=== PATIENT | female | born 1985 | race Caucasian/White ===

== ENCOUNTER 2020-10-18 10:56 | Outpatient (CLI) | payer BC, MEDICARE, MEDICAID, SELFPAY ==
[2020-10-18 12:06] LABS: Anion Gap 2 mmol/L (8-16); Blood Urea Nitrogen 9 mg/dL (7-17); Calcium 8.6 mg/dL (8.4-10.2); Carbon Dioxide 32 mmol/L (22-30); Chloride 103 mmol/L (98-107); Estimated Glomerular Filt Rate > 60; Glucose 85 mg/dL (65-105); Potassium 3.4 mmol/L (3.4-5.0); Sodium 137 mmol/L (137-145)
[2020-10-18 13:01] LABS: Vitamin D 25 Hydroxy 43.3 ng/mL
== END 2020-10-18 10:57 | disposition home or self-care (01) ==
PROVIDERS: PCP Internal Medicine; Visit Provider Internal Medicine Endocrinology, Diabetes & Metabolism
DX: E55.9 Vitamin D deficiency, unspecified (principal); E27.40 Unspecified adrenocortical insufficiency
CPT/HCPCS: 36415; 80048; 82306; 84443

== ENCOUNTER 2020-11-25 15:28 | Outpatient (CLI) | payer BC, MEDICARE, MEDICAID, SELFPAY ==
--- NOTE | ~2020-11-25 | US_ITS ---
EXAMINATION: US pelvic complete EXAM DATE: 11/25/2020 16:05 INDICATION: Pelvic and perineal pain. TECHNIQUE: Pelvic transabdominal sonogram was performed. There are multiple grayscale and Doppler im ages available for interpretation. Comparison is made to prior examination from 02/05/2018. FINDINGS: Uterus measures 6.9 x 3.2 x 2.9 cm, with a masslike region which appears contiguous to bot h uterus and the right ovary measuring up to 4 cm in size, similar in size to the mass identified on CT 2019 suspected to be an exophytic fibroid. There is another fibroid measuring 1.2 cm. Endometrial stripe measures 5 mm, within normal limits. There is no free pelvic fluid. Right adnexa: The ovary measures 2.2 x 4.2 x 2.2 cm and is morphologically normal. Ovarian vascular f low confirmed. Left adnexa: The ovary measures 1.7 x 3.0 x 1.6 cm and is morphologically normal. Ovarian vascular fl ow confirmed. IMPRESSION: 1. Fibroid uterus. Reviewed, dictated and finalized at location A. [facility] IMPRESSION: 1. Fibroid uterus.
== END 2020-11-25 15:29 | disposition home or self-care (01) ==
PROVIDERS: PCP Internal Medicine; Visit Provider Obstetrics & Gynecology
DX: R10.2 Pelvic and perineal pain (principal); D25.9 Leiomyoma of uterus, unspecified
CPT/HCPCS: 76856

== ENCOUNTER → 2021-02-19 06:56 | Outpatient (CLI) | payer BC, MEDICARE, MEDICAID, SELFPAY ==
[2021-02-19 19:24] LABS: SARS-CoV-2 RNA PCR Negative
== END ==
PROVIDERS: PCP Internal Medicine; Visit Provider Internal Medicine
DX: R68.89 Other general symptoms and signs (principal); Z20.822 Contact with and (suspected) exposure to COVID-19
CPT/HCPCS: C9803; U0003; U0005

== ENCOUNTER → 2021-03-10 06:58 | Outpatient (CLI) | payer BC, MEDICARE, MEDICAID, SELFPAY ==
[2021-03-10 18:14] LABS: SARS-CoV-2 RNA PCR Negative
== END ==
PROVIDERS: PCP Internal Medicine; Visit Provider Internal Medicine
DX: Z91.89 Other specified personal risk factors, not elsewhere classified (principal); Z20.822 Contact with and (suspected) exposure to COVID-19
CPT/HCPCS: C9803; U0003; U0005

== ENCOUNTER 2021-08-14 16:11 | Observation (INO) | payer BC, MEDICARE, MEDICAID, SELFPAY ==
[2021-08-14] VITALS (17 sets, daily range): BP systolic 96–111; BP diastolic 67–78; PULSE 67–95; RESP 12–20; TEMP 36.9; O2SAT 91–100; BMI 18.2
--- NOTE | ~2021-08-14 | CT_ITS ---
EXAMINATION: CT abdomen pelvis w con DATE: 08/14/2021 18:52 INDICATION: Epigastric abdominal pain TECHNIQUE: Computed tomography (CT) of the abdomen and pelvis was performed with 100 cc Omnipaque 350 intravenous contrast. Automated exposure control and iterative reconstruction technique were employe d. Exam dose: 166.56 mGy-cm total exam DLP. COMPARISON: 09/20/2019 CT abdomen pelvis FINDINGS: The lung bases are clear. Heart size is within normal range. No pericardial or pleural effu honorio. The liver, gallbladder, bile ducts, spleen, pancreas, pancreatic duct, and adrenal glands are unremar kable. Approximately 2.7 mm upper pole left renal calculus and up to 7 mm lower pole left renal calculus and several 2 mm or smaller right renal calculi are noted. No ureteral calculus or hydroureteronephrosis is detected. The urinary bladder is unremarkable. There is a retroflexed uterus with to 4.5 cm posterior serosal fibroid. There is fluid distention of the lower uterine segment of the uterus consider further evaluation with pelvic ultrasound examinatio n exclude endometrial or cervical malignancy. Normal caliber of the abdominal aorta. No intraperitoneal or retroperitoneal or pelvic mass lesion or adenopathy or ascites. There is prominent thickness of the wall of the stomach which may be due to under distention versus g astritis. No bowel obstruction or intraperitoneal free air. The largely gas distended retrocecal appendix measures up to 7 mm diameter but no periappendiceal fat stranding or fluid is noted. Thoracolumbar spinal rods and pedicle screws are noted. No suspicious osteolytic or osteoblastic lesi ons are noted. IMPRESSION: Bilateral nephrolithiasis Retroflexed uterus with 4.5 cm serosal fibroid Abnormal distention of the lower uterine segment endometrial cavity; and mediolateral or cervical mal ignancy are not excluded Reviewed, dictated and finalized at [facility]. Reviewed, dictated and finalized at location [facility]. IMPRESSION: Bilateral nephrolithiasis Retroflexed uterus with 4.5 cm serosal fibroid Abnormal distention of the lower uterine segment endometrial cavity; and mediol ateral or cervical malignancy are not excluded
[2021-08-14] MEDS: SODIUM CHLORIDE 0.9% IV 1,000 ML 999 ML IV CONT ×2 (16:41→17:31)
[2021-08-14] MEDS: MORPHINE SULFATE (*CRX) 4 MG/ML INJ IV PUSH (16:42)
[2021-08-14] MEDS: ONDANSETRON INJ 4 MG/2 ML VIAL IV PUSH (16:42)
[2021-08-14 16:43] LABS: Basophils Absolute Auto 0.1 K/mm3 (0.0-0.1); Basophils Percent Auto 0.5 % (0.2-1.2); Eosinophils Absolute Auto 0.1 K/mm3 (0-0.3); Eosinophils Percent Auto 1.4 % (0-4.4); Hematocrit 45.9 % (37.0-47.0); Hemoglobin 15.9 g/dL (12.0-15.0); Immature Granulocyte Percent A 1.1 % (0-0.5); Lymphocytes Absolute Auto 1.77 K/mm3 (0.9-3.2); Lymphocytes Percent Auto 18.6 % (18.3-44.2); Mean Corpuscular HGB Conc 34.6 g/dl (32-36); Mean Corpuscular Hemoglobin 30.1 pg (26-34); Mean Corpuscular Volume 86.9 fl (80-100); Mean Platelet Volume 10.6 fl (7.4-10.4); Monocytes Absolute Auto 0.5 K/mm3 (0.1-0.6); Monocytes Percent Auto 4.7 % (2.6-8.5); Neutrophils Percent Auto 73.7 % (45.5-73.1); Platelet Count Result 363 k/mm3 (150-375); Red Blood Count 5.28 M/mm3 (4.2-5.4); Red Cell Distribution Width 12.7 % (11.5-14.5); White Blood Count 9.5 K/mm3 (4.5-10.0)
[2021-08-14 16:55] LABS: Alanine Aminotransferase 22 U/L (4-35); Albumin Level 5.3 g/dL (3.5-5.1); Alkaline Phosphatase 48 U/L (38-126); Anion Gap 11 mmol/L (8-16); Aspartate Amino Transferase 33 U/L (14-36); Bilirubin,Total 0.9 mg/dL (0.2-1.3); Blood Urea Nitrogen 27 mg/dL (7-17); Calcium 10.1 mg/dL (8.4-10.2); Carbon Dioxide 25 mmol/L (22-30); Chloride 89 mmol/L (98-107); Estimated CRCL calculation 48 ml/min; Estimated Glomerular Filt Rate > 60; Glucose 127 mg/dL (65-110); Lipase 236 U/L (23-300); Potassium 5.9 mmol/L (3.4-5.0); Sodium 125 mmol/L (137-145)
[2021-08-14 17:27] LABS: Add Urine Microscopic? YES; Appearance Urine Cloudy (Clear); Bacteria Urine Trace /hpf; Bilirubin Urine Negative (Negative); Blood Urine Negative (Negative); Color Urine Yellow (Yellow); Glucose Urine UA Negative (Negative); Hyaline Casts Urine 50+ /lpf; Ketones Urine Negative (Negative); Leukocyte Esterase Ur 1+ LEU/UL (Negative); Mucus Urine Few /lpf; Nitrate Urine Negative (Negative); Protein Urine 1+ mg/dL (Negative); RBC Urine 0-2 /hpf (0-2); Specific Grav Ur 1.023 (1.001-1.035); Squamous Epithelial Cell Urine Few /hpf (Few); Urobilinogen Urine Negative mg/dL (<2.0); WBC Urine 0-3 /hpf
--- NOTE | 2021-08-14 18:40 | ED.NAVMDI ---
HPI - Nausea/Vomiting/Diarrhea General Chief complaint: Nausea/Vomiting/Diarrhea Stated complaint: Nausea, Dizzy, Vomiting Time Seen by Provider: 08/14/21 16:13 History of Present Illness HPI Narrative: Patient is a 36-year-old female who presents ER with epigastric pain as well as nausea and vomiting. Intermittent over the last couple days. Reports she has bouts of severe pain with retching. Tried Mylanta last night with mild improvement. No fevers or chills or sweats. 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 She took a double dose of her steroids today which was prednisone 10mg. She usually takes prednisone 2.5 mg followed by 5 mg the next day alternating. Patient has intellectual disability which makes history slightly more difficult. Related Data Home Medications Medication Instructions Recorded Confirmed atomoxetine 60 mg PO QAM 09/20/19 08/14/21 citalopram 40 mg PO DAILY 09/20/19 08/14/21 fludrocortisone 0.1 mg PO DAILY 09/20/19 08/14/21 folic acid 2 mg PO BID 09/20/19 08/14/21 loratadine [Claritin] 10 mg PO DAILY 09/20/19 08/14/21 meclizine 12.5 mg PO TID 09/20/19 08/14/21 methylphenidate HCl [Concerta] 27 mg PO QAM 09/20/19 08/14/21 pantoprazole 40 mg PO BID 09/20/19 08/14/21 prednisone See Rx Instructions .ROUTE .COMPLEX 09/20/19 08/14/21 pregabalin 150 mg capsule 150 mg PO BID 10/31/20 08/14/21 Allergies Allergy/AdvReac Type Severity Reaction Status Date / Time No Known Allergies Allergy Verified 12/24/20 09:18 Review of Systems Review of Systems: All systems reviewed & are unremarkable except as noted in HPI and below Constitutional: Constitutional: Denies chills, Denies fever(s) and Denies weakness ENT: Denies nasal congestion and Denies sore throat Cardiovascular: Cardiovascular: Denies chest pain, Denies rapid heart rate and Denies radiating jaw, neck or arm pain Respiratory: Respiratory: Denies cough, Denies dyspnea and Denies wheezing Gastrointestinal: Gastrointestinal: Reports abdominal pain, Denies diarrhea, Reports nausea and Reports vomiting [facility] Past Medical History Medical History (Updated 08/15/21 @ 01:04 by Roya Workman DO) Acid reflux Courtland's disease 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 She is single and does not have children. 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 Her mother is her legal guardian. Smoking status: Never smoker Alcohol intake: never Substance use: never Substance use type: does not use Additional living arrangements comments: Independent living with some assistance. Spiritual care concerns: No Exam Narrative: GENERAL: Well-appearing, well-nourished, and in no acute distress. HEAD: Normocephalic, atraumatic. EYES: PERRL and EOMI. CHEST: Clear to auscultation. No respiratory distress. HEART: Regular rate and rhythm. Normal peripheral pulses. ABDOMEN: Soft, mild epigastric tenderness, nondistended, normal bowel
[2021-08-14 19:08] LABS: Cortisol Random 2.91 ug/dL
[2021-08-14] MEDS: HYDROCORTISONE SODIUM SUCCINATE 100 MG/2 ML VIAL IV PUSH (19:59)
--- NOTE | 2021-08-14 20:29 | PM.IMHP ---
H&P: HPI History of Present Illness Date/Time: 08/14/21 20:29 Chief Complaint: epigastric pain, nausea vomiting Narrative: 36-year-old female with a past medical history of ADHD, depression, intellectual disability, GERD and [place]'s disease who presented to the ER with epigastric pain, nausea and vomiting starting this morning. The patient is only a fair historian due to her intellectual disability and majority of the information comes from mother was at bedside. 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 The pain was burning in nature and a 10/10 in intensity at its worst. The pain did not radiate. It was associated with some nausea and decreased oral intake. She did have 1 episode of emesis yesterday and today. Her pain improved to a 5/10 in intensity after she received GI cocktail, Zofran, morphine and IV fluids in the ER. At the time of my evaluation the patient was requesting food and tolerated eating some peaches and pretzels. She cannot tell me if her pain worsens when she eats. Her mother reports that she does have frequent bouts of constipation. She has had prior episodes of steroid induced gastritis with a prior EGD several years ago to rule out celiac disease due to a general thin body habitus. The mother reports that the patient did have history of acute angle of SMA on imaging. The patient states her last bowel movement was yesterday and was reportedly normal. Her mother reports that the patient abdomen is frequently distended. The patient felt so poorly yesterday that she decided to go home with her parents. She did receive a dose of Pepto-Bismol which did not really seem to help her symptoms. When the patient's mother returned home today the patient was in the bathroom lying on the floor and diaphoretic. She was pale and her mother was concerned that she may be having an [place]'s crisis. Patient has not been having any dysuria, hematuria or changes in urinary frequency. She denies any chest pain or shortness of breath. She has not had any cough or congestion. She received her Moderna vaccine and is scheduled to have her booster next week. While in the ER the patient's blood pressures did briefly drop below 100 systolic. She rebounded after IV fluid administration and IV hydrocortisone. She does have a history of uterine fibroids and follows with Dr. diallo. Her CT scan of the abdomen demonstrated 4.5 cm posterior subserosal fibroid and fluid distention of the lower uterine segment. The patient had a pelvic ultrasound November 2020 which demonstrated a mass of similar size and sock to be an exophytic fibroid. The patient is following and Dr. Diallo as outpatient. She has not been having any dysfunctional uterine bleeding or painful menses. Review of Systems Review of Systems: 12 systems were reviewed with pertinent positives and negatives per HPI. Except as documented in the HPI, all other systems were reviewed and are negative. [facility] Past Medical History Medical History (Updated 08/15/21 @ 01:04 by Roya Workman DO) Acid reflux [place]'s disease 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
--- NOTE | 2021-08-14 22:44 | ADMGEN ---
This patient, Leydi East, was admitted to [facility] Surg Room 317-01. Patient/family oriented to hospital policies and general routines including ID bracelet, bed and alarms, visiting hours, pain management, procedures, bathroom and other care routines, personal items, smoking policy, room service/diet, and visiting hours. Information on how to activate the Rapid Response Team has been discussed. Patient/Family are encouraged to report perceived risks to care and to ask questions if they do not understand what they are told or what they should do.
[2021-08-15] VITALS (8 sets, daily range): BP systolic 104–117; BP diastolic 56–70; PULSE 71–103; RESP 16–18; TEMP 36.2–36.4; O2SAT 98–100
[2021-08-15] MEDS: SODIUM CHLORIDE 0.9% IV 1,000 ML 125 ML IV CONT ×2 (00:37→12:16)
[2021-08-15] MEDS: PREGABALIN (*CRX) 75 MG CAPSULE 150 MG PO ×3 (00:37→17:54)
[2021-08-15] MEDS: MECLIZINE HCL 12.5 MG TABLET PO ×4 (00:37→17:54)
[2021-08-15] MEDS: HYDROCORTISONE SODIUM SUCCINATE 100 MG/2 ML VIAL 50 MG IV PUSH ×4 (00:37→17:55)
[2021-08-15 06:55] LABS: Basophils Percent Auto 0.3 % (0.2-1.2); Hematocrit 35.7 % (37.0-47.0); Immature Granulocyte Absolute 0.07 K/mm3 (0.00-0.031); Lymphocytes Absolute Auto 0.96 K/mm3 (0.9-3.2); Lymphocytes Percent Auto 13.4 % (18.3-44.2); Mean Corpuscular HGB Conc 33.6 g/dl (32-36); Mean Corpuscular Hemoglobin 30.1 pg (26-34); Mean Corpuscular Volume 89.5 fl (80-100); Monocytes Absolute Auto 0.1 K/mm3 (0.1-0.6); Monocytes Percent Auto 1.7 % (2.6-8.5); Neutrophils Percent Auto 83.6 % (45.5-73.1); Platelet Count Result 295 k/mm3 (150-375); Red Blood Count 3.99 M/mm3 (4.2-5.4); Red Cell Distribution Width 12.8 % (11.5-14.5); White Blood Count 7.2 K/mm3 (4.5-10.0)
[2021-08-15 07:10] LABS: Alanine Aminotransferase 17 U/L (4-35); Alkaline Phosphatase 31 U/L (38-126); Anion Gap 5 mmol/L (8-16); Aspartate Amino Transferase 59 U/L (14-36); Bilirubin,Total 0.6 mg/dL (0.2-1.3); Blood Urea Nitrogen 13 mg/dL (7-17); Calcium 8.3 mg/dL (8.4-10.2); Carbon Dioxide 23 mmol/L (22-30); Chloride 101 mmol/L (98-107); Estimated CRCL calculation 89 ml/min; Estimated Glomerular Filt Rate > 60; Glucose 128 mg/dL (65-110); Magnesium 1.7 mg/dL (1.6-2.3); Phosphorus 4.9 mg/dL (2.5-4.5); Potassium 4.7 mmol/L (3.4-5.0); Sodium 129 mmol/L (137-145)
[2021-08-15] MEDS: FLUDROCORTISONE ACETATE 0.1 MG TABLET PO (08:25)
[2021-08-15] MEDS: LORATADINE 10 MG TABLET PO (08:25)
[2021-08-15] MEDS: FOLIC ACID 1 MG TABLET 2 MG PO ×2 (08:25→17:55)
[2021-08-15] MEDS: CITALOPRAM HYDROBROMIDE 20 MG TABLET 40 MG PO (08:26)
[2021-08-15] MEDS: PANTOPRAZOLE SODIUM IV 40 MG VIAL IV PUSH ×2 (08:26→17:55)
[2021-08-15] MEDS: polyethylene glycoL 3350 17 GM POWD.PACK PO (08:26)
--- NOTE | 2021-08-15 11:04 | PM.IMPN ---
Progress Note: A&P Assessment and Plan (1) Acute adrenal crisis: Code(s): E27.2 - Addisonian crisis Status: Acute Assessment and Plan: Evidence by hyperkalemia, hyponatremia and borderline low blood pressures. Likely secondary to acute gastritis/GI symptoms complicated by dehydration. Stress dose hydrocortisone 100 mg IV given in the ER will continue stress dose hydrocortisone 50 mg IV q.6 hours times 12-24 hours. Electrolytes are improving this morning will continue hydrocortisone for today and was switched to prednisone for her addisonian crisis and subsequent taper If stable will plan for discharge home tomorrow (2) Acute hyperkalemia: Code(s): E87.5 - Hyperkalemia Status: Acute Assessment and Plan: Likely due to addisonian crisis. 5.9 on admission, this has resolved (3) Acute hyponatremia: Code(s): E87.1 - Hypo-osmolality and hyponatremia Status: Acute Assessment and Plan: Likely due to addisonian crisis. 125 on admission. upto 129 today recheck her sodium level in the morning (4) Dehydration: Code(s): E86.0 - Dehydration Status: Acute Assessment and Plan: Evidence by relative polycythemia, elevated BUN, total protein and albumin and greater than 50 hyaline casts and UA. She received 2 L of normal saline in the ER. Will continue IV fluid hydration at 125 mL an hour Will continue IV hydration today and recheck the level in the morning (5) Constipation: Qualifiers: Constipation type: unspecified constipation type Qualified Code(s): K59.00 - Constipation, unspecified Code(s): K59.00 - Constipation, unspecified Status: Acute Assessment and Plan: Patient denies any acute constipation symptoms but does have some abdominal distension and some of her GI symptoms could be due to constipation Management of chronic constipation was discussed with the patient's mother and she is interested in trying MiraLax as a treatment option instead of till cap stool softeners that the patient has been using at home. Will start MiraLax 17 g in a.m.. I also discussed the possibility of adding a soluble fiber on discharge home as these 2 medications could be dissolved in clear liquids. (6) Uterine fibroid: Qualifiers: Uterine leiomyoma location: unspecified location Qualified Code(s): D25.9 - Leiomyoma of uterus, unspecified Code(s): D25.9 - Leiomyoma of uterus, unspecified Status: Inactive Assessment and Plan: The patient already has follow-up with gynecology. CT abdomen with some fullness in the lower uterine area likely will need a pelvic ultrasound she is going to follow-up with gynecology in can be done as an outpatient basis (7) Epigastric abdominal pain: Code(s): R10.13 - Epigastric pain Status: Acute Assessment and Plan: Possibly due to steroid induced gastritis versus acute nonspecific gastritis. Will place patient on Protonix IV b.i.d. and advanced diet as tolerated. If symptoms persist the patient may benefit from outpatient EGD. Additional Plan History of GERD History of [place]'s disease History of Addisonian crisis 11/2012, 10/2014, 08/2021 History of Attention deficit disorder on atomoxetine and Concerta Cognitive developmental delay Grand mal seizure 05/2011 Hearing loss IUD (intrauterine device) in place Mirena IUD placed 12/24/2020 Kidney stones Scoliosis status post back surgery Uterine fibroid Sees Dr. 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 discussed with her mother bedside Subjective Date/time seen: 08/15/21 11:04 Interval history: HPI:36-year-old female with a past medical history of ADHD, depression, intellectual disability, GERD and [place]'s disease who presented to the ER with epigastric pain, nausea and vomiting starting this morning. The patient is only a fair historian due to her inte
[2021-08-15] MEDS: CALCIUM CARBONATE (TUMS) 500 MG (200 MG ELEMENTAL) PO (15:09)
[2021-08-16] MEDS: HYDROCORTISONE SODIUM SUCCINATE 100 MG/2 ML VIAL 50 MG IV PUSH ×2 (00:06→05:30)
--- NOTE | 2021-08-16 01:01 | PC.NURSE ---
Daylight Savings Time For Daylight Savings Time Ending in the Fall - Clocks are moved back. For Daylight Savings Time Beginning in the Spring - Clocks are moved ahead. For [facility], the time of change occurs at 0200 hrs. Time is taken from the civil process server. This entry on the patient's chart recognizes the change in time reflected during documentation. Example: 2 entries for vital signs may be charted for 0200 hrs.
[2021-08-16] MEDS: SODIUM CHLORIDE 0.9% IV 1,000 ML 125 ML IV CONT (05:30)
[2021-08-16 05:39] VITALS: BP 94/61; PULSE 69; RESP 12; TEMP 35.6; O2SAT 100
[2021-08-16 07:18] LABS: Alanine Aminotransferase 16 U/L (4-35); Albumin Level 3.2 g/dL (3.5-5.1); Alkaline Phosphatase 29 U/L (38-126); Anion Gap 3 mmol/L (8-16); Aspartate Amino Transferase 22 U/L (14-36); Bilirubin,Total 0.4 mg/dL (0.2-1.3); Blood Urea Nitrogen 12 mg/dL (7-17); Calcium 8.1 mg/dL (8.4-10.2); Carbon Dioxide 26 mmol/L (22-30); Chloride 107 mmol/L (98-107); Estimated CRCL calculation 108 ml/min; Estimated Glomerular Filt Rate > 60; Glucose 91 mg/dL (65-110); Magnesium 1.7 mg/dL (1.6-2.3); Potassium 3.3 mmol/L (3.4-5.0); Sodium 136 mmol/L (137-145)
[2021-08-16 07:19] LABS: Basophils Percent Auto 0.3 % (0.2-1.2); Eosinophils Percent Auto 0.2 % (0-4.4); Hematocrit 31.8 % (37.0-47.0); Hemoglobin 10.4 g/dL (12.0-15.0); Immature Granulocyte Absolute 0.07 K/mm3 (0.00-0.031); Immature Granulocyte Percent A 0.8 % (0-0.5); Lymphocytes Absolute Auto 3.03 K/mm3 (0.9-3.2); Lymphocytes Percent Auto 33.7 % (18.3-44.2); Mean Corpuscular HGB Conc 32.7 g/dl (32-36); Mean Corpuscular Hemoglobin 30.2 pg (26-34); Mean Corpuscular Volume 92.4 fl (80-100); Mean Platelet Volume 11.5 fl (7.4-10.4); Monocytes Absolute Auto 0.5 K/mm3 (0.1-0.6); Neutrophils Absolute Auto 5.3 K/mm3 (1.3-6.7); Platelet Count Result 223 k/mm3 (150-375); Red Blood Count 3.44 M/mm3 (4.2-5.4); Red Cell Distribution Width 13.2 % (11.5-14.5)
[2021-08-16] MEDS: CITALOPRAM HYDROBROMIDE 20 MG TABLET 40 MG PO (08:32)
[2021-08-16] MEDS: LORATADINE 10 MG TABLET PO (08:32)
[2021-08-16] MEDS: FLUDROCORTISONE ACETATE 0.1 MG TABLET PO (08:32)
[2021-08-16] MEDS: MECLIZINE HCL 12.5 MG TABLET PO (08:32)
[2021-08-16] MEDS: PANTOPRAZOLE SODIUM IV 40 MG VIAL IV PUSH (08:32)
[2021-08-16] MEDS: FOLIC ACID 1 MG TABLET 2 MG PO (08:32)
[2021-08-16] MEDS: polyethylene glycoL 3350 17 GM POWD.PACK PO (08:33)
[2021-08-16] MEDS: predniSONE 10 MG TABLET 30 MG PO (09:41)
[2021-08-16] MEDS: PREGABALIN (*CRX) 75 MG CAPSULE 150 MG PO (09:41)
--- NOTE | 2021-08-16 10:38 | PM.DS ---
DS: Admitting Diagnosis Discharge Date 08/16/2021 Admitting Diagnosis Nausea vomiting abdominal pain DS: Discharge Diagnosis Discharge Diagnosis (1) Acute adrenal crisis: Code(s): E27.2 - Addisonian crisis Status: Acute Assessment and Plan: Evidence by hyperkalemia, hyponatremia and borderline low blood pressures. Likely secondary to acute gastritis/GI symptoms complicated by dehydration. Stress dose hydrocortisone 100 mg IV given in the ER will continue stress dose hydrocortisone 50 mg IV q.6 hours times 12-24 hours. Electrolytes improved and back to normal by the time of discharge. She was continued on hydrocortisone IV 50 mg q.6 hours for 24-48 hours and was switched to prednisone equivalent dose. She will continue to taper prednisone over the next few days back to her normal regimen. Her normal regimen of prednisone is 2.5 mg alternate with 5 mg daily. Along with fludrocortisone 0.1 mg daily (2) Acute hyperkalemia: Code(s): E87.5 - Hyperkalemia Status: Acute Assessment and Plan: Likely due to addisonian crisis. 5.9 on admission, this has resolved (3) Acute hyponatremia: Code(s): E87.1 - Hypo-osmolality and hyponatremia Status: Acute Assessment and Plan: Likely due to addisonian crisis. 125 on admission. Slowly improved back to normal by the time of discharge. (4) Dehydration: Code(s): E86.0 - Dehydration Status: Acute Assessment and Plan: Evidence by relative polycythemia, elevated BUN, total protein and albumin and greater than 50 hyaline casts and UA. She received 2 L of normal saline in the ER. She was continued on IV hydration and was subsequently discontinued after resolution of dehydration (5) Constipation: Qualifiers: Constipation type: unspecified constipation type Qualified Code(s): K59.00 - Constipation, unspecified Code(s): K59.00 - Constipation, unspecified Status: Acute Assessment and Plan: Patient denies any acute constipation symptoms but does have some abdominal distension and some of her GI symptoms could be due to constipation Management of chronic constipation was discussed with the patient's mother and she is interested in trying MiraLax as a treatment option instead of till cap stool softeners that the patient has been using at home. Will start MiraLax 17 g in a.m.. I also discussed the possibility of adding a soluble fiber on discharge home as these 2 medications could be dissolved in clear liquids. (6) Uterine fibroid: Qualifiers: Uterine leiomyoma location: unspecified location Qualified Code(s): D25.9 - Leiomyoma of uterus, unspecified Code(s): D25.9 - Leiomyoma of uterus, unspecified Status: Inactive Assessment and Plan: The patient already has follow-up with gynecology. CT abdomen with some fullness in the lower uterine area likely will need a pelvic ultrasound she is going to follow-up with gynecology in can be done as an outpatient basis (7) Epigastric abdominal pain: Code(s): R10.13 - Epigastric pain Status: Acute Assessment and Plan: Possibly due to steroid induced gastritis versus acute nonspecific gastritis. Will place patient on Protonix IV b.i.d. and advanced diet as tolerated. If symptoms persist the patient may benefit from outpatient EGD. She will discuss with primary care physician for referral to production weigher for outpatient EGD DS: Summary Hospital Course Hospital Course: See above Time Spent with Patient Time attestation: Total time spent providing and/or coordinating discharge services: 35 minutes Exam Narrative: General: Thin body habitus, no acute distress HEENT: Mucous membranes are moist, no oral pharyngeal erythema, pupils are equal and reactive, no scleral icterus, no conjunctival pallor Respiratory: Clear to auscultation bilaterally, no increased work
== END 2021-08-16 11:25 | disposition home or self-care (01) ==
LOC: ANHED 19:59 → ANH3MEDSUR 08-16 10:38
PROVIDERS: Admitting Provider Internal Medicine; Emergency Provider Emergency Medicine; PCP Internal Medicine; Visit Provider Internal Medicine
DX: E27.2 Addisonian crisis (principal); E27.1 Primary adrenocortical insufficiency; E86.0 Dehydration; K59.00 Constipation, unspecified; R10.13 Epigastric pain; D25.9 Leiomyoma of uterus, unspecified; F90.9 Attention-deficit hyperactivity disorder, unspecified type; F79 Unspecified intellectual disabilities; F32.9 Major depressive disorder, single episode, unspecified; K21.9 Gastro-esophageal reflux disease without esophagitis
CPT/HCPCS: 36415; 74177; 80053; 81001; 81025; 82533; 83690; 83735; 84100; 85025; 96361; 96374; 96375; 96376; 99285; A9270; C9113; G0378; J1720; J2270; J2405; J7030; J7512; Q9967

== ENCOUNTER 2022-01-01 02:20 | Day surgery (SDC) | payer MEDICARE, BC, MEDICAID, SELFPAY ==
[2021-12-30 15:53] VITALS: BMI 19.3
--- NOTE | 2022-01-01 10:04 | WPDANESEPPF ---
Anes - Initial Pre Proc Eval Procedure: Operation Date: 01/01/22 11:00 Proposed Procedures p Esophagogastroduodenoscopy - Momo Kelly MD Date/Time: 01/01/22 10:04 Surgeon: Momo Kelly MD Pre Op Diagnosis: Epigastric pain Patient Data Age: 36 Gender: F Height: 1.54 m Weight: 45.5 kg Allergies Allergy/AdvReac Type Severity Reaction Status Date / Time No Known Allergies Allergy Verified 12/30/21 15:52 Home Medications Medication Instructions Recorded Confirmed Type citalopram 40 mg PO DAILY 09/20/19 12/30/21 History fludrocortisone 0.1 mg PO DAILY 09/20/19 12/30/21 History folic acid 2 mg PO BID 09/20/19 12/30/21 History loratadine [Claritin] 10 mg PO DAILY 09/20/19 12/30/21 History meclizine 12.5 mg PO TID 09/20/19 12/30/21 History methylphenidate HCl [Concerta] 27 mg PO QAM 09/20/19 12/30/21 History prednisone See Rx Instructions .ROUTE .COMPLEX 09/20/19 12/30/21 History pregabalin 150 mg capsule 150 mg PO BID 10/31/20 12/30/21 History atomoxetine 40 mg PO DAILY 12/30/21 12/30/21 History pantoprazole 40 mg PO BID 12/30/21 12/30/21 History Patient hx anesthesia problems: none Family hx anesthesia problems: none Results Review: All pre-operative results and documents have been reviewed as part of the pre-operative evaluation. [facility] Past Medical History Medical History (Updated 08/15/21 @ 01:04 by Roya Workman DO) Acid reflux [place]'s disease 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 She is single and does not have children. 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 Her mother is her legal guardian. Smoking status: Never smoker Alcohol intake: current Alcohol use details: Rarely Substance use: never Substance use type: does not use Living arrangements: with family Additional living arrangements comments: Independent living with some assistance. Gender identity (if verbalized by the patient): Female Sexual Orientation (if Verbalized by the Patient): Straight or Heterosexual Spiritual care concerns: No Anes - Eval Final PreProcedure Day of Procedure 01/01/22 10:04 Patient weight: thin Heart: regular rate and rhythm Lungs: clear to auscultation and normal air movement Airway: Mallampati scale class II Neurological: alert and oriented Last oral intake: >/= 8 hours ASA classification: III Emergent: no Anesthetic plan: proceed Anesthesia type and monitoring: general GIVS and standard monitoring Results Review: All pre-operative results and documents have been reviewed as part of the pre-operative evaluation. Informed Consent: The patient's anesthetic plan and its attendant risks and benefits were discussed with the patient/family/POA. Questions were solicited and answers provided to the satisfaction of the patient/family/POA.
[2022-01-01 10:28] VITALS: BP 109/76; PULSE 100; RESP 18; TEMP 36.4; O2SAT 100; BMI 17.9
[2022-01-01] MEDS: LACTATED RINGERS 1,000 ML 150 ML IV CONT (10:46)
--- NOTE | 2022-01-01 11:01 | WPDGICN ---
Assessment and Plan Assessment and plan (1) Epigastric abdominal pain: Code(s): R10.13 - Epigastric pain Status: Acute Assessment and Plan: Patient has intermittent epigastric pain off and on. It is difficult to get a history from patient or from family as patient now lives independently. She has had no relief with a trial of pantoprazole 40mg p.o. b.i.d.. Plan for EGD to assess more thoroughly. 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 Armond Bryan because of epigastric pain. History is primarily derived from her mother who accompanies the patient today.Patient has developmental delays. For many years she has had epigastric pain. Apparently the pain comes off and on. That it is uncertain if it is related to certain dietary intolerance is. Patient as stated has developmental delays. She is known to have Sunshine's disease. She is chronically on prednisone. She suffers with a seizure disorder. She has been treated empirically with Protonix 40mg p.o. do b.i.d. for many years with no change in symptoms. Patient hospitalized in September with an addisonian crisis. Because of epigastric pain an EGD was recommended in patient now presents for EGD. No difficulty swallowing as described. The quality of the pain is unable to be obtain. She has had no specific weight loss although was very small stature to begin with. She has had no bleeding described. Family history is noncontributory. An EGD will be performed today. 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 She is single and does not have children. 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 Her mother is her legal guardian. Smoking status: Never smoker Alcohol intake: current Alcohol use details: Rarely Substance use: never Substance use type: does not use Living arrangements: with family Additional living arrangements comments: Independent living with some assistance. Gender identity (if verbalized by the patient): Female Sexual Orientation (if Verbalized by the Patient): Straight or Heterosexual Spiritual care concerns: No Meds Home Medications and Allergies Home Medications Medication Instructions Recorded Confirmed Type citalopram 40 mg PO DAILY 09/20/19 12/30/21 History fludrocortisone 0.1 mg PO DAILY 09/20/19 12/30/21 History folic aci
[2022-01-01] MEDS: BENZOCAINE (*SP) 60 ML SPRAY CAN (HURRICAINE) 1 SPRAY MUCOUS MEM (11:12)
[2022-01-01 11:26] VITALS: BP 93/60; PULSE 78; RESP 16; O2SAT 98
[2022-01-01 11:36] VITALS: BP 97/56; PULSE 72; RESP 18; O2SAT 100
[2022-01-01 11:46] VITALS: BP 98/69; PULSE 84; RESP 22; O2SAT 100
== END 2022-01-01 11:57 | disposition home or self-care (01) ==
PROVIDERS: PCP Internal Medicine; Visit Provider Internal Medicine Gastroenterology
PROC: 0DJ08ZZ Inspection of Upper Intestinal Tract, Via Natural or Artificial Opening Endoscopic (ICD-10-PCS; CPT 43235; principal; 2022-01-01 11:00)
DX: R10.13 Epigastric pain (principal); F81.9 Developmental disorder of scholastic skills, unspecified; E27.1 Primary adrenocortical insufficiency; G40.909 Epilepsy, unspecified, not intractable, without status epilepticus; K21.9 Gastro-esophageal reflux disease without esophagitis; F89 Unspecified disorder of psychological development; Z97.5 Presence of (intrauterine) contraceptive device; M41.9 Scoliosis, unspecified; D25.9 Leiomyoma of uterus, unspecified; F98.8 Other specified behavioral and emotional disorders with onset usually occurring in childhood and adolescence
CPT/HCPCS: 43239; 87081; J2704; J7120

== ENCOUNTER 2022-01-14 16:20 | Outpatient (CLI) | payer MEDICARE, BC, MEDICAID, SELFPAY ==
--- NOTE | ~2022-01-14 | US_ITS ---
EXAMINATION: US pelvic complete w TV EXAM DATE: 01/14/2022 17:16 INDICATION: R93.89 - Abnormal findings on diagnostic imaging of other... TECHNIQUE: Pelvic transabdominal and transvaginal sonogram was performed. There are multiple graysca le and Doppler images available for interpretation. Comparison is made to prior examination from 11/25. Correlation was made with CT abdomen pelvis 08/14/2021. FINDINGS: Uterus measures 7.2 x 5.0 x 3.0 cm, with 2 hypoechoic regions along the posterior aspect o f the myometrium, likely exophytic fibroids. These measure 3.7 x 3.7 x 4.3 cm and 2.0 x 1.5 x 1.2 cm. These appear not significantly changed. Endometrial stripe measures 7 mm, within normal limits. The re is no free pelvic fluid. Right adnexa: The ovary measures 3.4 x 2.0 x 1.8 cm and is morphologically normal. Ovarian vascular f low confirmed. Left adnexa: The ovary measures 2.9 x 3.1 x 2.4 cm and is morphologically normal. Ovarian vascular fl ow confirmed. IMPRESSION: Fibroid uterus. Normal-appearing endometrium on this exam. Reviewed, dictated and finalized at location A.
== END 2022-01-14 16:21 | disposition home or self-care (01) ==
PROVIDERS: PCP Internal Medicine; Visit Provider Obstetrics & Gynecology
DX: R93.89 Abnormal findings on diagnostic imaging of other specified body structures (principal); D25.9 Leiomyoma of uterus, unspecified
CPT/HCPCS: 76830; 76856

== ENCOUNTER 2022-01-20 12:15 | Outpatient (CLI) | payer BC, MEDICARE, MEDICAID, SELFPAY ==
--- NOTE | ~2022-01-20 | NM_ITS ---
EXAMINATION: NM hepatobiliary wo pharm DATE: 01/20/2022 15:03 INDICATION: Abdominal pain. COMPARISON: CT abdomen and pelvis 08/14/2021 TECHNIQUE: 5.2 mCi Tc-99m mebrofenin (Choletec) was administered intravenously. Scintigraphic images of the abdomen were obtained for one hour. Then, the patient drank 8 oz Ensure, and imaging was cont inued for 60 minutes. FINDINGS: There is normal clearance of radiotracer from the blood pool. There is homogeneous tracer u ptake by the liver. Activity progresses to the bowel and gallbladder. Gallbladder ejection fraction (GBEF) was 75%. Note that with this technique, normal GBEF >= 33%. IMPRESSION: 1. Normal hepatobiliary scintigraphy. Reviewed, dictated and finalized at location A.
== END 2022-01-20 12:16 | disposition home or self-care (01) ==
PROVIDERS: PCP Internal Medicine; Visit Provider Internal Medicine
DX: R10.9 Unspecified abdominal pain (principal)
CPT/HCPCS: 78226; A9537

== ENCOUNTER 2022-02-03 17:29 | Outpatient (CLI) | payer BC, MEDICARE, MEDICAID, SELFPAY ==
--- NOTE | ~2022-02-03 | CT_ITS ---
EXAMINATION: CT IAC/mastoids BI wo con DATE: 02/03/2022 18:01 INDICATION: Sensorineural hearing loss bilaterally. TECHNIQUE: Computed tomography (CT) of the temporal bones was performed without intravenous contrast. Automated exposure control and iterative reconstruction technique were employed. The dose-length pro duct was 175.06 mGy-cm. COMPARISON: CT sinuses 07/10/2014 FINDINGS: RIGHT TEMPORAL BONE: The internal auditory canal, cochlea, vestibule, semicircular canals, vestibular aqueduct, carotid ca nal, jugular bulb, facial nerve course, ossicles, tympanic membrane, scutum, Prussak space, external auditory canal, and mastoid air cells are normal. LEFT TEMPORAL BONE: The internal auditory canal, cochlea, vestibule, semicircular canals, vestibular aqueduct, carotid ca nal, and jugular bulb are normal. There are changes of mastoidectomy with complete opacification of t he mastoidectomy space and mastoid air cells. There is material in the tympanic cavity. There is a sm all volume of bone in the expected area of the ossicles. There is an implant in the oval window and e xpected area of the ossicles. The external auditory canal is normal. IMPRESSION: 1. Normal right temporal bone. 2. Postoperative changes in left temporal bone including implant in the oval window and expected area of the ossicles with small volume of residual bone in the expected area of the ossicles. Soft tissue attenuation material fills much of the tympanic cavity and all of the mastoidectomy cavity and resid ual mastoid air cells. Reviewed, dictated and finalized at location A. IMPRESSION: 1. Normal right temporal bone. 2. Postoperative changes in left temporal bone including implant in the oval wi ndow and expected area of the ossicles with small volume of residual bone in th e expected area of the ossicles. Soft tissue attenuation material fills much of the tympanic cavity and all of the mastoidectomy cavity and residual mastoid a ir cells.
== END 2022-02-03 17:30 | disposition home or self-care (01) ==
PROVIDERS: PCP Internal Medicine
DX: H90.3 Sensorineural hearing loss, bilateral (principal)
CPT/HCPCS: 70480

== ENCOUNTER 2022-05-04 18:19 | Observation (INO) | payer MEDICARE, BC, MEDICAID, SELFPAY ==
--- NOTE | ~2022-05-04 | CT_ITS ---
EXAMINATION: CT abdomen pelvis w con DATE: 05/04/2022 20:57 INDICATION: right lower abdominal pain TECHNIQUE: Computed tomography (CT) of the abdomen and pelvis was performed with 100 mL Omnipaque-300 intravenous contrast. Automated exposure control and iterative reconstruction technique were employe d. The dose-length product was 184.35 mGy-cm. COMPARISON: 08/14/2021. FINDINGS: Exam limited by beam hardening artifact from spinal hardware. Lower thorax: Unremarkable Liver: Normal. Biliary/Gallbladder: Gallbladder is normal. Mildly dilated common bile duct, unchanged Pancreas: No mass or duct dilation. Spleen: Normal. Adrenals:No mass. Kidneys: No mass or hydronephrosis. Bilateral nonobstructive calculi. No distal collecting system sto mello. GI tract: No small or large bowel dilation. The appendix is mildly dilated to 10 mm, unchanged, witho ut surrounding inflammatory change. Mesentery/Peritoneum: No ascites, mass, or free air. Retroperitoneum: No mass. Pelvis: 5 mm pedunculated fibroid in the deep right pelvis. 12 mm fibroid in the right uterine body. Retroverted uterus. Soft Tissues: Soft tissues and body wall unremarkable. Bones: No acute osseous finding. Intact posterior scoliosis hardware. IMPRESSION: No acute abdominopelvic process detected. Reviewed, dictated and finalized at location K.
[2022-05-04 18:24] VITALS: BP 98/70; PULSE 106; RESP 18; TEMP 36.7; O2SAT 98
[2022-05-04 18:46] LABS: Basophils Absolute Auto 0.1 K/mm3 (0.0-0.1); Basophils Percent Auto 0.6 % (0.2-1.2); Eosinophils Absolute Auto 0.1 K/mm3 (0-0.3); Eosinophils Percent Auto 0.6 % (0-4.4); Hematocrit 46.6 % (37.0-47.0); Hemoglobin 15.5 g/dL (12.0-15.0); Immature Granulocyte Absolute 0.11 K/mm3 (0.00-0.031); Immature Granulocyte Percent A 0.9 % (0-0.5); Lymphocytes Absolute Auto 2.17 K/mm3 (0.9-3.2); Lymphocytes Percent Auto 18.3 % (18.3-44.2); Mean Corpuscular HGB Conc 33.3 g/dl (32-36); Mean Corpuscular Volume 87.3 fl (80-100); Mean Platelet Volume 10.8 fl (7.4-10.4); Monocytes Absolute Auto 0.4 K/mm3 (0.1-0.6); Monocytes Percent Auto 3.7 % (2.6-8.5); Neutrophils Percent Auto 75.9 % (45.5-73.1); Platelet Count Result 420 k/mm3 (150-375); Red Blood Count 5.34 M/mm3 (4.2-5.4); Red Cell Distribution Width 13.3 % (11.5-14.5); White Blood Count 11.9 K/mm3 (4.5-10.0)
[2022-05-04 19:20] LABS: Alanine Aminotransferase 21 U/L (6-35); Albumin Level 5.3 g/dL (3.5-5.1); Alkaline Phosphatase 63 U/L (38-126); Anion Gap 13 mmol/L (8-16); Aspartate Amino Transferase 31 U/L (14-36); Bilirubin,Total 0.8 mg/dL (0.2-1.3); Blood Urea Nitrogen 30 mg/dL (7-17); Calcium 9.5 mg/dL (8.4-10.2); Carbon Dioxide 24 mmol/L (22-30); Chloride 93 mmol/L (98-107); Estimated CRCL calculation 49 ml/min; Estimated Glomerular Filt Rate > 60; Glucose 129 mg/dL (65-110); Lipase 292 U/L (23-300); Potassium 4.9 mmol/L (3.4-5.0); Sodium 130 mmol/L (137-145)
[2022-05-04] MEDS: MORPHINE SULFATE (*CRX) 4 MG/ML INJ IV PUSH (19:36)
[2022-05-04] MEDS: ONDANSETRON INJ 4 MG/2 ML VIAL IV PUSH (19:36)
[2022-05-04] MEDS: SODIUM CHLORIDE 0.9% IV 1,000 ML 999 ML IV CONT ×2 (19:36)
[2022-05-04 19:53] LABS: Appearance Urine Clear (Clear); Bilirubin Urine 1+ (Negative); Blood Urine Trace-lysed (Negative); Color Urine Yellow (Yellow); Glucose Urine UA Negative (Negative); Ketones Urine 1+ mg/dL (Negative); Leukocyte Esterase Ur 2+ LEU/UL (Negative); Nitrate Urine Negative (Negative); Protein Urine Trace mg/dL (Negative); Specific Grav Ur >= 1.030 (1.001-1.035); Urobilinogen Urine 0.2 mg/dL (<2.0)
--- NOTE | 2022-05-04 20:01 | ED.ABDPAIN ---
HPI - Abdominal Pain General Chief Complaint: Abdominal Pain Stated Complaint: epigastric pain Time Seen by Provider: 05/04/22 18:59 Source: patient, family (father), RN notes reviewed and old records reviewed Mode of arrival: ambulatory History of Present Illness HPI narrative: This is a 36 year old female with history of tomasa's disease, IBS, seizures who presents for evaluation of nausea and abdominal pain. Patient has been having epigastric and right lower abdominal pain intermittently since yesterday. She states her pain may last for several hours. She reports 1 episode of emesis yesterday and 1 episode of emesis today. She denies any diarrhea, fever or chills. Her family states patient has had scopes and other test to evaluated her abdominal pain in the past, and they have been normal. Her mother states patient was started on Amitriptyline in January and she has been doing well until yesterday. Patient has been compliant with her medications Related Data Home Medications Medication Instructions Recorded Confirmed citalopram 40 mg tablet 40 mg PO DAILY 09/20/19 05/05/22 fludrocortisone 0.1 mg tablet 0.1 mg PO DAILY 09/20/19 05/05/22 folic acid 1 mg tablet 2 mg PO BID 09/20/19 05/05/22 loratadine 10 mg tablet (Claritin) 10 mg PO DAILY 09/20/19 05/05/22 meclizine 12.5 mg tablet 12.5 mg PO TID 09/20/19 05/05/22 methylphenidate HCl 27 mg 27 mg PO QAM 09/20/19 05/05/22 tablet,extended release 24 hr (Concerta) pregabalin 150 mg capsule (Lyrica) 150 mg PO BID 10/31/20 05/05/22 atomoxetine 40 mg capsule 40 mg PO DAILY 12/30/21 05/05/22 pantoprazole 40 mg tablet,delayed 40 mg PO BID 12/30/21 05/05/22 release amitriptyline 10 mg tablet 10 mg PO QHS 02/08/22 05/05/22 prednisone 2.5 mg tablet 2.5 mg PO EVERY OTHER DAY 05/05/22 05/05/22 prednisone 5 mg tablet 1 mg PO EVERY OTHER DAY 05/05/22 05/05/22 Allergies Allergy/AdvReac Type Severity Reaction Status Date / Time No Known Allergies Allergy Verified 02/08/22 15:37 Review of Systems Review of Systems: All systems reviewed & are unremarkable except as noted in HPI and below Gastrointestinal: Gastrointestinal: Reports abdominal pain, Denies diarrhea, Reports nausea and Reports vomiting PMFSH Past Medical History Medical History Acid reflux [place]'s disease 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 She is single and does not have children. 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 Her mother is her legal guardian. Smoking status: Never smoker Alcohol intake: never Alcohol use details: Rarely Substance use: never Substance use type: does not use Additional living arrangements comments: Independent living with some assistance. Gender identity (if verbalized by the patient): Female Sexual Orientation (if Verbalized by the Patient): Straight or Heterosexual Spiritual care conc
[2022-05-04 20:04] LABS: Bacteria Urine Trace /hpf; Hyaline Casts Urine 15-19 /lpf; Mucus Urine Heavy /lpf; Squamous Epithelial Cell Urine Many /hpf (Few); WBC Urine 16-20 /hpf
[2022-05-04 20:12] LABS: Add Urine Microscopic? YES
[2022-05-04 21:08] LABS: SARS-CoV-2 RNA PCR Negative
--- NOTE | 2022-05-04 21:59 | PM.IMHP ---
H&P: HPI History of Present Illness Date/Time: 05/04/22 21:59 Chief Complaint: abdominal pain Narrative: this is a 36-year-old female with past medical history significant for Fergus's disease, acid reflux disease, Gram of seizure, cognitive developmental delay. patient comes to the emergency room with her dad due to abdominal pain, nausea, vomiting. most of the history has been obtained from the father who is at bedside. Preliminary workup was essentially nonrevealing. CT of abdomen and pelvis was significant for no acute abdomen nor pelvic findings. Urinalysis was significant for several WBCs present and chemistry panel showed a sodium of 130 potassium was within normal limits. Patient is been admitted for further evaluation management and treatment. Review of Systems Review of Systems: ROS unobtainable: Yes unobtainable due to medical condition ( Cognitive developmental delay) [facility] Past Medical History Medical History Acid reflux Landry's disease 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 She is single and does not have children. 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 Her mother is her legal guardian. Smoking status: Never smoker Alcohol intake: never Alcohol use details: Rarely Substance use: never Substance use type: does not use Additional living arrangements comments: Independent living with some assistance. Gender identity (if verbalized by the patient): Female Sexual Orientation (if Verbalized by the Patient): Straight or Heterosexual Spiritual care concerns: No Meds Home Medications and Allergies Home Medications Medication Instructions Recorded Confirmed Type citalopram 40 mg tablet 40 mg PO DAILY 09/20/19 05/05/22 History fludrocortisone 0.1 mg tablet 0.1 mg PO DAILY 09/20/19 05/05/22 History folic acid 1 mg tablet 2 mg PO BID 09/20/19 05/05/22 History loratadine 10 mg tablet (Claritin) 10 mg PO DAILY 09/20/19 05/05/22 History meclizine 12.5 mg tablet 12.5 mg PO TID 09/20/19 05/05/22 History methylphenidate HCl 27 mg 27 mg PO QAM 09/20/19 05/05/22 History tablet,extended release 24 hr (Concerta) pregabalin 150 mg capsule (Lyrica) 150 mg PO BID 10/31/20 05/05/22 History atomoxetine 40 mg capsule 40 mg PO DAILY 12/30/21 05/05/22 History pantoprazole 40 mg tablet,delayed 40 mg PO BID 12/30/21 05/05/22 History release amitriptyline 10 mg tablet 10 mg PO QHS 02/08/22 05/05/22 History prednisone 2.5 mg tablet 2.5 mg PO EVERY OTHER DAY 05/05/22 05/05/22 History prednisone 5 mg tablet 1 mg PO EVERY OTHER DAY 05/05/22 05/05/22 History Allergies Allergy/AdvReac Type Severity Reaction Status Date / Time No Known Allergies Allergy Verified 02/08/22 15:37 Vital Signs Vital Signs - 24 hr 05/04/22 18:24 Temperature 98.0 F Pulse Rate 106 H Respiratory Rate 18 Blood Pressure 98/70 L Pulse Oximetry
[2022-05-04 23:21] VITALS: BP 110/72; PULSE 71; RESP 16; O2SAT 100
--- NOTE | 2022-05-04 23:21 | PC.NURSE ---
floor nurse wants father to come up with the patient.
[2022-05-04 23:22] VITALS: BP 111/79; PULSE 82; RESP 16; O2SAT 99
--- NOTE | 2022-05-04 23:59 | ADMGEN ---
This patient, Leydi aEst, was admitted to [facility] S[facility] Room 329-01. Patient/family oriented to hospital policies and general routines including ID bracelet, bed and alarms, visiting hours, pain management, procedures, bathroom and other care routines, personal items, smoking policy, room service/diet, and visiting hours. Information on how to activate the Rapid Response Team has been discussed. Patient/Family are encouraged to report perceived risks to care and to ask questions if they do not understand what they are told or what they should do.
[2022-05-05 00:05] VITALS: BMI 19.7
[2022-05-05 00:14] VITALS: BP 105/66; PULSE 85; RESP 16; TEMP 36.1; O2SAT 93
[2022-05-05] MEDS: SODIUM CHLORIDE 0.9% IV 1,000 ML 125 ML IV CONT ×2 (01:17→09:51)
[2022-05-05] MEDS: HYDROCORTISONE SODIUM SUCCINATE 100 MG/2 ML VIAL IV PUSH (01:18)
[2022-05-05] MEDS: HYDROCORTISONE SODIUM SUCCINATE 100 MG/2 ML VIAL 50 MG IV PUSH ×3 (05:54→18:02)
[2022-05-05 06:00] VITALS: BP 121/79; PULSE 85; RESP 14; TEMP 36; O2SAT 93
[2022-05-05 06:02] LABS: Basophils Absolute Auto 0.1 K/mm3 (0.0-0.1); Basophils Percent Auto 0.4 % (0.2-1.2); Eosinophils Percent Auto 0.1 % (0-4.4); Hematocrit 34.2 % (37.0-47.0); Hemoglobin 11.2 g/dL (12.0-15.0); Immature Granulocyte Percent A 0.7 % (0-0.5); Lymphocytes Absolute Auto 0.95 K/mm3 (0.9-3.2); Lymphocytes Percent Auto 6.7 % (18.3-44.2); Mean Corpuscular HGB Conc 32.7 g/dl (32-36); Mean Corpuscular Hemoglobin 28.8 pg (26-34); Mean Corpuscular Volume 87.9 fl (80-100); Mean Platelet Volume 10.9 fl (7.4-10.4); Monocytes Absolute Auto 0.1 K/mm3 (0.1-0.6); Monocytes Percent Auto 0.9 % (2.6-8.5); Neutrophils Absolute Auto 12.9 K/mm3 (1.3-6.7); Neutrophils Percent Auto 91.2 % (45.5-73.1); Platelet Count Result 310 k/mm3 (150-375); Red Blood Count 3.89 M/mm3 (4.2-5.4); Red Cell Distribution Width 13.2 % (11.5-14.5); White Blood Count 14.2 K/mm3 (4.5-10.0)
[2022-05-05 06:22] LABS: Alanine Aminotransferase 15 U/L (6-35); Alkaline Phosphatase 47 U/L (38-126); Anion Gap 6 mmol/L (8-16); Aspartate Amino Transferase 23 U/L (14-36); Bilirubin,Total 0.6 mg/dL (0.2-1.3); Blood Urea Nitrogen 18 mg/dL (7-17); Carbon Dioxide 23 mmol/L (22-30); Chloride 101 mmol/L (98-107); Estimated CRCL calculation 78 ml/min; Estimated Glomerular Filt Rate > 60; Glucose 108 mg/dL (65-110); Potassium 4.6 mmol/L (3.4-5.0); Sodium 130 mmol/L (137-145)
[2022-05-05 14:00] VITALS: BP 101/62; PULSE 75; RESP 18; TEMP 36.4; O2SAT 97
--- NOTE | 2022-05-05 15:27 | PM.IMPN ---
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 Started on stress dose steroids with hydrocortisone 50 mg q.6 hours. Continue to follow electrolytes see takes prednisone 2.5 mg alternate with 5 mg along with fludrocortisone 0.1 mg daily Irritable bowel syndrome UTI urine culture sent on ceftriaxone Seizure disorder hyponatremia mild 130 on admission continue to monitor with IV fluid related to addisons disease /crisis chronic constipation he had the on MiraLax and fiber Uterine fibroid follow-up with gynecology as an outpatient basis Chronic epigastric pain steroid induced gastritis. EGD done which was negative in the past Subjective Date/time seen: 05/05/22 15:27 Interval history: history reviewed. Patient seen and examined. Discussed with mother with the phone. Has some upper abdominal pain no nausea vomiting and tolerating diet. She intermittently gets constipated. Review of Systems Review of Systems: All systems reviewed & are unremarkable except as noted in HPI and below Exam Narrative: General:? Thin body habitus, no acute distress HEENT:? Mucous membranes are moist, no oral pharyngeal erythema, pupils are equal and reactive, no scleral icterus, no conjunctival pallor Respiratory:? Clear to auscultation bilaterally, no increased work of breathing Cardiovascular:? Regular rate, regular rhythm, 2+ bilateral radial pedal pulses Gastrointestinal:? Soft, nondistended, Mild epigastric tenderness, normoactive bowel sounds, positive bowel sounds normoactive Skin:? Generalized pallor, non jaundice Musculoskeletal:? No clubbing, cyanosis or edema Neurological:? Alert and oriented, speech is clear but slow, no gross motor deficits noted on limited exam Psychiatric:? Pleasant and cooperative, mood appropriate Objective Data Vital Signs Vital Signs: Vital Signs - 24 hr 05/04/22 18:24 05/04/22 23:21 05/04/22 23:22 Temperature 98.0 F Pulse Rate 106 H 71 82 Respiratory Rate 18 16 16 Blood Pressure 98/70 L 110/72 111/79 Pulse Oximetry 98 100 99 Oxygen Delivery Room Air 05/05/22 00:14 05/05/22 06:00 Temperature 97.0 F L 96.8 F L Pulse Rate 85 85 Respiratory Rate 16 14 Blood Pressure 105/66 121/79 Pulse Oximetry 93 93 Oxygen Delivery Intake/Output Intake/Output: Intake & Output 05/02/22 05/03/22 05/04/22 05/05/22 23:59 23:59 23:59 23:59 Intake Total 2049 2489 Balance 2049 2489 Meds/Results Medications: Active Medications Generic Name Dose Route Start Last Admin Trade Name Freq PRN Reason Stop Dose Admin Amitriptyline HCl 10 mg 05/05/22 21:00 Amitriptyline Hcl 10 Mg Tablet PO QHS ELIZABETH Hydrocortisone Sodium Succinate 50 mg 05/05/22 06:00 05/05/22 11:07 Hydrocortisone Sodium Succinate 100 Mg/2 Ml Vial IV PUSH 50 mg Q6H ELIZABETH Administration Acetaminophen 650 mg in 65 mls @ 260 mls/hr 05/04/22 22:02 Ofirmev 650 Mg Ivpb IVPB 05/05/22 22:01 Q6H PRN Mild Pain (1-3) or Fever Sodium Chloride 1,000 mls @ 125 mls/hr 05/04/22 22:05 05/05/22 09:51 Normal Saline Iv IV CONT 125 mls/hr .Q8H ELIZABETH Administration Morphine Sulfate 4 mg 05/04/22 22:02 Morphine Sulfate (*Crx) 4 Mg/Ml Inj IV PUSH Q2H PRN Pain Rated 7-10 Ondansetron HCl 4 mg 04/10
[2022-05-05] MEDS: FOLIC ACID 1 MG TABLET 2 MG PO (16:25)
[2022-05-05] MEDS: MECLIZINE HCL 12.5 MG TABLET PO (16:25)
[2022-05-05] MEDS: PANTOPRAZOLE 40 MG TABLET PO (16:26)
[2022-05-05] MEDS: PREGABALIN (*CRX) 75 MG CAPSULE 150 MG PO (16:26)
[2022-05-05] MEDS: ONDANSETRON INJ 4 MG/2 ML VIAL IV PUSH (16:37)
[2022-05-05] MEDS: AMITRIPTYLINE HCL 10 MG TABLET PO (20:32)
[2022-05-05 21:28] VITALS: BP 104/48; PULSE 79; RESP 18; TEMP 36.6; O2SAT 98
[2022-05-06] MEDS: SODIUM CHLORIDE 0.9% IV 1,000 ML 75 ML IV CONT (00:09)
[2022-05-06] MEDS: HYDROCORTISONE SODIUM SUCCINATE 100 MG/2 ML VIAL 50 MG IV PUSH ×3 (05:51→12:13)
[2022-05-06 05:54] VITALS: BP 105/54; PULSE 72; RESP 18; TEMP 37.2; O2SAT 93
[2022-05-06 06:43] LABS: Basophils Percent Auto 0.1 % (0.2-1.2); Hematocrit 29.8 % (37.0-47.0); Hemoglobin 10.1 g/dL (12.0-15.0); Immature Granulocyte Absolute 0.06 K/mm3 (0.00-0.031); Immature Granulocyte Percent A 0.7 % (0-0.5); Lymphocytes Absolute Auto 1.07 K/mm3 (0.9-3.2); Lymphocytes Percent Auto 12.4 % (18.3-44.2); Mean Corpuscular HGB Conc 33.9 g/dl (32-36); Mean Corpuscular Volume 85.6 fl (80-100); Mean Platelet Volume 10.9 fl (7.4-10.4); Monocytes Absolute Auto 0.4 K/mm3 (0.1-0.6); Monocytes Percent Auto 4.2 % (2.6-8.5); Neutrophils Absolute Auto 7.1 K/mm3 (1.3-6.7); Neutrophils Percent Auto 82.6 % (45.5-73.1); Platelet Count Result 263 k/mm3 (150-375); Red Blood Count 3.48 M/mm3 (4.2-5.4); Red Cell Distribution Width 13.2 % (11.5-14.5); White Blood Count 8.6 K/mm3 (4.5-10.0)
[2022-05-06 07:48] LABS: Alanine Aminotransferase 16 U/L (6-35); Albumin Level 3.4 g/dL (3.5-5.1); Alkaline Phosphatase 37 U/L (38-126); Anion Gap 8 mmol/L (8-16); Aspartate Amino Transferase 23 U/L (14-36); Bilirubin,Total 0.3 mg/dL (0.2-1.3); Blood Urea Nitrogen 9 mg/dL (7-17); Calcium 8.4 mg/dL (8.4-10.2); Carbon Dioxide 25 mmol/L (22-30); Chloride 104 mmol/L (98-107); Estimated CRCL calculation 92 ml/min; Estimated Glomerular Filt Rate > 60; Glucose 129 mg/dL (65-110); Magnesium 1.6 mg/dL (1.6-2.3); Potassium 3.5 mmol/L (3.4-5.0); Sodium 137 mmol/L (137-145)
[2022-05-06] MEDS: FLUDROCORTISONE ACETATE 0.1 MG TABLET PO (08:54)
[2022-05-06] MEDS: FOLIC ACID 1 MG TABLET 2 MG PO (08:54)
[2022-05-06] MEDS: PANTOPRAZOLE 40 MG TABLET PO (08:54)
[2022-05-06] MEDS: CITALOPRAM HYDROBROMIDE 20 MG TABLET 40 MG PO (08:55)
[2022-05-06] MEDS: PREGABALIN (*CRX) 75 MG CAPSULE 150 MG PO (08:55)
[2022-05-06] MEDS: LORATADINE 10 MG TABLET PO (08:55)
[2022-05-06] MEDS: MECLIZINE HCL 12.5 MG TABLET PO ×2 (08:55→12:13)
--- NOTE | 2022-05-06 11:06 | PHAR ---
HOME MED VERIFIED = [facility] [id number] ATOMOXETINE 40 MG CAPS 1 CAP PO Q AM
--- NOTE | 2022-05-06 12:48 | PM.DS ---
DS: Admitting Diagnosis Discharge Date 05/06/2022 Admitting Diagnosis abdominal pain nausea vomiting DS: Discharge Diagnosis Discharge Diagnosis (1) [place]'s disease: Code(s): E27.1 - Primary adrenocortical insufficiency Status: Acute (2) Epigastric abdominal pain: Code(s): R10.13 - Epigastric pain Status: Acute (3) Acute adrenal crisis: Code(s): E27.2 - Addisonian crisis Status: Acute (4) UTI (urinary tract infection): Code(s): N39.0 - Urinary tract infection, site not specified Status: Acute (5) Addisonian crisis: Code(s): E27.2 - Addisonian crisis Status: Acute DS: Summary Hospital Course Hospital Course: # patient presented with epigastric pain/ nausea / vomiting CT negative for any acute process. Urinalysis showed UTI. Urine culture grew E coli sensitive to Rocephin. Will switch to oral cefdinir at discharge #Acute dehydration treated with IV hydration with resolution #Hyponatremia? with hemoconcentration noted which improved with treatment with IV saline #addisonian disease With possible acute addisonian crisis early phase.? Started on stress dose steroids with hydrocortisone 50 mg q.6 hours.? Continue to follow electrolytes see takes prednisone 2.5 mg alternate with 1 mg along with fludrocortisone 0.1 mg daily. Resume home doses at discharge Irritable bowel syndrome her epigastric pain nausea vomiting likely related to her underlying IBS. She had intermittent issues with this in the past. EGD has been done in the past which was negative. She has never been tried on dicyclomine as per history. She is on amitriptyline for this which was recently started since January 2022. Will add dicyclomine p.r.n. use for symptomatic relief with this. She also has chronic idiopathic constipation but not compliant with MiraLax and high-fiber diet. discussed use of MiraLax and fiber diet on a regular basis. #UTI urine culture With E coli. Switched to oral at discharge #Seizure disorder home medication #?hyponatremia mild 130 on admission continue to monitor with IV fluid related to ? addisons disease /crisis #?chronic constipation he had the on MiraLax and fiber #Uterine fibroid follow-up with gynecology as an outpatient basis #Chronic epigastric pain steroid induced gastritis.? EGD done which was negative in the past Time Spent with Patient Time attestation: Total time spent providing and/or coordinating discharge services: Exam Narrative: General:? Thin body habitus, no acute distress HEENT:? Mucous membranes are moist, no oral pharyngeal erythema, pupils are equal and reactive, no scleral icterus, no conjunctival pallor Respiratory:? Clear to auscultation bilaterally, no increased work of breathing Cardiovascular:? Regular rate, regular rhythm, 2+ bilateral radial pedal pulses Gastrointestinal:? Soft, nondistended, Mild epigastric tenderness, normoactive bowel sounds, positive bowel sounds normoactive Skin:? Generalized pallor, non jaundice Musculoskeletal:? No clubbing, cyanosis or edema Neurological:? Alert and oriented, speech is clear but slow, no gross motor deficits noted on limited exam Psychiatric:? Pleasant and cooperative, mood appropriate DS: Data Data Completed and Pending Labs on day of discharge: Labs from last 24 hours 05/06/22 05/06/22 06:21 06:21 WBC 8.6 RBC 3.48 L Hgb 10.1 L Hct 29.8 L MCV 85.6 MCH 29.0 MCHC 33.9 RDW 13.2 Plt Count 263 MPV 10.9 H Immature Gran % (Auto) 0.7 H Neut % (Auto) 82.6 H Lymph % (Auto) 12.4 L [place] % (Auto) 4.2 Eos % (Auto) 0.0 Baso % (Auto) 0.1 L Lymph # (Auto) 1.07 [place] # (Auto) 0.4 Eos # (Auto) 0.0 Baso # (Auto) 0.0 Abs Immat Gran (auto) 0.06 H Absolute Neuts (auto) 7.1 H Absolute Nucleated RBC 0.0 Nucleated RBC % 0.0 Sodium 137 Potassium 3.5 Chloride 104 Carbon Dioxide 25 Anion Gap 8 BUN 9 D Creatinine 0.50 L Estim Crea
== END 2022-05-06 13:40 | disposition home or self-care (01) ==
LOC: ANHED 18:59 → ANH3MEDSUR 23:08
PROVIDERS: Emergency Medicine; Admitting Provider Internal Medicine; Emergency Provider General Practice; PCP Internal Medicine; Visit Provider Internal Medicine
DX: E27.2 Addisonian crisis (principal); E27.1 Primary adrenocortical insufficiency; R10.13 Epigastric pain; N39.0 Urinary tract infection, site not specified; B96.20 Unspecified Escherichia coli [E. coli] as the cause of diseases classified elsewhere; K58.9 Irritable bowel syndrome, unspecified; G40.409 Other generalized epilepsy and epileptic syndromes, not intractable, without status epilepticus; Z20.822 Contact with and (suspected) exposure to COVID-19; F88 Other disorders of psychological development; K21.9 Gastro-esophageal reflux disease without esophagitis; Z97.5 Presence of (intrauterine) contraceptive device; E86.0 Dehydration; E87.1 Hypo-osmolality and hyponatremia; Z94.81 Bone marrow transplant status; Z79.52 Long term (current) use of systemic steroids; Z79.899 Other long term (current) drug therapy
CPT/HCPCS: 36415; 74177; 80053; 81001; 81025; 83690; 83735; 85025; 87077; 87086; 87186; 96361; 96365; 96375; 96376; 99285; A9270; C9803; G0378; J0131; J0696; J1720; J2270; J2405; J7030; Q9967; U0003; U0005

== ENCOUNTER 2022-05-23 16:13 | Observation (INO) | payer MEDICARE, BC, MEDICAID, SELFPAY ==
--- NOTE | ~2022-05-23 | CT_ITS ---
EXAMINATION: CT abdomen pelvis w con DATE: 05/24/2022 06:34 INDICATION: Abdomen pain TECHNIQUE: Computed tomography (CT) of the abdomen and pelvis was performed with 90 cc Omnipaque 350 intravenous contrast. The dose-length product was 172.78 mGy-cm. Automated exposure control and itera tive reconstruction technique were employed. COMPARISON: CT dated 05/04/2022 FINDINGS: Borderline heart size. There is pectus excavatum. Small hiatal hernia. No significant pleur al or pericardial effusion. There are surgical changes of spinal fusion with Osorio rods. Fatty i nfiltration of the liver. The spleen, pancreas, adrenal glands and kidneys are unremarkable. Gallblad justino is present. There are exophytic pedunculated uterine fibroids measuring up to 5.4 cm posteriorly. No significant vascular abnormality. No lymphadenopathy. Nonobstructive bowel pattern. No free air o r free fluid. IMPRESSION: 1. No acute abdominal abnormality. 2: Fibroid uterus. 3: Hepatic steatosis. Reviewed, dictated and finalized at location B.
--- NOTE | ~2022-05-23 | XR_ITS ---
EXAMINATION: XR chest 2V 05/23/2022 17:44 INDICATION: Epigastric pain and vomiting PROCEDURE: PA and lateral views of the chest COMPARISON: Comparison to multiple prior studies sequentially, with oldest reviewed study dated 11/26. FINDINGS: The lungs are clear. The cardiomediastinal silhouette is enlarged . There are no pleural effusions. There is no pneumothorax suspected. There are Osorio rods with scoliosis. IMPRESSION: 1: NO ACUTE CARDIOPULMONARY DISEASE. Reviewed, dictated and finalized at location A.
[2022-05-23 16:15] VITALS: BP 98/77; PULSE 95; RESP 18; O2SAT 100
--- NOTE | 2022-05-23 16:42 | ED.ABDPAIN ---
HPI - Abdominal Pain General Chief Complaint: Abdominal Pain Stated Complaint: abd pain/ hx of Sac disease Time Seen by Provider: 05/23/22 16:27 History of Present Illness HPI narrative: This is a 36-year-old female with past medical history of Landry's disease, previous episodes of adrenal crisis, and intellectual disability, presenting the emergency department complaining of epigastric abdominal pain and vomiting for the past day. She states the pain is bad and is unable to characterize it further. She also complains of some increased urination. Patient's mother who is present at bedside states patient has had epigastric abdominal pain for the past week but requested to come to the emergency department today. She states previous episodes have been concerning for adrenal crisis the work-up has not shown a specific cause for her epigastric pain. Related Data Home Medications Medication Instructions Recorded Confirmed citalopram 40 mg tablet 40 mg PO DAILY 09/20/19 05/05/22 fludrocortisone 0.1 mg tablet 0.1 mg PO DAILY 09/20/19 05/05/22 folic acid 1 mg tablet 2 mg PO BID 09/20/19 05/05/22 loratadine 10 mg tablet (Claritin) 10 mg PO DAILY 09/20/19 05/05/22 meclizine 12.5 mg tablet 12.5 mg PO TID 09/20/19 05/05/22 methylphenidate HCl 27 mg 27 mg PO QAM 09/20/19 05/05/22 tablet,extended release 24 hr (Concerta) pregabalin 150 mg capsule (Lyrica) 150 mg PO BID 10/31/20 05/05/22 atomoxetine 40 mg capsule 40 mg PO DAILY 12/30/21 05/05/22 pantoprazole 40 mg tablet,delayed 40 mg PO BID 12/30/21 05/05/22 release amitriptyline 10 mg tablet 10 mg PO QHS 02/08/22 05/05/22 prednisone 2.5 mg tablet 2.5 mg PO EVERY OTHER DAY 05/05/22 05/05/22 prednisone 5 mg tablet 1 mg PO EVERY OTHER DAY 05/05/22 05/05/22 Allergies Allergy/AdvReac Type Severity Reaction Status Date / Time No Known Allergies Allergy Verified 05/23/22 19:56 Review of Systems Review of Systems: CONSTITUTIONAL: Denies fever, chills, or sweats. CARDIOVASCULAR: Denies chest pain, palpitations, or edema. RESPIRATORY: Denies cough or dyspnea. GASTROINTESTINAL: abdominal pain, nausea, vomiting, Denies diarrhea. GENITOURINARY: Increased urinary frequency, denies dysuria or hematuria. SKIN: Denies rash or itching. MUSCULOSKELETAL: Denies back pain, joint pain, or myalgia. NEUROLOGIC: Denies headache, numbness, dizziness, or weakness. PSYCHIATRIC: Denies anxiety or depression. [facility] Past Medical History Medical History Acid reflux Sac's disease 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 She is single (currently engaged) and does not have children. 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 Her mother is her legal guardian. Code status full code Smoking status: Never smoker Alcohol intake: never Alcohol use details: Rarely Substance use: never Substance use type: does not use Additional living arran
[2022-05-23 16:58] LABS: Basophils Absolute Auto 0.1 K/mm3 (0.0-0.1); Basophils Percent Auto 0.9 % (0.2-1.2); Eosinophils Absolute Auto 0.2 K/mm3 (0-0.3); Eosinophils Percent Auto 1.7 % (0-4.4); Immature Granulocyte Absolute 0.15 K/mm3 (0.00-0.031); Immature Granulocyte Percent A 1.7 % (0-0.5); Lymphocytes Absolute Auto 1.49 K/mm3 (0.9-3.2); Lymphocytes Percent Auto 16.4 % (18.3-44.2); Mean Corpuscular HGB Conc 33.3 g/dl (32-36); Mean Corpuscular Hemoglobin 28.6 pg (26-34); Mean Corpuscular Volume 85.7 fl (80-100); Mean Platelet Volume 10.9 fl (7.4-10.4); Monocytes Absolute Auto 0.4 K/mm3 (0.1-0.6); Monocytes Percent Auto 4.8 % (2.6-8.5); Neutrophils Absolute Auto 6.8 K/mm3 (1.3-6.7); Neutrophils Percent Auto 74.5 % (45.5-73.1); Platelet Count Result 397 k/mm3 (150-375); Red Cell Distribution Width 13.1 % (11.5-14.5); White Blood Count 9.1 K/mm3 (4.5-10.0)
[2022-05-23] MEDS: SODIUM CHLORIDE 0.9% IV 1,000 ML 999 ML IV CONT (16:59)
[2022-05-23 17:01] LABS: Add Urine Microscopic? NO; Appearance Urine Clear (Clear); Bilirubin Urine Negative (Negative); Blood Urine Negative (Negative); Color Urine Yellow (Yellow); Glucose Urine UA Negative (Negative); Ketones Urine Negative (Negative); Leukocyte Esterase Ur Negative LEU/UL (Negative); Nitrate Urine Negative (Negative); Protein Urine Negative (Negative); Specific Grav Ur 1.015 (1.001-1.035); Urobilinogen Urine 0.2 mg/dL (<2.0); pH Urine 5.5 (5.0-9.0)
[2022-05-23] MEDS: FAMOTIDINE 20 MG/2 ML VIAL 40 MG IV PUSH (17:02)
[2022-05-23] MEDS: PROCHLORPERAZINE EDISYLATE 10 MG/2 ML VIAL IV PUSH (17:03)
[2022-05-23 17:11] VITALS: BP 103/91; PULSE 88; RESP 18; O2SAT 100
[2022-05-23 17:14] LABS: Alanine Aminotransferase 19 U/L (6-35); Albumin Level 4.9 g/dL (3.5-5.1); Alkaline Phosphatase 60 U/L (38-126); Anion Gap 10 mmol/L (8-16); Aspartate Amino Transferase 31 U/L (14-36); Blood Urea Nitrogen 16 mg/dL (7-17); Calcium 9.3 mg/dL (8.4-10.2); Carbon Dioxide 25 mmol/L (22-30); Chloride 93 mmol/L (98-107); Estimated CRCL calculation 64 ml/min; Estimated Glomerular Filt Rate > 60; Glucose 106 mg/dL (65-110); Lipase 220 U/L (23-300); Sodium 128 mmol/L (137-145)
--- NOTE | 2022-05-23 17:30 | ECG_ITS ---
Measurements Intervals [place] Rate: 72 P: 51 DE: 121 QRS: 55 QRSD: 84 T: -48 QT: 423 QTc: 465 Interpretive Statements SINUS RHYTHM POSSIBLE LEFT ATRIAL ENLARGEMENT [-0.1mV P-WAVE IN V1/V2] MODERATE T-WAVE ABNORMALITY, CONSIDER ANTEROLATERAL ISCHEMIA [-0.1+ mV T-WAVE IN V3- V6] NO PREVIOUS ECG AVAILABLE FOR COMPARISON Electronically Signed On 05-24-2022 13:53:54 CDT by Mark Short M.D.
--- NOTE | 2022-05-23 17:41 | PC.NURSE ---
Pt to CT
[2022-05-23 18:51] VITALS: BP 97/72; PULSE 65; RESP 18; TEMP 36.4; O2SAT 99
[2022-05-23 19:08] LABS: Pregnancy On Board Control Positive; Urine Pregnancy Test Negative
--- NOTE | 2022-05-23 19:55 | ADMGEN ---
This patient, Leydi East, was admitted to Medical Room 347-. Patient/family oriented to hospital policies and general routines including ID bracelet, bed and alarms, visiting hours, pain management, procedures, bathroom and other care routines, personal items, smoking policy, room service/diet, and visiting hours. Information on how to activate the Rapid Response Team has been discussed. Patient/Family are encouraged to report perceived risks to care and to ask questions if they do not understand what they are told or what they should do.
[2022-05-23 20:00] VITALS: BP 99/68; PULSE 80; RESP 18; TEMP 36.6; O2SAT 98
--- NOTE | 2022-05-23 22:19 | PM.IMHP ---
H&P: HPI History of Present Illness Date/Time: 05/23/22 22:19 Chief Complaint: Abdominal pain Narrative: This is a 36-year-old mentally delayed patient has a history of [place]'s disease. The patient was recently here on 05/04/2022 with adrenal crisis. The patient came to the emergency room today with complaints of epigastric abdominal pain home the past day. The patient now has no further complaint of abdominal pain. Patient is also complaining of increased urination. Her mother is her power personnel research scientist and stated that the patient has been having epigastric abdominal pain for the past week. The patient is chronic on fludrocortisone and prednisone at home. She denies any nausea vomiting or diarrhea at this time. Her sodium is currently 128 but is typically in the lower 130s to upper 120s. Her test was negative and her urinalysis was negative for UTI. The patient was given IV fluids, Compazine, and Pepcid. The patient is being admitted to observation status on the date of service of 05/23/2022. Review of Systems Review of Systems: See HPI All systems reviewed & are unremarkable except as noted in HPI and below Constitutional: Constitutional: Reports as per HPI and Reports no additional constitutional complaints Eyes: Eyes: Reports as per HPI and Reports no additional eye complaints ENT: Reports system reviewed and no additional complaints, except as documented and Reports Normal hearing present Cardiovascular: Cardiovascular: Reports no additional cardiovascular complaints Respiratory: Respiratory: Reports no additional respiratory complaints and Reports no additional respiratory complaints Gastrointestinal: Gastrointestinal: Reports as per HPI and Reports no additional gastrointestinal complaints Musculoskeletal: Musculoskeletal: Reports no additional musculoskeletal complaints Integumentary/Breasts: Skin/Breast: Reports system reviewed and no additional complaints, except as docu and Reports as per HPI Neurologic: Reports system reviewed and no additional complaints, except as documented, Reports as per HPI and Reports Normal hearing present Psychiatric: Psychiatric: Reports no additional psychiatric complaints and Reports as per HPI Endocrine: Endocrine: Reports no additional endocrine complaints Hematologic/Lymphatic: Hematologic/Lymphatic: Reports no additional hematologic/lymphatic complaints Allergic/Immunologic: Allergic/Immunologic: Reports no additional allergic/immunologic complaints [facility] Past Medical History Medical History Acid reflux Landry's disease 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 She is single (currently engaged) and does not have children. 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 Her mother is her legal guardian. Code status full code Smoking status: Never smoker Alcohol intake: never Alcohol use details: Rarely Substan
[2022-05-23] MEDS: HYDROCORTISONE SODIUM SUCCINATE 100 MG/2 ML VIAL IV PUSH (22:35)
[2022-05-23] MEDS: PREGABALIN (*CRX) 75 MG CAPSULE 150 MG PO (23:00)
[2022-05-23] MEDS: MECLIZINE HCL 12.5 MG TABLET PO (23:01)
[2022-05-23] MEDS: AMITRIPTYLINE HCL 10 MG TABLET PO (23:01)
[2022-05-24 01:18] VITALS: BMI 18.7
[2022-05-24] MEDS: HYDROCORTISONE SODIUM SUCCINATE 100 MG/2 ML VIAL 50 MG IV PUSH ×4 (05:20→23:02)
[2022-05-24 05:38] LABS: Basophils Absolute Auto 0.1 K/mm3 (0.0-0.1); Basophils Percent Auto 0.6 % (0.2-1.2); Hematocrit 39.9 % (37.0-47.0); Hemoglobin 13.3 g/dL (12.0-15.0); Immature Granulocyte Absolute 0.14 K/mm3 (0.00-0.031); Immature Granulocyte Percent A 1.5 % (0-0.5); Lymphocytes Absolute Auto 0.89 K/mm3 (0.9-3.2); Lymphocytes Percent Auto 9.3 % (18.3-44.2); Mean Corpuscular HGB Conc 33.3 g/dl (32-36); Mean Corpuscular Hemoglobin 28.4 pg (26-34); Mean Corpuscular Volume 85.1 fl (80-100); Mean Platelet Volume 10.9 fl (7.4-10.4); Monocytes Absolute Auto 0.1 K/mm3 (0.1-0.6); Monocytes Percent Auto 1.1 % (2.6-8.5); Neutrophils Absolute Auto 8.4 K/mm3 (1.3-6.7); Neutrophils Percent Auto 87.5 % (45.5-73.1); Platelet Count Result 391 k/mm3 (150-375); Red Blood Count 4.69 M/mm3 (4.2-5.4); Red Cell Distribution Width 13.1 % (11.5-14.5); White Blood Count 9.6 K/mm3 (4.5-10.0)
[2022-05-24 05:55] LABS: Anion Gap 11 mmol/L (8-16); Blood Urea Nitrogen 16 mg/dL (7-17); Calcium 8.9 mg/dL (8.4-10.2); Carbon Dioxide 22 mmol/L (22-30); Chloride 98 mmol/L (98-107); Estimated CRCL calculation 60 ml/min; Estimated Glomerular Filt Rate > 60; Glucose 123 mg/dL (65-110); Potassium 5.3 mmol/L (3.4-5.0); Sodium 131 mmol/L (137-145)
[2022-05-24 06:00] VITALS: BP 106/52; PULSE 72; RESP 16; TEMP 36.9; O2SAT 100
[2022-05-24 07:20] LABS: Cortisol Random > 123.00 ug/dL
[2022-05-24] MEDS: CITALOPRAM HYDROBROMIDE 20 MG TABLET 40 MG PO (08:44)
[2022-05-24] MEDS: FOLIC ACID 1 MG TABLET PO ×2 (08:44→17:02)
[2022-05-24] MEDS: MECLIZINE HCL 12.5 MG TABLET PO ×3 (08:45→17:02)
[2022-05-24] MEDS: LORATADINE 10 MG TABLET PO (08:45)
[2022-05-24] MEDS: PANTOPRAZOLE SODIUM IV 40 MG VIAL IV PUSH ×2 (08:45→20:38)
[2022-05-24] MEDS: PREGABALIN (*CRX) 75 MG CAPSULE 150 MG PO ×2 (08:47→17:02)
[2022-05-24 08:51] LABS: Urine Cotinine NEGATIVE
[2022-05-24 10:11] LABS: Sodium Urine Random 48 meq/L
[2022-05-24] MEDS: DICYCLOMINE HCL 10 MG CAPSULE PO ×2 (11:12→18:37)
--- NOTE | 2022-05-24 11:36 | PHAR ---
Home medications identified in pharmacy and returned to 3med unit. Concerta er 27mg tablets and Atomoxetine 40mg capsules
[2022-05-24 14:00] VITALS: BP 108/66; PULSE 93; RESP 18; TEMP 36.8; O2SAT 99
--- NOTE | 2022-05-24 15:14 | PM.IMPN ---
Progress Note: A&P Assessment and Plan (1) Hyponatremia: Code(s): E87.1 - Hypo-osmolality and hyponatremia Status: Acute (2) Hyperkalemia: Code(s): E87.5 - Hyperkalemia Status: Acute (3) Addisonian crisis: Code(s): E27.2 - Addisonian crisis Status: Acute (4) Epigastric abdominal pain: Code(s): R10.13 - Epigastric pain Status: Acute Plan # epigastric pain: test is negative urinalysis negative continued PPI. Three weeks prior CT scan was negative. CT abdomen no acute abdominal abnormality except for fibroid uterus and hepatic steatosis.No other abnormality detected. # hyponatremia mild does have chronic hyponatremia. ?# History of addisonian disease With possible acute addisonian crisis early phase.? Started on stress dose steroids with hydrocortisone 50 mg q.6 hours.? patient takes prednisone 2.5 mg alternate with? 1 mg along with fludrocortisone 0.1 mg daily.? #Irritable bowel syndrome her epigastric pain nausea vomiting likely related to her underlying IBS.? She had intermittent issues with this in the past.? EGD has been done in the past which was negative.? She has never been tried on dicyclomine as per history.? She is on amitriptyline for this which was recently started since January 2022.? added dicyclomine p.r.n. use for symptomatic relief with this.? She also has chronic idiopathic constipation but not compliant with MiraLax and high-fiber diet.? discussed use of MiraLax and fiber diet on a regular basis. ?#Seizure disorder home medication ?#?chronic constipation he had the on MiraLax and fiber ?#Uterine fibroid follow-up with gynecology as an outpatient basis ?#Chronic epigastric pain steroid induced gastritis.? EGD done which was negative in the past Subjective Date/time seen: 05/24/22 15:14 Interval history: HPI:This is a 36-year-old mentally delayed patient has a history of [place]'s disease.? The patient was recently here on 05/04/2022 with adrenal crisis.? The patient came to the emergency room today with complaints of epigastric abdominal pain home the past day.? The patient now has no further complaint of abdominal pain.? Patient is also complaining of increased urination.? Her mother is her power flour broker and stated that the patient has been having epigastric abdominal pain for the past week.? The patient is chronic on fludrocortisone and prednisone at home.? She denies any nausea vomiting or diarrhea at this time.? Her sodium is currently 128 but is typically in the lower 130s to upper 120s.? Her test was negative and her urinalysis was negative for UTI.? The patient was given IV fluids, Compazine, and Pepcid.? The patient is being admitted to observation status on the date of service of 05/23/2022. 05/24/2022 still has some epigastric pain. she will to tolerate her food earlier today. Does not taking her lacks regularly. Review of Systems Review of Systems: All systems reviewed & are unremarkable except as noted in HPI and below Exam Narrative: GENERAL: The patient is well developed, not in acute distress HEENT: Nonicteric sclerae, PERRLA, EOMI. Oropharynx clear. Moist mucous membranes. Conjunctivae appear well perfused. CHEST: Chest wall is nontender. HEART: Regular rate and rhythm without murmur, rubs, or gallops LUNGS: Clear to auscultation bilaterally. no respiratory distress ABDOMEN: Soft, positive bowel sounds, Mild epigastric tenderness, no organomegaly. SKIN: No rash, no excessive bruising, petechiae, or purpura. NEUROLOGIC: Cranial nerves II-XII intact, alert and oriented x 3, no gross motor deficits EXTREMITIES: no edema, cyanosis or clubbing Objective Data Vital Signs Vital Signs: Vital Signs - 24 hr 05/23/22 16:15 05/23/22 17:11 05/23/22 18:51 Temperature 97.6 F Pulse Rate 95 88 65 Respiratory Rate 18 18 18 Blood Pressure 98/77 L 103/91 H 97/72 L Pulse Oximetry 100 100 99 Oxygen Delivery 05/23/22 20:00 05/23
[2022-05-24] MEDS: AMITRIPTYLINE HCL 10 MG TABLET PO (20:35)
[2022-05-24 21:29] VITALS: BP 106/86; PULSE 66; RESP 18; TEMP 36.9; O2SAT 99
[2022-05-25] MEDS: HYDROCORTISONE SODIUM SUCCINATE 100 MG/2 ML VIAL 50 MG IV PUSH ×2 (05:23→13:07)
[2022-05-25 05:54] LABS: Basophils Percent Auto 0.2 % (0.2-1.2); Hematocrit 32.9 % (37.0-47.0); Hemoglobin 11.1 g/dL (12.0-15.0); Immature Granulocyte Absolute 0.12 K/mm3 (0.00-0.031); Lymphocytes Absolute Auto 1.74 K/mm3 (0.9-3.2); Lymphocytes Percent Auto 14.1 % (18.3-44.2); Mean Corpuscular HGB Conc 33.7 g/dl (32-36); Mean Corpuscular Hemoglobin 28.8 pg (26-34); Mean Corpuscular Volume 85.5 fl (80-100); Mean Platelet Volume 10.8 fl (7.4-10.4); Monocytes Absolute Auto 0.7 K/mm3 (0.1-0.6); Monocytes Percent Auto 5.3 % (2.6-8.5); Neutrophils Absolute Auto 9.8 K/mm3 (1.3-6.7); Neutrophils Percent Auto 79.4 % (45.5-73.1); Platelet Count Result 372 k/mm3 (150-375); Red Blood Count 3.85 M/mm3 (4.2-5.4); Red Cell Distribution Width 13.3 % (11.5-14.5); White Blood Count 12.3 K/mm3 (4.5-10.0)
[2022-05-25 06:00] VITALS: BP 123/63; PULSE 71; RESP 16; TEMP 36.7; O2SAT 97
[2022-05-25 06:04] LABS: Alanine Aminotransferase 19 U/L (6-35); Albumin Level 4.2 g/dL (3.5-5.1); Alkaline Phosphatase 44 U/L (38-126); Anion Gap 8 mmol/L (8-16); Aspartate Amino Transferase 25 U/L (14-36); Bilirubin,Total 0.7 mg/dL (0.2-1.3); Blood Urea Nitrogen 13 mg/dL (7-17); Carbon Dioxide 25 mmol/L (22-30); Chloride 98 mmol/L (98-107); Estimated CRCL calculation 78 ml/min; Estimated Glomerular Filt Rate > 60; Glucose 125 mg/dL (65-110); Potassium 4.2 mmol/L (3.4-5.0); Sodium 131 mmol/L (137-145)
[2022-05-25] MEDS: CITALOPRAM HYDROBROMIDE 20 MG TABLET 40 MG PO (10:02)
[2022-05-25] MEDS: FOLIC ACID 1 MG TABLET PO (10:03)
[2022-05-25] MEDS: MECLIZINE HCL 12.5 MG TABLET PO ×2 (10:03→13:07)
[2022-05-25] MEDS: polyethylene glycoL 3350 17 GM POWD.PACK PO (10:03)
[2022-05-25] MEDS: PANTOPRAZOLE SODIUM IV 40 MG VIAL IV PUSH (10:03)
[2022-05-25] MEDS: PREGABALIN (*CRX) 75 MG CAPSULE 150 MG PO (10:03)
[2022-05-25] MEDS: LORATADINE 10 MG TABLET PO (10:03)
[2022-05-25 10:05] VITALS: O2SAT 99
--- NOTE | 2022-05-25 13:59 | PM.DS ---
DS: Admitting Diagnosis Discharge Date 05/25/2022 Admitting Diagnosis epigastric pain DS: Discharge Diagnosis Discharge Diagnosis (1) Hyponatremia: Code(s): E87.1 - Hypo-osmolality and hyponatremia Status: Acute (2) Hyperkalemia: Code(s): E87.5 - Hyperkalemia Status: Acute (3) Addisonian crisis: Code(s): E27.2 - Addisonian crisis Status: Acute (4) Epigastric abdominal pain: Code(s): R10.13 - Epigastric pain Status: Acute DS: Summary Hospital Course Hospital Course: # epigastric pain: test is negative. urinalysis negative . continued PPI. Three weeks prior CT scan was negative. CT abdomen Repeated which showed no acute abdominal abnormality except for small hiatal hernia, fibroid uterus and hepatic steatosis.No other abnormality detected. patient was treated symptomatically with supportive treatment with improvement. by day time of discharge she was able to tolerate regular food. For symptoms likely related to IBS. Unlikely small hiatal hernia is suggested to cause the symptoms. Have advised her to follow-up with Dr. Kelly on outpatient basis for further evaluation and treatment. He had been recently started on amitriptyline for this and suggested we can see does to 25 mg at bedtime see if this will relieve these symptoms. Patient family agreeable with this plan. # hyponatremia mild does have chronic hyponatremia. ?# History of addisonian disease With possible acute addisonian crisis early phase.? Started on stress dose steroids with hydrocortisone 50 mg q.6 hours.? patient takes prednisone 2.5 mg alternate with? Five mg along with fludrocortisone 0.1 mg daily.? these will be resumed at the time of discharge as previously ordered. She is also going to see her teachers' assistant for this soon. #Irritable bowel syndrome her epigastric pain nausea vomiting likely related to her underlying IBS.? She had intermittent issues with this in the past.? EGD has been done in the past which was negative.? She has never been tried on dicyclomine as per history.? She is on amitriptyline for this which was recently started since January 2022.? added dicyclomine p.r.n. use for symptomatic relief with this.? She also has chronic idiopathic constipation but not compliant with MiraLax and high-fiber diet.? discussed use of MiraLax and fiber diet on a regular basis.Will increase amitriptyline to 25 mg at bedtime and see the response. Follow-up with her PCP with regard to management of this medication. ?#Seizure disorder home medication ?#?chronic constipation he had the on MiraLax and fiber ?#Uterine fibroid follow-up with gynecology as an outpatient basis ?#Chronic epigastric pain steroid induced gastritis.? EGD done which was negative in the past Time Spent with Patient Time attestation: Total time spent providing and/or coordinating discharge services:45 minutes Exam Narrative: GENERAL: The patient is well developed, not in acute distress HEENT: Nonicteric sclerae, PERRLA, EOMI. Oropharynx clear. Moist mucous membranes. Conjunctivae appear well perfused. CHEST: Chest wall is nontender. HEART: Regular rate and rhythm without murmur, rubs, or gallops LUNGS: Clear to auscultation bilaterally. no respiratory distress ABDOMEN: Soft, positive bowel sounds, Mild epigastric tenderness, no organomegaly. SKIN: No rash, no excessive bruising, petechiae, or purpura. NEUROLOGIC: Cranial nerves II-XII intact, alert and oriented x 3, no gross motor deficits EXTREMITIES: no edema, cyanosis or clubbing DS: Data Data Completed and Pending Labs on day of discharge: Labs from last 24 hours 05/25/22 05/25/22 05:39 05:39 WBC 12.3 H RBC 3.85 L Hgb 11.1 L Hct 32.9 L MCV 85.5 MCH 28.8 MCHC 33.7 RDW 13.3 Plt Count 372 MPV 10.8 H Immature Gran % (Auto) 1.0 H Neut % (Auto) 79.4 H Lymph % (Auto) 14.1 L [place] % (Auto) 5.3 Eos % (Auto) 0.0 Baso % (Aut
[2022-05-27 11:07] LABS: Osmolality, Urine 192 mOsm/kg (50-1200)
[2022-05-27 11:54] LABS: Adrenocorticotropic Hormone <5 pg/mL (6-50)
[2022-05-28 10:06] LABS: Renin 39.41 ng/mL/h (0.25-5.82)
== END 2022-05-25 14:40 | disposition home or self-care (01) ==
LOC: ANHED 16:56 → ANH3MED 19:29
PROVIDERS: Emergency Medicine; Nurse Practitioner; Admitting Provider Hospitalist; Emergency Provider Preventive Medicine Aerospace Medicine; PCP Internal Medicine; Visit Provider Internal Medicine
DX: E87.1 Hypo-osmolality and hyponatremia (principal); E87.5 Hyperkalemia; E27.1 Primary adrenocortical insufficiency; E27.2 Addisonian crisis; K58.9 Irritable bowel syndrome, unspecified; R10.13 Epigastric pain; K76.0 Fatty (change of) liver, not elsewhere classified; K44.9 Diaphragmatic hernia without obstruction or gangrene; G40.909 Epilepsy, unspecified, not intractable, without status epilepticus; R11.2 Nausea with vomiting, unspecified; K59.09 Other constipation; R35.0 Frequency of micturition; F79 Unspecified intellectual disabilities; F98.8 Other specified behavioral and emotional disorders with onset usually occurring in childhood and adolescence; H91.90 Unspecified hearing loss, unspecified ear; D25.9 Leiomyoma of uterus, unspecified; R94.31 Abnormal electrocardiogram [ECG] [EKG]; Z94.81 Bone marrow transplant status; Z87.898 Personal history of other specified conditions; Z79.52 Long term (current) use of systemic steroids; Z79.899 Other long term (current) drug therapy
CPT/HCPCS: 36415; 71046; 74177; 80048; 80053; 80307; 81003; 81025; 82024; 82088; 82533; 83690; 83735; 83935; 84244; 84300; 85025; 93005; 96361; 96374; 96375; 96376; 99285; A9270; C9113; G0378; J0780; J1720; J7030; Q9967

== ENCOUNTER 2022-07-01 12:30 | Outpatient (CLI) | payer MEDICARE, BC, MEDICAID, SELFPAY ==
[2022-07-01 13:13] LABS: Alanine Aminotransferase 21 U/L (6-35); Albumin Level 4.8 g/dL (3.5-5.1); Alkaline Phosphatase 54 U/L (38-126); Anion Gap 9 mmol/L (8-16); Aspartate Amino Transferase 29 U/L (14-36); Bilirubin,Total 0.9 mg/dL (0.2-1.3); Blood Urea Nitrogen 21 mg/dL (7-17); Calcium 9.4 mg/dL (8.4-10.2); Carbon Dioxide 25 mmol/L (22-30); Chloride 92 mmol/L (98-107); Estimated Glomerular Filt Rate > 60; Glucose 109 mg/dL (65-110); Potassium 5.2 mmol/L (3.4-5.0); Sodium 126 mmol/L (137-145)
[2022-07-01 13:14] LABS: Basophils Absolute Auto 0.1 K/mm3 (0.0-0.1); Basophils Percent Auto 0.8 % (0.2-1.2); Eosinophils Absolute Auto 0.1 K/mm3 (0-0.3); Eosinophils Percent Auto 0.7 % (0-4.4); Hematocrit 40.4 % (37.0-47.0); Hemoglobin 13.8 g/dL (12.0-15.0); Immature Granulocyte Percent A 1.7 % (0-0.5); Lymphocytes Absolute Auto 1.65 K/mm3 (0.9-3.2); Lymphocytes Percent Auto 14.1 % (18.3-44.2); Mean Corpuscular HGB Conc 34.2 g/dl (32-36); Mean Corpuscular Hemoglobin 29.8 pg (26-34); Mean Corpuscular Volume 87.3 fl (80-100); Mean Platelet Volume 10.5 fl (7.4-10.4); Monocytes Absolute Auto 0.4 K/mm3 (0.1-0.6); Monocytes Percent Auto 3.3 % (2.6-8.5); Neutrophils Absolute Auto 9.3 K/mm3 (1.3-6.7); Neutrophils Percent Auto 79.4 % (45.5-73.1); Platelet Count Result 357 k/mm3 (150-375); Red Blood Count 4.63 M/mm3 (4.2-5.4); Red Cell Distribution Width 13.7 % (11.5-14.5); White Blood Count 11.7 K/mm3 (4.5-10.0)
[2022-07-01 16:17] LABS: CRP < 0.5 mg/dL (<1.0); Lipase 259 U/L (23-300)
[2022-07-09 20:37] LABS: Calprotectin, Stool 18 mcg/g
== END 2022-07-01 12:31 | disposition home or self-care (01) ==
PROVIDERS: PCP Internal Medicine
DX: R10.13 Epigastric pain (principal)
CPT/HCPCS: 36415; 80053; 83690; 83993; 85025; 86140

== ENCOUNTER 2022-07-02 21:43 | Inpatient (IN) | payer MEDICARE, BC, MEDICAID, SELFPAY ==
--- NOTE | ~2022-07-02 | CT_ITS ---
EXAMINATION: CT abdomen pelvis w con DATE: 07/02/2022 23:54 INDICATION: Abdominal pain, nausea and vomiting TECHNIQUE: Computed tomography (CT) of the abdomen and pelvis was performed with 100 cc Omnipaque 350 intravenous contrast. The dose-length product was 197.20 mGy-cm. Automated exposure control and iter ative reconstruction technique were employed. COMPARISON: CT dated 05/24/2022 FINDINGS: Lung bases are unremarkable. Cardiomegaly. Small hiatal hernia with thickening of the dista l esophagus. No significant pleural or pericardial effusion. Thoracic spine transfixed by Osorio rods. There is gastric antral thickening. There is mild diffuse small bowel thickening. No evidence f or obstruction. Moderate colonic fecal loading. No free air or free fluid. No significant vascular ab normality. No lymphadenopathy. There is a necrotic exophytic uterine fibroid posterior laterally on t he right. No free fluid or free air. The liver, spleen, pancreas, adrenal glands and kidneys are unremarkable. IMPRESSION: 1. Thickening of the distal esophagus, gastric antrum and small bowel, suspicious for gastroenteritis . No obstruction. Reviewed, dictated and finalized at location A. IMPRESSION: 1. Thickening of the distal esophagus, gastric antrum and small bowel, suspicio us for gastroenteritis. No obstruction.
--- NOTE | ~2022-07-02 | XR_ITS ---
EXAMINATION: XR abdomen obstructive series DATE: 07/03/2022 11:00 INDICATION: Abdominal distention TECHNIQUE: Supine and upright views of the abdomen. FINDINGS: 03/14/2017 The visualized lung parenchyma is normal.. There is a nonobstructive bowel gas pattern. Gas and stool are seen throughout the colon to the level of the rectum. There is no free air. There is bibasilar airspace disease which may represent edema or pneumonia. Spinal rods are partially visualized transfi veronica the thoracic and lumbar spine. There are multiple left renal stones. IMPRESSION: 1. No acute abdominal abnormality. 2: Bibasilar airspace disease may represent edema or pneumonia. 3: Left nephrolithiasis. Reviewed, dictated and finalized at location A.
[2022-07-02 21:48] VITALS: BP 116/69; PULSE 73; RESP 16; TEMP 36.4; O2SAT 94
[2022-07-02 22:07] LABS: Basophils Absolute Auto 0.1 K/mm3 (0.0-0.1); Basophils Percent Auto 0.7 % (0.2-1.2); Eosinophils Absolute Auto 0.1 K/mm3 (0-0.3); Hematocrit 34.7 % (37.0-47.0); Hemoglobin 11.2 g/dL (12.0-15.0); Immature Granulocyte Absolute 0.16 K/mm3 (0.00-0.031); Immature Granulocyte Percent A 1.4 % (0-0.5); Lymphocytes Absolute Auto 3.94 K/mm3 (0.9-3.2); Lymphocytes Percent Auto 35.1 % (18.3-44.2); Mean Corpuscular HGB Conc 32.3 g/dl (32-36); Mean Corpuscular Hemoglobin 29.3 pg (26-34); Mean Corpuscular Volume 90.8 fl (80-100); Mean Platelet Volume 10.6 fl (7.4-10.4); Monocytes Absolute Auto 0.7 K/mm3 (0.1-0.6); Monocytes Percent Auto 6.5 % (2.6-8.5); Neutrophils Absolute Auto 6.2 K/mm3 (1.3-6.7); Neutrophils Percent Auto 55.3 % (45.5-73.1); Platelet Count Result 283 k/mm3 (150-375); Red Blood Count 3.82 M/mm3 (4.2-5.4); Red Cell Distribution Width 14.1 % (11.5-14.5); White Blood Count 11.2 K/mm3 (4.5-10.0)
[2022-07-02 22:16] LABS: Alanine Aminotransferase 19 U/L (6-35); Alkaline Phosphatase 50 U/L (38-126); Anion Gap 11 mmol/L (8-16); Aspartate Amino Transferase 25 U/L (14-36); Bilirubin,Total 0.2 mg/dL (0.2-1.3); Blood Urea Nitrogen 16 mg/dL (7-17); Calcium 8.3 mg/dL (8.4-10.2); Carbon Dioxide 24 mmol/L (22-30); Chloride 99 mmol/L (98-107); Estimated CRCL calculation 54 ml/min; Estimated Glomerular Filt Rate > 60; Glucose 87 mg/dL (65-110); Lipase 375 U/L (23-300); Potassium 3.9 mmol/L (3.4-5.0); Sodium 134 mmol/L (137-145)
--- NOTE | 2022-07-02 22:26 | PC.NURSE ---
Pt voided enough urine for bedside test unable to send to lab for urinalysis.
[2022-07-02 22:35] VITALS: BP 113/69; O2SAT 94
[2022-07-02 22:44] VITALS: BP 110/65
[2022-07-02 22:46] VITALS: BP 109/63; O2SAT 93
[2022-07-02 22:55] LABS: Appearance Urine Clear (Clear); Bilirubin Urine Negative (Negative); Blood Urine Negative (Negative); Color Urine Yellow (Yellow); Glucose Urine UA Negative (Negative); Ketones Urine Negative (Negative); Leukocyte Esterase Ur Negative LEU/UL (Negative); Nitrate Urine Negative (Negative); Protein Urine Negative (Negative); Specific Grav Ur 1.015 (1.001-1.035); Urobilinogen Urine 0.2 mg/dL (<2.0); pH Urine 5.5 (5.0-9.0)
[2022-07-02 22:58] LABS: Add Urine Microscopic? NO
--- NOTE | 2022-07-02 23:10 | PC.NURSE ---
Patient report given to CAS Bradley. All questions answered and care of patient transferred.
--- NOTE | 2022-07-02 23:36 | ED.ABDPAIN ---
HPI - Abdominal Pain General Chief Complaint: Abdominal Pain Stated Complaint: abnormal labs Time Seen by Provider: 07/02/22 22:32 Source: patient Mode of arrival: ambulatory Limitations: no limitations History of Present Illness HPI narrative: This is a 36 year old female that presents to the ER for abdominal pain present today. Associated with nausea, vomiting and abdominal distention. Reports she has not had a bowel movement in several days. Denies fevers. Related Data Home Medications Medication Instructions Recorded Confirmed citalopram 40 mg tablet 40 mg PO DAILY 09/20/19 05/23/22 fludrocortisone 0.1 mg tablet 0.1 mg PO DAILY 09/20/19 05/23/22 folic acid 1 mg tablet 1 mg PO BID 09/20/19 05/23/22 loratadine 10 mg tablet (Claritin) 10 mg PO DAILY 09/20/19 05/23/22 meclizine 12.5 mg tablet 12.5 mg PO TID 09/20/19 05/23/22 methylphenidate HCl 27 mg 27 mg PO QAM 09/20/19 05/23/22 tablet,extended release 24 hr (Concerta) pregabalin 150 mg capsule (Lyrica) 150 mg PO BID 10/31/20 05/23/22 atomoxetine 40 mg capsule 40 mg PO DAILY 12/30/21 05/23/22 pantoprazole 40 mg tablet,delayed 40 mg PO BID 12/30/21 05/23/22 release Allergies Allergy/AdvReac Type Severity Reaction Status Date / Time No Known Allergies Allergy Verified 07/02/22 21:47 Review of Systems Review of Systems: CONSTITUTIONAL: Denies fever GASTROINTESTINAL: Reports abdominal pain, nausea, vomiting. Denies diarrhea. All systems reviewed & are unremarkable except as noted in HPI and below [facility] Past Medical History Medical History Acid reflux Gratiot's disease 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 She is single (currently engaged) and does not have children. 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 Her mother is her legal guardian. Code status full code Smoking status: Never smoker Alcohol intake: never Alcohol use details: Rarely Substance use: never Substance use type: does not use Additional living arrangements comments: Independent living with some assistance. Gender identity (if verbalized by the patient): Female Sexual Orientation (if Verbalized by the Patient): Straight or Heterosexual Spiritual care concerns: No Exam Narrative: GENERAL: Well-appearing, well-nourished, and in no acute distress. HEAD: Normocephalic, atraumatic. EYES: EOMI. CHEST: Clear to auscultation. No respiratory distress. No wheezes rales or rhonchi HEART: Regular rate and rhythm. No murmur heard. Normal peripheral pulses. ABDOMEN: Soft, normal active bowel sounds. Abdomen distended, tender to palpation in the epigastrium. No CVA tenderness EXTREMITIES: Normal range of motion. No edema. SKIN: Warm, dry, no rash. NEURO: No focal deficits. Alert and oriented x3. PSYCH: Normal mood and affect RECTAL: Small fissure noted. Hemoccult negative Course Consultations Consultation #1: Harper
[2022-07-02 23:53] VITALS: O2SAT 91
[2022-07-02] MEDS: SODIUM CHLORIDE 0.9% IV 1,000 ML 999 ML IV CONT (23:53)
[2022-07-02] MEDS: ONDANSETRON INJ 4 MG/2 ML VIAL IV PUSH (23:55)
[2022-07-02] MEDS: FAMOTIDINE 20 MG/2 ML VIAL IV PUSH (23:55)
[2022-07-02 23:59] VITALS: BP 108/65; O2SAT 92
[2022-07-03] VITALS (23 sets, daily range): BP systolic 92–110; BP diastolic 48–70; PULSE 69–77; RESP 16–20; TEMP 36.6; O2SAT 91–100; BMI 21.1
[2022-07-03 00:12] LABS: Partial Thromboplastin Time 24.3 SECONDS (22.3-36.8); Prothrombin Time 12.4 Seconds (11.1-14.7)
[2022-07-03] MEDS: MORPHINE SULFATE (*CRX) 2 MG/ML INJ IV PUSH ×2 (00:43→00:57)
--- NOTE | 2022-07-03 02:25 | PC.NURSE ---
Pt ambulated to restroom. Pt attempted to void with RN reminding pt to not strain like having a BM. Pt attempted to urinate without straining but rectum prolapsed again. ERP made aware. Rectum reduced into rectum by PA. Mother at bedside.
[2022-07-03] MEDS: SODIUM CHLORIDE 0.9% IV 1,000 ML 999 ML IV CONT (03:17)
[2022-07-03 04:09] LABS: SARS-CoV-2 RNA PCR Negative
--- NOTE | 2022-07-03 04:51 | ADMGEN ---
This patient, Leydi East, was admitted to Medical Room 345-01. Patient/family oriented to hospital policies and general routines including ID bracelet, bed and alarms, visiting hours, pain management, procedures, bathroom and other care routines, personal items, smoking policy, room service/diet, and visiting hours. Information on how to activate the Rapid Response Team has been discussed. Patient/Family are encouraged to report perceived risks to care and to ask questions if they do not understand what they are told or what they should do.
--- NOTE | 2022-07-03 06:31 | PHAR ---
VERIFIED HOME Atomoxetine 40mg capsule & Methylphenidate Hcl [Concerta] 27 mg Tablet Extended Release 24hr (counted #16 when verified) in pharmacy and walked back up to [facility].
[2022-07-03] MEDS: SODIUM CHLORIDE 0.9% IV 1,000 ML 125 ML IV CONT ×2 (06:37→18:17)
[2022-07-03] MEDS: LORATADINE 10 MG TABLET PO (09:56)
[2022-07-03] MEDS: MECLIZINE HCL 12.5 MG TABLET PO ×3 (09:56→18:14)
[2022-07-03] MEDS: DOCUSATE SODIUM 100 MG CAPSULE PO ×2 (09:57→18:13)
[2022-07-03] MEDS: FLUDROCORTISONE ACETATE 0.1 MG TABLET PO (09:57)
[2022-07-03] MEDS: CITALOPRAM HYDROBROMIDE 20 MG TABLET 40 MG PO (09:57)
[2022-07-03] MEDS: predniSONE 5 MG TABLET PO (09:57)
[2022-07-03] MEDS: PANTOPRAZOLE 40 MG TABLET PO ×2 (09:57→18:14)
--- NOTE | 2022-07-03 09:59 | WPDGICN ---
Assessment and Plan Assessment and plan (1) Generalized abdominal pain: Code(s): R10.84 - Generalized abdominal pain Status: Acute Assessment and Plan: this is been a recurrent problem in getting worse. Taking stool softeners has not seemed to help. Her stools in fact every thin pencil shape. And soft. (2) Constipation: Qualifiers: Constipation type: unspecified constipation type Qualified Code(s): K59.00 - Constipation, unspecified Code(s): K59.00 - Constipation, unspecified Status: Acute Assessment and Plan: As noted she takes stool softeners, MiraLax, nearly every day. Despite the fact her stools are soft now CTs show significant amount of stool in the colon. I believe that she may be having some colonic inertia secondary to anticholinergic effect of amitriptyline. (3) Hyponatremia: Code(s): E87.1 - Hypo-osmolality and hyponatremia Status: Acute Assessment and Plan: This has been corrected and is likely due again to her [place]'s disease. (4) Rectal prolapse: Code(s): K62.3 - Rectal prolapse Status: Acute Assessment and Plan: This is a new process. The family does not believe that she spends in the excessive amount of time sitting on the toilet but she probably does strain because of her tendency to become constipated. The emergency room physician has spoken see somebody in Colorectal surgery in [place] who felt that it was not an emergency but would be happy to see her as an outpatient. (5) Gastroenteritis: Code(s): K52.9 - Noninfective gastroenteritis and colitis, unspecified Status: Acute Assessment and Plan: This is a 'diagnosis' made by Radiology when noting possible thickening in the distal esophagus, gastric antrum, and small bowel which. I do not think that she has acute viral gastroenteritis. There is not a chronic gastroenteritis that would cause multifocal areas of thickening. Generally, when gastrointestinal mucosal thickening is noted on CT scan, follow-up endoscopy fails to find any significant abnormalities. I am however concerned about the small bowel dilatation. I think we need to rule out inflammatory bowel disease. 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 She remains on prednisone fludrocortisone. (7) Abnormal CT scan, gastrointestinal tract: Code(s): R93.3 - Abnormal findings on diagnostic imaging of other parts of digestive tract Status: Acute Assessment and Plan: although the radiology diagnosis of gastroenteritis is I think an over reach, I am concerned about the distension and significant amount of fecal material in the colon. Amitriptyline is likely slowing down her motility and I will hold that for now. Inflammatory bowel disease serology has been ordered. I will also start her on simethicone GI Consult Note Consult date/time: 07/03/22 09:59 HPI: Leydi East is a 36 year old female who presents to the emergency room with complaints of abdominal pain. She also had a rectal prolapse that her parents reduced. 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 The patient's mother noted that often her addisonian attacks seem to be precipitated by abdominal pain. She often has discomfort in the abdomen she pointed to the upper abdomen. She did have an EGD several months ago that was rather unremarkable, including negative H pylori. She was hospitalized here in April as well. CT scan of the abdomen then as now shows no acute process. The CT scan done yesterday describes thickening of the distal esophagus, gastric antrum, and small bowel suspicious for gastroenteritis there is also mode
[2022-07-03] MEDS: polyethylene glycoL 3350 17 GM POWD.PACK PO (10:00)
[2022-07-03] MEDS: PREGABALIN (*CRX) 75 MG CAPSULE 150 MG PO ×2 (10:08→20:31)
--- NOTE | 2022-07-03 10:42 | PM.IMHP ---
H&P: HPI History of Present Illness Date/Time: 07/03/22 10:42 Chief Complaint: abdominal pain Narrative: This is a 36 year old female who presents to the ER yesterday with complaints of abdominal pain primary in the epigastric area. There is associated nausea but no vomiting. His recently seen another GI physician at [facility] and had some blood work which done on 07/01/2022. Showed hyperkalemia hyponatremia her mother gave for solucortef that was provided by her export sales manager. She also noted something coming out of her rectum which needed to be reduced manually by apparent. She had another episode in the ER which was reduced by the ER physician as well. No blood in the stool. No fever chills. Urinating okay Review of Systems Review of Systems: - CONSTITUTIONAL: Denies weight loss, fever and chills. - HEENT: Denies changes in vision and hearing - RESPIRATORY: Denies SOB and cough. - CV: Denies palpitations and CP. - GI: Reports abdominal pain, nausea, vomiting and constipation, denies diarrhea. - : Denies dysuria and urinary frequency. - MSK: Denies myalgia and joint pain. - SKIN: Denies rash and pruritus. - NEUROLOGICAL: Denies headache and syncope. - PSYCHIATRIC: Denies recent changes in mood. Denies anxiety and depression. [facility] Past Medical History Medical History (Updated 07/03/22 @ 10:44 by Carlitos Her MD) Acid reflux Fortine's disease 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 She is single (currently engaged) and does not have children. 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 Her mother is her legal guardian. Code status full code Smoking status: Never smoker Alcohol intake: never Alcohol use details: Rarely Substance use: never Substance use type: does not use Additional living arrangements comments: Independent living with some assistance. Gender identity (if verbalized by the patient): Female Sexual Orientation (if Verbalized by the Patient): Straight or Heterosexual Spiritual care concerns: No Meds Home Medications and Allergies Home Medications Medication Instructions Recorded Confirmed Type citalopram 40 mg tablet 40 mg PO DAILY 09/20/19 07/03/22 History fludrocortisone 0.1 mg tablet 0.1 mg PO DAILY 09/20/19 07/03/22 History folic acid 1 mg tablet 1 mg PO BID 09/20/19 07/03/22 History loratadine 10 mg tablet (Claritin) 10 mg PO DAILY 09/20/19 07/03/22 History meclizine 12.5 mg tablet 12.5 mg PO TID 09/20/19 07/03/22 History methylphenidate HCl 27 mg 27 mg PO QAM 09/20/19 07/03/22 History tablet,extended release 24 hr (Concerta) pregabalin 150 mg capsule (Lyrica) 150 mg PO BID 10/31/20 07/03/22 History atomoxetine 40 mg capsule 40 mg PO DAILY 12/30/21 07/03/22 History pantoprazole 40 mg tablet,delayed 40 mg PO BID 12/30/21 07/03/22 History release dicyclomine 10 mg capsule 10 mg PO TID PRN stomach cramps 05/06/22 07/03/22 Rx #3
[2022-07-03] MEDS: FOLIC ACID 1 MG TABLET PO ×2 (12:12→18:13)
[2022-07-03] MEDS: SIMETHICONE 80 MG TAB.CHEW PO ×4 (12:13→20:31)
[2022-07-03] MEDS: BISACODYL 5 MG TABLET EC 10 MG PO (12:38)
[2022-07-03] MEDS: MAGNESIUM HYDROXIDE SUSP 30 ML UDC PO (12:38)
[2022-07-03] MEDS: polyethylene glycoL 3350 238 GM BOTTLE 119 GM PO (18:30)
[2022-07-03] MEDS: ACETAMINOPHEN 325 MG TABLET 650 MG PO (18:55)
[2022-07-03] MEDS: BENZOCAINE 20% HEMORRHOIDAL OINTMENT 28 GM 1 APPLIC TOPICAL (18:56)
[2022-07-04] MEDS: SODIUM CHLORIDE 0.9% IV 1,000 ML 125 ML IV CONT ×2 (01:45→09:26)
[2022-07-04 04:59] VITALS: BP 94/56; PULSE 60; RESP 16; TEMP 36.2; O2SAT 92
[2022-07-04 05:33] LABS: Basophils Absolute Auto 0.1 K/mm3 (0.0-0.1); Basophils Percent Auto 0.8 % (0.2-1.2); Eosinophils Absolute Auto 0.2 K/mm3 (0-0.3); Hematocrit 31.9 % (37.0-47.0); Hemoglobin 10.3 g/dL (12.0-15.0); Immature Granulocyte Absolute 0.06 K/mm3 (0.00-0.031); Immature Granulocyte Percent A 0.7 % (0-0.5); Lymphocytes Absolute Auto 3.33 K/mm3 (0.9-3.2); Lymphocytes Percent Auto 36.2 % (18.3-44.2); Mean Corpuscular HGB Conc 32.3 g/dl (32-36); Mean Platelet Volume 10.5 fl (7.4-10.4); Monocytes Absolute Auto 0.4 K/mm3 (0.1-0.6); Monocytes Percent Auto 4.2 % (2.6-8.5); Neutrophils Absolute Auto 5.2 K/mm3 (1.3-6.7); Neutrophils Percent Auto 56.1 % (45.5-73.1); Platelet Count Result 243 k/mm3 (150-375); Red Blood Count 3.43 M/mm3 (4.2-5.4); Red Cell Distribution Width 14.6 % (11.5-14.5); White Blood Count 9.2 K/mm3 (4.5-10.0)
[2022-07-04 05:50] LABS: Alanine Aminotransferase 17 U/L (6-35); Albumin Level 3.1 g/dL (3.5-5.1); Alkaline Phosphatase 36 U/L (38-126); Anion Gap 7 mmol/L (8-16); Aspartate Amino Transferase 24 U/L (14-36); Bilirubin,Total 0.4 mg/dL (0.2-1.3); Blood Urea Nitrogen 5 mg/dL (7-17); Calcium 7.4 mg/dL (8.4-10.2); Carbon Dioxide 25 mmol/L (22-30); Chloride 104 mmol/L (98-107); Estimated CRCL calculation 97 ml/min; Estimated Glomerular Filt Rate > 60; Glucose 80 mg/dL (65-110); Magnesium 1.6 mg/dL (1.6-2.3); Potassium 3.3 mmol/L (3.4-5.0); Sodium 136 mmol/L (137-145)
[2022-07-04] MEDS: FOLIC ACID 1 MG TABLET PO ×2 (09:10→16:50)
[2022-07-04] MEDS: FLUDROCORTISONE ACETATE 0.1 MG TABLET PO (09:10)
[2022-07-04] MEDS: CITALOPRAM HYDROBROMIDE 20 MG TABLET 40 MG PO (09:10)
[2022-07-04] MEDS: SIMETHICONE 80 MG TAB.CHEW PO ×4 (09:10→20:18)
[2022-07-04] MEDS: MECLIZINE HCL 12.5 MG TABLET PO ×3 (09:10→18:38)
[2022-07-04] MEDS: DOCUSATE SODIUM 100 MG CAPSULE PO (09:10)
[2022-07-04] MEDS: predniSONE 2.5 MG TABLET PO (09:11)
[2022-07-04] MEDS: PANTOPRAZOLE 40 MG TABLET PO ×2 (09:11→16:50)
[2022-07-04] MEDS: LORATADINE 10 MG TABLET PO (09:11)
[2022-07-04 09:19] LABS: Lipase 233 U/L (23-300)
[2022-07-04] MEDS: POTASSIUM CHLORIDE 20 MEQ TABLET 40 MEQ PO (09:26)
[2022-07-04] MEDS: MAGNESIUM SULF 2 GM/WATER 50ML 2 GM/50 ML BAG IVPB (09:27)
[2022-07-04] MEDS: PREGABALIN (*CRX) 75 MG CAPSULE 150 MG PO ×2 (09:28→20:17)
--- NOTE | 2022-07-04 10:49 | WPDGIPROGNO ---
Progress Note: A&P Assessment and Plan (1) Generalized abdominal pain: Code(s): R10.84 - Generalized abdominal pain Status: Acute (2) Rectal prolapse: Code(s): K62.3 - Rectal prolapse Status: Acute (3) Abnormal CT scan, gastrointestinal tract: Code(s): R93.3 - Abnormal findings on diagnostic imaging of other parts of digestive tract Status: Acute (4) [place]ear[place]'s disease: Code(s): E27.1 - Primary adrenocortical insufficiency Status: Acute Plan Assessment and plan (1) Generalized abdominal pain: ?Code(s): R10.84 - Generalized abdominal pain ?Status:?Acute ?Assessment and Plan: ?this is been a recurrent problem in getting worse.? Taking stool softeners has not seemed to help.? Her stools in fact every thin pencil shape.? And soft. 07/04/2022 she had had blood drawn a few days ago on the order of another cloth colorer. Studies for inflammatory bowel disease are still pending as is a fecal calprotectin. She was to have had celiac testing as well but apparently that was not done. We have drawn that here and that also is pending at this time (2) Constipation: ?Qualifiers: ?Constipation type:?unspecified constipation type? Qualified Code(s):?K59.00 - Constipation, unspecified ?Code(s): K59.00 - Constipation, unspecified ?Status:?Acute ?Assessment and Plan: ? As noted she takes stool softeners, MiraLax, nearly every day.? Despite the fact her stools are soft now CTs show significant amount of stool in the colon.? I believe that she may be having some colonic inertia secondary to anticholinergic effect of amitriptyline. (3) Hyponatremia: ?Code(s): E87.1 - Hypo-osmolality and hyponatremia ?Status:?Acute ?Assessment and Plan: ? This has been corrected and is likely due again to her Kearny's disease. (4) Rectal prolapse: ?Code(s): K62.3 - Rectal prolapse ?Status:?Acute ?Assessment and Plan: ? This is a new process.? The family does not believe that she spends in the excessive amount of time sitting on the toilet but she probably does strain because of her tendency to become constipated.? The emergency room physician has spoken see somebody in Colorectal surgery in [place] who felt that it was not an emergency but would be happy to see her as an outpatient. The problem is that as a patient with impairment, physically and cognitively, she is unable to reduce her prolapse herself, her mother is working full-time. Ideally we would like to transfer her or get her to see a colorectal surgeon in [place] as soon as possible. colonoscopy will be done tomorrow (5) Gastroenteritis: ?Code(s): K52.9 - Noninfective gastroenteritis and colitis, unspecified ?Status:?Acute ?Assessment and Plan: ? This is a 'diagnosis' made by Radiology when noting possible thickening in the distal esophagus, gastric antrum, and small bowel which.? I do not think that she has acute viral gastroenteritis.? There is not a chronic gastroenteritis that would cause multifocal areas of thickening.? Generally, when? gastrointestinal mucosal thickening is noted on CT scan,? follow-up endoscopy fails to find any significant abnormalities.? I am however concerned about the small bowel dilatation.? I think we need to rule out inflammatory bowel disease.? A fecal calprotectin level has been ordered and I will also obtain IBD serology (6) Kearny's disease: ?Code(s): E27.1 - Primary adrenocortical insufficiency ?Status:?Acute ?Assessment and Plan: ?her hyponatremia was corrected with? intravenous sodium chloride.? She remains on prednisone? fludrocortisone. (7) Abnormal CT scan, gastrointestinal tract: ?Code(s): R93.3 - Abnormal findings on diagnostic imaging of other parts of digestive tract ?Status:?Acute ?Assessment and Plan: ?although the radiology diagnosis of gastroenteritis is I think an over reach, I am concern
[2022-07-04 14:00] VITALS: PULSE 84; RESP 16; TEMP 36.4; O2SAT 100
--- NOTE | 2022-07-04 16:20 | PM.IMPN ---
Progress Note: A&P Assessment and Plan (1) Abnormal CT scan, gastrointestinal tract: Code(s): R93.3 - Abnormal findings on diagnostic imaging of other parts of digestive tract Status: Acute (2) Generalized abdominal pain: Code(s): R10.84 - Generalized abdominal pain Status: Acute (3) Gastroenteritis: Code(s): K52.9 - Noninfective gastroenteritis and colitis, unspecified Status: Acute (4) Constipation: Qualifiers: Constipation type: unspecified constipation type Qualified Code(s): K59.00 - Constipation, unspecified Code(s): K59.00 - Constipation, unspecified Status: Acute (5) Rectal prolapse: Code(s): K62.3 - Rectal prolapse Status: Acute (6) 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 test is negative. urinalysis negative . continue PPI. CT scan reviewed. GI consulted. CT with small hiatal hernia, fibroid uterus and hepatic steatosis. he has chronic constipation /IBS. Will continue bowel regimen. Moderate amount of stool noted in the CT scan. will give soapsuds enema today for constipation. GI has been consulted. CT with possible gastroenteritis Now having regular bowel movement. On bowel regimen. she is going For colonoscopy in a.m.. # rectal prolapse he to see Colorectal surgery. Likely due to constipation . needs to see Colorectal surgery as an outpatient basis for surgical correction. Due to her underlying cognitive delay it is challenging for her to be able to manage rectal prolapse until surgically Fixed. # small-bowel distension: Obstruction on CT. Fecal calprotectin was ordered IBD panel has been ordered by GI His celiac panel ordered residual resolved pending resolved # hyponatremia Resolved. ?#? History of addisonian disease With possible acute addisonian crisis 07/01 depending on the blood Result on 07/01. She was given Solu Cortef started home. Labs here improved. Continue on prednisone and fludrocortisone previously ordered by screwhead polisher.? ?#Irritable bowel syndrome her epigastric pain nausea vomiting likely related to her underlying IBS.? She had intermittent issues with this in the past.? EGD has been done in the past which was negative.? She has never been tried on dicyclomine as per history.? She is on amitriptyline for this which was recently started since January 2022.?? added dicyclomine p.r.n. use for symptomatic relief with this.? She also has chronic idiopathic constipation but not compliant with MiraLax and high-fiber diet.? discussed use of MiraLax and fiber diet on a regular basis. On amitriptyline 25 mg at bedtime to increase her bowel regimen. discussed options of trulance for her [facility] ?#Seizure disorder home medication ?#?chronic constipation he had the on MiraLax and fiber ?#Uterine fibroid follow-up with gynecology as an outpatient basis ?#Chronic epigastric pain steroid induced gastritis.? EGD done which was negative in the past # DVT prophylaxis SCDs # code status full code Subjective Date/time seen: 07/04/22 16:20 Interval history: patient had multiple bowel movements. Rectal prolapse continues to happen with his bowel movement. She is unclear on what to do and concern is for what to do when she goes home until his follows up with Colorectal surgery. abdomen is still distended but pain is improved. no nausea v
[2022-07-04] MEDS: polyethylene glycoL 3350 238 GM BOTTLE 119 GM PO (16:48)
[2022-07-04] MEDS: ACETAMINOPHEN 325 MG TABLET 650 MG PO (18:40)
[2022-07-04 20:31] VITALS: BP 115/58; PULSE 64; RESP 18; TEMP 36.2; O2SAT 99
[2022-07-05 04:40] VITALS: BP 100/57; PULSE 72; RESP 18; TEMP 36.3; O2SAT 99
[2022-07-05 06:07] LABS: Basophils Absolute Auto 0.1 K/mm3 (0.0-0.1); Basophils Percent Auto 0.8 % (0.2-1.2); Eosinophils Absolute Auto 0.2 K/mm3 (0-0.3); Eosinophils Percent Auto 3.7 % (0-4.4); Hematocrit 30.4 % (37.0-47.0); Hemoglobin 9.9 g/dL (12.0-15.0); Immature Granulocyte Absolute 0.04 K/mm3 (0.00-0.031); Immature Granulocyte Percent A 0.7 % (0-0.5); Lymphocytes Absolute Auto 2.54 K/mm3 (0.9-3.2); Lymphocytes Percent Auto 42.5 % (18.3-44.2); Mean Corpuscular HGB Conc 32.6 g/dl (32-36); Mean Corpuscular Hemoglobin 29.6 pg (26-34); Mean Platelet Volume 10.7 fl (7.4-10.4); Monocytes Absolute Auto 0.3 K/mm3 (0.1-0.6); Monocytes Percent Auto 5.4 % (2.6-8.5); Neutrophils Absolute Auto 2.8 K/mm3 (1.3-6.7); Neutrophils Percent Auto 46.9 % (45.5-73.1); Platelet Count Result 245 k/mm3 (150-375); Red Blood Count 3.34 M/mm3 (4.2-5.4); Red Cell Distribution Width 14.5 % (11.5-14.5)
[2022-07-05 06:17] LABS: Alanine Aminotransferase 17 U/L (6-35); Alkaline Phosphatase 37 U/L (38-126); Anion Gap 6 mmol/L (8-16); Aspartate Amino Transferase 22 U/L (14-36); Bilirubin,Total 0.3 mg/dL (0.2-1.3); Calcium 7.9 mg/dL (8.4-10.2); Carbon Dioxide 27 mmol/L (22-30); Chloride 103 mmol/L (98-107); Estimated CRCL calculation 97 ml/min; Estimated Glomerular Filt Rate > 60; Glucose 81 mg/dL (65-110); Magnesium 1.8 mg/dL (1.6-2.3); Potassium 3.1 mmol/L (3.4-5.0); Sodium 136 mmol/L (137-145)
[2022-07-05 06:18] LABS: Blood Urea Nitrogen < 2 mg/dL (7-17)
[2022-07-05] MEDS: ACETAMINOPHEN 325 MG TABLET 650 MG PO (09:56)
[2022-07-05] MEDS: CITALOPRAM HYDROBROMIDE 20 MG TABLET 40 MG PO (10:00)
[2022-07-05] MEDS: predniSONE 5 MG TABLET PO (10:00)
[2022-07-05] MEDS: SIMETHICONE 80 MG TAB.CHEW PO ×2 (10:00→17:55)
[2022-07-05] MEDS: FOLIC ACID 1 MG TABLET PO ×2 (10:00→17:55)
[2022-07-05] MEDS: PANTOPRAZOLE 40 MG TABLET PO ×2 (10:00→17:56)
[2022-07-05] MEDS: MECLIZINE HCL 12.5 MG TABLET PO ×2 (10:00→17:55)
[2022-07-05] MEDS: DOCUSATE SODIUM 100 MG CAPSULE PO (10:01)
[2022-07-05] MEDS: FLUDROCORTISONE ACETATE 0.1 MG TABLET PO (10:01)
[2022-07-05] MEDS: SODIUM CHLORIDE 0.9% IV 1,000 ML 125 ML IV CONT (10:19)
[2022-07-05] MEDS: PREGABALIN (*CRX) 75 MG CAPSULE 150 MG PO (10:19)
[2022-07-05] MEDS: POTASSIUM CHLORIDE INJ 40 MEQ in SODIUM CHLORIDE 0.9% IV 500 ML 130 MEQ IVPB (10:19)
[2022-07-05 13:12] VITALS: BP 112/71; PULSE 76; RESP 18; TEMP 36.3; O2SAT 100
[2022-07-05] MEDS: LACTATED RINGERS 1,000 ML 150 ML IV CONT (13:17)
--- NOTE | 2022-07-05 13:50 | WPDANESEPPF ---
Anes - Initial Pre Proc Eval Procedure: Operation Date: 07/05/22 14:15 Proposed Procedures p Colonoscopy - Solomon Garcia MD Date/Time: 07/05/22 13:50 Surgeon: Carlitos Her MD Pre Op Diagnosis: Gastroenteritis,constipation,rectal prolapse Patient Data Age: 36 Gender: F Height: 1.55 m Weight: 50.8 kg Last Vital Signs Temp 97.3 F L 07/05/22 13:12 Pulse 76 07/05/22 13:12 Resp 18 07/05/22 13:12 BP 112/71 07/05/22 13:12 Pulse Ox 100 07/05/22 13:12 O2 Del Method Room Air 07/05/22 13:12 Allergies Allergy/AdvReac Type Severity Reaction Status Date / Time No Known Allergies Allergy Verified 07/05/22 13:04 Home Medications Medication Instructions Recorded Confirmed Type citalopram 40 mg tablet 40 mg PO DAILY 09/20/19 07/03/22 History fludrocortisone 0.1 mg tablet 0.1 mg PO DAILY 09/20/19 07/03/22 History folic acid 1 mg tablet 1 mg PO BID 09/20/19 07/03/22 History loratadine 10 mg tablet (Claritin) 10 mg PO DAILY 09/20/19 07/03/22 History meclizine 12.5 mg tablet 12.5 mg PO TID 09/20/19 07/03/22 History methylphenidate HCl 27 mg 27 mg PO QAM 09/20/19 07/03/22 History tablet,extended release 24 hr (Concerta) pregabalin 150 mg capsule (Lyrica) 150 mg PO BID 10/31/20 07/03/22 History atomoxetine 40 mg capsule 40 mg PO DAILY 12/30/21 07/03/22 History pantoprazole 40 mg tablet,delayed 40 mg PO BID 12/30/21 07/03/22 History release dicyclomine 10 mg capsule 10 mg PO TID PRN stomach cramps 05/06/22 07/03/22 Rx #30 caps amitriptyline 25 mg tablet 25 mg PO HS #30 tabs 05/25/22 07/03/22 Rx polyethylene glycol 3350 17 gram 17 g PO QAM #30 ea 05/25/22 07/03/22 Rx oral powder packet (Miralax) prednisone 2.5 mg tablet See Rx Instructions .Route .COMPLEX 07/03/22 07/03/22 History Laboratory Tests 07/05/22 07/05/22 05:41 05:41 WBC 6.0 K/mm3 K/mm3 (4.5-10.0) RBC 3.34 M/mm3 L M/mm3 (4.2-5.4) Hgb 9.9 g/dL L g/dL (12.0-15.0) Hct 30.4 % L % (37.0-47.0) MCV 91.0 fl fl (80-100) MCH 29.6 pg pg (26-34) MCHC 32.6 g/dl g/dl (32-36) RDW 14.5 % % (11.5-14.5) Plt Count 245 k/mm3 k/mm3 (150-375) MPV 10.7 fl H fl (7.4-10.4) Immature Gran % (Auto) 0.7 % H % (0-0.5) Neut % (Auto) 46.9 % % (45.5-73.1) Lymph % (Auto) 42.5 % % (18.3-44.2) [place] % (Auto) 5.4 % % (2.6-8.5) Eos % (Auto) 3.7 % % (0-4.4) Baso % (Auto) 0.8 % % (0.2-1.2) Lymph # (Auto) 2.54 K/mm3 K/mm3 (0.9-3.2) [place] # (Auto) 0.3 K/mm3 K/mm3 (0.1-0.6) Eos # (Auto) 0.2 K/mm3 K/mm3 (0-0.3) Baso # (Auto) 0.1 K/mm3 K/mm3 (0.0-0.1) Abs Immat Gran (auto) 0.04 K/mm3 H K/mm3 (0.00-0.031) Absolute Neuts (auto) 2.8 K/mm3 K/mm3 (1.3-6.7) Absolute Nucleated RBC 0.0 K/mm3 K/mm3 (0.0-0.012) Nucleated RBC % 0.0 % % (0.0-0.2) Sodium 136 mmol/L L mmol/L (137-145) Potassium 3.1 mmol/L L mmol/L (3.4-5.0) Chloride 103 mmol/L mmol/L (98-107) Carbon Dioxide 27 mmol/L mmol/L (22-30) Anion Gap 6 mmol/L L mmol/L (8-16) BUN < 2 mg/dL L mg/dL (7-17) Creatinine 0.50 mg/dL L mg/dL (0.7-1.0) Estim Creat Clear Calc 97 ml/min ml/min Estimated GFR > 60 (59 - ) Glucose 81 mg/dL mg/dL (65-110) Calcium 7.9 mg/dL L mg/dL (8.4-10.2) Magnesium 1.8 mg/dL mg/dL (1.6-2.3) Total Bilirubin 0.3 mg/dL mg/dL (0.2-1.3) AST 22 U/L U/L (14-36) ALT 17 U/L U/L (6-35) Alkaline Phosphatase 37 U/L L U/L (38-126) Total Protein 5.0 g/dL L g/dL (6.3-8.2) Albumin 3.0 g/dL L g/dL (3.5-5.1) Patient hx anesthesia problems: none Family hx anesthesia problems: none Results Review: All pre-operative results and documents have been reviewed as part of the pre-operative evaluation. [facility] Past Medical History Medic
[2022-07-05 15:04] VITALS: BP 95/59; PULSE 80; RESP 15; O2SAT 100
[2022-07-05 15:14] VITALS: BP 104/53; PULSE 89; RESP 20; O2SAT 100
[2022-07-05 15:24] VITALS: BP 104/59; PULSE 70; RESP 19; O2SAT 96
[2022-07-05 16:07] VITALS: BP 105/61; PULSE 52; RESP 20; TEMP 36.4; O2SAT 94
--- NOTE | 2022-07-05 17:04 | PM.DS ---
DS: Admitting Diagnosis Discharge Date 07/05/2022 Admitting Diagnosis abdominal pain DS: Discharge Diagnosis Discharge Diagnosis (1) Abnormal CT scan, gastrointestinal tract: Code(s): R93.3 - Abnormal findings on diagnostic imaging of other parts of digestive tract Status: Acute (2) Generalized abdominal pain: Code(s): R10.84 - Generalized abdominal pain Status: Acute (3) Gastroenteritis: Code(s): K52.9 - Noninfective gastroenteritis and colitis, unspecified Status: Acute (4) Constipation: Qualifiers: Constipation type: unspecified constipation type Qualified Code(s): K59.00 - Constipation, unspecified Code(s): K59.00 - Constipation, unspecified Status: Acute (5) Rectal prolapse: Code(s): K62.3 - Rectal prolapse Status: Acute (6) [place]'s disease: Code(s): E27.1 - Primary adrenocortical insufficiency Status: Acute (7) Epigastric abdominal pain: Code(s): R10.13 - Epigastric pain Status: Acute (8) Cognitive developmental delay: Code(s): F81.9 - Developmental disorder of scholastic skills, unspecified Status: Acute (9) Attention deficit disorder: Code(s): F98.8 - Other specified behavioral and emotional disorders with onset usually occurring in childhood and adolescence Status: Acute DS: Summary Hospital Course Hospital Course: # Abdominal pain primarily epigastric pain with associated abdominal distension:? test is negative. urinalysis negative .? continue PPI.? CT scan reviewed.? GI consulted.? CT with small hiatal hernia, fibroid uterus and hepatic steatosis. she has chronic constipation /IBS.? Will continue bowel regimen.? Moderate amount of stool noted in the CT scan. ? given soapsuds enema for constipation.? GI has been consulted.? ? CT with possible gastroenteritis ? started having regular bowel movement following this. She also subsequently underwent bowel prep for colonoscopy screen are. This pretty much resolved for abdominal pain. # rectal prolapse he to see Colorectal surgery.? Likely due to constipation . ? needs to see Colorectal surgery as an outpatient basis for surgical correction.? Due to her underlying cognitive? delay? it is challenging for her to be able to manage rectal prolapse until surgically ? Fixed. She is scheduled to see Colorectal surgery tomorrow at 7:30 a.m.. # small-bowel? distension:? Obstruction on CT.? Fecal calprotectin was ordered IBD panel has been ordered by GI? His celiac panel ordered residual resolved pending resolved She underwent colonoscopy today which showed normal colon but noted to prolapse # hyponatremia ? Resolved. ?#? History of addisonian disease With possible acute addisonian crisis ? 07/01 depending on the? blood ? Result on 07/01.? She was given Solu Cortef started home.? Labs here improved.? Continue on prednisone and fludrocortisone previously ordered by claims representative.? ?#Irritable bowel syndrome her epigastric pain nausea vomiting likely related to her underlying IBS.? She had intermittent issues with this in the past.? EGD has been done in the past which was negative.? She has never been tried on dicyclomine as per history.? She is on amitriptyline for this which was recently started since January 2022.?? added dicyclomine p.r.n. use for symptomatic relief with this.? She also has chronic idiopathic constipation but not compliant with MiraLax and high-fiber diet.? discussed use of MiraLax and fiber diet on a regular basis.? On amitriptyline 25 mg at bedtime to increase her bowel regimen. ? discussed options of trulance for her CIC . suspected constipation related to amitriptyline hence this has been stopped ?#Seizure disorder home medication ?#?chronic constipation he had the on MiraLax and fiber ?#Uterine fibroid follow-up with gynecology as an outpatient basis ?#Chronic epigastric pain steroid induced gastritis.? EGD done [facility]
[2022-07-08 22:27] LABS: ANCA Screen Negative (Negative); Myeloperoxidase Ab <1.0 AI (<1.0); Proteinase-3 Ab <1.0 AI (<1.0); S cerevisiae Ab (IgA) 7.7 U (<=20.0); S cerevisiae Ab (IgG) 17.3 U (<=20.0)
[2022-07-12 08:30] LABS: Gliadin AB, IgG <1.0
[2022-07-12 08:31] LABS: TTG IGA AB <1.0
== END 2022-07-05 18:20 | disposition home or self-care (01) | DRG 392 ==
LOC: ANHED 07-03 03:29 → ANH3MEDSUR 07-03 04:14 → ANH3MED 07-03 04:15
PROVIDERS: Internal Medicine Gastroenterology; Physician Assistant; Admitting Provider Internal Medicine; Emergency Provider Emergency Medicine; PCP Internal Medicine; Visit Provider Internal Medicine
PROC: 0DJD8ZZ Inspection of Lower Intestinal Tract, Via Natural or Artificial Opening Endoscopic (ICD-10-PCS; CPT 45378; principal; 2022-07-05 14:15)
DX: K58.9 Irritable bowel syndrome, unspecified (principal); E27.1 Primary adrenocortical insufficiency; E87.1 Hypo-osmolality and hyponatremia; R10.84 Generalized abdominal pain; K59.04 Chronic idiopathic constipation; K21.9 Gastro-esophageal reflux disease without esophagitis; K62.3 Rectal prolapse; D25.9 Leiomyoma of uterus, unspecified; M41.9 Scoliosis, unspecified; G40.909 Epilepsy, unspecified, not intractable, without status epilepticus; R93.3 Abnormal findings on diagnostic imaging of other parts of digestive tract; R62.59 Other lack of expected normal physiological development in childhood; F98.8 Other specified behavioral and emotional disorders with onset usually occurring in childhood and adolescence; Z87.442 Personal history of urinary calculi; Z20.822 Contact with and (suspected) exposure to COVID-19
CPT/HCPCS: 36415; 74019; 74177; 80053; 81003; 81025; 83516; 83690; 83735; 83993; 85025; 85610; 85730; 86036; 86140; 86255; 86671; 96361; 96365; 96375; 99285; A9270; C9803; G0378; J0131; J2270; J2405; J2704; J3475; J3480; J7030; J7040; J7120; J7512; Q9967; U0003; U0005

== ENCOUNTER 2023-12-28 11:58 | Emergency (ER) | payer MEDICARE, BC, MEDICAID, SELFPAY ==
--- NOTE | ~2023-12-28 | XR_ITS ---
EXAMINATION: XR pelvis 1-2V DATE: 12/28/2023 12:34 INDICATION: Nontraumatic right hip/sciatic pain. TECHNIQUE: An anteroposterior view of the pelvis was obtained. COMPARISON: None. FINDINGS: Bone alignment is normal. No fracture. No suspected osteonecrosis. Bilateral hip joint spaces are nor mal. Mild bilateral sacroiliac osteoarthritis. Partially visualized vertical jonathan and pedicle screw fi xation for posterior spinal fusion beginning at L4 and extending cephalad beyond the superior margin of the field of imaging. IMPRESSION: 1. Normal right hip. No acute osseous abnormality. Reviewed, dictated and finalized at location A.
[2023-12-28 12:05] VITALS: BP 114/79; PULSE 79; RESP 16; TEMP 36.9; O2SAT 100
--- NOTE | 2023-12-28 12:19 | ED.GENADULT ---
HPI - General Adult General Chief complaint: Extremity Injury, Lower Stated complaint: R HIP PAIN Time Seen by Provider: 12/28/23 12:19 Source: patient, family, RN notes reviewed and old records reviewed Mode of arrival: ambulatory Limitations: no limitations History of Present Illness HPI narrative: 38 year old female accompanied by father with complaints of right hip pain that goes down the side of leg to about area of mid thigh to knee laterally which started this morning. Patient reports that she walked 2 miles yesterday and she went to physical also yesterday denies any known injury. Patient reports that she had no discomfort prior to bed last night. Father reports that daughter and mother do special breast cancer walk every year and she is looking forward to participating. Patient describes pain as sharp and stabbing and rates her pain a 8/10, has taken some Advil for her discomfort. Gait is steady on ambulation. MD complaint: pain right hip and down leg Onset (ago): day(s) (this morning) Location: right and lower extremity (hip and down lateral leg mid thigh to knee) Severity scale (1-10): 8 Quality: stabbing and sharp Treatments prior to arrival: other (Ibuprofen) Related Data Home Medications Medication Instructions Recorded Confirmed citalopram 40 mg tablet 40 mg PO DAILY 09/20/19 12/28/23 folic acid 1 mg tablet 1 mg PO BID 09/20/19 12/28/23 loratadine 10 mg tablet (Claritin) 10 mg PO DAILY 09/20/19 12/28/23 methylphenidate HCl 27 mg 27 mg PO QAM 09/20/19 12/28/23 tablet,extended release 24 hr (Concerta) pregabalin 150 mg capsule (Lyrica) 150 mg PO BID 10/31/20 12/28/23 atomoxetine 40 mg capsule 40 mg PO DAILY 12/30/21 12/28/23 pantoprazole 40 mg tablet,delayed 40 mg PO BID 12/30/21 12/28/23 release prednisone 2.5 mg tablet See Rx Instructions .Route .COMPLEX 07/03/22 12/28/23 Allergies Allergy/AdvReac Type Severity Reaction Status Date / Time No Known Allergies Allergy Verified 12/28/23 12:15 Review of Systems Review of Systems: CONSTITUTIONAL: Denies fever, chills, or sweats. EYES: Denies visual changes, redness, or discharge. ENT: Denies rhinorrhea, congestion, sore throat, or otalgia. CARDIOVASCULAR: Denies chest pain, palpitations, or edema. RESPIRATORY: Denies cough or dyspnea. GASTROINTESTINAL: Denies abdominal pain, nausea, vomiting, or diarrhea. GENITOURINARY: Denies dysuria or hematuria. SKIN: Denies rash or itching. MUSCULOSKELETAL: Denies acute back pain, reports pain to right hip down right lateral leg to knee, or myalgia. NEUROLOGIC: Denies headache, numbness, or weakness. PSYCHIATRIC: Positive for history of anxiety or depression. All systems reviewed & are unremarkable except as noted in HPI and below PMFSH Past Medical History Medical History Acid reflux [place]'s disease 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 She is single (currently engaged) and does not have children. 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
== END 2023-12-28 13:05 | disposition home or self-care (01) ==
PROVIDERS: Emergency Provider Registered Nurse; PCP Internal Medicine
DX: M25.551 Pain in right hip (principal); K21.9 Gastro-esophageal reflux disease without esophagitis; E27.1 Primary adrenocortical insufficiency; F98.8 Other specified behavioral and emotional disorders with onset usually occurring in childhood and adolescence; M41.9 Scoliosis, unspecified; Z94.81 Bone marrow transplant status; G40.909 Epilepsy, unspecified, not intractable, without status epilepticus
CPT/HCPCS: 72170; 99213; G0463

== ENCOUNTER 2024-11-22 07:49 | Outpatient (CLI) | payer MEDICARE, MEDICAID, SELFPAY ==
--- NOTE | ~2024-11-22 | US_ITS ---
EXAMINATION: US right upper quadrant DATE: 11/22/2024 08:34 INDICATION: Epigastric abdominal pain. TECHNIQUE: Multiple grayscale and Doppler ultrasound images of the abdomen were obtained. COMPARISON: CT abdomen and pelvis 07/02/2022 FINDINGS: Abdominal aorta is normal in caliber. Inferior vena cava is normal. The visualized portions of the head, body, and tail of the pancreas are normal. The liver is normal without focal lesion. Th ere is normal flow in main portal vein. The gallbladder is normal in size. No gallstones or gallbladd er wall thickening. There is no sonographic Nieto's sign. The common duct is normal and measures 3 m m. IMPRESSION: 1. Normal right upper quadrant ultrasound. Reviewed, dictated and finalized at location A. [employer] ADMINISTRATOR
== END 2024-11-22 07:50 | disposition home or self-care (01) ==
PROVIDERS: PCP Internal Medicine; Visit Provider Nurse Practitioner Primary Care
DX: R10.13 Epigastric pain (principal)
CPT/HCPCS: 76705

== ENCOUNTER 2024-12-05 19:38 | Emergency (ER) | payer MEDICARE, BC, MEDICAID, SELFPAY ==
--- OUTSIDE RECORDS SUMMARY | 2024-12-05 19:40 | XMS_ITS | Clinical Summary ---
Author Organization [facility] 8 [facility] Address [address] [place] [address] Care Team Providers Care Talent Program Manager Name Role Phone Armond Bryan MD Unavailable Linda Hunter MD Unavailable Armond Bryan MD Primary Care Provider [phone] Solomon Garcia MD Unavailable [phone] Bebeto Pavon MD Unavailable [phone] Jeremy Byrd MD Unavailable [phone] Allergies No known active allergies Medications citalopram (CeleXA) 40 mg tabletIndications :ADHD Take 1 tablet (40 mg total) by mouth every morning 12/18/19 20 Active loratadine (CLARITIN) 10 mg tabletIndications :Allergic Rhinitis Take 1 tablet (10 mg total) by mouth every morning Active ibuprofen (ADVIL,MOTRIN) 200 mg tab/cap Take 2 tablet/capsule (400 mg total) by mouth every 6 (six) hours as needed for pain Active mineral oil-chondrus oral emulsion 2.5 mL/5 mL Kondremul, take 1 tablespoon (15 ml dose) by moth 1-3 times daily as needed. 480 mL 07/06/20 22 Active atomoxetine (STRATTERA) 40 mg capsuleIndication s:Attention-Defic it Hyperactivity Disorder Take 1 capsule (40 mg total) by mouth early childhood worker before breakfast 07/03/20 22 Active psyllium, aspartame, SF (METAMUCIL SF) 3.4 gram packet Take 1 packet by mouth daily 30 packet 07/17/20 22 Active polyethylene glycol (MIRALAX) 17 gram packet Take 1 packet (17 g total) by mouth daily 30 packet 07/17/20 22 Active folic acid (FOLVITE) 1 mg tablet TAKE 1 TABLET(1 MG) BY MOUTH EVERY MORNING 90 tablet 2 04/25/20 24 Active methylphenidate ER (Concerta) 27 mg CR tablet Take 1 tablet (27 mg total) by mouth every morning 30 tablet 07/12/[address] (PROTONIX) 40 mg EC tablet TAKE 1 TABLET(40 MG) BY MOUTH TWICE DAILY 180 tablet 2 07/19/20 24 Active pregabalin (LYRICA) 150 mg capsule TAKE 1 CAPSULE(150 MG) BY MOUTH TWICE DAILY 60 capsule 3 10/19/19 25 Active predniSONE (DELTASONE) 2.5 mg tabletIndications :Chronic adrenal insufficiency (HCC) TAKE 2 TABLETS BY MOUTH TODAY AND 1 TABLET BY MOUTH THE NEXT DAY, CONTINUE ALTERNATING DOSE 135 tablet 3 11/22/19 25 Active fludrocortisone 0.1 mg tabletIndications :Chronic adrenal insufficiency (HCC) TAKE 1 TABLET BY MOUTH DAILY 90 tablet 3 11/22/19 25 Active cholecalciferol (VITAMIN D-3) 5,000 unit capsuleIndication s:Vitamin D Deficiency Take 1 capsule (5,000 Units total) by mouth early childhood worker before breakfast 12 capsule 3 11/22/19 25 Active cholecalciferol (VITAMIN D-3) 5,000 unit capsuleIndication s:Vitamin D Deficiency Take 1 capsule (5,000 Units total) by mouth early childhood worker before breakfast 025 Discontin ued(Reord er) meclizine (ANTIVERT) 12.5 mg tablet Take 1 tablet (12.5 mg total) by mouth 3 (three) times a day as needed for dizziness 20 tablet 02/08/20 23 025 Discontin ued(Thera py completed ) fludrocortisone 0.1 mg tabletIndications :Chronic adrenal insufficiency (HCC) TAKE 1 TABLET BY MOUTH DAILY 90 tablet 3 04/25/20 24 025 Discontin ued(Reord er) predniSONE (DELTASONE) 2.5 mg tabletIndications :Chronic adrenal insufficiency (HCC) TAKE 2 TABLETS BY MOUTH TODAY AND 1 TABLET BY MOUTH THE NEXT DAY, CONTINUE ALTERNATING DOSE 135 tablet 3 09/27/20 24 025 Discontin ued(Reord er) Active Problems Problem Noted Date Diagnosed Date Cochlear implant in place 03/15/2024 Encounter for adjustment and management of cochl ear device 03/05/2024 Cholesteatoma of left ear 02/24/2022 Overview (07/10/2022): Added automatically from request for surgery [id number] Assessment & Plan (02/15/2023 3:14 PM CDT): Has post-op f/u 02/24/23 for ENT Asymmetric SNHL (sensorineural hearing loss) 09/2019 Assessment & Plan (12/07/2019 5:25 PM AUDIO RECORDING ENGINEER): Discussed options for left hearing loss. Consider CROS amplification. RTC annually. Deafness, mixed type 08/02/2016 Chronic adrenal insufficiency 09/19/2012 Overview (01/12/2017): Glucocorticoid deficiency Assessment & Plan (11/01/2023 3:49 PM AUDIO RECORDING ENGINEER): Chronic, stable Continue prednisone and fludrocortisone Pt knows how to double the dose in sick days Also wearing a medical alert brace. Assessment & Plan (04/07/2023 4:47 PM CDT): Continue replacement with prednisone and Florinef The patient and his mother know how to increase the dose for sick days and also they have injectable Solu-Medrol Assessment & Plan (02/15/2023 3:13 PM CDT): Stable, no acute issues Assessment & Plan (10/07/2022 2:14 PM AUDIO RECORDING ENGINEER): Chronic problem, improving. Mom is now monitoring her medications closer (Joaquín lives alone), and she also has a nurse that comes by for medication reconciliation and they have let them know to monitor prednisone and florinef use as well. Continue same medications, we reviewed stress dosing for her upcoming ear surgery and in times of illness, the plan is also for her to get IV HC prior to surgery per anesthesiology. Assessment & Plan (05/27/2022 2:15 PM CDT): Chronic problem, not at goal with recent admissions for adrenal crisis. It is unclear if GI issues are precipitating the episodes, or if adrenal insufficiency is causing her symptoms. In general though her GI symptoms have been going on for many years (not increasing or decreasing) so seems unlikely that AI is causing them. It does not sound like though that she is stress dosing appropriately. We reviewed sick day management. If it is mild, she should at least double her dose for 2-3 days until she feels better and then resume normal dose. If it is more severe (N/V), then she should take IM HC injection (which I sent in today), and then triple dose for 2-3 days, double for 2-3 days, and then resume normal dosing. Mom feels her regular baseline dose is still working well for her. When she increases to 5 mg daily she gets puffy in her face and abdomen so they have to decrease back down to 2.5/5. At this point, she should have a lower threshold for stress dosing. Her GI episodes with epigastric pain are fairly infrequent (sounds like every couple months) so I would recommend stress dosing when they occur and let us know if any issues. Mom will likely need to follow up on this but since they don't live together she does not always hear about symptoms until after the fact. Assessment & Plan (10/14/2020 3:13 PM AUDIO RECORDING ENGINEER): It is very important that you take your mediation every day, regularly . In situations of stress, either physical or psychological, the dose of the steroids should be doubled or tripled for a few days. In case of not tolerating oral intake , including vomiting , take injections of hydrocortisone as instructed. 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 In case of any extreme weakness, abdominal pain, diarrhea or dizziness, it is recommended for you to call an ambulance and proceed to the nearest emergency room. Assessment & Plan (01/08/2020 11:18 AM CDT): Continue Prednisone at current dose Pt and mother ( whom is a nurse ) now how to double or triple the dose in case of severe physical or psychological stress. Pt has medical alert bracelet Also , social distancing and precautions for COVID -19 exposure were discussed Rx sent. Assessment & Plan (11/14/2018 9:59 AM AUDIO RECORDING ENGINEER): It is very important that you take your mediation every day, regularly . In situations of stress, either physical or psychological, the dose of the steroids should be doubled or tripled for a few days. In case of not tolerating oral intake , including vomiting , take injections of hydrocortisone as instructed. 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 In case of any extreme weakness, abdominal pain, diarrhea or dizziness, it is recommended for you to call an ambulance and proceed to the nearest emergency room. Assessment & Plan (11/15/2017 9:43 AM AUDIO RECORDING ENGINEER): It is very important that you take your mediation every day, regularly . In situations of stress, either physical or psychological, the dose of the steroids should be doubled or tripled for a few days. In case of not tolerating oral intake , including vomiting , take injections of hydrocortisone as instructed. 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 In case of any extreme weakness, abdominal pain, diarrhea or dizziness, it is recommended for you to call an ambulance and proceed to the nearest emergency room. Vitamin D deficiency 09/16/2011 Overview (01/14/2017): VITAMIN D DEFICIENCY NOS Assessment & Plan (11/01/2023 3:48 PM AUDIO RECORDING ENGINEER): Chronic, well controlled Update vit D Continue supplementation, as indicated Assessment & Plan (04/07/2023 4:47 PM CDT): Check 25 OH vit D Adjust dose of Ergocalciferol accordingly Assessment & Plan (01/08/2020 11:19 AM CDT): Continue current dose Will recheck in a few months Assessment & Plan (11/15/2017 9:43 AM AUDIO RECORDING ENGINEER): Check 25 OH vit D Adjust dose of Ergocalciferol accordingly Resolved Problems Problem Noted Date Diagnosed Date Resolved Date Postoperative state 07/28/2022 02/16/20 23 Intramural and subserous leiomyoma of uterus 02/15/2023 Rectal prolapse 07/06/2022 02/15/2023 Overview (07/06/2022): Added automatically from request for surgery [id number] Pain of upper abdomen 01/29/20222021 Assessment & Plan (01/29/2022 9:48 AM CDT): Extensive evaluation. ? Functional bowel disease. To have follow up Laundry Supervisor eval. ? 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 [facility] [address] [place] [address] [place] [address] Samanta Neumann Au.D. Sensorineural hearing loss (SNHL) of both ears (Primary Dx); Encounter for adjustment and management of cochlear device 11/23/2024 [facility] [address] [facility] [place] [address] Armond Bryan MD Lab Results 11/22/2024 3:15 PM AUDIO RECORDING ENGINEER Office Visit [facility] [address] [facility] [address] [place] [phone] Linda Hunter MD Chronic adrenal insufficiency (HCC) (Primary Dx); Vitamin D deficiency 11/22/2024 2:15 PM AUDIO RECORDING ENGINEER Lab [facility] [address] [place] [address] Epigastric pain; Chronic adrenal insufficiency (HCC) 11/22/2024 Orders Only [facility] [address] [place] [address] [phone] Ada Nieto NP Epigastric pain (Primary Dx) 11/21/2024 Telephone [facility] [address] [place] [address] [phone] Armond Bryan MD Lab Results 11/18/2024 Orders Only [facility] [address] [place] [address] [phone] Ada Nieto NP Abdominal pain (Primary Dx); Elevated amylase 11/16/2024 12:20 PM AUDIO RECORDING ENGINEER Lab [facility] [address] [place] [address] [phone] Upper abdominal pain 11/16/2024 10:45 AM AUDIO RECORDING ENGINEER Office Visit [facility] [address] [place] [address] [phone] Ada Nieto NP Epigastric pain (Primary Dx); Nausea; Nonintractable headache, unspecified chronicity pattern, unspecified headache type from Last 3 Months Immunizations Immunization Administration Dates Next Due Influenza, Quadrivalent, Spl it, Preservative Free, Intramuscular 07/17/2022 Pneumococcal Conjugate Pcv20 06/10/2023 Tdap 09/03/2013 Surgical History Surgery Date Site/Laterality Comments BACK SURGERY 10/10/1999 - 11/09/1999 Jo al TYMPANOSTOMY TUBE PLACEMENT age 3 and 5 EAR SURGERY multiple MUSCLE BIOPSY 10/10/1988 - 10/09/1989 RECTAL PROLAPSE REPAIR, RECTOPEXY 07/14/2022 Robotic ventral mesh rectopexy HYSTERECTOMY COCHLEAR IMPLANT Medical History Medical History Date Comments Kidney stones Adhd GERD (gastroesophageal reflux disease) Licking's disease (HCC) Scoliosis Osorio Rods 10/2001 Covid-19 03/31/2022 Epilepsy (HCC) Seizures (HCC) Allergic rhinitis seasonal HL (hearing loss) approximately 4 yrs Family History Medical History Relation Name Comments Hyperlipidemia Father Geoff East Jr Hypertension Father Geoff East Jr Colon cancer Maternal Great-Grandfather No Known Problems Mother Diabetes type II Other 1 Hypertension Other 2 Stroke Other 3 Breast cancer Other 4 Maternal great aunt Anesthesia problems Neg Hx Relation Name Status Comments Brother Alive Father Geoff East Jr Alive Maternal Great-Grandfather Mother Alive Other 1 Other 2 Other 3 Other 4 Maternal great aunt Sister Alive Social History Tobacco Use Types Packs/Day Years Used Date Smoking Tobacco: Never Smokeless Tobacco: Never Tobacco Cessation:Counseling Given: Not Answered Alcohol Use Standard Drinks/Week Comments No 0 (1 standard drink = 0.6 oz pur e alcohol) AUDIT-C Answer Date Recorded Q1: How often do you have a drink containing alcohol? Never 08/15/2023 Q2: How many drinks containi ng alcohol do you have on a typical day when you are drinking? Patient does not drink Q3: How often do you have si x or more drinks on one occasion? Never 08/15/2023 PHQ-2 Answer Date Recorded PHQ-2 Total Score (If total score is 3 or more points, staff should administer the PHQ-9) 0 11/22/2024 Personal Safety Answer Date Recorded Have you ever been in or are you currently in a harmful physical or emotional relationship or is someone making you feel afraid or unsafe? Denies 08/15/2023 Comments No Sex and Gender Information Value Date Recorded Sex Assigned at Not on file Legal Sex Female 8:47 PM AUDIO RECORDING ENGINEER Gender Identity Not on file Sexual Orientation Not on file Obstetrics History Para Term AB IAB SAB Ectopic Multiple Livin g Live Births 0 0 0 0 0 0 0 0 0 0 0 Last Filed Vital Signs Vital Sign Reading Time Taken Comments Blood Pressure 92/62 11/22/2024 3:09 PM AUDIO RECORDING ENGINEER Pulse 78 11/22/2024 3:09 PM AUDIO RECORDING ENGINEER Temperature 36.7 C (98 F) 11/16/2024 10:36 AM AUDIO RECORDING ENGINEER Respiratory Rate 18 11/01/2023 3:08 PM AUDIO RECORDING ENGINEER Oxygen Saturation 97% 11/16/2024 10:36 AM AUDIO RECORDING ENGINEER Inhaled Oxygen Concentration - - Weight 43.1 kg (95 lb) 11/22/2024 3:09 PM AUDIO RECORDING ENGINEER Height 154.9 cm (5' 0.98 ) 11/22/2024 3:09 PM CS T Body Mass Index 17.96 11/22/2024 3:09 PM AUDIO RECORDING ENGINEER Plan of Treatment Health Maintenance Due Date Last Done Comments Breast Cancer Screening-Mammogram 1984 Hepatitis C Screening 1984 Hepatitis B Screening 2002 DTaP/Tdap/Td Vaccine (2 - Td or Tdap) 09/03/2023 09/03/2013 Regular Well Visit/Exam 18-64 02/16/2024 02/15/2023 Covid-19 Vaccine ( season) 2024 08/23/2022, 09/16/2021, 11/28/2020, Additional history exists Influenza Vaccine (#1) 2024 07/17/2022 Depression Screening 11/22/2025 11/22/2024, 02/15/2023, 10/14/2020, Additional history exists Pneumococcal vaccine <65 Completed 06/10/2023 HPV Vaccines Aged Out No longer eligi ble based on patient's age to complete this topic Varicella Vaccines Discontinued Medical Devices Implanted Type Area Periodontist Device Identifier Shelf Expiration Date Model / Serial / Lot [employer]/C R Bard 6x3in Large Pore Knit Monofilament Smooth [place] [id number] - [id number] Implanted:Qty: 1 on 07/14/2022 by Bebeto Pavon MD at [facility] Mesh N/A: Pelvis [employer]/C R Bard [id number] 10/06/2026 [id number] / / [id number] Metal Back [employer]chle[employer] Implant Cochlear Cochlear Nucleus Profile Plus Slim Modiolar Electrode [id number] - [id number] - [id number] Implanted:Qty: 1 on 08/15/2023 by Chirag Brito MD at [facility] Left: Ear [employer] [id number] 05/18/2025 [id number] / [id number] / Procedures Procedure Name Priority Date/Time Associated Diagnosis Comments AUDBASE RESULTS 11/26/2024 8:57 AM AUDIO RECORDING ENGINEER AMYLASE Routine 11/22/2024 2:45 PM AUDIO RECORDING ENGINEER Epigastric pain LIPASE Routine 11/22/2024 2:45 PM AUDIO RECORDING ENGINEER Epigastric pain URINALYSIS AND REFLEX TO MICROSCOPIC AND CULTURE Routine 11/22/2024 2:30 PM AUDIO RECORDING ENGINEER Chronic adrenal insufficiency (HCC) SCAN - RADIOLOGY/IMAGING 11/22/2024 9:45 AM AUDIO RECORDING ENGINEER SCAN - RADIOLOGY/IMAGING 11/22/2024 9:39 AM AUDIO RECORDING ENGINEER SCAN - RADIOLOGY/IMAGING 11/22/2024 8:50 AM AUDIO RECORDING ENGINEER EGFR Routine 11/16/2024 11:39 AM AUDIO RECORDING ENGINEER Upper abdominal pain URINALYSIS, MICROSCOPIC ONLY Routine 11/16/2024 11:39 AM AUDIO RECORDING ENGINEER Upper abdominal pain DIFFERENTIAL AUTO Routine 11/16/2024 11: 39 AM AUDIO RECORDING ENGINEER Upper abdominal pain CBC WITH AUTO DIFFERENTIAL Routine 11/16/2024 11:39 AM AUDIO RECORDING ENGINEER Upper abdominal pain COMPREHENSIVE METABOLIC PANEL Routine 11/16/2024 11:39 AM AUDIO RECORDING ENGINEER Upper abdominal pain AMYLASE Routine 11/16/2024 11:39 AM AUDIO RECORDING ENGINEER Upper abdominal pain LIPASE Routine 11/16/2024 11:39 AM AUDIO RECORDING ENGINEER Upper abdominal pain URINALYSIS AND REFLEX TO MICROSCOPIC AND CULTURE Routine 11/16/2024 11:39 AM AUDIO RECORDING ENGINEER Upper abdominal pain from Last 3 Months Results * AudBase Results (11/26/2024 8:57 AM AUDIO RECORDING ENGINEER) Provider Scanning AUDIOLOGY SERVICES ORDERABLES Final Result * Lipase (11/22/2024 2:45 PM AUDIO RECORDING ENGINEER) Lipase 87 10 - 99 Units/L Blood 11/22/2024 2:45 PM AUDIO RECORDING ENGINEER 11/22/2024 2:45 PM AUDIO RECORDING ENGINEER Ada Nieto CYTOLOGY SUPERVISOR LAB BLOOD ORDERABLES Final Re sult Performing Organization Address [facility] Co de Phone Number MAY [phone] [address] [facility] [place] [address] * (ABNORMAL) Amylase (11/22/2024 2:45 PM AUDIO RECORDING ENGINEER) Amylase 105(H) 30 - 99 Units/L Blood 11/22/2024 2:45 PM AUDIO RECORDING ENGINEER 11/22/2024 2:45 PM AUDIO RECORDING ENGINEER Ada Nieto CYTOLOGY SUPERVISOR LAB BLOOD ORDERABLES Final Re sult Performing Organization Address [facility] de Phone Number [facility] [address] [address] [facility] [place] [address] * Urinalysis reflex to microscopic and culture Urine (11/22/2024 2:30 PM AUDIO RECORDING ENGINEER) Color, ur Straw Yellow Clarity, ur Clear Clear [facility]ER CH Specific gravity, ur 1.008 1.003 - 1.030 CERNER CH pH, urine 6.0 CERNER CH Comment: Interpretive Data U rine pH is affected by diet, medications, systemic acid-base disturbances, and renal tubular function. pH may affect urinary stone formation. For example, urine pH below 6.0 may help reduce the tendency for calcium phosphate stones and pH greater than 6.0 may reduce the tendency for uric acid stone formation. Source: [facility] [employer] Current Interpretive Data was last revised on 2017 Protein, ur ql Negative Negative CERNER CH Glucose, ur ql Negative Negative CERNER CH Ketones, ur Negative Negative CERNER CH Bilirubin, ur Negative Negative C[facility]ER [facility] Blood, ur Negative Negative [facility] Urobilinogen, ur <2.0 <2.0 mg/dL CERNER [facility] Nitrite, ur Negative Negative [facility] Leukocyte esterase, ur Negative Negative C[facility]ER CH UA reflex comment Reflex conditions for microscopic UA and culture not met. CERNER Urine 11/22/2024 2:30 PM AUDIO RECORDING ENGINEER 11/22/2024 2:39 PM AUDIO RECORDING ENGINEER us Ada Nieto NP LAB MICROBIOLOGY - GENERAL OR DERABLES Final Result [facility] [address] [address] Department [place] [address] * SCAN - RADIOLOGY/IMAGING (11/22/2024 9:45 AM AUDIO RECORDING ENGINEER) Anatomical Region Laterality Modality Other us Ada Nieto NP Final Result * SCAN - RADIOLOGY/IMAGING (11/22/2024 9:39 AM AUDIO RECORDING ENGINEER) Anatomical Region Laterality Modality Other us Ada Nieto NP Final Result * SCAN - RADIOLOGY/IMAGING (11/22/2024 8:50 AM AUDIO RECORDING ENGINEER) Anatomical Region Laterality Modality Other us Ada Nieto NP Final Result * eGFR (11/16/2024 11:39 AM AUDIO RECORDING ENGINEER) eGFR >90 >=60 mL/min/1. 73 m2 Comment: Interpretive Data Reference Interval Normal >/= 90 mL/min/1.73m2 Mildly decreased* 60 - 89 mL/min/1.73m2 Mildly to moderately decreased 45 - 59 mL/min/1.73m2 Moderately to severely decreased 30 - 44 mL/min/1.73m2 Severely decreased 15 - 29 mL/min/1.73m2 Kidney Failure < 15 mL/min/1.73m2 *Relative to young adult level Estimated glomerular filtration rate is determined by the 2020 CKD-EPI equation recommended by the National Kidney Foundation (A Unifying Approach to GFR Estimation: Recommendations of the NKF-ASK Task Force on Reassessing the Inclusion of Race in Diagnosing Kidney Disease, JASN 2020). The CKD-EPI equation should not be used for patients with unstable renal function and has not been validated in children and those over 70. Current interpretive data was last reviewed 2021. Blood 11/16/2024 11:3 9 AM AUDIO RECORDING ENGINEER 11/16/2024 12:24 PM AUDIO RECORDING ENGINEER us Ada Nieto CYTOLOGY SUPERVISOR LAB BLOOD ORDERABLES Final Re sult [facility] Department [place] [address] * Differential, auto (11/16/2024 11:39 AM AUDIO RECORDING ENGINEER) Neutrophil abs 6.1 1.5 - 6.5 K/cumm Imm gran abs 0.1 0.0 - 0.1 K/cumm [facility] Lymphocyte abs 1.3 0.8 - 3.3 K/cumm [facility] Monocyte abs 0.4 0.2 - 0.8 K/cumm [facility] Eosinophil abs 0.1 0.0 - 0.5 K/cumm [facility] Basophil abs 0.1 0.0 - 0.1 K/cumm [facility] Neutrophil pct 75.8 % [facility] Comment: Interpretive Data Percent cell count reference ranges are not reported, since discordance with absolute values may lead to misinterpretation of CBC data. Current Interpretive Data was last revised on 2018. Imm gran pct 1.0 % [facility] Comment: Interpretive Data Percent cell count reference ranges are not reported, since discordance with absolute values may lead to misinterpretation of CBC data. Current Interpretive Data was last revised on 2018. Lymphocyte pct 16.3 % [facility] Comment: Interpretive Data Percent cell count reference ranges are not reported, since discordance with absolute values may lead to misinterpretation of CBC data. Current Interpretive Data was last revised on 2018. Monocyte pct 4.5 % [facility] Comment: Interpretive Data Percent cell count reference ranges are not reported, since discordance with absolute values may lead to misinterpretation of CBC data. Current Interpretive Data was last revised on 2018. Eosinophil pct 1.6 % [facility] Comment: Interpretive Data Percent cell count reference ranges are not reported, since discordance with absolute values may lead to misinterpretation of CBC data. Current Interpretive Data was last revised on 2018. Basophil pct 0.8 % [facility] Comment: Interpretive Data Percent cell count reference ranges are not reported, since discordance with absolute values may lead to misinterpretation of CBC data. Current Interpretive Data was last revised on 2018. Blood 11/16/2024 11:3 9 AM AUDIO RECORDING ENGINEER 11/16/2024 12:10 PM AUDIO RECORDING ENGINEER us Ada Nieto CYTOLOGY SUPERVISOR LAB BLOOD ORDERABLES Final Re sult [facility] Department [place] [address] * (ABNORMAL) Urinalysis reflex to microscopic and culture Urine (11/16/2024 11:39 AM AUDIO RECORDING ENGINEER) Color, ur Straw Yellow Clarity, ur Clear Clear [facility] Specific gravity, ur 1.021 1.003 - 1.030 [facility] pH, urine 7.0 [facility] Comment: Interpretive Data U rine pH is affected by diet, medications, systemic acid-base disturbances, and renal tubular function. pH may affect urinary stone formation. For example, urine pH below 6.0 may help reduce the tendency for calcium phosphate stones and pH greater than 6.0 may reduce the tendency for uric acid stone formation. Source: [facility] [employer] Current Interpretive Data was last revised on 2017 Protein, ur ql Trace Negative [facility] Glucose, ur ql Negative Negative [facility] Ketones, ur Negative Negative [facility] Bilirubin, ur Negative Negative [facility] Blood, ur Negative Negative [facility] Urobilinogen, ur <2.0 <2.0 mg/dL [facility] Nitrite, ur Negative Negative [facility] Leukocyte esterase, ur 1+(A) Negative [facility] UA reflex comment Reflex to microscopic UA will be performed. [facility] Urine 11/16/2024 11:3 9 AM AUDIO RECORDING ENGINEER 11/16/2024 12:10 PM AUDIO RECORDING ENGINEER Ada Nieto CYTOLOGY SUPERVISOR LAB MICROBIOLOGY - GENERAL OR DERABLES Final Result Performing Organization Address [facility]/ZIP Co de Phone Number [facility] Department [place] [address] * (ABNORMAL) CBC with auto differential (11/16/2024 11:39 AM AUDIO RECORDING ENGINEER) [facility] WBC 8.0 3.8 - 9.9 K/cumm Hgb 11.4(L) 11.9 - 15.5 g/dL [facility] Hct 35.2(L) 35.6 - 45.5 % [facility] Plt 291 150 - 400 K/cumm [facility] MPV 10.6 9.1 - 12.3 fL [facility] RBC 3.98 3.90 - 5.20 M/cumm [facility] MCV 88.4 81.3 - 96.4 fL [facility] MCH 28.6 27.1 - 33.3 pg [facility] MCHC 32.4 32.3 - 35.7 g/dL [facility] RDW CV 14.0 11.1 - 14.9 % [facility] RDW SD 45.4 35.7 - 48.1 fL [facility] NRBC abs 0.00 0.00 - 0.01 K/cumm [facility] Blood 11/16/2024 11:3 9 AM AUDIO RECORDING ENGINEER 11/16/2024 12:10 PM AUDIO RECORDING ENGINEER us Ada Nieto CYTOLOGY SUPERVISOR LAB BLOOD ORDERABLES Final Re sult Performing Organization Address City/[facility]/ZIP Co de Phone Number [facility] Department [place] [address] * (ABNORMAL) Urinalysis, microscopic only (11/16/2024 11:39 AM AUDIO RECORDING ENGINEER) WBC, ur 6-10(A) 0 - 5 /HPF RBC, ur 3-5(A) 0 - 2 /HPF [facility] Epithelial cells, squamous, ur 6-10(A) 0 - 5 /HPF [facility] Comment:Suggestive of contam ination. Consider recollection by clean catch. Epithelial cells, renal, ur 1-5(A) 0 - 0 /HPF [facility] Mucous, ur Present(A) [facility] Culture Reflex Comment Reflex conditions for urine culture (WBC >10) not met. [facility] Urine 11/16/2024 11:3 9 AM AUDIO RECORDING ENGINEER 11/16/2024 12:10 PM AUDIO RECORDING ENGINEER Ada Nieto CYTOLOGY SUPERVISOR LAB URINE ORDERABLES Final Re sult Performing Organization Address [facility] de Phone Number [facility] [place] [address] * Lipase (11/16/2024 11:39 AM AUDIO RECORDING ENGINEER) Lipase 77 10 - 99 Units/L Blood 11/16/2024 11:3 9 AM AUDIO RECORDING ENGINEER 11/16/2024 12:10 PM AUDIO RECORDING ENGINEER Ada Nieto CYTOLOGY SUPERVISOR LAB BLOOD ORDERABLES Final Re sult Performing Organization Address [facility] de Phone Number [facility] [place] [address] * (ABNORMAL) Amylase (11/16/2024 11:39 AM AUDIO RECORDING ENGINEER) Amylase 102(H) 30 - 99 Units/L Blood 11/16/2024 11:3 9 AM AUDIO RECORDING ENGINEER 11/16/2024 12:10 PM AUDIO RECORDING ENGINEER Ada Nieto CYTOLOGY SUPERVISOR LAB BLOOD ORDERABLES Final Re sult Performing Organization Address [facility] de Phone Number [facility] [place] [address] * Comprehensive metabolic panel (11/16/2024 11:39 AM AUDIO RECORDING ENGINEER) Sodium 142 135 - 145 mmol/L Potassium, pl 3.8 3.3 - 4.9 mmol/L [facility] Chloride 105 97 - 110 mmol/L [facility] CO2 29 22 - 32 mmol/L [facility] Anion gap 8 2 - 15 mmol/L [facility] BUN 11 6 - 25 mg/dL [facility] Creatinine 0.63 0.60 - 1.10 mg/dL [facility] Glucose 94 70 - 199 mg/dL [facility] Comment: Interpretive Data Fasting glucose >/= 126 mg/dl is diagnostic for diabetes. Fasting is defined as no caloric intake for at least 8 hours. Fasting glucose between 100 mg/dl to 125 mg/dl is diagnostic of prediabetes. In a patient with classic symptoms of hyperglycemia or hyperglycemic crisis, a random glucose >/= 200 mg/dl is diagnostic for diabetes. In the absence of unequivocal hyperglycemia, results should be confirmed by repeat testing. The classification and Diagnosis of Diabetes Diabetes Care 2021; 46: S19-S40. Current interpretive data was last revised 2022. Calcium 9.0 8.5 - 10.3 mg/dL [facility] Bilirubin, total 0.5 0.1 - 1.2 mg/dL [facility] Protein, pl 6.8 6.5 - 8.5 g/dL [facility] Albumin 4.1 3.5 - 5.0 g/dL [facility] Alk phos 41 40 - 130 Units/L [facility] ALT 11 7 - 45 Units/L [facility] AST 19 10 - 45 Units/L [facility] Blood 11/16/2024 11:3 9 AM AUDIO RECORDING ENGINEER 11/16/2024 12:10 PM AUDIO RECORDING ENGINEER us Ada Nieto CYTOLOGY SUPERVISOR LAB BLOOD ORDERABLES Final Re sult [facility] Department [place] [address] from Last 3 Months Insurance MEDICARE IDAR MEDICARE IDAR [facility] Address: [address] [place] [address] MEDICARE [facility] Advance Directives For more information, please contact: [phone] * Full Code (Latest Code Status on File) Date Activated Date Inactivated Comments 07/14/2022 3:56 PM 07/17/2022 3:47 PM Care Teams Talent Program Manager Relationship Specialty Start Date End Date Konzen, Armond L., MD [address] [facility] [address] [place] [address] PCP - General Internal Medicine 05/19/21 Armond Bryan MD [address] [facility] [address] [place] [address] 01/29/21 [place] [address] [facility] [address] [place] [address] Consulting Physician Endocrinology Diabetes & Metabolism 11/09/18 [place] [address] [facility] [address] [place] [address] Referring Physician Gastroenterology 07/05/22 Bebeto Pavon MD [address] [facility] [place] [place] [id number] [place] [address] Surgeon Colon and Rectal Surgery 07/06/22 Jeremy Byrd MD [address] [facility] [address] [place] [address] Referring Physician Obstetrics and Gynecology 07/28/22
--- OUTSIDE RECORDS SUMMARY | 2024-12-05 19:40 | XMS_ITS | Clinical Summary ---
Author Organization [facility] Address [address] [facility], [address] [address] Phone Care Team Providers Care Inspector Plumbing Name Role Phone Armond Bryan MD Primary Care Provider Allergies No known active allergies Medications STRATTERA 60 MG Capsule TK 1 C PO QAM 5 10/20/2018 Active citalopram (CELEXA) 40 MG Tablet TK 1 T PO QAM 5 10/01/2018 Active fludrocortisone (FLORINEF) 0.1 MG Tablet TK 1 T PO D 1 11/12/2018 Active folic acid (FOLVITE) 1 MG Tablet TK 2 TS PO BID FOR 30 DAYS 5 10/31/2018 Active meclizine (ANTIVERT) 12.5 MG Tablet TK 1 T PO TID 2 11/05/2018 Active CONCERTA 27 MG Tablet Controlled Release 0 10/14/2018 Active pantoprazole (PROTONIX) 40 MG Tablet Delayed Response TK 1 T PO BID 1 10/14/2018 Active LYRICA 150 MG Capsule 3 10/20/2018 Active hyoscyamine (ANASPAZ, LEVSIN) 0.125 MG Tablet Take 1 Tab by mouth every 4 hours as needed for Other (pain). 30 Tab 1 11/17/2018 Active Family History Medical History Relation Name Comments Diabetes Father Hypertension Father Heart Disease Mother Relation Name Status Comments Father Mother Social History Tobacco Use Types Packs/Day Years Used Date Smoking Tobacco: Never Alcohol Use Standard Drinks/Week Comments No 0 (1 standard drink = 0.6 oz pur e alcohol) Comments Unknown Sex and Gender Information Value Date Recorded Sex Assigned at Not on file Legal Sex Female 12:14 AM CDT Gender Identity Not on file Sexual Orientation Not on file Occupation Industry Job Start Date Job End Date [employer] Not on file Not on file Not on file Plan of Treatment Health Maintenance Due Date Last Done Comments Hepatitis C Virus (HCV) Screening 1984 Hepatitis B Immunization (1 of 3 - 19+ 3-dose series) 2003 Pap Smear 2005 Cervical Cancer Screening (CCS) 2014 HPV/Cotest 2014 Influenza Immunization (#1) 2024 SARS-COV-2 Immunization ( season) 2024 09/16/2021, 11/28/2020, 10/31/2020 Discussion re Starting/Frequency of Mammograms 2024 Respiratory Syncytial Virus (RSV) Immunization (Adult) (1 - 1-dose 75+ series) 2059 DTaP/Tdap/Td Immunization Discontinued 09/03/2013 TdaP Immunization Completed 09/03/2013 Meningococcal Immunization (ACWY) Aged Out No longer eligible based on patient's age to complete this topic Pneumococcal Immunization Combined Aged Out No longer eligible based on patient's age to complete this topic Rotavirus Immunization Aged Out No lo nger eligible based on patient's age to complete this topic Insurance [facility] MEDICARE Care Teams Inspector Plumbing Relationship Specialty Start Date End Date Armond Bryan MD PCP - General Internal Medicine 11/16/18
--- OUTSIDE RECORDS SUMMARY | 2024-12-05 19:40 | XMS_ITS | Referral Summary ---
Author Organization [facility] [place] [facility] Address [address] [place] [address] Care Team Providers Care Life Educator Name Role Phone Armond Bryan MD Unavailable Linda Hunter MD Unavailable Armond Bryan MD Primary Care Provider [phone] Solomon Garcia MD Unavailable [phone] Bebeto Pavon MD Unavailable [phone] Jeremy Byrd MD Unavailable [phone] Encounters Date Type Department Care Team Description 11/26/2024 9:[address] MRI TECHNOLOGIST Procedure visit [facility] Otolaryngology [address] [place] [address] [address]th [place] [address] [place] [address] Samanta Neumann Au.D. Sensorineural hearing loss (SNHL) of both ears (Primary Dx); Encounter for adjustment and management of cochlear device 11/23/2024 Telephone [facility] [address] [place] [phone] Armond Bryan MD Lab Results 11/22/2024 2:[address] MRI TECHNOLOGIST Lab [address] [address] Epigastric pain; Chronic adrenal insufficiency (HCC) 11/22/2024 Orders Only [facility] [address] [place] [phone] Ada Nieto NP Epigastric pain (Primary Dx) 11/22/2024 3:[address] MRI TECHNOLOGIST Office Visit [facility] [address], [place] [phone] Linda Hunter MD Chronic adrenal insufficiency (HCC) (Primary Dx); Vitamin D deficiency 11/21/2024 Telephone [facility] [address] [place] [phone] Armond Bryan MD Lab Results 11/18/2024 Orders Only [facility] [address] [place] [phone] Ada Nieto NP Abdominal pain (Primary Dx); Elevated amylase 11/16/2024 12:[address] MRI TECHNOLOGIST Lab [facility] [address] [place], [place] [phone] Upper abdominal pain 11/16/2024 10:[address] MRI TECHNOLOGIST Office Visit [facility] [address] [place] [phone] Ada Nieto NP Epigastric pain (Primary Dx); Nausea; Nonintractable headache, unspecified chronicity pattern, unspecified headache type from Last 3 Months Allergies No known active allergies Medications citalopram [...] 1 capsule (40 mg total) by mouth lay out technician before breakfast 07/03/20 22 Active psyllium, aspartame, [...] 1 capsule (5,000 Units total) by mouth lay out technician before breakfast 12 capsule 3 11/22/19 25 Active cholecalciferol (VITAMIN D-3) 5,000 unit capsuleIndication s:Vitamin D Deficiency Take 1 capsule (5,000 Units total) by mouth lay out technician before breakfast 025 Discontin ued(Reord er) meclizine [...] (07/10/2022): Added automatically from request for surgery [id number] Assessment & Plan (02/15/2023 3:14 PM CDT): Has post-op f/u 02/24/23 for ENT Asymmetric SNHL (sensorineural hearing loss) 09/2019 Assessment & Plan (12/07/2019 5:[address] MRI TECHNOLOGIST): Discussed options for left hearing loss. Consider CROS amplification. RTC annually. Deafness, mixed type 08/02/2016 Chronic adrenal insufficiency 09/19/2012 Overview (01/12/2017): Glucocorticoid deficiency Assessment & Plan (11/01/2023 3:[address] MRI TECHNOLOGIST): Chronic, stable Continue prednisone and fludrocortisone Pt [...] issues Assessment & Plan (10/07/2022 2:[address] MRI TECHNOLOGIST): Chronic problem, improving. Mom is now monitoring [...] fact. Assessment & Plan (10/14/2020 3:[address] MRI TECHNOLOGIST): It is very important that you take [...] sent. Assessment & Plan (11/14/2018 9:[address] MRI TECHNOLOGIST): It is very important that you take your mediation every day, regularly . In situations of stress, either physical or psychological, the dose of the steroids should be doubled or tripled for a few days. In case of not tolerating oral intake , including vomiting , take injections of hydrocortisone as instructed. 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 In case of any extreme weakness, abdominal pain, diarrhea or dizziness, it is recommended for you to call an ambulance and proceed to the nearest emergency room. Assessment & Plan (11/15/2017 9:[address] MRI TECHNOLOGIST): It is very important that you take your mediation every day, regularly . In situations of stress, either physical or psychological, the dose of the steroids should be doubled or tripled for a few days. In case of not tolerating oral intake , including vomiting , take injections of hydrocortisone as instructed. 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 In case of any extreme weakness, abdominal pain, diarrhea or dizziness, it is recommended for you to call an ambulance and proceed to the nearest emergency room. Vitamin D deficiency 09/16/2011 Overview (01/14/2017): VITAMIN D DEFICIENCY NOS Assessment & Plan (11/01/2023 3:[address] MRI TECHNOLOGIST): Chronic, well controlled Update vit D Continue supplementation, as indicated Assessment & Plan (04/07/2023 4:47 PM CDT): Check 25 OH vit D Adjust dose of Ergocalciferol accordingly Assessment & Plan (01/08/2020 11:19 AM CDT): Continue current dose Will recheck in a few months Assessment & Plan (11/15/2017 9:[address] MRI TECHNOLOGIST): Check 25 OH vit D Adjust dose of Ergocalciferol accordingly Resolved Problems Problem Noted Date Diagnosed Date Resolved Date Postoperative state 07/28/2022 02/16/20 Intramural and subserous leiomyoma of uterus 2 02/15/2023 Rectal prolapse 07/06/2022 02/15/2023 Overview (07/06/2022): Added automatically from request for surgery [id number] Pain of upper abdomen 01/29/20222021 Assessment & Plan (01/29/2022 9:48 AM CDT): Extensive evaluation. ? Functional bowel disease. To have follow up Sonography Technician eval. ? 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 Overview (01/14/2017): Mineralocorticoid deficiency Immunizations Immunization Administration Dates Next Due Influenza, Quadrivalent, Spl it, Preservative Free, Intramuscular 07/17/2022 Pneumococcal Conjugate Pcv20 06/10/2023 Tdap 09/03/2013 Social History Tobacco Use Types Packs/Day Years [...] on file Legal Sex Female 8:[address] MRI TECHNOLOGIST Gender Identity Not on file Sexual Orientation Not on file Last Filed Vital Signs Vital Sign Reading Time Taken Comments Blood Pressure 92/62 11/22/2024 3:[address] MRI TECHNOLOGIST Pulse 78 11/22/2024 3:[address] MRI TECHNOLOGIST Temperature 36.7 C (98 F) 11/16/2024 10:[address] MRI TECHNOLOGIST Respiratory Rate 18 11/01/2023 3:[address] MRI TECHNOLOGIST Oxygen Saturation 97% 11/16/2024 10:[address] MRI TECHNOLOGIST Inhaled Oxygen Concentration - - Weight 43.1 kg (95 lb) 11/22/2024 3:[address] MRI TECHNOLOGIST Height 154.9 cm (5' 0.98 ) 11/22/2024 3:09 PM CS T Body Mass Index 17.96 11/22/2024 3:[address] MRI TECHNOLOGIST Plan of Treatment Not on file Medical Devices Implanted Type Area Dot Compliance Manager Device Identifier Shelf Expiration Date Model / Serial / Lot [employer]/C R Bard 6x3in Large Pore Knit Monofilament Smooth [place] [id number] - [id number] Implanted:Qty: 1 on 07/14/2022 by Bebeto Pavon MD at [facility] Mesh N/A: Pelvis [employer]/C R Bard [id number] 10/06/2026 [id number] / / [id number] Metal Back [employer]chle[employer] Implant Cochlear Cochlear Nucleus Profile Plus Slim Modiolar Electrode [id number] - [id number] - [id number] Implanted:Qty: 1 on 08/15/2023 by Chirag Brito MD at [facility] Left: Ear [employer] [id number] 05/18/2025 [id number] / [id number] / Procedures Procedure Name Priority Date/Time Associated Diagnosis Comments AUDBASE RESULTS 11/26/2024 8:[address] MRI TECHNOLOGIST AMYLASE Routine 11/22/2024 2:[address] MRI TECHNOLOGIST Epigastric pain LIPASE Routine 11/22/2024 2:[address] MRI TECHNOLOGIST Epigastric pain URINALYSIS AND REFLEX TO MICROSCOPIC AND CULTURE Routine 11/22/2024 2:[address] MRI TECHNOLOGIST Chronic adrenal insufficiency (HCC) SCAN - RADIOLOGY/IMAGING 11/22/2024 9:[address] MRI TECHNOLOGIST SCAN - RADIOLOGY/IMAGING 11/22/2024 9:[address] MRI TECHNOLOGIST SCAN - RADIOLOGY/IMAGING 11/22/2024 8:[address] MRI TECHNOLOGIST EGFR Routine 11/16/2024 11:[address] MRI TECHNOLOGIST Upper abdominal pain URINALYSIS, MICROSCOPIC ONLY Routine 11/16/2024 11:[address] MRI TECHNOLOGIST Upper abdominal pain DIFFERENTIAL AUTO Routine 11/16/2024 11: [address] MRI TECHNOLOGIST Upper abdominal pain CBC WITH AUTO DIFFERENTIAL Routine 11/16/2024 11:[address] MRI TECHNOLOGIST Upper abdominal pain COMPREHENSIVE METABOLIC PANEL Routine 11/16/2024 11:[address] MRI TECHNOLOGIST Upper abdominal pain AMYLASE Routine 11/16/2024 11:[address] MRI TECHNOLOGIST Upper abdominal pain LIPASE Routine 11/16/2024 11:[address] MRI TECHNOLOGIST Upper abdominal pain URINALYSIS AND REFLEX TO MICROSCOPIC AND CULTURE Routine 11/16/2024 11:[address] MRI TECHNOLOGIST Upper abdominal pain from Last 3 Months Results * AudBase Results (11/26/2024 8:[address] MRI TECHNOLOGIST) Provider Scanning AUDIOLOGY SERVICES ORDERABLES Final Result * Lipase (11/22/2024 2:[address] MRI TECHNOLOGIST) Lipase 87 10 - 99 Units/L Blood 11/22/2024 2:[address] MRI TECHNOLOGIST 11/22/2024 2:[address] MRI TECHNOLOGIST Ada Nieto TIME STUDY CLERK LAB BLOOD ORDERABLES Final Re sult Performing Organization Address [facility] Co de Phone Number MAY [address] [address] [facility] [place] [address] * (ABNORMAL) Amylase (11/22/2024 2:[address] MRI TECHNOLOGIST) Amylase 105(H) 30 - 99 Units/L Blood 11/22/2024 2:[address] MRI TECHNOLOGIST 11/22/2024 2:[address] MRI TECHNOLOGIST Ada Nieto TIME STUDY CLERK LAB BLOOD ORDERABLES Final Re sult Performing Organization Address [facility] de Phone Number [facility] [address] [address] [facility] [place] [address] * Urinalysis reflex to microscopic and culture Urine (11/22/2024 2:[address] MRI TECHNOLOGIST) Color, ur Straw Yellow Clarity, ur Clear Clear [facility] Specific gravity, ur 1.008 1.003 - 1.030 [facility] pH, urine 6.0 [facility] Comment: Interpretive Data U rine pH is affected by diet, medications, systemic acid-base disturbances, and renal tubular function. pH may affect urinary stone formation. For example, urine pH below 6.0 may help reduce the tendency for calcium phosphate stones and pH greater than 6.0 may reduce the tendency for uric acid stone formation. Source: [facility] [employer] Current Interpretive Data was last revised on [...] for microscopic UA and culture not met. [facility] Urine 11/22/2024 2:[address] MRI TECHNOLOGIST 11/22/2024 2:[address] MRI TECHNOLOGIST us Ada Nieto NP LAB MICROBIOLOGY - GENERAL OR DERABLES Final Result [facility] [address] [address] Department [place] [address] * SCAN - RADIOLOGY/IMAGING (11/22/2024 9:[address] MRI TECHNOLOGIST) Anatomical Region Laterality Modality Other us Ada Nieto NP Final Result * SCAN - RADIOLOGY/IMAGING (11/22/2024 9:[address] MRI TECHNOLOGIST) Anatomical Region Laterality Modality Other Result Tatiana Nieto NP Final Result * SCAN - RADIOLOGY/IMAGING (11/22/2024 8:[address] MRI TECHNOLOGIST) Anatomical Region Laterality Modality Other us Ada Nieto NP Final Result * eGFR (11/16/2024 11:[address] MRI TECHNOLOGIST) eGFR >90 >=60 mL/min/1. 73 m2 Comment: [...] Inclusion of Race in Diagnosing Kidney Disease, JASEugenio 2020). The CKD-EPI equation should not be used for patients with unstable renal function and has not been validated in children and those over 70. Current interpretive data was last reviewed 2021. Blood 11/16/2024 11:[address] MRI TECHNOLOGIST 11/16/2024 12:[address] MRI TECHNOLOGIST us Ada Nieto TIME STUDY CLERK LAB BLOOD ORDERABLES Final Re sult [facility] Department [place] [address] * Differential, auto (11/16/2024 11:[address] MRI TECHNOLOGIST) Neutrophil abs 6.1 1.5 - 6.5 K/cumm Imm gran abs 0.1 0.0 - 0.1 K/cumm [facility] Lymphocyte abs 1.3 0.8 - 3.3 K/cumm [facility] Monocyte abs 0.4 0.2 - 0.8 K/cumm [facility] Eosinophil abs 0.1 0.0 - 0.5 K/cumm [facility] Basophil abs 0.1 0.0 - 0.1 K/cumm [facility] Neutrophil pct 75.8 % [facility] Comment: Interpretive Data Percent cell count reference ranges are not reported, since discordance with absolute values may lead to misinterpretation of CBC data. Current Interpretive Data was last revised on 2018. Imm gran pct 1.0 % [facility] Comment: Interpretive Data Percent cell count reference ranges are not reported, since discordance with absolute values may lead to misinterpretation of CBC data. Current Interpretive Data was last revised on 2018. Lymphocyte pct 16.3 % [facility] Comment: Interpretive Data Percent cell count reference ranges are not reported, since discordance with absolute values may lead to misinterpretation of CBC data. Current Interpretive Data was last revised on 2018. Monocyte pct 4.5 % [facility] Comment: Interpretive Data Percent cell count reference ranges are not reported, since discordance with absolute values may lead to misinterpretation of CBC data. Current Interpretive Data was last revised on 2018. Eosinophil pct 1.6 % [facility] Comment: Interpretive Data Percent cell count reference ranges are not reported, since discordance with absolute values may lead to misinterpretation of CBC data. Current Interpretive Data was last revised on 2018. Basophil pct 0.8 % [facility] Comment: Interpretive Data Percent cell count reference ranges are not reported, since discordance with absolute values may lead to misinterpretation of CBC data. Current Interpretive Data was last revised on 2018. Blood 11/16/2024 11:[address] MRI TECHNOLOGIST 11/16/2024 12:[address] MRI TECHNOLOGIST us Ada Nieto TIME STUDY CLERK LAB BLOOD ORDERABLES Final Re sult [facility] [address] [facility] Department [place] [address] * (ABNORMAL) Urinalysis reflex to microscopic and culture Urine (11/16/2024 11:[address] MRI TECHNOLOGIST) Color, ur Straw Yellow Clarity, ur Clear Clear [facility] Specific gravity, ur 1.021 1.003 - 1.030 [facility] pH, urine 7.0 [facility] Comment: Interpretive Data U rine pH is affected by diet, medications, systemic acid-base disturbances, and renal tubular function. pH may affect urinary stone formation. For example, urine pH below 6.0 may help reduce the tendency for calcium phosphate stones and pH greater than 6.0 may reduce the tendency for uric acid stone formation. Source: [facility] [employer] Current Interpretive Data was last revised on 2017 Protein, ur ql Trace Negative [facility] Glucose, ur ql Negative Negative [facility] Ketones, ur Negative Negative [facility] Bilirubin, ur Negative Negative [facility] Blood, ur Negative Negative [facility] Urobilinogen, ur <2.0 <2.0 mg/dL [facility] Nitrite, ur Negative Negative [facility] Leukocyte esterase, ur 1+(A) Negative [facility] UA reflex comment Reflex to microscopic UA will be performed. [facility] Urine 11/16/2024 11:[address] MRI TECHNOLOGIST 11/16/2024 12:[address] MRI TECHNOLOGIST Ada Nieto TIME STUDY CLERK LAB MICROBIOLOGY - GENERAL OR DERABLES Final Result Performing Organization Address [facility] Co de Phone Number [facility] Department [place] [address] * (ABNORMAL) CBC with auto differential (11/16/2024 11:[address] MRI TECHNOLOGIST) WBC 8.0 3.8 - 9.9 K/cumm Hgb 11.4(L) 11.9 - 15.5 g/dL [facility] Hct 35.2(L) 35.6 - 45.5 % [facility] Plt 291 150 - 400 K/cumm [facility] MPV 10.6 9.1 - 12.3 fL [facility] RBC 3.98 3.90 - 5.20 M/cumm [facility] MCV 88.4 81.3 - 96.4 fL [facility] MCH 28.6 27.1 - 33.3 pg [facility] MCHC 32.4 32.3 - 35.7 g/dL [facility] RDW CV 14.0 11.1 - 14.9 % [facility] RDW SD 45.4 35.7 - 48.1 fL [facility] NRBC abs 0.00 0.00 - 0.01 K/cumm [facility] Blood 11/16/2024 11:[address] MRI TECHNOLOGIST 11/16/2024 12:[address] MRI TECHNOLOGIST us Ada Nieto TIME STUDY CLERK LAB BLOOD ORDERABLES Final Re sult Performing Organization Address [facility]/ZIP Co de Phone Number [facility] Department [place] [address] * (ABNORMAL) Urinalysis, microscopic only (11/16/2024 11:[address] MRI TECHNOLOGIST) WBC, ur 6-10(A) 0 - 5 /HPF RBC, ur 3-5(A) 0 - 2 /HPF [facility] Epithelial cells, squamous, ur 6-10(A) 0 - 5 /HPF [facility] Comment:Suggestive of contam ination. Consider recollection by clean catch. Epithelial cells, renal, ur 1-5(A) 0 - 0 /HPF [facility] Mucous, ur Present(A) [facility] Culture Reflex Comment Reflex conditions for urine culture (WBC >10) not met. [facility] Urine 11/16/2024 11:[address] MRI TECHNOLOGIST 11/16/2024 12:[address] MRI TECHNOLOGIST Ada Nieto TIME STUDY CLERK LAB URINE ORDERABLES Final Re sult Performing Organization Address [facility] de Phone Number [facility] Department [place] [address] * Lipase (11/16/2024 11:[address] MRI TECHNOLOGIST) Pathologist [facility] Lipase 77 10 - 99 Units/L Blood 11/16/2024 11:[address] MRI TECHNOLOGIST 11/16/2024 12:[address] MRI TECHNOLOGIST Ada Nieto TIME STUDY CLERK LAB BLOOD ORDERABLES Final Re sult Performing Organization Address [facility] de Phone Number [facility] Department [place] [address] * (ABNORMAL) Amylase (11/16/2024 11:[address] MRI TECHNOLOGIST) Amylase 102(H) 30 - 99 Units/L Blood 11/16/2024 11:[address] MRI TECHNOLOGIST 11/16/2024 12:[address] MRI TECHNOLOGIST Ada Nieto TIME STUDY CLERK LAB BLOOD ORDERABLES Final Re sult Performing Organization Address [facility]/State/ZIP Co de Phone Number [facility] Department [place] [address] * Comprehensive metabolic panel (11/16/2024 11:[address] MRI TECHNOLOGIST) Sodium 142 135 - 145 mmol/L Potassium, pl 3.8 3.3 - 4.9 mmol/L [facility] Chloride 105 97 - 110 mmol/L [facility] CO2 29 22 - 32 mmol/L [facility] Anion gap 8 2 - 15 mmol/L [facility] BUN 11 6 - 25 mg/dL [facility] Creatinine 0.63 0.60 - 1.10 mg/dL [facility] Glucose 94 70 - 199 mg/dL [facility] Comment: Interpretive Data Fasting glucose >/= 126 [...] 2022. Calcium 9.0 8.5 - 10.3 mg/dL [facility] Bilirubin, total 0.5 0.1 - 1.2 mg/dL [facility] Protein, pl 6.8 6.5 - 8.5 g/dL [facility] Albumin 4.1 3.5 - 5.0 g/dL [facility] Alk phos 41 40 - 130 Units/L [facility] ALT 11 7 - 45 Units/L [facility] AST 19 10 - 45 Units/L [facility] Blood 11/16/2024 11:[address] MRI TECHNOLOGIST 11/16/2024 12:[address] MRI TECHNOLOGIST us Ada Nieto TIME STUDY CLERK LAB BLOOD ORDERABLES Final Re sult [facility] [place] [address] from Last 3 Months Insurance MEDICARE [facility] Address: [address] [place] [phone] [employer] MED[employer] [facility] Address: [address] [place] [phone] [employer] [facility] Address: [address] [place] [address] MEDICARE [facility] Address: [address] [address] [place] [address] [facility] Advance Directives For more information, please contact: [phone] * Full Code (Latest Code Status on File) Date Activated Date Inactivated Comments 07/14/2022 3:56 PM 07/17/2022 3:47 PM Care Teams Life Educator Relationship Specialty Start Date End Date Armond Bryan MD [address] [facility] [address] [place] [address] PCP - General Internal Medicine 05/19/21 Armond Bryan MD [address] [facility] [address] [place] [address] 01/29/21 [place] [address] [facility] [address] [place] [address] Consulting Physician Endocrinology Diabetes & Metabolism 11/09/18 [place] [address] [facility] [address] [place] [address] Referring Physician Gastroenterology 07/05/22 Bebeto Pavon MD [address] [facility] [phone] [place] [address] Surgeon Colon and Rectal Surgery 07/06/22 Jeremy Byrd MD [address] [facility] [address] [place] [address] Referring Physician Obstetrics and Gynecology 07/28/22
--- OUTSIDE RECORDS SUMMARY | 2024-12-05 19:40 | XMS_ITS | Encounter Summary ---
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] Procedures MA MASTOIDECTOMY,COMPLETE MA TYMPANOPLAS/MASTOIDEC,RADICAL/COMPL E TYMPANOMASTOIDECTOMY Referral ID Status Reason Start Date Expiration Date Visits Re quested Visits Authorized [id number] 1 1 Encounter Details Date Type Department Care Team (Late st Contact Info) Description 07/19/2022 Hospital Encounter [facility] Surgery Center Operating Room [address] [place] [address] Chirag Brito MD [address] [place] [address] Social History Tobacco Use Types Packs/Day Years [...] on file 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 Gender Identity Not on file Sexual Orientation Not on file documented as of this encounter Last Filed Vital Signs Vital Sign Reading Time Taken Comments Blood Pressure - - Pulse - - Temperature - - Respiratory Rate - - Oxygen Saturation - - Inhaled Oxygen Concentration - - Weight 43.1 kg (95 lb) 06/30/2022 9:00 AM CDT Height 152.4 cm (5') 06/30/2022 9:00 AM CDT Body Mass Index 18.55 06/30/2022 9:00 AM CDT documented in this encounter Functional Status * Audit-C Score Answer Date of Assessment Author 0 08/15/2023 5:54 AM Jessy Armando RN * Question Answer Date of Assessment Author Q1: How often do you have a drink containing alcohol? Never 08/15/2023 5:54 AM Jessy Armando RN Q2: How many drinks containing alcohol do you have on a typical day when you are drinking? Patient does not drink 08/15/2023 5:54 AM Jessy Armando RN Q3: How often do you have six or more drinks on one occasion? Never 08/15/2023 5:54 AM Jessy Armando RN documented as of this encounter Miscellaneous Notes * Perioperative Nursing Note - Sinai Graves RN - 06/30/2022 9:07 AM CDT [facility] Perioperative Nursing Note Telephone Preoperative Evaluation ([facility]) - TELEPHONE ONLY, NO PHYSICAL EXAM Date: 06/30/22 Vitals: 06/30/22 0900 Weight: 43.1 kg (95 lb) Height: 152.4 cm (5') CHEST CIRCUMFERENCE: NA Social History Tobacco Use Smoking Status Never Smokeless Tobacco Never Substance and Sexual Activity Drug Use Never Alcohol Use Q1: How often do you have a drink containing alcohol?: Never Q2: How many drinks containing alcohol do you have on a typical day when you are drinking?: Patientdoes not drink Q3: How often do you have six or more drinks on one occasion?: Never Outpatient Medications Marked as Taking for the 07/19/22 encounter (Hospital Encounter) Medication Sig Dispense Refill amitriptyline (ELAVIL) 25 mg tablet Take 25 mg by mouth nightly atomoxetine (STRATTERA) 60 mg capsule Take one by mouth one time per day (Patient taking differently: Take 60 mg by mouth every morning) 0 0 cholecalciferol (VITAMIN D3) 2,000 unit capsule take 1 a day (Patient taking differently: Take by mouth daily as needed) 0 0 citalopram (CeleXA) 40 mg tablet Take 40 mg by mouth every morning dicyclomine (BENTYL) 10 mg capsule Take 10 mg by mouth 3 (three) times a day fludrocortisone 0.1 mg tablet TAKE 1 TABLET BY MOUTH DAILY (Patient taking differently: Take 0.1 mgby mouth every morning TAKE 1 TABLET BY MOUTH DAILY) 90 tablet 3 folic acid (FOLVITE) 1 mg tablet TAKE 2 TABLETS BY MOUTH TWICE DAILY (Patient taking differently: Take 1 mg by mouth every morning) 360 tablet 0 hydrocortisone (Solu-CORTEF) 100 mg/2 mL recon soln Inject 2 mg as needed if nauseous/ vomiting. (Patient taking differently: Inject 2 mg as needed if nauseous/ vomiting.) 2 mL 2 ibuprofen 200 mg tab/cap Take 400 mg by mouth every 6 (six) hours as needed for pain loratadine (CLARITIN) 10 mg tablet Take 10 mg by mouth every morning meclizine (ANTIVERT) 12.5 mg tablet TAKE 1 TABLET(12.5 MG) BY MOUTH THREE TIMES DAILY (Patient taking differently: Take 12.5 mg by mouth 3 (three) times a day as needed) 90 tablet 0 methylphenidate ER (CONCERTA) 27 mg CR tablet Take one by mouth one time per day (Patient taking differently: Take 27 mg by mouth every morning) [address] (PROTONIX) 40 mg EC tablet TAKE 1 TABLET(40 MG) BY MOUTH TWICE DAILY (Patient taking differently: Take 40 mg by mouth 2 (two) times a day) 180 tablet 0 polyethylene glycol (MIRALAX) 17 gram packet Take 17 g by mouth every morning predniSONE (DELTASONE) 2.5 mg tablet TAKE 2 TABLETS BY MOUTH ONE DAY AND 1 TABLET THE NEXT DAY, ALTERNATING DOSE (Patient taking differently: Take by mouth every morning TAKE 2 TABLETS BY MOUTH ONE DAY AND 1 TABLET THE NEXT DAY, ALTERNATING DOSE) 135 tablet 3 pregabalin (LYRICA) 150 mg capsule TAKE 1 CAPSULE(150 MG) BY MOUTH TWICE DAILY (Patient taking differently: Take 150 mg by mouth 2 (two) times a day) 60 capsule 2 Implants No active implants to display in this view. 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 Yes Have you had a COVID -19 exposure within the past 14 days? No Were both or all people exposed wearing masks (cloth, isolation, surgical or N95)? N/A TESTING PLAN-See Instructions for plan We recommend you Self-Isolate after COVID Testing: Stay at home, if possible until your surgery date. Maintain a 6 foot distance from other people (social distancing). Avoid touching your eyes, nose and mouth with unwashed hands. Wash your hands often with soap and water for at least 20 seconds. Use an alcohol- based hand jig mill operator that contains at least 60% alcohol if soap and water are not available. ADDITIONAL COMMENTS/ FOLLOW UP * Pre-Procedure Instructions - Sinai Graves RN - 06/30/2022 9:05 AM CDT [facility] ([facility]) PRE-SURGICAL NURSING INSTRUCTIONS Telephone Assessment General Information Discussed with Patient: Surgery location provided to patient. Arrival time and surgical time will be provided to the patient by their surgeon. You should wear clothing that is clean, loose, comfortable and easy to get in and out of on the dayof surgery. You should leave your valuables and any jewelry at home. No metal or piercings are allowed in the operating room. You should bring your insurance card, a photo ID (example: Hot Dog Vender's License) and a method of payment for any insurance copay, deductible or copay for discharge medications. You should bring a complete, up-to-date list of all your medications on the day of surgery, including any over the counter medications or supplements you may take. You should bring your Advanced Directive and/or Living Will with you on the day of surgery if you have not verified a copy is already in your Epic Chart. A Guide for Patients Having Surgery: Your Pathway to Excellent Care OUR GOAL IS TO PROVIDE YOU WITH EXCELLENT CARE Use this guide to learn about what you can do before, during and after surgery to help your recovery. You are the most important person on your health care team. By becoming informed and involved, you can contribute to the success of your surgery. If your surgeon's directions are different than those in this guide, talk with your nurse or surgeon to confirm the information. It is important that you understand how to take care of yourself at home after surgery. Be sure to bring this guide with you on the day of surgery and take it home with you after surgery. Write down questions for your nurse or surgeon on the last page of this booklet. Important pages to be reviewed BEFORE surgery: Page 1: QR codes for Surgery Center maps Page 3: Types of Anesthesia Page 5: Tips for the day & night before surgery Page 6: When to stop eating BEFORE surgery and examples of clear liquids Page 7-10: Preventing Infection: Chlorhexidine Gluconate (CHG) Bathing Instructions You may access A Guide for Patients Having Surgery: Your Pathway to Excellent Care by the followinglink: [email or web address] How To Prepare Your Skin For Surgery Below is the Pre-Surgical Bathing Protocol you should follow for your surgery. If your surgeon provides you different bathing instructions, please follow your surgeon's orders. Normal Bathing: Bathe with regular soap the night before and/or day of surgery. Normal Bathing Protocol Bathe with your normal soap the night before and/or the morning of surgery. Wear clean clothes or pajamas to sleep in. After showering DO NOT put on deodorant, hair products, conditioners, lotions, creams, powders, Vaseline or any non-essential products. Place clean linens on your bed the night before surgery. Shaving: You may shave your face, legs and underarms during your evening shower. Avoid shaving on the day of surgery. PREVENTING INFECTION (DECOLONIZATION): Decolonization is the use of a topical antiseptic soap and sometimes a nasal ointment to remove bacteria (germs) from the skin's surface. Antiseptic soap: Chlorhexidine gluconate or CHG (brand name: Hibiclens??) Before surgery, your entire body must be thoroughly cleaned. CHG helps to reduce the bacteria on your skin. You may be given one or more bottles of CHG or you may be asked to obtain from your preferred pharmacy. Be sure to ask your pharmacist if you need help finding this product. Nasal ointment: Mupirocin (brand name: Bactroban) Your surgeon may also prescribe a topical ointment that is rubbed inside each of the nostrils to reduce the bacteria in your nose. Mupirocin ointment requires a prescription. If needed, it will be prescribed by your surgeon and obtained from your preferred pharmacy. SHOWERING WITH ANTISEPTIC SOAP (CHG) What You Need For Each Shower 60 mL (?? cup) of CHG 2 clean washcloths CHG Bathing Instructions First, shampoo and rinse your hair with your own shampoo (no conditioners). Do this so the antiseptic soap isn't washed off by your shampoo. Wash face with warm water. Turn off shower and stand away from the water. Use 2 clean washcloths to apply the antiseptic soap to all areas as described below: Pour 30 mL (1/8 cup) of CHG on washcloth #1: Using washcloth- start at jawline and firmly massage the soap into the skin in a circular motion to clean neck, shoulders, chest, back, both armpits, arms, hands and abdomen. Finish with legs and feet. Pour 30 mL (1/8 cup) of CHG on washcloth #2: Using washcloth- firmly massage the soap into the skinin a circular motion to clean groin area, perineum and buttocks. (Do not use CHG on genital area.) Flores Points: The CHG antiseptic soap will not bubble or lather very much. If you get soap in your eyes, ears or mouth, rinse well with cool water. When finished, leave the soap on your skin for 2 minutes before rinsing. Dry off with a clean fresh towel. Wear clean clothes or pajamas to sleep in. After showering DO NOT put on deodorant, hair products or conditioners, lotions or creams, powders,Vaseline or any non-essential products. If you cannot reach the surgical site, such as the back, please have someone help you. Shaving: You may shave your face, legs and underarms during your evening shower before you apply the CHG antiseptic soap. Be careful not to cut or kobi your skin. Avoid shaving on the day of surgery. Deodorant: Patients following the 5-Day CHG protocol may apply deodorant on the days leading up to surgery, being sure, however, to avoid use on the evening before and day of surgery. All other products should be avoided for the full 5 days. 2-Day CHG Bathing Protocol The Evening Before Surgery: Take a shower with Antiseptic soap (CHG). Follow the steps for ???Showering with Antiseptic Soap (CHG)?? above. Change all linens on your bed so you are sleeping in clean fresh sheets and pillowcases. Remove nail coverings, artificial nails and nail bermudian. The Morning of Surgery: Take a shower with Antiseptic soap (CHG). Follow the steps for ???Showering with Antiseptic Soap (CHG)?? above. Put clean clothes on after you shower. COVID TESTING PLAN (if applicable): Please note, the below is the Pre-Procedure COVID Testing Plan (if applicable) for the Center for Preoperative Assessment & Planning for Anesthesia. Surgeon's offices may require additional testing. If so, the surgeon's office will reach out to the patient to discuss further testing. Patient's COVID-19 vaccination status: Up to date with 3 mRNA vaccines. Documentation of vaccination status is available in the Epic Immunization tab. COVID Test Plan: COVID Test not indicated related to patient tested positive for COVID within the past 120 days. Patient tested positive for COVID on this date03/31/2022. COVID test performed at this location [facility] [place], [place] Results in chart. COVID testing not indicated. We recommend you Self-Isolate after COVID Testing: Stay at home, if possible, until your surgery date. Maintain a 6 foot distance from other people (social distancing). Avoid touching your eyes, noseand mouth with unwashed hands. Wash your hands often with soap and water for at least 20 seconds. Use an alcohol- based hand jig mill operator that contains at least 60% alcohol if soap and water are not available. These are general guidelines, but if have been told by a physician that you should not perform any of the above, please follow physician's guidelines. If you have questions, please call the [facility] Staff at [phone], Tuesday-Tuesday 8am-4:30pm. All patients should read the below section: All visitors/patients are being asked to wear a clean face mask when entering the hospital. COVID 19 Updates & Visitor Policy: Please access [email or web address] for the most updated information. Information on [facility]: Please view [email or web address] (Patient & Visitor Information) for additional details regarding Advanced Directive forms, AWARE, directions, parking information, lodging, Internet access, dining and more. Information on [facility] or [facility] ([facility]): Please view [email or web address] (Patient and Visitor Information) for parking/directions and more. For MyChart information, to activate account or password recovery, please go to [email or web address] or call [phone] (toll-free: [phone]). Information for Suicide Prevention: National Suicide Prevention Lifeline (4-865- 438-VLHX (1209)). Surgery Times: For patients having surgery @ [facility], [facility], [facility] or [facility] [place] ([facility]), if your surgeon's office has not notified you of your surgery time by NOON THE BUSINESS DAY BEFORE your surgery, please call [phone] and ask for your surgeon's office Dr. Brito. documented in this encounter Plan of Treatment Not on file documented as of this encounter Visit Diagnoses Not on filedocumented in this encounter Admitting Diagnoses Diagnosis Cholesteatoma of left ear documented in this encounter Discontinued Medications Medication Sig Discontinue Reason Start Date End Da te amitriptyline (ELAVIL) 10 mg tablet Take 1 tablet (10 mg total) by mouth nightly Error 01/29/2022 06/30/2022 cetirizine (ZyrTEC) 10 mg tablet take 1 tablet by oral route every day Error 09/17/2014 06/30/2022 ibuprofen (ADVIL) 100 mg tablet take 2 tablet by oral route every 4 - 6 hours as needed with food Error 06/09/2015 06/30/2022 documented as of this encounter Historical Medications * This list may reflect changes made after this encounter. ibuprofen (ADVIL,MOTRIN) 200 mg tab/cap Take 2 tablet/capsul e (400 mg total) by mouth every 6 (six) hours as needed for pain loratadine (CLARITIN) 10 mg tabletIndications :Allergic Rhinitis Take 1 tablet (10 mg total) by mouth every morning polyethylene glycol (MIRALAX) 17 gram packetIndications :constipation Take 17 g by mouth every morning 05/26/2022 08/26/2022 amitriptyline (ELAVIL) 25 mg tabletIndications :stomach Take 25 mg by mouth nightly 07/06/2022 added in this encounter Additional Health Concerns Infection Onset Date Last Indicated Resolved Time COVID: Recovered Comment:2022 Patient COVID + 03/31, meets recovery status, Lab in Care Everywhere, IP Bailey Leslie RN 03/31/2022 2022 07/29/2022 3:05 AM CDT documented as of this encounter Care Teams Social Human Services Assistants Relationship Specialty Start Date End Date Armond Bryan MD [address] [address] PCP - General Internal Medicine 05/19/21 Armond Bryan MD [address] [address] 01/29/21 [place] [address] [address] Consulting Physician Endocrinology Diabetes & Metabolism 11/09/18 [place] [address] [address] Referring Physician Gastroenterology 07/05/22 Bebeto Pavon MD [address] [facility] [phone] [place] [address] Surgeon Colon and Rectal Surgery 07/06/22 Jeremy Byrd MD [address] [facility] [address] [place] [address] Referring Physician Obstetrics and Gynecology 07/28/22 documented as of this encounter
[2024-12-05 19:51] VITALS: BP 109/51; PULSE 70; RESP 18; TEMP 36.4; O2SAT 100
[2024-12-05 23:50] VITALS: BP 106/65; PULSE 73; RESP 18; O2SAT 98
--- NOTE | 2024-12-06 00:11 | ED.ABDPAIN ---
HPI - Abdominal Pain General Chief Complaint: Abdominal Pain Stated Complaint: abd pain and nausea Time Seen by Provider: 12/05/24 23:58 Source: patient Mode of arrival: ambulatory Limitations: no limitations History of Present Illness HPI narrative: This is a 39-year-old female with PMH of acid reflux, scoliosis, ADHD, Landry's disease, seizure disorder, developmental delay who presents to the ED for chief complaint of abdominal pain. She is here with her father who is legal guardian. Patient states that she has pain to the epigastrium and across the upper abdomen. Her father states that she has had abdominal pain like this for several weeks but it seems to be worse this week. Her mother was able to call in on the phone and is explaining that the patient had a normal right upper quadrant ultrasound this past week and is scheduled for HIDA scan to further evaluate the gallbladder. They do note the patient has had longstanding history of gastritis and has been taking Pepcid with minimal relief. Denies fevers, chills, diarrhea, GI bleeding symptoms, chest pain, shortness of breath, back pain, flank pain. Related Data Home Medications ?Medication ?Instructions ?Recorded ?Confirmed ?Last Taken ?Type citalopram 40 mg tablet 40 mg PO DAILY 09/20/19 12/06/24 12/06/24 History folic acid 1 mg tablet 1 mg PO BID 09/20/19 12/06/24 12/06/24 History loratadine 10 mg tablet (Claritin) 10 mg PO DAILY 09/20/19 12/06/24 12/06/24 History methylphenidate HCl 27 mg 27 mg PO QAM 09/20/19 12/06/24 12/06/24 History tablet,extended release 24 hr (Concerta) pregabalin 150 mg capsule (Lyrica) 150 mg PO BID 10/31/20 12/06/24 12/06/24 History atomoxetine 40 mg capsule 40 mg PO DAILY 12/30/21 12/06/24 12/06/24 History pantoprazole 40 mg tablet,delayed 40 mg PO BID 12/30/21 12/06/24 12/06/24 History release prednisone 2.5 mg tablet See Rx Instructions .Route .COMPLEX 07/03/22 12/06/24 12/06/24 History Allergies Allergy/AdvReac Type Severity Reaction Status Date / Time No Known Allergies Allergy Verified 12/28/23 12:15 Review of Systems Review of Systems: All systems as dictated in [facility] Past Medical History Medical History Acid reflux Landry's disease 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 She is single (currently engaged) and does not have children. 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 Her mother is her legal guardian. Code status full code Smoking status: Never smoker Alcohol intake: never Alcohol use details: Rarely Substance use: never Substance use type: does not use Living arrangements: with family Additional living arrangements comments: Independent living with some assistance. Gender identity (if verbalized by the patient): Female Sexual Orientation (if Verbalized by the Patient): Straight or Heterosexual Spiritual care concerns: No Exam Narrative: GENERAL: Well-appearing, well-nourished, and in no acute distress. HEAD: Normocephalic, atraumatic. EYES: PERRLA and EOMI. ENT: Nares clear, no rhinorrhea or epistaxis. Mucous membranes moist. Oropharynx without tonsillar hypertrophy exudate or other lesions. NECK: Supple. No adenopathy or masses. CHEST: No respiratory distress. Clear to auscultation. No wheezes rales or rhonchi HEART: Regular rate and rhythm. No murmur heard. Normal peripheral pulses. ABDOMEN: Soft, nontender, nondistended, normal active bowel sounds. MSK: Normal range of motion. No edema. SKIN: Warm, dry, no rash. NEURO: Alert and oriented x4. No focal deficits. PSYCH: Normal mood and affect. Course Vital Signs Vital signs: Vital Signs Temperature 36.4 C L 12/05/24 19:51 Pulse Rate 70 12/05/24 19:51 Respiratory Rate 18 12/05/24 19:51 Blood Pressure 109/51 L 12/05/24 19:51 Pulse Oximetry 100 12/05/24 19:51 Oxygen Delivery Room Air 12/05/24 19:51 Temperature 36.4 C L 12/05/24 19:51 Pulse Rate 79 12/06/24 04:31 Respiratory Rate 18 12/06/24 04:31 Blood Pressure 119/78 12/06/24 04:31 Pulse Oximetry 99 12/06/24 04:31 Oxygen Delivery Room Air 12/05/24 19:51 MDM - Abdominal Pain MDM Narrative Medical decision making narrative: This is a 39-year-old female who presents to the ED for chief complaint of abdominal pain over the past several weeks and worse this week. Vitals are normal. Exam is remarkable for the above with epigastric and right upper quadrant abdominal pain/tenderness. Lab work shows normal white count on CBC. CMP is unremarkable overall with normal LFTs. No elevations in bilirubin or alk-phos. Urinalysis does show evidence of infection with 2+ leuks, 21-50 whites. Rocephin started here. Rx for cephalexin given. CT abdomen pelvis with IV contrast: Stat rad IMPRESSION: The appendix measures 9 mm adjacent to the inferior aspect of the right kidney. There is no significant inflammatory stranding. This is equivocal for acute appendicitis. Clinical correlation is recommended. The common bile duct is mildly dilated measuring 8 mm with abrupt truncation distally. Recommend further evaluation with gallbladder ultrasound and/or MRCP. Nonobstructing bilateral renal rib. No hydronephrosis of either kidney. The solid organs are otherwise unremarkable. No bowel obstruction. No fracture. On re-evaluation patient is resting comfortably. Her father who is bedside states that she seems to be much more relaxed now. With the above CT findings, I am not sure that either of the appendix findings or bile duct findings are correlating clinically with presentation. She remains with normal vital signs, no fever. White count is normal. Biliary labs are grossly normal. Would expect at least some elevation in the bilirubin, alk-phos or LFTs with an obstructed bile duct. I do feel that her pain is more consistent with gastritis but may also be due to intermittent biliary colic. Patient was given Dilaudid and Zofran here for pain and nausea control. Will prescribe short course of oxycodone the use for breakthrough pain until she can see her GI doctor again. I discussed the findings and my thoughts with patient and family. They are understanding and agreeable with this. They are comfortable with plan for discharge home at this time and will continue follow-up with GI. Lab Data 12/06/24 00:50 12/06/24 00:50 Labs: Lab Results 12/06/24 12/06/24 Range/Units 00:50 00:53 WBC 6.2 (4.5-10.0) K/mm3 RBC 3.91 L (4.2-5.4) M/mm3 Hgb 10.9 L (12.0-15.0) g/dL Hct 33.8 L (37.0-47.0) % MCV 86.4 (80-100) fl MCH 27.9 (26-34) pg MCHC 32.2 (32-36) g/dl RDW 13.1 (11.5-14.5) % Plt Count 350 (150-375) k/mm3 MPV 10.0 (7.4-10.4) fl Immature Gran % (Auto) 1.5 H (0-0.5) % Neut % (Auto) 35.1 L (45.5-73.1) % Lymph % (Auto) 54.8 H (18.3-44.2) % [place] % (Auto) 7.3 (2.6-8.5) % Eos % (Auto) 0.8 (0-4.4) % Baso % (Auto) 0.5 (0.2-1.2) % Lymph # (Auto) 3.37 H (0.9-3.2) K/mm3 [place] # (Auto) 0.5 (0.1-0.6) K/mm3 Eos # (Auto) 0.1 (0-0.3) K/mm3 Baso # (Auto) 0.0 (0.0-0.1) K/mm3 Abs Immat Gran (auto) 0.09 H (0.00-0.031) K/mm3 Absolute Neuts (auto) 2.2 (1.3-6.7) K/mm3 Absolute Nucleated RBC 0.000 (0.0-0.012) K/mm3 Nucleated RBC % 0.0 (0.0-0.2) % Sodium 138 (137-145) mmol/L Potassium 3.6 (3.4-5.0) mmol/L Chloride 101 (98-107) mmol/L Carbon Dioxide 30 (22-30) mmol/L Anion Gap 7 (4-12) mmol/L BUN 7 D (7-17) mg/dL Creatinine 0.46 L (0.7-1.0) mg/dL Estim Creat Clear Calc Not Reportable Estimated GFR > 60 (59 - ) Glucose 82 (65-110) mg/dL Calcium 8.8 (8.4-10.2) mg/dL Total Bilirubin 0.5 (0.2-1.3) mg/dL AST 24 (14-36) U/L ALT 17 (6-35) U/L Alkaline Phosphatase 49 (38-126) U/L Total Protein 7.0 (6.3-8.2) g/dL Albumin 4.0 (3.5-5.1) g/dL Lipase 194 (23-300) U/L Urine Color Yellow (Yellow) Urine Appearance Clear (Clear) Urine pH 6.5 (5.0-9.0) Ur Specific [place] 1.018 (1.001-1.035) Urine Protein Trace (Negative) mg/dL Urine Glucose (UA) Negative (Negative) mg/dL Urine Ketones 3+ H (Negative) mg/dL Ur Blood (Man) Negative (Negative) Urine Nitrate Negative (Negative) Urine Bilirubin Negative (Negative) Urine Urobilinogen 0.2 (<2.0) mg/dL Leukocyte Esterase Rfl 2+ H (Negative) WILLA/UL Urine RBC 0-2 (0-2) /hpf Urine WBC 21-50 H (0-3) /hpf Ur Squamous Epith Cells Occasional (Few) /hpf Urine Bacteria Trace /hpf Urine Casts 0-2 POC Urine HCG, Qual Negative (Negative) Imaging Data Radiologist's impression: ITS Impressions Abdomen/Pelvis CT 12/06/24 05:33 IMPRESSION: 1. Thickened enhancing appendix measuring 9 mm, suspicious for acute appendicitis. Mild nonspecific fatty infiltration of the pelvis. Discharge Plan Discharge Clinical Impression: UTI (urinary tract infection), Epigastric abdominal pain Patient Disposition: Home, Self-Care Condition: Stable Instructions: Antibiotic Form Additional Instructions: Exam and imaging are reassuring today. There is evidence of possible UTI so antibiotics were sent to pharmacy. Also sending short course of pain meds for breakthrough pain. Please continue taking regular medications as prescribed. Patient Language: Trinidadian Prescriptions: New cephalexin 500 mg capsule 500 mg PO Q8H 7 Days Qty: 21 0RF oxycodone 5 mg capsule 5 mg PO Q8H PRN (Reason: pain) Qty: 10 0RF No Action citalopram 40 mg Tablet 40 mg PO DAILY folic acid 1 mg Tablet 1 mg PO BID loratadine [Claritin] 10 mg Tablet 10 mg PO DAILY methylphenidate HCl [Concerta] 27 mg Tablet Extended Release 24hr 27 mg PO QAM cyclobenzaprine 5 mg tablet 5 mg PO HS PRN (Reason: muscle spasm) Qty: 14 0RF Rx Instructions: may cause drowsiness pregabalin [Lyrica] 150 mg capsule 150 mg PO BID dicyclomine 10 mg capsule 10 mg PO TID PRN (Reason: stomach cramps) Qty: 30 0RF pantoprazole 40 mg tablet,delayed release (DR/EC) 40 mg PO BID atomoxetine 40 mg capsule 40 mg PO DAILY prednisone 2.5 mg tablet See Rx Instructions .ROUTE .COMPLEX Rx Instructions: 5mg one day and 2.5mg the next day. fludrocortisone 0.1 mg Tablet 0.1 mg PO DAILY Qty: 30 0RF Follow-up/Referrals: Irvin,Armond Washington MD [Primary Care Provider] - Time of Disposition: 04:22
--- NOTE | 2024-12-06 00:20 | PC.NURSE ---
pt has hx of addisons
--- OUTSIDE RECORDS SUMMARY | 2024-12-06 00:32 | XMS_ITS | Clinical Summary ---
Author Organization [facility] Address [address] [facility], [address] [address] Phone Care Team Providers Care Aquarium Specialist Name Role Phone Armond Bryan MD Primary Care Provider [phone] Allergies No known active allergies Medications STRATTERA [...] patient's age to complete this topic Insurance [facility] MEDICARE Care Teams Aquarium Specialist Relationship Specialty Start Date End Date Armond Bryan MD PCP - General Internal Medicine 11/16/18
--- OUTSIDE RECORDS SUMMARY | 2024-12-06 00:32 | XMS_ITS | Clinical Summary ---
Author Organization [facility] 8 [facility] Address [address] [place] [address] Care Team Providers Care Iron Handler Name Role Phone Armond Bryan MD Unavailable [phone] Linda Hunter MD Unavailable Armond Bryan MD Primary Care Provider [phone] Solomon Garcia MD Unavailable [phone] Bebeto Pavon MD Unavailable [phone] Jeremy Byrd MD Unavailable [phone] Allergies No known active allergies Medications citalopram [...] 1 capsule (40 mg total) by mouth household appliance installer before breakfast 07/03/20 22 Active psyllium, aspartame, [...] 1 capsule (5,000 Units total) by mouth household appliance installer before breakfast 12 capsule 3 11/22/19 25 Active cholecalciferol (VITAMIN D-3) 5,000 unit capsuleIndication s:Vitamin D Deficiency Take 1 capsule (5,000 Units total) by mouth household appliance installer before breakfast 025 Discontin ued(Reord er) meclizine [...] (07/10/2022): Added automatically from request for surgery [id number] Assessment & Plan (02/15/2023 3:14 PM CDT): Has post-op f/u 02/24/23 for ENT Asymmetric SNHL (sensorineural hearing loss) 09/2019 Assessment & Plan (12/07/2019 5:25 PM JUNIOR PARALEGAL): Discussed options for left hearing loss. Consider CROS amplification. RTC annually. Deafness, mixed type 08/02/2016 Chronic adrenal insufficiency 09/19/2012 Overview (01/12/2017): Glucocorticoid deficiency Assessment & Plan (11/01/2023 3:49 PM JUNIOR PARALEGAL): Chronic, stable Continue prednisone and fludrocortisone Pt [...] issues Assessment & Plan (10/07/2022 2:14 PM JUNIOR PARALEGAL): Chronic problem, improving. Mom is now monitoring [...] fact. Assessment & Plan (10/14/2020 3:13 PM JUNIOR PARALEGAL): It is very important that you take your mediation every day, regularly . In situations of stress, either physical or psychological, the dose of the steroids should be doubled or tripled for a few days. In case of not tolerating oral intake , including vomiting , take injections of hydrocortisone as instructed. 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 In [...] sent. Assessment & Plan (11/14/2018 9:59 AM JUNIOR PARALEGAL): It is very important that you take [...] room. Assessment & Plan (11/15/2017 9:43 AM JUNIOR PARALEGAL): It is very important that you take [...] NOS Assessment & Plan (11/01/2023 3:48 PM JUNIOR PARALEGAL): Chronic, well controlled Update vit D Continue supplementation, as indicated Assessment & Plan (04/07/2023 4:47 PM CDT): Check 25 OH vit D Adjust dose of Ergocalciferol accordingly Assessment & Plan (01/08/2020 11:19 AM CDT): Continue current dose Will recheck in a few months Assessment & Plan (11/15/2017 9:43 AM JUNIOR PARALEGAL): Check 25 OH vit D Adjust dose of Ergocalciferol accordingly Resolved Problems Problem Noted Date Diagnosed Date Resolved Date Postoperative state 07/28/2022 02/16/20 23 Intramural and subserous leiomyoma of uterus 02/15/2023 Rectal prolapse 07/06/2022 02/15/2023 Overview (07/06/2022): Added automatically from request for surgery [id number] Pain of upper abdomen 01/29/20222021 Assessment & Plan (01/29/2022 9:48 AM CDT): Extensive evaluation. ? Functional bowel disease. To have follow up Physician Scientist eval. ? 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 Sensorineural hearing loss (SNHL) of both ears (Primary Dx); Encounter for adjustment and management of cochlear device 11/23/2024 [facility] [address] [place] [address] Armond Bryan MD Lab Results 11/22/2024 3:15 PM JUNIOR PARALEGAL Office Visit [facility] [address] [place] [phone] Linda Hunter MD Chronic adrenal insufficiency (HCC) (Primary Dx); Vitamin D deficiency 11/22/2024 2:15 PM JUNIOR PARALEGAL Lab [facility] [address] [place] [address] Epigastric pain; Chronic adrenal insufficiency (HCC) 11/22/2024 Orders Only [facility] [address] [place] [address] [phone] Ada Nieto NP Epigastric pain (Primary Dx) 11/21/2024 Telephone [facility] [address] [place] [phone] rAmond Bryan MD Lab Results 11/18/2024 Orders Only [facility] [address] [place] [address] [phone] Ada Nieto NP Abdominal pain (Primary Dx); Elevated amylase 11/16/2024 12:20 PM JUNIOR PARALEGAL Lab [facility] ([facility] [address] [place] [address] [phone] Upper abdominal pain 11/16/2024 10:45 AM JUNIOR PARALEGAL Office Visit [facility] [address] [place] [address] [phone] Ada Nieto NP Epigastric pain (Primary Dx); [...] Kidney stones Adhd GERD (gastroesophageal reflux disease) Menard's disease (HCC) Scoliosis Osorio Rods 10/2001 Covid-19 [...] on file Legal Sex Female 8:47 PM JUNIOR PARALEGAL Gender Identity Not on file Sexual Orientation Not on file Obstetrics History Para Term AB IAB SAB Ectopic Multiple Livin g Live Births 0 0 0 0 0 0 0 0 0 0 0 Last Filed Vital Signs Vital Sign Reading Time Taken Comments Blood Pressure 92/62 11/22/2024 3:09 PM JUNIOR PARALEGAL Pulse 78 11/22/2024 3:09 PM JUNIOR PARALEGAL Temperature 36.7 C (98 F) 11/16/2024 10:36 AM JUNIOR PARALEGAL Respiratory Rate 18 11/01/2023 3:08 PM JUNIOR PARALEGAL Oxygen Saturation 97% 11/16/2024 10:36 AM JUNIOR PARALEGAL Inhaled Oxygen Concentration - - Weight 43.1 kg (95 lb) 11/22/2024 3:09 PM JUNIOR PARALEGAL Height 154.9 cm (5' 0.98 ) 11/22/2024 3:09 PM CS T Body Mass Index 17.96 11/22/2024 3:09 PM JUNIOR PARALEGAL Plan of Treatment Health Maintenance Due Date [...] Vaccines Discontinued Medical Devices Implanted Type Area Blood Donor Recruiter Device Identifier Shelf Expiration Date Model / Serial / Lot [employer] Inc/C R Bard 6x3in Large Pore Knit Monofilament Smooth [place] [id number] - [id number] Implanted:Qty: 1 on 07/14/2022 by Bebeto Pavon MD at [facility] Mesh N/A: Pelvis [employer]/C R Bard [id number] 10/06/2026 [id number] / / [id number] Metal Back Cochlear [employer] Implant Cochlear Cochlear Nucleus Profile Plus Slim Modiolar Electrode [id number] - [id number] - [id number] Implanted:Qty: 1 on 08/15/2023 by Chirag Brito MD at [facility] Left: Ear [employer]chle[employer] [id number] 05/18/2025 [id number] / [id number] / Procedures Procedure Name Priority Date/Time Associated Diagnosis Comments AUDBASE RESULTS 11/26/2024 8:57 AM JUNIOR PARALEGAL AMYLASE Routine 11/22/2024 2:45 PM JUNIOR PARALEGAL Epigastric pain LIPASE Routine 11/22/2024 2:45 PM JUNIOR PARALEGAL Epigastric pain URINALYSIS AND REFLEX TO MICROSCOPIC AND CULTURE Routine 11/22/2024 2:30 PM JUNIOR PARALEGAL Chronic adrenal insufficiency (HCC) SCAN - RADIOLOGY/IMAGING 11/22/2024 9:45 AM JUNIOR PARALEGAL SCAN - RADIOLOGY/IMAGING 11/22/2024 9:39 AM JUNIOR PARALEGAL SCAN - RADIOLOGY/IMAGING 11/22/2024 8:50 AM JUNIOR PARALEGAL EGFR Routine 11/16/2024 11:39 AM JUNIOR PARALEGAL Upper abdominal pain URINALYSIS, MICROSCOPIC ONLY Routine 11/16/2024 11:39 AM JUNIOR PARALEGAL Upper abdominal pain DIFFERENTIAL AUTO Routine 11/16/2024 11: 39 AM JUNIOR PARALEGAL Upper abdominal pain CBC WITH AUTO DIFFERENTIAL Routine 11/16/2024 11:39 AM JUNIOR PARALEGAL Upper abdominal pain COMPREHENSIVE METABOLIC PANEL Routine 11/16/2024 11:39 AM JUNIOR PARALEGAL Upper abdominal pain AMYLASE Routine 11/16/2024 11:39 AM JUNIOR PARALEGAL Upper abdominal pain LIPASE Routine 11/16/2024 11:39 AM JUNIOR PARALEGAL Upper abdominal pain URINALYSIS AND REFLEX TO MICROSCOPIC AND CULTURE Routine 11/16/2024 11:39 AM JUNIOR PARALEGAL Upper abdominal pain from Last 3 Months Results * AudBase Results (11/26/2024 8:57 AM JUNIOR PARALEGAL) Provider Scanning AUDIOLOGY SERVICES ORDERABLES Final Result * Lipase (11/22/2024 2:45 PM JUNIOR PARALEGAL) Lipase 87 10 - 99 Units/L Blood 11/22/2024 2:45 PM JUNIOR PARALEGAL 11/22/2024 2:45 PM JUNIOR PARALEGAL Ada Nieto AGENCY SALES DIRECTOR LAB BLOOD ORDERABLES Final Re sult Performing Organization Address [facility] [place] [address] [address] [facility] [place] [address] * (ABNORMAL) Amylase (11/22/2024 2:45 PM JUNIOR PARALEGAL) Amylase 105(H) 30 - 99 Units/L Blood 11/22/2024 2:45 PM JUNIOR PARALEGAL 11/22/2024 2:45 PM JUNIOR PARALEGAL Ada Nieto AGENCY SALES DIRECTOR LAB BLOOD ORDERABLES Final Re sult Performing Organization Address [facility] de Phone Number [facility] [address] [address] [facility] [place] [address] * Urinalysis reflex to microscopic and culture Urine (11/22/2024 2:30 PM JUNIOR PARALEGAL) Color, ur Straw Yellow Clarity, ur Clear [...] tendency for uric acid stone formation. Source: [facility] Boost[facility] Current Interpretive Data was last revised on [...] not met. CERNER Urine 11/22/2024 2:30 PM JUNIOR PARALEGAL 11/22/2024 2:39 PM JUNIOR PARALEGAL us Ada Nieto NP LAB MICROBIOLOGY - GENERAL OR DERABLES Final Result [place] [address] [address] Department [place] [address] * SCAN - RADIOLOGY/IMAGING (11/22/2024 9:45 AM JUNIOR PARALEGAL) Anatomical Region Laterality Modality Other us Ada Nieto NP Final Result * SCAN - RADIOLOGY/IMAGING (11/22/2024 9:39 AM JUNIOR PARALEGAL) Anatomical Region Laterality Modality Other us Ada Nieto NP Final Result * SCAN - RADIOLOGY/IMAGING (11/22/2024 8:50 AM JUNIOR PARALEGAL) Anatomical Region Laterality Modality Other us Ada Nieto NP Final Result * eGFR (11/16/2024 11:39 AM JUNIOR PARALEGAL) eGFR >90 >=60 mL/min/1. 73 m2 Comment: [...] reviewed 2021. Blood 11/16/2024 11:3 9 AM JUNIOR PARALEGAL 11/16/2024 12:24 PM JUNIOR PARALEGAL us Ada Nieto AGENCY SALES DIRECTOR LAB BLOOD ORDERABLES Final Re sult [facility] Department [place] [address] * Differential, auto (11/16/2024 11:39 AM JUNIOR PARALEGAL) Neutrophil abs 6.1 1.5 - 6.5 K/cumm Imm gran abs 0.1 0.0 - 0.1 K/cumm [facility] Lymphocyte abs 1.3 0.8 - 3.3 K/cumm [facility] Monocyte abs 0.4 0.2 - 0.8 K/cumm [facility] Eosinophil abs 0.1 0.0 - 0.5 K/cumm [facility] Basophil abs 0.1 0.0 - 0.1 K/cumm [facility] Neutrophil pct 75.8 % [facility] Comment: Interpretive Data Percent cell count reference ranges are not reported, since discordance with absolute values may lead to misinterpretation of CBC data. Current Interpretive Data was last revised on 2018. Imm gran pct 1.0 % [facility] Comment: Interpretive Data Percent cell count reference ranges are not reported, since discordance with absolute values may lead to misinterpretation of CBC data. Current Interpretive Data was last revised on 2018. Lymphocyte pct 16.3 % [facility] Comment: Interpretive Data Percent cell count reference ranges are not reported, since discordance with absolute values may lead to misinterpretation of CBC data. Current Interpretive Data was last revised on 2018. Monocyte pct 4.5 % [facility] Comment: Interpretive Data Percent cell count reference ranges are not reported, since discordance with absolute values may lead to misinterpretation of CBC data. Current Interpretive Data was last revised on 2018. Eosinophil pct 1.6 % [facility] Comment: Interpretive Data Percent cell count reference ranges are not reported, since discordance with absolute values may lead to misinterpretation of CBC data. Current Interpretive Data was last revised on 2018. Basophil pct 0.8 % [facility] Comment: Interpretive Data Percent cell count reference ranges are not reported, since discordance with absolute values may lead to misinterpretation of CBC data. Current Interpretive Data was last revised on 2018. Blood 11/16/2024 11:3 9 AM JUNIOR PARALEGAL 11/16/2024 12:10 PM JUNIOR PARALEGAL us Ada Nieto AGENCY SALES DIRECTOR LAB BLOOD ORDERABLES Final Re sult [facility] Department [place] [address] * (ABNORMAL) Urinalysis reflex to microscopic and culture Urine (11/16/2024 11:39 AM JUNIOR PARALEGAL) Color, ur Straw Yellow Clarity, ur Clear Clear [facility] Specific gravity, ur 1.021 1.003 - 1.030 [facility] pH, urine 7.0 [facility] Comment: Interpretive Data U rine pH is affected by diet, medications, systemic acid-base disturbances, and renal tubular function. pH may affect urinary stone formation. For example, urine pH below 6.0 may help reduce the tendency for calcium phosphate stones and pH greater than 6.0 may reduce the tendency for uric acid stone formation. Source: [facility] Current Interpretive Data was last revised on 2017 Protein, ur ql Trace Negative [facility] Glucose, ur ql Negative Negative [facility] Ketones, ur Negative Negative [facility] Bilirubin, ur Negative Negative [facility] Blood, ur Negative Negative [facility] Urobilinogen, ur <2.0 <2.0 mg/dL [facility] Nitrite, ur Negative Negative [facility] Leukocyte esterase, ur 1+(A) Negative [facility] UA reflex comment Reflex to microscopic UA will be performed. [facility] Urine 11/16/2024 11:3 9 AM JUNIOR PARALEGAL 11/16/2024 12:10 PM JUNIOR PARALEGAL Ada Nieto AGENCY SALES DIRECTOR LAB MICROBIOLOGY - GENERAL OR DERABLES Final Result Performing Organization Address [facility]/ZIP Co de Phone Number [facility] Department [place] [address] * (ABNORMAL) CBC with auto differential (11/16/2024 11:39 AM JUNIOR PARALEGAL) [facility] WBC 8.0 3.8 - 9.9 K/cumm Hgb 11.4(L) 11.9 - 15.5 g/dL [facility] Hct 35.2(L) 35.6 - 45.5 % [facility] Plt 291 150 - 400 K/cumm [facility] MPV 10.6 9.1 - 12.3 fL [facility] RBC 3.98 3.90 - 5.20 M/cumm [facility] MCV 88.4 81.3 - 96.4 fL [facility] MCH 28.6 27.1 - 33.3 pg [facility] MCHC 32.4 32.3 - 35.7 g/dL [facility] RDW CV 14.0 11.1 - 14.9 % [facility] RDW SD 45.4 35.7 - 48.1 fL [facility] NRBC abs 0.00 0.00 - 0.01 K/cumm [facility] Blood 11/16/2024 11:3 9 AM JUNIOR PARALEGAL 11/16/2024 12:10 PM JUNIOR PARALEGAL us Ada Nieto AGENCY SALES DIRECTOR LAB BLOOD ORDERABLES Final Re sult Performing Organization Address City/[facility]/ZIP Co de Phone Number [facility] Department [place] [address] * (ABNORMAL) Urinalysis, microscopic only (11/16/2024 11:39 AM JUNIOR PARALEGAL) WBC, ur 6-10(A) 0 - 5 /HPF RBC, ur 3-5(A) 0 - 2 /HPF [facility] Epithelial cells, squamous, ur 6-10(A) 0 - 5 /HPF [facility] Comment:Suggestive of contam ination. Consider recollection by clean catch. Epithelial cells, renal, ur 1-5(A) 0 - 0 /HPF [facility] Mucous, ur Present(A) [facility] Culture Reflex Comment Reflex conditions for urine culture (WBC >10) not met. [facility] Urine 11/16/2024 11:3 9 AM JUNIOR PARALEGAL 11/16/2024 12:10 PM JUNIOR PARALEGAL Ada Nieto AGENCY SALES DIRECTOR LAB URINE ORDERABLES Final Re sult Performing Organization Address [facility] de Phone Number [facility] [place] [address] * Lipase (11/16/2024 11:39 AM JUNIOR PARALEGAL) Lipase 77 10 - 99 Units/L Blood 11/16/2024 11:3 9 AM JUNIOR PARALEGAL 11/16/2024 12:10 PM JUNIOR PARALEGAL Ada Nieto AGENCY SALES DIRECTOR LAB BLOOD ORDERABLES Final Re sult Performing Organization Address [facility] de Phone Number [facility] [place] [address] * (ABNORMAL) Amylase (11/16/2024 11:39 AM JUNIOR PARALEGAL) Amylase 102(H) 30 - 99 Units/L Blood 11/16/2024 11:3 9 AM JUNIOR PARALEGAL 11/16/2024 12:10 PM JUNIOR PARALEGAL Ada Nieto AGENCY SALES DIRECTOR LAB BLOOD ORDERABLES Final Re sult Performing Organization Address [facility] de Phone Number [facility] [place] [address] * Comprehensive metabolic panel (11/16/2024 11:39 AM JUNIOR PARALEGAL) Sodium 142 135 - 145 mmol/L Potassium, pl 3.8 3.3 - 4.9 mmol/L [facility] Chloride 105 97 - 110 mmol/L [facility] CO2 29 22 - 32 mmol/L [facility] Anion gap 8 2 - 15 mmol/L [facility] BUN 11 6 - 25 mg/dL [facility] Creatinine 0.63 0.60 - 1.10 mg/dL [facility] Glucose 94 70 - 199 mg/dL [facility] Comment: Interpretive Data Fasting glucose >/= [...] 2022. Calcium 9.0 8.5 - 10.3 mg/dL [facility] Bilirubin, total 0.5 0.1 - 1.2 mg/dL [facility] Protein, pl 6.8 6.5 - 8.5 g/dL [facility] Albumin 4.1 3.5 - 5.0 g/dL [facility] Alk phos 41 40 - 130 Units/L [facility] ALT 11 7 - 45 Units/L [facility] AST 19 10 - 45 Units/L [facility] Blood 11/16/2024 11:3 9 AM JUNIOR PARALEGAL 11/16/2024 12:10 PM JUNIOR PARALEGAL us Ada Nieto AGENCY SALES DIRECTOR LAB BLOOD ORDERABLES Final Re sult [facility] [place] [address] from Last 3 Months Insurance MEDICARE IDPR MEDICARE IDPR [employer] TRADITIONAL MEDICARE [facility] Advance Directives For more information, please contact: [phone] * Full Code (Latest Code Status on File) Date Activated Date Inactivated Comments 07/14/2022 3:56 PM 07/17/2022 3:47 PM Care Teams Iron Handler Relationship Specialty Start Date End Date Konzen, Armond L., MD [address] [facility] [place] [address] PCP - General Internal Medicine 05/19/21 Armond Bryan MD [address] [facility] [address] [place] [address] 01/29/21 [place] [address] [facility] [address] [place] [address] Consulting Physician Endocrinology Diabetes & Metabolism 11/09/18 [place] [address] [facility] [address] [place] [address] Referring Physician Gastroenterology 07/05/22 Bebeto Pavon MD [address] [facility] [phone] [place] [address] Surgeon Colon and Rectal Surgery 07/06/22 Jeremy Byrd MD [address] [facility] [address] [place] [address] Referring Physician Obstetrics and Gynecology 07/28/22
--- OUTSIDE RECORDS SUMMARY | 2024-12-06 00:32 | XMS_ITS | Encounter Summary ---
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 [H71.92] Procedures ND MASTOIDECTOMY,COMPLETE ND TYMPANOPLAS/MASTOIDEC,RADICAL/COMPL E TYMPANOMASTOIDECTOMY Referral ID Status Reason Start Date Expiration Date Visits Re quested Visits Authorized [id number] 1 1 Encounter Details Date Type Department Care Team (Late st Contact Info) Description 07/19/2022 Hospital Encounter [facility] Operating Room [address] [place] [address] Chirag Brito MD [address] [place] [address] Social History Tobacco Use Types Packs/Day Years [...] on file Legal Sex Female 8:47 PM [employer] Gender Identity Not on file Sexual Orientation [...] Planning Perioperative Nursing Note Telephone Preoperative Evaluation ([facility]) - TELEPHONE ONLY, NO PHYSICAL EXAM Date: [...] Residence: Apartment Living Arrangements: Alone Support Systems: sales operations associate (comment), Family members Patient expects to be discharged to:: Private residence (Micromatic Hone Operator and Caregiver: Mother) COVID Screening Covid-19 Screening [...] 20 seconds. Use an alcohol- based hand pocket setter lockstitch that contains at least 60% alcohol if [...] your insurance card, a photo ID (example: [employer]romatic Hone Operator's License) and a method of payment for [...] Pathway to Excellent Care by the followinglink: [email or web address] How To Prepare Your Skin [...] Remove nail coverings, artificial nails and nail burkinan. The Morning of Surgery: Take a shower [...] COVID test performed at this location [facility] [place], [place] Results in chart. COVID testing not indicated. We recommend you Self-Isolate after COVID Testing: Stay at home, if possible, until your surgery date. Maintain a 6 foot distance from other people (social distancing). Avoid touching your eyes, noseand mouth with unwashed hands. Wash your hands often with soap and water for at least 20 seconds. Use an alcohol- based hand pocket setter lockstitch that contains at least 60% alcohol if soap and water are not available. These are general guidelines, but if have been told by a physician that you should not perform any of the above, please follow physician's guidelines. If you have questions, please call the CPAP Staff at [phone], Tuesday-Tuesday 8am-4:30pm. All patients should read the below section: All visitors/patients are being asked to wear a clean face mask when entering the hospital. COVID 19 Updates & Visitor Policy: Please access [email or web address] for the most updated information. Information on [facility]: Please view [email or web address] (Patient & Visitor Information) for additional details regarding Advanced Directive forms, AWARE, directions, parking information, lodging, Internet access, dining and more. Information on [facility] or [facility] ([facility]): Please view [email or web address] (Patient and Visitor Information) for parking/directions and more. For MyChart information, to activate account or password recovery, please go to [email or web address] or call [phone] (toll-free: [phone]). Information for Suicide Prevention: National Suicide Prevention Lifeline (5-338- 687-YVTM (0294)). Surgery Times: For patients having surgery @ [facility], [facility], [facility] or [facility] [place] ([facility]), if your surgeon's office has not notified you of your surgery time by NOON THE BUSINESS DAY BEFORE your surgery, please call [phone] and ask for your surgeon's office Dr. [...] documented as of this encounter Care Teams Geoduck Diver Relationship Specialty Start Date End Date Armond Bryan MD [address] [address] PCP - General Internal Medicine 05/19/21 Armond Bryan MD [address] [address] 01/29/21 [place] [address] [address] Consulting Physician Endocrinology Diabetes & Metabolism 11/09/18 [place] [address] [address] Referring Physician Gastroenterology 07/05/22 Bebeto Pavon MD [address] [facility] [phone] [place] [address] Surgeon Colon and Rectal Surgery 07/06/22 Jeremy Byrd MD [address] [facility] [address] [place] [address] Referring Physician Obstetrics and Gynecology 07/28/22 documented as of this encounter
--- OUTSIDE RECORDS SUMMARY | 2024-12-06 00:32 | XMS_ITS | Referral Summary ---
Author Organization [facility] Address [address] [place] [address] Care Team Providers Care Cutlet Maker Pork Name Role Phone Armond Bryan MD Unavailable [phone] Linda Hunter MD Unavailable Armond Bryan MD Primary Care Provider Solomon Garcia MD Unavailable [phone] Bebeto Pavon MD Unavailable [phone] Jeremy Byrd MD Unavailable Encounters Date Type Department Care Team Description 11/26/2024 9:00 AM CHARGE LOADER Procedure visit [facility] Otolaryngology [address] [place] [address] [address]th [place] [address] [place] [address] Samanta Neumann Au.D. Sensorineural hearing loss (SNHL) of both ears (Primary Dx); Encounter for adjustment and management of cochlear device 11/23/2024 Telephone [facility] [address] [place] [phone] Armond Bryan MD Lab Results 11/22/2024 2:15 PM CHARGE LOADER Lab [address] [address] Epigastric pain; Chronic adrenal insufficiency (HCC) 11/22/2024 Orders Only [facility] [address] [place] [phone] Ada Nieto NP Epigastric pain (Primary Dx) 11/22/2024 3:15 PM CHARGE LOADER Office Visit [facility] [address], [place] [phone] Linda Hunter MD Chronic adrenal insufficiency (HCC) (Primary Dx); Vitamin D deficiency 11/21/2024 Telephone [facility] [address] [place] [phone] Armond Bryan MD Lab Results 11/18/2024 Orders Only [facility] [address] [place] [phone] Ada Nieto NP Abdominal pain (Primary Dx); Elevated amylase 11/16/2024 12:20 PM CHARGE LOADER Lab [facility] [address] [place], [place] [phone] Upper abdominal pain 11/16/2024 10:45 AM CHARGE LOADER Office Visit [facility] [address] [place] [phone] Ada Nieto NP Epigastric pain (Primary Dx); [...] 1 capsule (40 mg total) by mouth manager van before breakfast 07/03/20 22 Active psyllium, aspartame, [...] 1 capsule (5,000 Units total) by mouth manager van before breakfast 12 capsule 3 11/22/19 25 Active cholecalciferol (VITAMIN D-3) 5,000 unit capsuleIndication s:Vitamin D Deficiency Take 1 capsule (5,000 Units total) by mouth manager van before breakfast 025 Discontin ued(Reord er) meclizine [...] (07/10/2022): Added automatically from request for surgery [id number] Assessment & Plan (02/15/2023 3:14 PM CDT): Has post-op f/u 02/24/23 for ENT Asymmetric SNHL (sensorineural hearing loss) 09/2019 Assessment & Plan (12/07/2019 5:25 PM CHARGE LOADER): Discussed options for left hearing loss. Consider CROS amplification. RTC annually. Deafness, mixed type 08/02/2016 Chronic adrenal insufficiency 09/19/2012 Overview (01/12/2017): Glucocorticoid deficiency Assessment & Plan (11/01/2023 3:49 PM CHARGE LOADER): Chronic, stable Continue prednisone and fludrocortisone Pt [...] issues Assessment & Plan (10/07/2022 2:14 PM CHARGE LOADER): Chronic problem, improving. Mom is now monitoring [...] fact. Assessment & Plan (10/14/2020 3:13 PM CHARGE LOADER): It is very important that you take [...] sent. Assessment & Plan (11/14/2018 9:59 AM CHARGE LOADER): It is very important that you take your mediation every day, regularly . In situations of stress, either physical or psychological, the dose of the steroids should be doubled or tripled for a few days. In case of not tolerating oral intake , including vomiting , take injections of hydrocortisone as instructed. 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 In case of any extreme weakness, abdominal pain, diarrhea or dizziness, it is recommended for you to call an ambulance and proceed to the nearest emergency room. Assessment & Plan (11/15/2017 9:43 AM CHARGE LOADER): It is very important that you take your mediation every day, regularly . In situations of stress, either physical or psychological, the dose of the steroids should be doubled or tripled for a few days. In case of not tolerating oral intake , including vomiting , take injections of hydrocortisone as instructed. 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 In case of any extreme weakness, abdominal pain, diarrhea or dizziness, it is recommended for you to call an ambulance and proceed to the nearest emergency room. Vitamin D deficiency 09/16/2011 Overview (01/14/2017): VITAMIN D DEFICIENCY NOS Assessment & Plan (11/01/2023 3:48 PM CHARGE LOADER): Chronic, well controlled Update vit D Continue supplementation, as indicated Assessment & Plan (04/07/2023 4:47 PM CDT): Check 25 OH vit D Adjust dose of Ergocalciferol accordingly Assessment & Plan (01/08/2020 11:19 AM CDT): Continue current dose Will recheck in a few months Assessment & Plan (11/15/2017 9:43 AM CHARGE LOADER): Check 25 OH vit D Adjust dose of Ergocalciferol accordingly Resolved Problems Problem Noted Date Diagnosed Date Resolved Date Postoperative state 07/28/2022 02/16/20 Intramural and subserous leiomyoma of uterus 2 02/15/2023 Rectal prolapse 07/06/2022 02/15/2023 Overview (07/06/2022): Added automatically from request for surgery [id number] Pain of upper abdomen 01/29/20222021 Assessment & Plan (01/29/2022 9:48 AM CDT): Extensive evaluation. ? Functional bowel disease. To have follow up Streetsweeper Operator eval. ? 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[facility]) 09/19/2012 Overview (01/14/2017): Mineralocorticoid deficiency Immunizations Immunization [...] on file Legal Sex Female 8:47 PM CHARGE LOADER Gender Identity Not on file Sexual Orientation Not on file Last Filed Vital Signs Vital Sign Reading Time Taken Comments Blood Pressure 92/62 11/22/2024 3:09 PM CHARGE LOADER Pulse 78 11/22/2024 3:09 PM CHARGE LOADER Temperature 36.7 C (98 F) 11/16/2024 10:36 AM CHARGE LOADER Respiratory Rate 18 11/01/2023 3:08 PM CHARGE LOADER Oxygen Saturation 97% 11/16/2024 10:36 AM CHARGE LOADER Inhaled Oxygen Concentration - - Weight 43.1 kg (95 lb) 11/22/2024 3:09 PM CHARGE LOADER Height 154.9 cm (5' 0.98 ) 11/22/2024 3:09 PM CS T Body Mass Index 17.96 11/22/2024 3:09 PM CHARGE LOADER Plan of Treatment Not on file Medical Devices Implanted Type Area Teaching Artist Device Identifier Shelf Expiration Date Model / Serial / Lot [employer]/C R Bard 6x3in Large Pore Knit Monofilament Smooth [place] [id number] - [id number] Implanted:Qty: 1 on 07/14/2022 by Bebeto Pavon MD at [facility] Mesh N/A: Pelvis [employer]/C R Bard [id number] 10/06/2026 [id number] / / [id number] Metal Back [employer]chle[employer] Implant Cochlear Cochlear Nucleus Profile Plus Slim Modiolar Electrode [id number] - [id number] - [id number] Implanted:Qty: 1 on 08/15/2023 by Chirag Brito MD at [facility] Left: Ear [employer] [id number] 05/18/2025 [id number] / [id number] / Procedures Procedure Name Priority Date/Time Associated Diagnosis Comments AUDBASE RESULTS 11/26/2024 8:57 AM CHARGE LOADER AMYLASE Routine 11/22/2024 2:45 PM CHARGE LOADER Epigastric pain LIPASE Routine 11/22/2024 2:45 PM CHARGE LOADER Epigastric pain URINALYSIS AND REFLEX TO MICROSCOPIC AND CULTURE Routine 11/22/2024 2:30 PM CHARGE LOADER Chronic adrenal insufficiency (HCC) SCAN - RADIOLOGY/IMAGING 11/22/2024 9:45 AM CHARGE LOADER SCAN - RADIOLOGY/IMAGING 11/22/2024 9:39 AM CHARGE LOADER SCAN - RADIOLOGY/IMAGING 11/22/2024 8:50 AM CHARGE LOADER EGFR Routine 11/16/2024 11:39 AM CHARGE LOADER Upper abdominal pain URINALYSIS, MICROSCOPIC ONLY Routine 11/16/2024 11:39 AM CHARGE LOADER Upper abdominal pain DIFFERENTIAL AUTO Routine 11/16/2024 11: 39 AM CHARGE LOADER Upper abdominal pain CBC WITH AUTO DIFFERENTIAL Routine 11/16/2024 11:39 AM CHARGE LOADER Upper abdominal pain COMPREHENSIVE METABOLIC PANEL Routine 11/16/2024 11:39 AM CHARGE LOADER Upper abdominal pain AMYLASE Routine 11/16/2024 11:39 AM CHARGE LOADER Upper abdominal pain LIPASE Routine 11/16/2024 11:39 AM CHARGE LOADER Upper abdominal pain URINALYSIS AND REFLEX TO MICROSCOPIC AND CULTURE Routine 11/16/2024 11:39 AM CHARGE LOADER Upper abdominal pain from Last 3 Months Results * AudBase Results (11/26/2024 8:57 AM CHARGE LOADER) Provider Scanning AUDIOLOGY SERVICES ORDERABLES Final Result * Lipase (11/22/2024 2:45 PM CHARGE LOADER) Lipase 87 10 - 99 Units/L Blood 11/22/2024 2:45 PM CHARGE LOADER 11/22/2024 2:45 PM CHARGE LOADER Ada Nieto DIGITAL MARKETING CONSULTANT LAB BLOOD ORDERABLES Final Re sult Performing Organization Address [facility] Co de Phone Number MAY [address] [address] [facility] [employer] [place] [address] * (ABNORMAL) Amylase (11/22/2024 2:45 PM CHARGE LOADER) Amylase 105(H) 30 - 99 Units/L Blood 11/22/2024 2:45 PM CHARGE LOADER 11/22/2024 2:45 PM CHARGE LOADER Ada Nieto DIGITAL MARKETING CONSULTANT LAB BLOOD ORDERABLES Final Re sult Performing Organization Address [facility] de Phone Number [facility] [address] [facility] [employer] [place] [address] * Urinalysis reflex to microscopic and culture Urine (11/22/2024 2:30 PM CHARGE LOADER) Color, ur Straw Yellow Clarity, ur Clear Clear [facility] Specific gravity, ur 1.008 1.003 - 1.030 [facility] pH, urine 6.0 [facility] Comment: Interpretive Data U rine pH is affected by diet, medications, systemic acid-base disturbances, and renal tubular function. pH may affect urinary stone formation. For example, urine pH below 6.0 may help reduce the tendency for calcium phosphate stones and pH greater than 6.0 may reduce the tendency for uric acid stone formation. Source: [facility] [employer] Current Interpretive Data was last revised on [...] for microscopic UA and culture not met. [facility] Urine 11/22/2024 2:30 PM CHARGE LOADER 11/22/2024 2:39 PM CHARGE LOADER us Ada Nieto NP LAB MICROBIOLOGY - GENERAL OR DERABLES Final Result [facility] [address] [place] [address] * SCAN - RADIOLOGY/IMAGING (11/22/2024 9:45 AM CHARGE LOADER) Anatomical Region Laterality Modality Other us Ada Nieto NP Final Result * SCAN - RADIOLOGY/IMAGING (11/22/2024 9:39 AM CHARGE LOADER) Anatomical Region Laterality Modality Other Result Tatiana Nieto NP Final Result * SCAN - RADIOLOGY/IMAGING (11/22/2024 8:50 AM CHARGE LOADER) Anatomical Region Laterality Modality Other us Ada Nieto NP Final Result * eGFR (11/16/2024 11:39 AM CHARGE LOADER) eGFR >90 >=60 mL/min/1. 73 m2 Comment: [...] reviewed 2021. Blood 11/16/2024 11:3 9 AM CHARGE LOADER 11/16/2024 12:24 PM CHARGE LOADER us Ada Nieto DIGITAL MARKETING CONSULTANT LAB BLOOD ORDERABLES Final Re sult [facility] [place] [address] * Differential, auto (11/16/2024 11:39 AM CHARGE LOADER) Neutrophil abs 6.1 1.5 - 6.5 K/cumm Imm gran abs 0.1 0.0 - 0.1 K/cumm [facility] Lymphocyte abs 1.3 0.8 - 3.3 K/cumm [facility] Monocyte abs 0.4 0.2 - 0.8 K/cumm [facility] Eosinophil abs 0.1 0.0 - 0.5 K/cumm [facility] Basophil abs 0.1 0.0 - 0.1 K/cumm [facility] Neutrophil pct 75.8 % [facility] Comment: Interpretive Data Percent cell count reference ranges are not reported, since discordance with absolute values may lead to misinterpretation of CBC data. Current Interpretive Data was last revised on 2018. Imm gran pct 1.0 % [facility] Comment: Interpretive Data Percent cell count reference ranges are not reported, since discordance with absolute values may lead to misinterpretation of CBC data. Current Interpretive Data was last revised on 2018. Lymphocyte pct 16.3 % [facility] Comment: Interpretive Data Percent cell count reference ranges are not reported, since discordance with absolute values may lead to misinterpretation of CBC data. Current Interpretive Data was last revised on 2018. Monocyte pct 4.5 % [facility] Comment: Interpretive Data Percent cell count reference ranges are not reported, since discordance with absolute values may lead to misinterpretation of CBC data. Current Interpretive Data was last revised on 2018. Eosinophil pct 1.6 % [facility] Comment: Interpretive Data Percent cell count reference ranges are not reported, since discordance with absolute values may lead to misinterpretation of CBC data. Current Interpretive Data was last revised on 2018. Basophil pct 0.8 % [facility] Comment: Interpretive Data Percent cell count reference ranges are not reported, since discordance with absolute values may lead to misinterpretation of CBC data. Current Interpretive Data was last revised on 2018. Blood 11/16/2024 11:3 9 AM CHARGE LOADER 11/16/2024 12:10 PM CHARGE LOADER us Ada Nieto DIGITAL MARKETING CONSULTANT LAB BLOOD ORDERABLES Final Re sult [facility] [address] [facility] [place] [address] * (ABNORMAL) Urinalysis reflex to microscopic and culture Urine (11/16/2024 11:39 AM CHARGE LOADER) Color, ur Straw Yellow Clarity, ur Clear Clear [facility] Specific gravity, ur 1.021 1.003 - 1.030 [facility] pH, urine 7.0 [facility] Comment: Interpretive Data U rine pH is affected by diet, medications, systemic acid-base disturbances, and renal tubular function. pH may affect urinary stone formation. For example, urine pH below 6.0 may help reduce the tendency for calcium phosphate stones and pH greater than 6.0 may reduce the tendency for uric acid stone formation. Source: [facility] [employer] Current Interpretive Data was last revised on 2017 Protein, ur ql Trace Negative [facility] Glucose, ur ql Negative Negative [facility] Ketones, ur Negative Negative [facility] Bilirubin, ur Negative Negative [facility] Blood, ur Negative Negative [facility] Urobilinogen, ur <2.0 <2.0 mg/dL [facility] Nitrite, ur Negative Negative [facility] Leukocyte esterase, ur 1+(A) Negative [facility] UA reflex comment Reflex to microscopic UA will be performed. [facility] Urine 11/16/2024 11:3 9 AM CHARGE LOADER 11/16/2024 12:10 PM CHARGE LOADER Ada Nieto DIGITAL MARKETING CONSULTANT LAB MICROBIOLOGY - GENERAL OR DERABLES Final Result Performing Organization Address [facility] Co de Phone Number [facility] Department [place] [address] * (ABNORMAL) CBC with auto differential (11/16/2024 11:39 AM CHARGE LOADER) WBC 8.0 3.8 - 9.9 K/cumm Hgb 11.4(L) 11.9 - 15.5 g/dL [facility] Hct 35.2(L) 35.6 - 45.5 % [facility] Plt 291 150 - 400 K/cumm [facility] MPV 10.6 9.1 - 12.3 fL [facility] RBC 3.98 3.90 - 5.20 M/cumm [facility] MCV 88.4 81.3 - 96.4 fL [facility] MCH 28.6 27.1 - 33.3 pg [facility] MCHC 32.4 32.3 - 35.7 g/dL [facility] RDW CV 14.0 11.1 - 14.9 % [facility] RDW SD 45.4 35.7 - 48.1 fL [facility] NRBC abs 0.00 0.00 - 0.01 K/cumm [facility] Blood 11/16/2024 11:3 9 AM CHARGE LOADER 11/16/2024 12:10 PM CHARGE LOADER us Ada Nieto DIGITAL MARKETING CONSULTANT LAB BLOOD ORDERABLES Final Re sult Performing Organization Address [facility]/ZIP Co de Phone Number [facility] Department [place] [address] * (ABNORMAL) Urinalysis, microscopic only (11/16/2024 11:39 AM CHARGE LOADER) WBC, ur 6-10(A) 0 - 5 /HPF RBC, ur 3-5(A) 0 - 2 /HPF [facility] Epithelial cells, squamous, ur 6-10(A) 0 - 5 /HPF [facility] Comment:Suggestive of contam ination. Consider recollection by clean catch. Epithelial cells, renal, ur 1-5(A) 0 - 0 /HPF [facility] Mucous, ur Present(A) [facility] Culture Reflex Comment Reflex conditions for urine culture (WBC >10) not met. [facility] Urine 11/16/2024 11:3 9 AM CHARGE LOADER 11/16/2024 12:10 PM CHARGE LOADER Ada Nieto DIGITAL MARKETING CONSULTANT LAB URINE ORDERABLES Final Re sult Performing Organization Address [facility] de Phone Number [facility] Department [place] [address] * Lipase (11/16/2024 11:39 AM CHARGE LOADER) Pathologist [facility] Lipase 77 10 - 99 Units/L Blood 11/16/2024 11:3 9 AM CHARGE LOADER 11/16/2024 12:10 PM CHARGE LOADER Ada Nieto DIGITAL MARKETING CONSULTANT LAB BLOOD ORDERABLES Final Re sult Performing Organization Address [facility] de Phone Number [facility] Department [place] [address] * (ABNORMAL) Amylase (11/16/2024 11:39 AM CHARGE LOADER) Amylase 102(H) 30 - 99 Units/L Blood 11/16/2024 11:3 9 AM CHARGE LOADER 11/16/2024 12:10 PM CHARGE LOADER Ada Nieto DIGITAL MARKETING CONSULTANT LAB BLOOD ORDERABLES Final Re sult Performing Organization Address [facility]/State/ZIP Co de Phone Number [facility] [place] [address] * Comprehensive metabolic panel (11/16/2024 11:39 AM CHARGE LOADER) Sodium 142 135 - 145 mmol/L Potassium, pl 3.8 3.3 - 4.9 mmol/L [facility] Chloride 105 97 - 110 mmol/L [facility] CO2 29 22 - 32 mmol/L [facility] Anion gap 8 2 - 15 mmol/L [facility] BUN 11 6 - 25 mg/dL [facility] Creatinine 0.63 0.60 - 1.10 mg/dL [facility] Glucose 94 70 - 199 mg/dL [facility] Comment: Interpretive Data Fasting glucose [...] 2022. Calcium 9.0 8.5 - 10.3 mg/dL [facility] Bilirubin, total 0.5 0.1 - 1.2 mg/dL [facility] Protein, pl 6.8 6.5 - 8.5 g/dL [facility] Albumin 4.1 3.5 - 5.0 g/dL [facility] Alk phos 41 40 - 130 Units/L [facility] ALT 11 7 - 45 Units/L [facility] AST 19 10 - 45 Units/L [facility] Blood 11/16/2024 11:3 9 AM CHARGE LOADER 11/16/2024 12:10 PM CHARGE LOADER us Ada Nieto DIGITAL MARKETING CONSULTANT LAB BLOOD ORDERABLES Final Re sult [facility] [place] [address] from Last 3 Months Insurance MEDICARE IDIA MEDICARE IDPA [facility] MEDICARE [facility] Advance Directives For more information, please contact: [phone] * Full Code (Latest Code Status on File) Date Activated Date Inactivated Comments 07/14/2022 3:56 PM 07/17/2022 3:47 PM Care Teams Cutlet Maker Pork Relationship Specialty Start Date End Date Armond Bryan MD [address] [facility] [address] [place] [address] PCP - General Internal Medicine 05/19/21 Armond Bryan MD [address] [facility] [address] [place] [address] 01/29/21 [place] [address] [facility] [address] [place] [address] Consulting Physician Endocrinology Diabetes & Metabolism 11/09/18 [place] [address] [facility] [address] [place] [address] Referring Physician Gastroenterology 07/05/22 Bebeto Pavon MD [address] [facility] [phone] [place] [address] Surgeon Colon and Rectal Surgery 07/06/22 Jeremy Byrd MD [address] [facility] [address] [place] [address] Referring Physician Obstetrics and Gynecology 07/28/22
[2024-12-06 00:56] LABS: BEDSIDEPREGUCG Negative (Negative)
[2024-12-06 01:02] LABS: Add Urine Microscopic? YES; Appearance Urine Clear (Clear); Bilirubin Urine Negative (Negative); Blood Urine Negative (Negative); Color Urine Yellow (Yellow); Glucose Urine UA Negative (Negative); Ketones Urine 3+ mg/dL (Negative); Leukocyte Esterase Ur 2+ LEU/UL (Negative); Nitrate Urine Negative (Negative); Non Pathogenic Casts 0-2; Protein Urine Trace mg/dL (Negative); RBC Urine 0-2 /hpf (0-2); Specific Grav Ur 1.018 (1.001-1.035); Squamous Epithelial Cell Urine Occasional /hpf (Few); Urobilinogen Urine 0.2 mg/dL (<2.0); WBC Urine 21-50 /hpf (0-3); pH Urine 6.5 (5.0-9.0)
[2024-12-06 01:07] LABS: Alanine Aminotransferase 17 U/L (6-35); Alkaline Phosphatase 49 U/L (38-126); Anion Gap 7 mmol/L (4-12); Aspartate Amino Transferase 24 U/L (14-36); Bilirubin,Total 0.5 mg/dL (0.2-1.3); Blood Urea Nitrogen 7 mg/dL (7-17); Calcium 8.8 mg/dL (8.4-10.2); Carbon Dioxide 30 mmol/L (22-30); Chloride 101 mmol/L (98-107); Estimated Glomerular Filt Rate > 60; Glucose 82 mg/dL (65-110); Lipase 194 U/L (23-300); Potassium 3.6 mmol/L (3.4-5.0); Sodium 138 mmol/L (137-145)
[2024-12-06] MEDS: ONDANSETRON INJ 4 MG/2 ML VIAL IV PUSH (01:08)
[2024-12-06] MEDS: MORPHINE SULFATE (*CRX) 4 MG/ML INJ IV PUSH (01:10)
[2024-12-06 01:13] LABS: Basophils Percent Auto 0.5 % (0.2-1.2); Eosinophils Absolute Auto 0.1 K/mm3 (0-0.3); Eosinophils Percent Auto 0.8 % (0-4.4); Hematocrit 33.8 % (37.0-47.0); Hemoglobin 10.9 g/dL (12.0-15.0); Immature Granulocyte Absolute 0.09 K/mm3 (0.00-0.031); Immature Granulocyte Percent A 1.5 % (0-0.5); Lymphocytes Absolute Auto 3.37 K/mm3 (0.9-3.2); Lymphocytes Percent Auto 54.8 % (18.3-44.2); Mean Corpuscular HGB Conc 32.2 g/dl (32-36); Mean Corpuscular Hemoglobin 27.9 pg (26-34); Mean Corpuscular Volume 86.4 fl (80-100); Monocytes Absolute Auto 0.5 K/mm3 (0.1-0.6); Monocytes Percent Auto 7.3 % (2.6-8.5); Neutrophils Absolute Auto 2.2 K/mm3 (1.3-6.7); Neutrophils Percent Auto 35.1 % (45.5-73.1); Platelet Count Result 350 k/mm3 (150-375); Red Blood Count 3.91 M/mm3 (4.2-5.4); Red Cell Distribution Width 13.1 % (11.5-14.5); White Blood Count 6.2 K/mm3 (4.5-10.0)
[2024-12-06 01:14] LABS: Bacteria Urine Trace /hpf
[2024-12-06 04:31] VITALS: BP 119/78; PULSE 79; RESP 18; O2SAT 99
== END 2024-12-06 04:32 | disposition home or self-care (01) ==
PROVIDERS: Emergency Provider Physician Assistant; PCP Internal Medicine
DX: N39.0 Urinary tract infection, site not specified (principal); R10.13 Epigastric pain; E27.1 Primary adrenocortical insufficiency; G40.909 Epilepsy, unspecified, not intractable, without status epilepticus; M41.9 Scoliosis, unspecified; K21.9 Gastro-esophageal reflux disease without esophagitis; F90.9 Attention-deficit hyperactivity disorder, unspecified type; R62.50 Unspecified lack of expected normal physiological development in childhood; Z94.81 Bone marrow transplant status; Z87.442 Personal history of urinary calculi; Z79.899 Other long term (current) drug therapy; K76.0 Fatty (change of) liver, not elsewhere classified; R93.3 Abnormal findings on diagnostic imaging of other parts of digestive tract
CPT/HCPCS: 36415; 74177; 80053; 81001; 81025; 83690; 85025; 87086; 96365; 96375; 99284; J0696; J2270; J2405; Q9967

== ENCOUNTER 2024-12-17 13:03 | Outpatient (CLI) | payer MEDICARE, MEDICAID, SELFPAY ==
--- OUTSIDE RECORDS SUMMARY | 2024-12-17 15:03 | XMS_ITS | Clinical Summary ---
Author Organization [facility] Address [address] [facility], [address] [address] Phone Care Team Providers Care Cable Engineer Name Role Phone Armond Bryan MD Primary Care Provider [phone] Allergies No known active allergies Medications STRATTERA [...] patient's age to complete this topic Insurance [facility] * Guarantor: Leydi Suarez Account Type Relation to Patient Date of Phone Billing Address Personal/Family Self 1985 [address], [address] [place], [place] [id number] Care Teams Cable Engineer Relationship Specialty Start Date End Date Armond Bryan MD PCP - General Internal Medicine 11/16/18
--- OUTSIDE RECORDS SUMMARY | 2024-12-17 15:03 | XMS_ITS | Encounter Summary ---
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] Procedures DE MASTOIDECTOMY,COMPLETE DE TYMPANOPLAS/MASTOIDEC,RADICAL/COMPL E TYMPANOMASTOIDECTOMY Referral ID Status Reason Start Date Expiration Date Visits Re quested Visits Authorized [id number] 1 1 Encounter Details Date Type Department Care Team (Late st Contact Info) Description 07/19/2022 Hospital Encounter [facility] Operating Room [address] [place] [address] Chirag Brito MD [address] [place] [address] Social History Tobacco Use Types Packs/Day Years [...] on file 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 Use an alcohol- based hand maintenance planning clerk that contains at least 60% alcohol if [...] your insurance card, a photo ID (example: Milling Machine Set Up Operator's License) and a method of payment [...] Pathway to Excellent Care by the followinglink: [email or web address] How To Prepare Your Skin [...] Remove nail coverings, artificial nails and nail azeri. The Morning of Surgery: Take a shower [...] COVID test performed at this location [facility] [place], [place] Results in chart. COVID testing not indicated. We recommend you Self-Isolate after COVID Testing: Stay at home, if possible, until your surgery date. Maintain a 6 foot distance from other people (social distancing). Avoid touching your eyes, noseand mouth with unwashed hands. Wash your hands often with soap and water for at least 20 seconds. Use an alcohol- based hand maintenance planning clerk that contains at least 60% alcohol if soap and water are not available. These are general guidelines, but if have been told by a physician that you should not perform any of the above, please follow physician's guidelines. If you have questions, please call the CPAP Staff at [phone], Tuesday-Tuesday 8am-4:30pm. All patients should read the below section: All visitors/patients are being asked to wear a clean face mask when entering the hospital. COVID 19 Updates & Visitor Policy: Please access [email or web address] for the most updated information. Information on [facility]: Please view [email or web address] (Patient & Visitor Information) for additional details regarding Advanced Directive forms, AWARE, directions, parking information, lodging, Internet access, dining and more. Information on [facility] or [facility] ([facility]): Please view [email or web address] (Patient and Visitor Information) for parking/directions and more. For MyChart information, to activate account or password recovery, please go to [email or web address] or call [phone] (toll-free: [phone]). Information for Suicide Prevention: National Suicide Prevention Lifeline (5-703- 119-KNDC (8041)). Surgery Times: For patients having surgery @ [facility], [facility], [facility] or [facility] ([facility]), if your surgeon's office has not notified you of your surgery time by NOON THE BUSINESS DAY BEFORE your surgery, please call [phone] and ask for your surgeon's office Dr. [...] documented as of this encounter Care Teams Automotive Instructor Relationship Specialty Start Date End Date Armond Bryan MD [address] [address] PCP - General Internal Medicine 05/19/21 Armond Bryan MD [address] [address] 01/29/21 [place] [address] [address] Consulting Physician Endocrinology Diabetes & Metabolism 11/09/18 [place] [address] [address] Referring Physician Gastroenterology 07/05/22 Bebeto Pavon MD [address] [facility] [phone] [place] [address] Surgeon Colon and Rectal Surgery 07/06/22 Jeremy Byrd MD [address] [facility] [address] [place] [address] Referring Physician Obstetrics and Gynecology 07/28/22 documented as of this encounter
--- OUTSIDE RECORDS SUMMARY | 2024-12-17 15:03 | XMS_ITS | Referral Summary ---
Author Organization [facility] [place] [facility] Address [address] [place] [address] Care Team Providers Care Manager Workers Compensation Name Role Phone Armond Bryan MD Unavailable Linda Hunter MD Unavailable Armond Bryan MD Primary Care Provider [phone] Solomon Garcia MD Unavailable Bebeto Pavon MD Unavailable [phone] Jeremy Byrd MD Unavailable Encounters Date Type Department Care Team Description 12/10/2024 Orders Only [facility] [address] [place] [address] [facility] [place] [address] Ada Nieto NP Dysfunctional gallbladder (Primary Dx) 12/10/2024 Results Follow-Up [facility] [address] [place] [address] [place] [address] Ada Nieto NP 12/10/2024 7:15 AM RADIOTELEGRAPH OPERATOR SERVICER - 12/10/2024 11:59 PM RADIOTELEGRAPH OPERATOR SERVICER Hospital Encounter [facility] [address] [place] [address] Epigastric pain Discharge Disposition: Discharge to home or self care 12/08/2024 Orders Only [facility] [address] [place], [place] [address] [place] [phone] Armond Bryan MD 12/06/2024 Results Follow-Up [facility] [address] [place] [phone] Ada Nieto NP 12/06/2024 Orders Only [facility] [address] [place] [phone] Armond Bryan MD 11/26/2024 9:00 AM RADIOTELEGRAPH OPERATOR SERVICER [facility] [address] [place] [address] 11th [place] [address] [place] [phone] Samanta Neumann Au.D. Sensorineural hearing loss (SNHL) of both ears (Primary Dx); Encounter for adjustment and management of cochlear device 11/23/2024 Telephone [facility] [address] [place] [phone] Armond Bryan MD Lab Results 11/22/2024 2:15 PM RADIOTELEGRAPH OPERATOR SERVICER Lab [facility] [address] [place] [address] Epigastric pain; Chronic adrenal insufficiency 11/22/2024 Orders Only [facility] [address] [place] [phone] Ada Nieto NP Epigastric pain (Primary Dx) 11/22/2024 3:15 PM RADIOTELEGRAPH OPERATOR SERVICER Office Visit [facility] [address] [facility] [address] [phone] Linda Hunter MD Chronic adrenal insufficiency (Primary Dx); Vitamin D deficiency 11/21/2024 Telephone [facility] [address] [place] [phone] Armond Bryan MD Lab Results 11/18/2024 Orders Only [facility] [address] [place] [phone] Ada Nieto NP Abdominal pain (Primary Dx); Elevated amylase 11/16/2024 12:20 PM RADIOTELEGRAPH OPERATOR SERVICER Lab [facility] [address] [place] [phone] Upper abdominal pain 11/16/2024 10:45 AM RADIOTELEGRAPH OPERATOR SERVICER Office Visit [facility] [address] [facility] [address] [facility] [place] [address] Ada Nieto NP Epigastric pain (Primary Dx); [...] 1 capsule (40 mg total) by mouth director of early childhood before breakfast 07/03/20 22 Active psyllium, aspartame, [...] (DELTASONE) 2.5 mg tabletIndications :Chronic adrenal insufficiency TAKE 2 TABLETS BY MOUTH TODAY AND 1 TABLET BY MOUTH THE NEXT DAY, CONTINUE ALTERNATING DOSE 135 tablet 3 11/22/19 25 Active fludrocortisone 0.1 mg tabletIndications :Chronic adrenal insufficiency TAKE 1 TABLET BY MOUTH DAILY 90 tablet 3 11/22/19 25 Active cholecalciferol (VITAMIN D-3) 5,000 unit capsuleIndication s:Vitamin D Deficiency Take 1 capsule (5,000 Units total) by mouth director of early childhood before breakfast 12 capsule 3 11/22/19 25 Active cholecalciferol (VITAMIN D-3) 5,000 unit capsuleIndication s:Vitamin D Deficiency Take 1 capsule (5,000 Units total) by mouth director of early childhood before breakfast 025 Discontin ued(Reord er) fludrocortisone 0.1 mg tabletIndications :Chronic adrenal insufficiency TAKE 1 TABLET BY MOUTH DAILY 90 tablet 3 04/25/20 24 025 Discontin ued(Reord er) predniSONE (DELTASONE) 2.5 mg tabletIndications :Chronic adrenal insufficiency TAKE 2 TABLETS BY MOUTH TODAY AND 1 TABLET BY MOUTH THE NEXT DAY, CONTINUE ALTERNATING DOSE 135 tablet 3 09/27/20 24 025 Discontin ued(Reord er) Active Problems Problem Noted Date Diagnosed Date Cochlear implant in place 03/15/2024 Encounter for adjustment and management of cochl ear device 03/05/2024 Cholesteatoma of left ear 02/24/2022 Overview (07/10/2022): Added automatically from request for surgery [id number] Assessment & Plan (02/15/2023 3:14 PM CDT): Has post-op f/u 02/24/23 for ENT Asymmetric SNHL (sensorineural hearing loss) 09/2019 Assessment & Plan (12/07/2019 5:25 PM RADIOTELEGRAPH OPERATOR SERVICER): Discussed options for left hearing loss. Consider CROS amplification. RTC annually. Deafness, mixed type 08/02/2016 Chronic adrenal insufficiency 09/19/2012 Overview (01/12/2017): Glucocorticoid deficiency Assessment & Plan (11/01/2023 3:49 PM RADIOTELEGRAPH OPERATOR SERVICER): Chronic, stable Continue prednisone and fludrocortisone Pt [...] issues Assessment & Plan (10/07/2022 2:14 PM RADIOTELEGRAPH OPERATOR SERVICER): Chronic problem, improving. Mom is now monitoring [...] fact. Assessment & Plan (10/14/2020 3:13 PM RADIOTELEGRAPH OPERATOR SERVICER): It is very important that you take your mediation every day, regularly . In situations of stress, either physical or psychological, the dose of the steroids should be doubled or tripled for a few days. In case of not tolerating oral intake , including vomiting , take injections of hydrocortisone as instructed. 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 In [...] sent. Assessment & Plan (11/14/2018 9:59 AM RADIOTELEGRAPH OPERATOR SERVICER): It is very important that you take [...] room. Assessment & Plan (11/15/2017 9:43 AM RADIOTELEGRAPH OPERATOR SERVICER): It is very important that you take [...] NOS Assessment & Plan (11/01/2023 3:48 PM RADIOTELEGRAPH OPERATOR SERVICER): Chronic, well controlled Update vit D Continue supplementation, as indicated Assessment & Plan (04/07/2023 4:47 PM CDT): Check 25 OH vit D Adjust dose of Ergocalciferol accordingly Assessment & Plan (01/08/2020 11:19 AM CDT): Continue current dose Will recheck in a few months Assessment & Plan (11/15/2017 9:43 AM RADIOTELEGRAPH OPERATOR SERVICER): Check 25 OH vit D Adjust dose of Ergocalciferol accordingly Resolved Problems Problem Noted Date Diagnosed Date Resolved Date Postoperative state 07/28/2022 02/16/20 Intramural and subserous leiomyoma of uterus 2 02/15/2023 Rectal prolapse 07/06/2022 02/15/2023 Overview (07/06/2022): Added automatically from request for surgery [id number] Pain of upper abdomen 01/29/20222021 Assessment & Plan (01/29/2022 9:48 AM CDT): Extensive evaluation. ? Functional bowel disease. To have follow up Obstetrical Anesthesiologist eval. ? 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[facility]) 09/19/2012 Overview (01/14/2017): Mineralocorticoid deficiency Immunizations Immunization [...] on file Legal Sex Female 8:47 PM RADIOTELEGRAPH OPERATOR SERVICER Gender Identity Not on file Sexual Orientation Not on file Last Filed Vital Signs Vital Sign Reading Time Taken Comments Blood Pressure 92/62 11/22/2024 3:09 PM RADIOTELEGRAPH OPERATOR SERVICER Pulse 78 11/22/2024 3:09 PM RADIOTELEGRAPH OPERATOR SERVICER Temperature 36.7 C (98 F) 11/16/2024 10:36 AM RADIOTELEGRAPH OPERATOR SERVICER Respiratory Rate 18 11/01/2023 3:08 PM RADIOTELEGRAPH OPERATOR SERVICER Oxygen Saturation 97% 11/16/2024 10:36 AM RADIOTELEGRAPH OPERATOR SERVICER Inhaled Oxygen Concentration - - Weight 43.1 kg (95 lb) 11/22/2024 3:09 PM RADIOTELEGRAPH OPERATOR SERVICER Height 154.9 cm (5' 0.98 ) 11/22/2024 3:09 PM CS T Body Mass Index 17.96 11/22/2024 3:09 PM RADIOTELEGRAPH OPERATOR SERVICER Plan of Treatment Not on file Medical Devices Implanted Type Area Allergist/Md Device Identifier Shelf Expiration Date Model / Serial / Lot [employer]/C R Bard 6x3in Large Pore Knit Monofilament Smooth [place] [id number] - [id number] Implanted:Qty: 1 on 07/14/2022 by Bebeto Pavon MD at [facility] Mesh N/A: Pelvis [employer]/C R Bard [id number] 10/06/2026 [id number] / / [id number] Metal Back Cochlear [employer] Implant Cochlear Cochlear Nucleus Profile Plus Slim Modiolar Electrode [id number] - [id number] - [id number] Implanted:Qty: 1 on 08/15/2023 by Chirag Brito MD at [facility] Left: Ear [employer]chle[employer] [id number] 05/18/2025 [id number] / [id number] / Procedures Procedure Name Priority Date/Time Associated Diagnosis Comments NM HEPATOBILIARY IMAGING W PHARMACEUTICAL INTERVENTION Schedule Routine, Read Routine (OP Routine) 12/10/2024 9:48 AM RADIOTELEGRAPH OPERATOR SERVICER Epigastric pain SCAN - LABS 12/08/2024 7:31 AM RADIOTELEGRAPH OPERATOR SERVICER SCAN - RADIOLOGY/IMAGING 12/06/2024 5:57 AM RADIOTELEGRAPH OPERATOR SERVICER SCAN - LABS 12/06/2024 2:13 AM RADIOTELEGRAPH OPERATOR SERVICER AUDBASE RESULTS 11/26/2024 8:57 AM RADIOTELEGRAPH OPERATOR SERVICER AMYLASE Routine 11/22/2024 2:45 PM RADIOTELEGRAPH OPERATOR SERVICER Epigastric pain LIPASE Routine 11/22/2024 2:45 PM RADIOTELEGRAPH OPERATOR SERVICER Epigastric pain URINALYSIS AND REFLEX TO MICROSCOPIC AND CULTURE Routine 11/22/2024 2:30 PM RADIOTELEGRAPH OPERATOR SERVICER Chronic adrenal insufficiency SCAN - RADIOLOGY/IMAGING 11/22/2024 9:45 AM RADIOTELEGRAPH OPERATOR SERVICER SCAN - RADIOLOGY/IMAGING 11/22/2024 9:39 AM RADIOTELEGRAPH OPERATOR SERVICER SCAN - RADIOLOGY/IMAGING 11/22/2024 8:50 AM RADIOTELEGRAPH OPERATOR SERVICER EGFR Routine 11/16/2024 11:39 AM RADIOTELEGRAPH OPERATOR SERVICER Upper abdominal pain URINALYSIS, MICROSCOPIC ONLY Routine 11/16/2024 11:39 AM RADIOTELEGRAPH OPERATOR SERVICER Upper abdominal pain DIFFERENTIAL AUTO Routine 11/16/2024 11:39 AM RADIOTELEGRAPH OPERATOR SERVICER Upper abdominal pain CBC WITH AUTO DIFFERENTIAL Routine 11/16/2024 11:39 AM RADIOTELEGRAPH OPERATOR SERVICER Upper abdominal pain COMPREHENSIVE METABOLIC PANEL Routine 11/16/2024 11:39 AM RADIOTELEGRAPH OPERATOR SERVICER Upper abdominal pain AMYLASE Routine 11/16/2024 11:39 AM RADIOTELEGRAPH OPERATOR SERVICER Upper abdominal pain LIPASE Routine 11/16/2024 11:39 AM RADIOTELEGRAPH OPERATOR SERVICER Upper abdominal pain URINALYSIS AND REFLEX TO MICROSCOPIC AND CULTURE Routine 11/16/2024 11:39 AM RADIOTELEGRAPH OPERATOR SERVICER Upper abdominal pain from Last 3 Months Results * NM Hepatobiliary Imaging W GBEF (12/10/2024 9:48 AM RADIOTELEGRAPH OPERATOR SERVICER) Anatomical Region Laterality Modality Body N/A Nuclear Medicine 12/10/2024 10:5 5 AM RADIOTELEGRAPH OPERATOR SERVICER Impressions 12/10/2024 11:07 AM RADIOTELEGRAPH OPERATOR SERVICER 1. Abnormal contractile response of gallbladder to sincalide infusion, consistent with chronic cholecystitis.. 2. Otherwise patent biliary system. Dictated by: Sally Avelar MD The radiology attending physician has personally reviewed this study, and had reviewed and/or edited this written report and agrees with it. Electronically signed by: DO Jayla Haney 12/10/2024 11:07 AM RADIOTELEGRAPH OPERATOR SERVICER EXAMINATION: HEPATOBILIARY SCINTIGRAPHY (WITH GALLBLADDER EJECTION FRACTION) DATE OF STUDY: 12/10/2024 RADIOPHARMACEUTICAL: 3.45 mCi Tc-99m mebrofenin i.v. and 0.9 mcg sincalide i.v. HISTORY: 39-year-old woman with abdominal pain. The most recently obtained serum total bilirubin was 0.5 mg/dL on 11/16/2024. FINDINGS: Following intravenous administration of tracer, sequential abdominal images were obtained. There is prompt, uniform accumulation of the tracer by the liver. There is normal filling of the intrahepatic ducts, common bile duct and gallbladder and normal excretion of the tracer into the duodenum. In order to evaluate the contractile response of the gallbladder in response to cholecystokinin, sincalide (0.02 mcg /kg) was administered by slow intravenous infusion over 30 minutes, starting approximately 60 minutes after the administration of the radiopharmaceutical. Sequential imaging was continued for 30 minutes after the start of the sincalide infusion. These images demonstrate absence of contraction of the gallbladder. The calculated gallbladder ejection fraction is 10.35 % (normal greater than 35%). The patient reported no symptoms during Sincalide administration. A screen capture image demonstrating the quantitative results of this study was sent to [facility]/PACS by the interpreting physician Dr Almas Wren. Procedure Note Almas Wren, DO - 12/10/2024 EXAMINATION: HEPATOBILIARY SCINTIGRAPHY (WITH GALLBLADDER EJECTION FRACTION) DATE OF STUDY: 12/10/2024 RADIOPHARMACEUTICAL: 3.45 mCi Tc-99m mebrofenin i.v. and 0.9 mcg sincalide i.v. HISTORY: 39-year-old woman with abdominal pain. The most recently obtained serum total bilirubin was 0.5 mg/dL on 11/16/2024. FINDINGS: Following intravenous administration of tracer, sequential abdominal images were obtained. There is prompt, uniform accumulation of the tracer by the liver. There is normal filling of the intrahepatic ducts, common bile duct and gallbladder and normal excretion of the tracer into the duodenum. In order to evaluate the contractile response of the gallbladder in response to cholecystokinin, sincalide (0.02 mcg /kg) was administered by slow intravenous infusion over 30 minutes, starting approximately 60 minutes after the administration of the radiopharmaceutical. Sequential imaging was continued for 30 minutes after the start of the sincalide infusion. These images demonstrate absence of contraction of the gallbladder. The calculated gallbladder ejection fraction is 10.35 % (normal greater than 35%). The patient reported no symptoms during Sincalide administration. A screen capture image demonstrating the quantitative results of this study was sent to [facility]/PACS by the interpreting physician Dr Almas Wren. IMPRESSION: 1. Abnormal contractile response of gallbladder to sincalide infusion, consistent with chronic cholecystitis.. 2. Otherwise patent biliary system. Dictated by: Sally Avelar MD The radiology attending physician has personally reviewed this study, and had reviewed and/or edited this written report and agrees with it. Electronically signed by: Almas Wren DO us Ada Nieto SUPERVISOR BOAT OUTFITTING IMG NM PROCEDURES Final Resul t * SCAN - LABS (12/08/2024 7:31 AM RADIOTELEGRAPH OPERATOR SERVICER) Armond Bryan MD Final Result * SCAN - RADIOLOGY/IMAGING (12/06/2024 5:57 AM RADIOTELEGRAPH OPERATOR SERVICER) Anatomical Region Laterality Modality Other us Armond Bryan MD Final Result * SCAN - LABS (12/06/2024 2:13 AM RADIOTELEGRAPH OPERATOR SERVICER) us Armond Bryan MD Final Result * [employer] Results (11/26/2024 8:57 AM RADIOTELEGRAPH OPERATOR SERVICER) us Provider Scanning AUDIOLOGY SERVICES ORDERABLES Final Result * Lipase (11/22/2024 2:45 PM RADIOTELEGRAPH OPERATOR SERVICER) Lipase 87 10 - 99 Units/L Blood 11/22/2024 2:45 PM RADIOTELEGRAPH OPERATOR SERVICER 11/22/2024 2:45 PM RADIOTELEGRAPH OPERATOR SERVICER us Ada Nieto NP LAB BLOOD ORDERABLES Final Re sult [facility] [address] [place] [address] * (ABNORMAL) Amylase (11/22/2024 2:45 PM RADIOTELEGRAPH OPERATOR SERVICER) Amylase 105(H) 30 - 99 Units/L Blood 11/22/2024 2:45 PM RADIOTELEGRAPH OPERATOR SERVICER 11/22/2024 2:45 PM RADIOTELEGRAPH OPERATOR SERVICER Ada Nieto SUPERVISOR BOAT OUTFITTING LAB BLOOD ORDERABLES Final Re sult Performing Organization Address [facility] Co de Phone Number [facility] [address] [facility] [place] [address] * Urinalysis reflex to microscopic and culture Urine (11/22/2024 2:30 PM RADIOTELEGRAPH OPERATOR SERVICER) Color, ur Straw Yellow Clarity, ur Clear [...] tendency for uric acid stone formation. Source: [facility] INRFOOD Current Interpretive Data was last revised on [...] microscopic UA and culture not met. [facility] Urine 11/22/2024 2:30 PM RADIOTELEGRAPH OPERATOR SERVICER 11/22/2024 2:39 PM RADIOTELEGRAPH OPERATOR SERVICER Ada Nieto NP LAB MICROBIOLOGY - GENERAL OR DERABLES Final Result [facility] [address] Department [place] [address] * SCAN - RADIOLOGY/IMAGING (11/22/2024 9:45 AM RADIOTELEGRAPH OPERATOR SERVICER) Anatomical Region Laterality Modality Other Result Tatiana Nieto NP Final Result * SCAN - RADIOLOGY/IMAGING (11/22/2024 9:39 AM RADIOTELEGRAPH OPERATOR SERVICER) Anatomical Region Laterality Modality Other us Ada Nieto NP Final Result * SCAN - RADIOLOGY/IMAGING (11/22/2024 8:50 AM RADIOTELEGRAPH OPERATOR SERVICER) Anatomical Region Laterality Modality Other Result Tatiana Nieto NP Final Result * eGFR (11/16/2024 11:39 AM RADIOTELEGRAPH OPERATOR SERVICER) eGFR >90 >=60 mL/min/1. 73 m2 Comment: [...] reviewed 2021. Blood 11/16/2024 11:3 9 AM RADIOTELEGRAPH OPERATOR SERVICER 11/16/2024 12:24 PM RADIOTELEGRAPH OPERATOR SERVICER Result Tatiana Nieto NP LAB BLOOD ORDERABLES Final Re sult [facility] Department [place] [address] * Differential, auto (11/16/2024 11:39 AM RADIOTELEGRAPH OPERATOR SERVICER) Neutrophil abs 6.1 1.5 - 6.5 K/cumm Imm gran abs 0.1 0.0 - 0.1 K/cumm [facility] Lymphocyte abs 1.3 0.8 - 3.3 K/cumm [facility] Monocyte abs 0.4 0.2 - 0.8 K/cumm [facility] Eosinophil abs 0.1 0.0 - 0.5 K/cumm [facility] Basophil abs 0.1 0.0 - 0.1 K/cumm [facility] Neutrophil pct 75.8 % [facility] Comment: Interpretive Data Percent cell count reference ranges are not reported, since discordance with absolute values may lead to misinterpretation of CBC data. Current Interpretive Data was last revised on 2018. Imm gran pct 1.0 % [facility] Comment: Interpretive Data Percent cell count reference ranges are not reported, since discordance with absolute values may lead to misinterpretation of CBC data. Current Interpretive Data was last revised on 2018. Lymphocyte pct 16.3 % [facility] Comment: Interpretive Data Percent cell count reference ranges are not reported, since discordance with absolute values may lead to misinterpretation of CBC data. Current Interpretive Data was last revised on 2018. Monocyte pct 4.5 % [facility] Comment: Interpretive Data Percent cell count reference ranges are not reported, since discordance with absolute values may lead to misinterpretation of CBC data. Current Interpretive Data was last revised on 2018. Eosinophil pct 1.6 % [facility] Comment: Interpretive Data Percent cell count reference ranges are not reported, since discordance with absolute values may lead to misinterpretation of CBC data. Current Interpretive Data was last revised on 2018. Basophil pct 0.8 % [facility] Comment: Interpretive Data Percent cell count reference ranges are not reported, since discordance with absolute values may lead to misinterpretation of CBC data. Current Interpretive Data was last revised on 2018. Blood 11/16/2024 11:3 9 AM RADIOTELEGRAPH OPERATOR SERVICER 11/16/2024 12:10 PM RADIOTELEGRAPH OPERATOR SERVICER us Ada Nieto SUPERVISOR BOAT OUTFITTING LAB BLOOD ORDERABLES Final Re sult [facility] Department [place] [address] * (ABNORMAL) Urinalysis reflex to microscopic and culture Urine (11/16/2024 11:39 AM RADIOTELEGRAPH OPERATOR SERVICER) Pathologist [facility] Color, ur Straw Yellow Clarity, ur Clear Clear [facility] Specific gravity, ur 1.021 1.003 - 1.030 [facility] pH, urine 7.0 [facility] Comment: Interpretive Data U rine pH is affected by diet, medications, systemic acid-base disturbances, and renal tubular function. pH may affect urinary stone formation. For example, urine pH below 6.0 may help reduce the tendency for calcium phosphate stones and pH greater than 6.0 may reduce the tendency for uric acid stone formation. Source: [facility] Current Interpretive Data was last revised on 2017 Protein, ur ql Trace Negative [facility] Glucose, ur ql Negative Negative [facility] Ketones, ur Negative Negative [facility] Bilirubin, ur Negative Negative [facility] Blood, ur Negative Negative [facility] Urobilinogen, ur <2.0 <2.0 mg/dL [facility] Nitrite, ur Negative Negative [facility] Leukocyte esterase, ur 1+(A) Negative [facility] UA reflex comment Reflex to microscopic UA will be performed. [facility] Urine 11/16/2024 11:3 9 AM RADIOTELEGRAPH OPERATOR SERVICER 11/16/2024 12:10 PM RADIOTELEGRAPH OPERATOR SERVICER us Ada Nieto NP LAB MICROBIOLOGY - GENERAL OR DERABLES Final Result [facility] Department [place] [address] * (ABNORMAL) CBC with auto differential (11/16/2024 11:39 AM RADIOTELEGRAPH OPERATOR SERVICER) Pathologist [facility] WBC 8.0 3.8 - 9.9 K/cumm Hgb 11.4(L) 11.9 - 15.5 g/dL [facility] Hct 35.2(L) 35.6 - 45.5 % [facility] Plt 291 150 - 400 K/cumm [facility] MPV 10.6 9.1 - 12.3 fL [facility] RBC 3.98 3.90 - 5.20 M/cumm [facility] MCV 88.4 81.3 - 96.4 fL [facility] MCH 28.6 27.1 - 33.3 pg [facility] MCHC 32.4 32.3 - 35.7 g/dL [facility] RDW CV 14.0 11.1 - 14.9 % [facility] RDW SD 45.4 35.7 - 48.1 fL [facility] NRBC abs 0.00 0.00 - 0.01 K/cumm [facility] Blood 11/16/2024 11:3 9 AM RADIOTELEGRAPH OPERATOR SERVICER 11/16/2024 12:10 PM RADIOTELEGRAPH OPERATOR SERVICER us Ada Nieto SUPERVISOR BOAT OUTFITTING LAB BLOOD ORDERABLES Final Re sult [facility] Department [place] [address] * (ABNORMAL) Urinalysis, microscopic only (11/16/2024 11:39 AM RADIOTELEGRAPH OPERATOR SERVICER) WBC, ur 6-10(A) 0 - 5 /HPF RBC, ur 3-5(A) 0 - 2 /HPF [facility] Epithelial cells, squamous, ur 6-10(A) 0 - 5 /HPF [facility] Comment:Suggestive of contam ination. Consider recollection by clean catch. Epithelial cells, renal, ur 1-5(A) 0 - 0 /HPF [facility] Mucous, ur Present(A) [facility] Culture Reflex Comment Reflex conditions for urine culture (WBC >10) not met. [facility] Urine 11/16/2024 11:3 9 AM RADIOTELEGRAPH OPERATOR SERVICER 11/16/2024 12:10 PM RADIOTELEGRAPH OPERATOR SERVICER Ada Nieto SUPERVISOR [facility] URINE ORDERABLES Final Re sult Performing Organization Address [facility] Co de Phone Number [facility] [place] [address] * Lipase (11/16/2024 11:39 AM RADIOTELEGRAPH OPERATOR SERVICER) Pathologist [facility] Lipase 77 10 - 99 Units/L Blood 11/16/2024 11:3 9 AM RADIOTELEGRAPH OPERATOR SERVICER 11/16/2024 12:10 PM RADIOTELEGRAPH OPERATOR SERVICER Ada Nieto SUPERVISOR [facility] BLOOD ORDERABLES Final Re sult Performing Organization Address [facility] de Phone Number [facility] [place] [address] * (ABNORMAL) Amylase (11/16/2024 11:39 AM RADIOTELEGRAPH OPERATOR SERVICER) Pathologist [facility] Amylase 102(H) 30 - 99 Units/L Blood 11/16/2024 11:3 9 AM RADIOTELEGRAPH OPERATOR SERVICER 11/16/2024 12:10 PM RADIOTELEGRAPH OPERATOR SERVICER Ada Nieto SUPERVISOR [facility] BLOOD ORDERABLES Final Re sult Performing Organization Address [facility] Co de Phone Number [facility] [place] [address] * Comprehensive metabolic panel (11/16/2024 11:39 AM RADIOTELEGRAPH OPERATOR SERVICER) Pathologist [facility] Sodium 142 135 - 145 mmol/L Potassium, pl 3.8 3.3 - 4.9 mmol/L [facility] Chloride 105 97 - 110 mmol/L [facility] CO2 29 22 - 32 mmol/L [facility] Anion gap 8 2 - 15 mmol/L [facility] BUN 11 6 - 25 mg/dL [facility] Creatinine 0.63 0.60 - 1.10 mg/dL [facility] Glucose 94 70 - 199 mg/dL [facility] Comment: Interpretive Data Fasting glucose >/= [...] 2022. Calcium 9.0 8.5 - 10.3 mg/dL [facility] Bilirubin, total 0.5 0.1 - 1.2 mg/dL [facility] Protein, pl 6.8 6.5 - 8.5 g/dL [facility] Albumin 4.1 3.5 - 5.0 g/dL [facility] Alk phos 41 40 - 130 Units/L [facility] ALT 11 7 - 45 Units/L [facility] AST 19 10 - 45 Units/L [facility] Blood 11/16/2024 11:3 9 AM RADIOTELEGRAPH OPERATOR SERVICER 11/16/2024 12:10 PM RADIOTELEGRAPH OPERATOR SERVICER us Ada Nieto SUPERVISOR [facility] LAB BLOOD ORDERABLES Final Re sult [facility] Organization Address City/State/ZIP Co de Phone Number [facility] [place] [address] from Last 3 Months Insurance MEDICARE [facility] MEDICARE [facility]AL MEDICARE [facility] Member Subscriber Plan / Payer ( fective 2024-Present) Name:Joaquín Suarez Relation to Subscriber:Self Name:Joaquín Suarez Payer ID:[id number] (NAIC) Type:[employer] Address: [address] Advance Directives For more information, please contact: [phone] * Full Code (Latest Code Status on File) Date Activated Date Inactivated Comments 07/14/2022 3:56 PM 07/17/2022 3:47 PM Care Teams Manager Workers Compensation Relationship Specialty Start Date End Date Armond Bryan MD [address] [facility] [address] [place] [address] PCP - General Internal Medicine 05/19/21 Armond Bryan MD [address] [facility] [address] [place] [address] 01/29/21 [place] [id number] [address] Consulting Physician Endocrinology Diabetes & Metabolism 11/09/18 [place] [address] [facility] [address], [place] [address] Referring Physician Gastroenterology 07/05/22 Bebeto Pavon MD [phone] [place] [address] Surgeon Colon and Rectal Surgery 07/06/22 Jeremy Byrd MD [address] [facility] [address] [place] [address] Referring Physician Obstetrics and Gynecology 07/28/22
--- OUTSIDE RECORDS SUMMARY | 2024-12-17 15:03 | XMS_ITS | Clinical Summary ---
Author Organization [facility] Address [address] [place] [address] Care Team Providers Care Police Patrol Lieutenant Name Role Phone Armond Bryan MD Unavailable [phone] Linda Hunter MD Unavailable Armond Bryan MD Primary Care Provider [phone] Solomon Garcia MD Unavailable Bebeto Pavon MD Unavailable [phone] Jeremy Byrd MD Unavailable [phone] Allergies No known active allergies Medications citalopram [...] 1 capsule (40 mg total) by mouth cellophane casting machine repairer before breakfast 07/03/20 22 Active psyllium, aspartame, [...] 1 capsule (5,000 Units total) by mouth cellophane casting machine repairer before breakfast 12 capsule 3 11/22/19 25 Active cholecalciferol (VITAMIN D-3) 5,000 unit capsuleIndication s:Vitamin D Deficiency Take 1 capsule (5,000 Units total) by mouth cellophane casting machine repairer before breakfast 025 Discontin ued(Reord er) fludrocortisone [...] (07/10/2022): Added automatically from request for surgery [id number] Assessment & Plan (02/15/2023 3:14 PM CDT): Has post-op f/u 02/24/23 for ENT Asymmetric SNHL (sensorineural hearing loss) 09/2019 Assessment & Plan (12/07/2019 5:25 PM PER DIEM INTERPRETER): Discussed options for left hearing loss. Consider CROS amplification. RTC annually. Deafness, mixed type 08/02/2016 Chronic adrenal insufficiency 09/19/2012 Overview (01/12/2017): Glucocorticoid deficiency Assessment & Plan (11/01/2023 3:49 PM PER DIEM INTERPRETER): Chronic, stable Continue prednisone and fludrocortisone Pt [...] issues Assessment & Plan (10/07/2022 2:14 PM PER DIEM INTERPRETER): Chronic problem, improving. Mom is now monitoring [...] fact. Assessment & Plan (10/14/2020 3:13 PM PER DIEM INTERPRETER): It is very important that you take [...] sent. Assessment & Plan (11/14/2018 9:59 AM PER DIEM INTERPRETER): It is very important that you take your mediation every day, regularly . In situations of stress, either physical or psychological, the dose of the steroids should be doubled or tripled for a few days. In case of not tolerating oral intake , including vomiting , take injections of hydrocortisone as instructed. 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 In case of any extreme weakness, abdominal pain, diarrhea or dizziness, it is recommended for you to call an ambulance and proceed to the nearest emergency room. Assessment & Plan (11/15/2017 9:43 AM PER DIEM INTERPRETER): It is very important that you take your mediation every day, regularly . In situations of stress, either physical or psychological, the dose of the steroids should be doubled or tripled for a few days. In case of not tolerating oral intake , including vomiting , take injections of hydrocortisone as instructed. 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 In case of any extreme weakness, abdominal pain, diarrhea or dizziness, it is recommended for you to call an ambulance and proceed to the nearest emergency room. Vitamin D deficiency 09/16/2011 Overview (01/14/2017): VITAMIN D DEFICIENCY NOS Assessment & Plan (11/01/2023 3:48 PM PER DIEM INTERPRETER): Chronic, well controlled Update vit D Continue supplementation, as indicated Assessment & Plan (04/07/2023 4:47 PM CDT): Check 25 OH vit D Adjust dose of Ergocalciferol accordingly Assessment & Plan (01/08/2020 11:19 AM CDT): Continue current dose Will recheck in a few months Assessment & Plan (11/15/2017 9:43 AM PER DIEM INTERPRETER): Check 25 OH vit D Adjust dose of Ergocalciferol accordingly Resolved Problems Problem Noted Date Diagnosed Date Resolved Date Postoperative state 07/28/2022 02/16/20 23 Intramural and subserous leiomyoma of uterus 02/15/2023 Rectal prolapse 07/06/2022 02/15/2023 Overview (07/06/2022): Added automatically from request for surgery [id number] Pain of upper abdomen 01/29/20222021 Assessment & Plan (01/29/2022 9:48 AM CDT): Extensive evaluation. ? Functional bowel disease. To have follow up [employer] eval. ? 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 Radiology [facility] ([facility]) [address] [place] [phone] Epigastric pain Discharge Disposition: Discharge to home or self care 12/10/2024 Orders Only [facility] [address] [place] [phone] Ada Nieto NP Dysfunctional gallbladder (Primary Dx) 12/10/2024 Results Follow-Up [facility] [address] [place] [phone] Ada Nieto NP 12/08/2024 Orders Only [facility] [address] [phone] Armond Bryan MD 12/06/2024 Results Follow-Up [facility] [address] [place] [phone] Ada Nieto NP 12/06/2024 Orders Only [facility] [address] [place] [phone] Armond Bryan MD 11/26/2024 9:00 AM PER DIEM INTERPRETER Procedure visit [facility] Otolaryngology [address] [place] [address] 11th [place] [address] [place] [phone] Samanta Neumann Au.D. Sensorineural hearing loss (SNHL) of both ears (Primary Dx); Encounter for adjustment and management of cochlear device 11/23/2024 Telephone [facility] Diabetes [address] [phone] Armond Bryan MD Lab Results 11/22/2024 3:15 PM PER DIEM INTERPRETER Office Visit [facility] [address] [place] [phone] Linda Hunter MD Chronic adrenal insufficiency (Primary Dx); Vitamin D deficiency 11/22/2024 2:15 PM PER DIEM INTERPRETER Lab [facility] [id number] [place] [phone] Epigastric pain; Chronic adrenal insufficiency 11/22/2024 Orders Only [facility] [address] [phone] Ada Nieto NP Epigastric pain (Primary Dx) 11/21/2024 Telephone [facility] [address] [phone] Armond Bryan MD Lab Results 11/18/2024 Orders Only [facility] [address] [place] [phone] Ada Nieto NP Abdominal pain (Primary Dx); Elevated amylase 11/16/2024 12:20 PM PER DIEM INTERPRETER Lab [facility] [address] [place] [phone] Upper abdominal pain 11/16/2024 10:45 AM PER DIEM INTERPRETER Office Visit [facility] [address] [facility] [address] [facility] [place] [address] Ada Nieto NP Epigastric pain (Primary Dx); Nausea; Nonintractable headache, unspecified chronicity pattern, unspecified headache type from Last 3 Months Immunizations Immunization Administration Dates Next Due Influenza, Quadrivalent, Spl it, Preservative Free, Intramuscular 07/17/2022 Pneumococcal Conjugate Pcv20 06/10/2023 Tdap 09/03/2013 Surgical History Surgery Date Site/Laterality Comments BACK SURGERY 10/10/1999 - 11/09/1999 Osorio rods TYMPANOSTOMY TUBE PLACEMENT age [age] EAR SURGERY multiple MUSCLE BIOPSY 10/10/1988 - 10/09/1989 RECTAL PROLAPSE REPAIR, RECTOPEXY 07/14/2022 Robotic ventral mesh rectopexy HYSTERECTOMY COCHLEAR IMPLANT Medical History Medical History Date Comments Kidney stones Adhd GERD (gastroesophageal reflux disease) Mercer's disease (HCC) Scoliosis Osorio Rods 10/2001 Covid-19 [...] on file Legal Sex Female 8:47 PM PER DIEM INTERPRETER Gender Identity Not on file Sexual Orientation Not on file Obstetrics History Para Term AB IAB SAB Ectopic Multiple Livin g Live Births 0 0 0 0 0 0 0 0 0 0 0 Last Filed Vital Signs Vital Sign Reading Time Taken Comments Blood Pressure 92/62 11/22/2024 3:09 PM PER DIEM INTERPRETER Pulse 78 11/22/2024 3:09 PM PER DIEM INTERPRETER Temperature 36.7 C (98 F) 11/16/2024 10:36 AM PER DIEM INTERPRETER Respiratory Rate 18 11/01/2023 3:08 PM PER DIEM INTERPRETER Oxygen Saturation 97% 11/16/2024 10:36 AM PER DIEM INTERPRETER Inhaled Oxygen Concentration - - Weight 43.1 kg (95 lb) 11/22/2024 3:09 PM PER DIEM INTERPRETER Height 154.9 cm (5' 0.98 ) 11/22/2024 3:09 PM CS T Body Mass Index 17.96 11/22/2024 3:09 PM PER DIEM INTERPRETER Plan of Treatment Health Maintenance Due Date [...] Vaccines Discontinued Medical Devices Implanted Type Area Deliver Driver Device Identifier Shelf Expiration Date Model / Serial / Lot [employer]/C R Bard 6x3in Large Pore Knit Monofilament Smooth [place] [id number] - [id number] Implanted:Qty: 1 on 07/14/2022 by Bebeto Pavon MD at [facility] Mesh N/A: Pelvis [employer]/C R Bard [id number] 10/06/2026 [id number] / / [id number] Metal Back Cochlear [employer] Implant Cochlear Cochlear Nucleus Profile Plus Slim Modiolar Electrode [id number] - [id number] - [id number] Implanted:Qty: 1 on 08/15/2023 by Chirag Brito MD at [facility] Left: Ear [employer]chle[employer] [id number] 05/18/2025 [id number] / [id number] / Procedures Procedure Name Priority Date/Time Associated Diagnosis Comments NM HEPATOBILIARY IMAGING W PHARMACEUTICAL INTERVENTION Schedule Routine, Read Routine (OP Routine) 12/10/2024 9:48 AM PER DIEM INTERPRETER Epigastric pain SCAN - LABS 12/08/2024 7:31 AM PER DIEM INTERPRETER SCAN - RADIOLOGY/IMAGING 12/06/2024 5:57 AM PER DIEM INTERPRETER SCAN - LABS 12/06/2024 2:13 AM PER DIEM INTERPRETER AUDBASE RESULTS 11/26/2024 8:57 AM PER DIEM INTERPRETER AMYLASE Routine 11/22/2024 2:45 PM PER DIEM INTERPRETER Epigastric pain LIPASE Routine 11/22/2024 2:45 PM PER DIEM INTERPRETER Epigastric pain URINALYSIS AND REFLEX TO MICROSCOPIC AND CULTURE Routine 11/22/2024 2:30 PM PER DIEM INTERPRETER Chronic adrenal insufficiency SCAN - RADIOLOGY/IMAGING 11/22/2024 9:45 AM PER DIEM INTERPRETER SCAN - RADIOLOGY/IMAGING 11/22/2024 9:39 AM PER DIEM INTERPRETER SCAN - RADIOLOGY/IMAGING 11/22/2024 8:50 AM PER DIEM INTERPRETER EGFR Routine 11/16/2024 11:39 AM PER DIEM INTERPRETER Upper abdominal pain URINALYSIS, MICROSCOPIC ONLY Routine 11/16/2024 11:39 AM PER DIEM INTERPRETER Upper abdominal pain DIFFERENTIAL AUTO Routine 11/16/2024 11:39 AM PER DIEM INTERPRETER Upper abdominal pain CBC WITH AUTO DIFFERENTIAL Routine 11/16/2024 11:39 AM PER DIEM INTERPRETER Upper abdominal pain COMPREHENSIVE METABOLIC PANEL Routine 11/16/2024 11:39 AM PER DIEM INTERPRETER Upper abdominal pain AMYLASE Routine 11/16/2024 11:39 AM PER DIEM INTERPRETER Upper abdominal pain LIPASE Routine 11/16/2024 11:39 AM PER DIEM INTERPRETER Upper abdominal pain URINALYSIS AND REFLEX TO MICROSCOPIC AND CULTURE Routine 11/16/2024 11:39 AM PER DIEM INTERPRETER Upper abdominal pain from Last 3 Months Results * NM Hepatobiliary Imaging W GBEF (12/10/2024 9:48 AM PER DIEM INTERPRETER) Anatomical Region Laterality Modality Body N/A Nuclear Medicine 12/10/2024 10:5 5 AM PER DIEM INTERPRETER Impressions 12/10/2024 11:07 AM PER DIEM INTERPRETER 1. Abnormal contractile response of gallbladder to sincalide infusion, consistent with chronic cholecystitis.. 2. Otherwise patent biliary system. Dictated by: Sally Avelar MD The radiology attending physician has personally reviewed this study, and had reviewed and/or edited this written report and agrees with it. Electronically signed by: DO Jayla Haney 12/10/2024 11:07 AM PER DIEM INTERPRETER EXAMINATION: HEPATOBILIARY SCINTIGRAPHY (WITH GALLBLADDER EJECTION FRACTION) [...] results of this study was sent to [employer]/PACS by the interpreting physician Dr Almas Wren. [...] results of this study was sent to [employer]/PACS by the interpreting physician Dr Almas Wren. IMPRESSION: 1. Abnormal contractile response of gallbladder to sincalide infusion, consistent with chronic cholecystitis.. 2. Otherwise patent biliary system. Dictated by: Sally Avelar MD The radiology attending physician has personally reviewed this study, and had reviewed and/or edited this written report and agrees with it. Electronically signed by: Almas Wren DO us Ada Nieto SENIOR DATABASE ENGINEER IMG NM PROCEDURES Final Resul t * SCAN - LABS (12/08/2024 7:31 AM PER DIEM INTERPRETER) us Armond Bryan MD Final Result * SCAN - RADIOLOGY/IMAGING (12/06/2024 5:57 AM PER DIEM INTERPRETER) Anatomical Region Laterality Modality Other us Armond Bryan MD Final Result * SCAN - LABS (12/06/2024 2:13 AM PER DIEM INTERPRETER) us Armond Bryan MD Final Result * [employer] Results (11/26/2024 8:57 AM PER DIEM INTERPRETER) Provider Scanning AUDIOLOGY SERVICES ORDERABLES Final Result * Lipase (11/22/2024 2:45 PM PER DIEM INTERPRETER) Lipase 87 10 - 99 Units/L Blood 11/22/2024 2:45 PM PER DIEM INTERPRETER 11/22/2024 2:45 PM PER DIEM INTERPRETER us Ada Nieto NP LAB [place] [address] [address] Department [place] [address] * (ABNORMAL) Amylase (11/22/2024 2:45 PM PER DIEM INTERPRETER) Amylase 105(H) 30 - 99 Units/L Blood 11/22/2024 2:45 PM PER DIEM INTERPRETER 11/22/2024 2:45 PM PER DIEM INTERPRETER Ada Nieto NP LAB BLOOD ORDERABLES Final Re sult Performing Organization Address [facility] Co de Phone Number [place] [address] [address] Department [place] [address] * Urinalysis reflex to microscopic and culture Urine (11/22/2024 2:30 PM PER DIEM INTERPRETER) Color, ur Straw Yellow Clarity, ur Clear [...] stone formation. Source: [facility] Current Interpretive Data was last revised on [...] not met. [facility] Urine 11/22/2024 2:30 PM PER DIEM INTERPRETER 11/22/2024 2:39 PM PER DIEM INTERPRETER Ada Nieto NP LAB MICROBIOLOGY - GENERAL OR DERABLES Final Result Performing Organization Address [facility]/ZIP Co de Phone Number ALEKSANDERKANDICE CONNE[place] [address] [address] Department [place] [address] * SCAN - RADIOLOGY/IMAGING (11/22/2024 9:45 AM PER DIEM INTERPRETER) Anatomical Region Laterality Modality Other us Ada Nieto NP Final Result * SCAN - RADIOLOGY/IMAGING (11/22/2024 9:39 AM PER DIEM INTERPRETER) Anatomical Region Laterality Modality Other us Ada Nieto NP Final Result * SCAN - RADIOLOGY/IMAGING (11/22/2024 8:50 AM PER DIEM INTERPRETER) Anatomical Region Laterality Modality Other us Ada Nieto NP Final Result * eGFR (11/16/2024 11:39 AM PER DIEM INTERPRETER) eGFR >90 >=60 mL/min/1. 73 m2 Comment: [...] reviewed 2021. Blood 11/16/2024 11:3 9 AM PER DIEM INTERPRETER 11/16/2024 12:24 PM PER DIEM INTERPRETER us Ada Nieto NP LAB BLOOD ORDERABLES Final Re sult [facility] Department [place] [address] * Differential, auto (11/16/2024 11:39 AM PER DIEM INTERPRETER) Neutrophil abs 6.1 1.5 - 6.5 K/cumm Imm gran abs 0.1 0.0 - 0.1 K/cumm [facility] Lymphocyte abs 1.3 0.8 - 3.3 K/cumm [facility] Monocyte abs 0.4 0.2 - 0.8 K/cumm [facility] Eosinophil abs 0.1 0.0 - 0.5 K/cumm [facility] Basophil abs 0.1 0.0 - 0.1 K/cumm [facility] Neutrophil pct 75.8 % [facility] Comment: Interpretive Data Percent cell count reference ranges are not reported, since discordance with absolute values may lead to misinterpretation of CBC data. Current Interpretive Data was last revised on 2018. Imm gran pct 1.0 % [facility] Comment: Interpretive Data Percent cell count reference ranges are not reported, since discordance with absolute values may lead to misinterpretation of CBC data. Current Interpretive Data was last revised on 2018. Lymphocyte pct 16.3 % [facility] Comment: Interpretive Data Percent cell count reference ranges are not reported, since discordance with absolute values may lead to misinterpretation of CBC data. Current Interpretive Data was last revised on 2018. Monocyte pct 4.5 % [facility] Comment: Interpretive Data Percent cell count reference ranges are not reported, since discordance with absolute values may lead to misinterpretation of CBC data. Current Interpretive Data was last revised on 2018. Eosinophil pct 1.6 % [facility] Comment: Interpretive Data Percent cell count reference ranges are not reported, since discordance with absolute values may lead to misinterpretation of CBC data. Current Interpretive Data was last revised on 2018. Basophil pct 0.8 % [facility] Comment: Interpretive Data Percent cell count reference ranges are not reported, since discordance with absolute values may lead to misinterpretation of CBC data. Current Interpretive Data was last revised on 2018. Blood 11/16/2024 11:3 9 AM PER DIEM INTERPRETER 11/16/2024 12:10 PM PER DIEM INTERPRETER us Ada Nieto SENIOR DATABASE ENGINEER LAB BLOOD ORDERABLES Final Re sult [facility] Department [place] [address] * (ABNORMAL) Urinalysis reflex to microscopic and culture Urine (11/16/2024 11:39 AM PER DIEM INTERPRETER) Pathologist [facility] Color, ur Straw Yellow Clarity, ur Clear Clear [facility] Specific gravity, ur 1.021 1.003 - 1.030 [facility] pH, urine 7.0 [facility] Comment: Interpretive Data U rine pH is affected by diet, medications, systemic acid-base disturbances, and renal tubular function. pH may affect urinary stone formation. For example, urine pH below 6.0 may help reduce the tendency for calcium phosphate stones and pH greater than 6.0 may reduce the tendency for uric acid stone formation. Source: [facility] Current Interpretive Data was last revised on 2017 Protein, ur ql Trace Negative [facility] Glucose, ur ql Negative Negative [facility] Ketones, ur Negative Negative [facility] Bilirubin, ur Negative Negative [facility] Blood, ur Negative Negative [facility] Urobilinogen, ur <2.0 <2.0 mg/dL [facility] Nitrite, ur Negative Negative [facility] Leukocyte esterase, ur 1+(A) Negative [facility] UA reflex comment Reflex to microscopic UA will be performed. [facility] Urine 11/16/2024 11:3 9 AM PER DIEM INTERPRETER 11/16/2024 12:10 PM PER DIEM INTERPRETER Ada Nieto NP LAB MICROBIOLOGY - GENERAL OR DERABLES Final Result [facility] Department [place] [address] * (ABNORMAL) CBC with auto differential (11/16/2024 11:39 AM PER DIEM INTERPRETER) Pathologist [facility] WBC 8.0 3.8 - 9.9 K/cumm Hgb 11.4(L) 11.9 - 15.5 g/dL [facility] Hct 35.2(L) 35.6 - 45.5 % [facility] Plt 291 150 - 400 K/cumm [facility] MPV 10.6 9.1 - 12.3 fL [facility] RBC 3.98 3.90 - 5.20 M/cumm [facility] MCV 88.4 81.3 - 96.4 fL [facility] MCH 28.6 27.1 - 33.3 pg [facility] MCHC 32.4 32.3 - 35.7 g/dL [facility] RDW CV 14.0 11.1 - 14.9 % [facility] RDW SD 45.4 35.7 - 48.1 fL [facility] NRBC abs 0.00 0.00 - 0.01 K/cumm [facility] Blood 11/16/2024 11:3 9 AM PER DIEM INTERPRETER 11/16/2024 12:10 PM PER DIEM INTERPRETER us Ada Nieto SENIOR DATABASE ENGINEER LAB BLOOD ORDERABLES Final Re sult Performing Organization Address City/[facility]/ZIP Co de Phone Number [facility] Department [place] [address] * (ABNORMAL) Urinalysis, microscopic only (11/16/2024 11:39 AM PER DIEM INTERPRETER) WBC, ur 6-10(A) 0 - 5 /HPF RBC, ur 3-5(A) 0 - 2 /HPF [facility] Epithelial cells, squamous, ur 6-10(A) 0 - 5 /HPF [facility] Comment:Suggestive of contam ination. Consider recollection by clean catch. Epithelial cells, renal, ur 1-5(A) 0 - 0 /HPF [facility] Mucous, ur Present(A) [facility] Culture Reflex Comment Reflex conditions for urine culture (WBC >10) not met. [facility] Urine 11/16/2024 11:3 9 AM PER DIEM INTERPRETER 11/16/2024 12:10 PM PER DIEM INTERPRETER Ada Nieto SENIOR DATABASE ENGINEER LAB URINE ORDERABLES Final Re sult Performing Organization Address City/[facility]/[place]IP [place] [address] * Lipase (11/16/2024 11:39 AM PER DIEM INTERPRETER) Pathologist [facility] Lipase 77 10 - 99 Units/L Blood 11/16/2024 11:3 9 AM PER DIEM INTERPRETER 11/16/2024 12:10 PM PER DIEM INTERPRETER Ada Nieto SENIOR DATABASE ENGINEER LAB BLOOD ORDERABLES Final Re sult Performing Organization Address [facility] [place] [address] * (ABNORMAL) Amylase (11/16/2024 11:39 AM PER DIEM INTERPRETER) [facility] Amylase 102(H) 30 - 99 Units/L Blood 11/16/2024 11:3 9 AM PER DIEM INTERPRETER 11/16/2024 12:10 PM PER DIEM INTERPRETER Ada Nieto SENIOR DATABASE ENGINEER LAB BLOOD ORDERABLES Final Re sult Performing Organization Address [facility] [place] [address] * Comprehensive metabolic panel (11/16/2024 11:39 AM PER DIEM INTERPRETER) [facility] Sodium 142 135 - 145 mmol/L Potassium, pl 3.8 3.3 - 4.9 mmol/L [facility] Chloride 105 97 - 110 mmol/L [facility] CO2 29 22 - 32 mmol/L [facility] Anion gap 8 2 - 15 mmol/L [facility] BUN 11 6 - 25 mg/dL [facility] Creatinine 0.63 0.60 - 1.10 mg/dL [facility] Glucose 94 70 - 199 mg/dL [facility] Comment: Interpretive Data Fasting glucose >/= [...] Calcium 9.0 8.5 - 10.3 mg/dL [facility] Bilirubin, total 0.5 0.1 - 1.2 mg/dL [facility] Protein, pl 6.8 6.5 - 8.5 g/dL [facility] Albumin 4.1 3.5 - 5.0 g/dL [facility] Alk phos 41 40 - 130 Units/L [facility] ALT 11 7 - 45 Units/L [facility] AST 19 10 - 45 Units/L [facility] Blood 11/16/2024 11:3 9 AM PER DIEM INTERPRETER 11/16/2024 12:10 PM PER DIEM INTERPRETER Ada Nieto SENIOR DATABASE ENGINEER LAB BLOOD ORDERABLES Final Re sult [facility] Department [place] [address] from Last 3 Months Insurance MEDICARE [employer] MEDICARE [facility] MEDICARE [facility] Member Subscriber Plan / Payer ( fective 2024-Present) Name:YongmyPedroie Relation to Subscriber:Self Name:Joaquín East Payer ID:[id number] (NAIC) Type:[email or web address] Address[address] Advance Directives For more information, please contact: [phone] * Full Code (Latest Code Status on File) Date Activated Date Inactivated Comments 07/14/2022 3:56 PM 07/17/2022 3:47 PM Care Teams Police Patrol Lieutenant Relationship Specialty Start Date End Date Armond Bryan MD [address] [facility] [address] [place] [address] PCP - General Internal Medicine 05/19/21 Armond Bryan MD [address] [facility] [address] [place] [address] 01/29/21 [place] [address] [facility] [address] [place] [address] Consulting Physician Endocrinology Diabetes & Metabolism 11/09/18 [place] [address] [address] Referring Physician Gastroenterology 07/05/22 Bebeto Pavon MD [address] [facility] [phone] [place] [address] Surgeon Colon and Rectal Surgery 07/06/22 Jeremy Byrd MD [address] [place] [address] Referring Physician Obstetrics and Gynecology 07/28/22
[2024-12-17 18:50] LABS: Basophils Absolute Auto 0.1 K/mm3 (0.0-0.1); Basophils Percent Auto 0.5 % (0.2-1.2); Eosinophils Percent Auto 0.2 % (0-4.4); Hematocrit 35.4 % (37.0-47.0); Hemoglobin 11.3 g/dL (12.0-15.0); Immature Granulocyte Absolute 0.08 K/mm3 (0.00-0.031); Immature Granulocyte Percent A 0.8 % (0-0.5); Lymphocytes Absolute Auto 1.46 K/mm3 (0.9-3.2); Lymphocytes Percent Auto 15.1 % (18.3-44.2); Mean Corpuscular HGB Conc 31.9 g/dl (32-36); Mean Corpuscular Hemoglobin 28.3 pg (26-34); Mean Corpuscular Volume 88.5 fl (80-100); Mean Platelet Volume 12.4 fl (7.4-10.4); Monocytes Absolute Auto 0.3 K/mm3 (0.1-0.6); Monocytes Percent Auto 2.6 % (2.6-8.5); Neutrophils Absolute Auto 7.8 K/mm3 (1.3-6.7); Neutrophils Percent Auto 80.8 % (45.5-73.1); Platelet Count Result 375 k/mm3 (150-375); White Blood Count 9.6 K/mm3 (4.5-10.0)
[2024-12-17 18:57] LABS: Alanine Aminotransferase 17 U/L (6-35); Albumin Level 4.3 g/dL (3.5-5.1); Alkaline Phosphatase 39 U/L (38-126); Amylase 109 U/L (30-110); Aspartate Amino Transferase 57 U/L (14-36); Bilirubin,Total 0.9 mg/dL (0.2-1.3); Lipase 315 U/L (23-300)
== END 2024-12-17 13:04 | disposition home or self-care (01) ==
PROVIDERS: Visit Provider Surgery
DX: K81.1 Chronic cholecystitis (principal); R93.5 Abnormal findings on diagnostic imaging of other abdominal regions, including retroperitoneum
CPT/HCPCS: 36415; 80076; 82150; 83690; 85025

== ENCOUNTER 2024-12-18 01:12 | Day surgery (SDC) | payer MEDICARE, MEDICAID, SELFPAY ==
[2024-12-17 11:29] VITALS: BMI 18.2
--- NOTE | 2024-12-17 11:30 | PC.NURSE ---
Report to the Outpatient Waiting Room, entrance under the green pavilion located off [facility], at time _0730_ on date _[id number]_. Planned Procedure Time: _0930_.? Time changes happen often and if your time is changed the preop area will call you the afternoon before. - You and your visitor will be asked to self-screen and do not enter if you have any COVID symptoms. Please call surgeon if you need to reschedule. - A mask is optional within the hospital at this time. Patients may have clear liquids (water, carbonated beverages, clear teas, apple juice) until 3 hours prior to surgery with a maximum of 20 ounces. - No food from midnight until time of surgery and no smoking, or chewing tobacco (or any form of nicotine). No chewing gum, candy or mints. Take only the following medications with a SIP of water on the morning of surgery: __Citalopram, Pregablin, Prednisone anad Fludrocortisone DO NOT STOP ANY OF YOUR OTHER PRESCRIPTION MEDICATIONS PRIOR TO SURGERY EXCEPT THE FOLLOWING Hold all vitamins and supplements for 3 days per anesthesiologist. Medications to discontinue per physician Date to take last dose Please no make-up, nail greek, hairspray, perfume, deodorant, or body powder the day of surgery.? No jewelry (including any body piercings) or valuables the day of surgery, leave them at home.? Please take a shower or bath the night before, or the morning of, surgery with an antibacterial soap.? Wear comfortable, loose fitting clothing.? - Jewelry must be removed prior to entering the operating room.? Rings and piercings that are not removed may be cut off. - The hospital will not accept responsibility for valuables.? - Please leave all valuables, including medications, at home the day of surgery. If you are going home after surgery, a licensed furniture delivery driver must drive you home.? - NO public transportation without another adult if you receive anesthesia. - We recommend that an adult stay with you for 24 hours following discharge. - We also recommend that you do not drive, make important decision, drink alcoholic beverages, or take any drugs that were not prescribed by your health care provider for at least 24 hours after your discharge time. Follow any additional instructions given to you from your surgeon. Telephone instructions given to __Leydi and Mother Jennie__and asked if any additional questions and then verbalized understanding. Patient advised to call surgeon office or pre surgery nurse liaison [phone] if any additional questions.
[2024-12-18] VITALS (9 sets, daily range): BP systolic 89–98; BP diastolic 41–63; PULSE 58–78; RESP 14–20; TEMP 36.6–36.7; O2SAT 98–100
--- OUTSIDE RECORDS SUMMARY | 2024-12-18 01:17 | XMS_ITS | Encounter Summary ---
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] Procedures NM MASTOIDECTOMY,COMPLETE NM TYMPANOPLAS/MASTOIDEC,RADICAL/COMPL E TYMPANOMASTOIDECTOMY Referral ID Status Reason Start Date Expiration Date Visits Re quested Visits Authorized [id number] 1 1 Encounter Details Date Type Department Care Team (Late st Contact Info) Description 07/19/2022 Hospital Encounter [facility] Surgery Center Operating Room [address] [place] [address] Chirag Brito MD [address] [place] [address] Social History Tobacco Use Types Packs/Day Years [...] on file Legal 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 Use an alcohol- based hand edi consultant that contains at least 60% alcohol if [...] your insurance card, a photo ID (example: Foot Specialist's License) and a method of payment for [...] Pathway to Excellent Care by the followinglink: [email or web address] How To Prepare Your [...] Remove nail coverings, artificial nails and nail french. The Morning of Surgery: Take a shower [...] COVID test performed at this location [facility] [place], [place] Results in chart. COVID testing not indicated. We recommend you Self-Isolate after COVID Testing: Stay at home, if possible, until your surgery date. Maintain a 6 foot distance from other people (social distancing). Avoid touching your eyes, noseand mouth with unwashed hands. Wash your hands often with soap and water for at least 20 seconds. Use an alcohol- based hand edi consultant that contains at least 60% alcohol if soap and water are not available. These are general guidelines, but if have been told by a physician that you should not perform any of the above, please follow physician's guidelines. If you have questions, please call the CPAP Staff at [phone], Tuesday-Tuesday 8am-4:30pm. All patients should read the below section: All visitors/patients are being asked to wear a clean face mask when entering the hospital. COVID 19 Updates & Visitor Policy: Please access [email or web address] for the most updated information. Information on [facility]: Please view [email or web address] (Patient & Visitor Information) for additional details regarding Advanced Directive forms, AWARE, directions, parking information, lodging, Internet access, dining and more. Information on [facility] or [facility] ([facility]): Please view [email or web address] (Patient and Visitor Information) for parking/directions and more. For MyChart information, to activate account or password recovery, please go to [email or web address] or call [phone] (toll-free: [phone]). Information for Suicide Prevention: National Suicide Prevention Lifeline (3-446- 570-FRQQ (2101)). Surgery Times: For patients having surgery @ [facility], [facility], [facility] or [facility] [place] ([facility]), if your surgeon's office has not notified you of your surgery time by NOON THE BUSINESS DAY BEFORE your surgery, please call [phone] and ask for your surgeon's office Dr. [...] documented as of this encounter Care Teams Petroleum Inspector Supervisor Relationship Specialty Start Date End Date Armond Bryan MD [address] [address] PCP - General Internal Medicine 05/19/21 Armond Bryan MD [address] [address] 01/29/21 [place] [address] [address] Consulting Physician Endocrinology Diabetes & Metabolism 11/09/18 [place] [address] [address] Referring Physician Gastroenterology 07/05/22 Bebeto Pavon MD [address] [facility] [phone] [place] [address] Surgeon Colon and Rectal Surgery 07/06/22 Jeremy Byrd MD [address] [facility] [address] [place] [address] Referring Physician Obstetrics and Gynecology 07/28/22 documented as of this encounter
--- OUTSIDE RECORDS SUMMARY | 2024-12-18 01:17 | XMS_ITS | Clinical Summary ---
Author Organization [facility] Address [address] [place] [address] Care Team Providers Care Bellows Filler Name Role Phone Armond Bryan MD Unavailable [phone] Linda Hunter MD Unavailable Armond Bryan MD Primary Care Provider Solomon Garcia MD Unavailable [phone] Bebeto Pavon MD Unavailable [phone] Jeremy Byrd MD Unavailable [phone] Allergies No known active allergies Medications citalopram [...] 1 capsule (40 mg total) by mouth teacher early childhood development before breakfast 07/03/20 22 Active psyllium, aspartame, [...] 1 capsule (5,000 Units total) by mouth teacher early childhood development before breakfast 12 capsule 3 11/22/19 25 Active cholecalciferol (VITAMIN D-3) 5,000 unit capsuleIndication s:Vitamin D Deficiency Take 1 capsule (5,000 Units total) by mouth teacher early childhood development before breakfast 025 Discontin ued(Reord er) fludrocortisone [...] (07/10/2022): Added automatically from request for surgery [id number] Assessment & Plan (02/15/2023 3:14 PM CDT): Has post-op f/u 02/24/23 for ENT Asymmetric SNHL (sensorineural hearing loss) 09/2019 Assessment & Plan (12/07/2019 5:25 PM JUNIOR ACCOUNTANT): Discussed options for left hearing loss. Consider CROS amplification. RTC annually. Deafness, mixed type 08/02/2016 Chronic adrenal insufficiency 09/19/2012 Overview (01/12/2017): Glucocorticoid deficiency Assessment & Plan (11/01/2023 3:49 PM JUNIOR ACCOUNTANT): Chronic, stable Continue prednisone and fludrocortisone Pt [...] Assessment & Plan (10/07/2022 2:14 PM JUNIOR ACCOUNTANT): Chronic problem, improving. Mom is now monitoring [...] Assessment & Plan (10/14/2020 3:13 PM JUNIOR ACCOUNTANT): It is very important that you take [...] Assessment & Plan (11/14/2018 9:59 AM JUNIOR ACCOUNTANT): It is very important that you take your mediation every day, regularly . In situations of stress, either physical or psychological, the dose of the steroids should be doubled or tripled for a few days. In case of not tolerating oral intake , including vomiting , take injections of hydrocortisone as instructed. 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 In case of any extreme weakness, abdominal pain, diarrhea or dizziness, it is recommended for you to call an ambulance and proceed to the nearest emergency room. Assessment & Plan (11/15/2017 9:43 AM JUNIOR ACCOUNTANT): It is very important that you take your mediation every day, regularly . In situations of stress, either physical or psychological, the dose of the steroids should be doubled or tripled for a few days. In case of not tolerating oral intake , including vomiting , take injections of hydrocortisone as instructed. 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 In case of any extreme weakness, abdominal pain, diarrhea or dizziness, it is recommended for you to call an ambulance and proceed to the nearest emergency room. Vitamin D deficiency 09/16/2011 Overview (01/14/2017): VITAMIN D DEFICIENCY NOS Assessment & Plan (11/01/2023 3:48 PM JUNIOR ACCOUNTANT): Chronic, well controlled Update vit D Continue supplementation, as indicated Assessment & Plan (04/07/2023 4:47 PM CDT): Check 25 OH vit D Adjust dose of Ergocalciferol accordingly Assessment & Plan (01/08/2020 11:19 AM CDT): Continue current dose Will recheck in a few months Assessment & Plan (11/15/2017 9:43 AM JUNIOR ACCOUNTANT): Check 25 OH vit D Adjust dose of Ergocalciferol accordingly Resolved Problems Problem Noted Date Diagnosed Date Resolved Date Postoperative state 07/28/2022 02/16/20 23 Intramural and subserous leiomyoma of uterus 02/15/2023 Rectal prolapse 07/06/2022 02/15/2023 Overview (07/06/2022): Added automatically from request for surgery [id number] Pain of upper abdomen 01/29/20222021 Assessment & Plan (01/29/2022 9:48 AM CDT): Extensive evaluation. ? Functional bowel disease. To have follow up Tank Truck Mechanic eval. ? 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 Overview (01/14/2017): Mineralocorticoid deficiency Encounters Date Type Department Care Team Description 12/10/2024 7:15 AM JUNIOR ACCOUNTANT - 12/10/2024 11:59 PM JUNIOR ACCOUNTANT Hospital Encounter [facility] Radiology [facility] ([facility] [address] [place] [address] Epigastric pain Discharge Disposition: Discharge to home or self care 12/10/2024 Orders Only [facility] [address] [place] [phone] Ada Nieto NP Dysfunctional gallbladder (Primary Dx) 12/10/2024 Results Follow-Up [facility] [address] [place] [address] [phone] Ada Nieto NP 12/08/2024 Orders Only [facility] [address] [phone] Armond Bryan MD 12/06/2024 Results Follow-Up [facility] [address] [place] [phone] Ada Nieto NP 12/06/2024 Orders Only [facility] [address] [place] [phone] Armond Bryan MD 11/26/2024 9:00 AM JUNIOR ACCOUNTANT Procedure visit [facility] [address] [place] [address] 11th [place] [address] [place] [phone] Samanta Neumann Au.D. Sensorineural hearing loss (SNHL) of both ears (Primary Dx); Encounter for adjustment and management of cochlear device 11/23/2024 Telephone [facility] [address] [phone] Armond Bryan MD Lab Results 11/22/2024 3:15 PM JUNIOR ACCOUNTANT Office Visit [facility] [address] [place] [phone] Linda Hunter MD Chronic adrenal insufficiency (Primary Dx); Vitamin D deficiency 11/22/2024 2:15 PM JUNIOR ACCOUNTANT Lab [facility] [id number] [place] [address] Epigastric pain; Chronic adrenal insufficiency 11/22/2024 Orders Only [facility] [address] [phone] Ada Nieto NP Epigastric pain (Primary Dx) 11/21/2024 Telephone [facility] [address] [phone] Armond Bryan MD Lab Results 11/18/2024 Orders Only [facility] [address] [place] [phone] Ada Nieto NP Abdominal pain (Primary Dx); Elevated amylase 11/16/2024 12:20 PM JUNIOR ACCOUNTANT Lab [facility] ([facility]) [address] [place] [phone] Upper abdominal pain 11/16/2024 10:45 AM JUNIOR ACCOUNTANT Office Visit [facility] [address] [facility] [address] [facility] [place] [address] Ada Nieto NP Epigastric pain (Primary Dx); [...] Kidney stones Adhd GERD (gastroesophageal reflux disease) Patillas's disease (HCC) Scoliosis Osorio Rods 10/2001 Covid-19 [...] file Legal Sex Female 8:47 PM JUNIOR ACCOUNTANT Gender Identity Not on file Sexual Orientation Not on file Obstetrics History Para Term AB IAB SAB Ectopic Multiple Livin g Live Births 0 0 0 0 0 0 0 0 0 0 0 Last Filed Vital Signs Vital Sign Reading Time Taken Comments Blood Pressure 92/62 11/22/2024 3:09 PM JUNIOR ACCOUNTANT Pulse 78 11/22/2024 3:09 PM JUNIOR ACCOUNTANT Temperature 36.7 C (98 F) 11/16/2024 10:36 AM JUNIOR ACCOUNTANT Respiratory Rate 18 11/01/2023 3:08 PM JUNIOR ACCOUNTANT Oxygen Saturation 97% 11/16/2024 10:36 AM JUNIOR ACCOUNTANT Inhaled Oxygen Concentration - - Weight 43.1 kg (95 lb) 11/22/2024 3:09 PM JUNIOR ACCOUNTANT Height 154.9 cm (5' 0.98 ) 11/22/2024 3:09 PM CS T Body Mass Index 17.96 11/22/2024 3:09 PM JUNIOR ACCOUNTANT Plan of Treatment Health Maintenance Due Date [...] Vaccines Discontinued Medical Devices Implanted Type Area Assembly Technician Device Identifier Shelf Expiration Date Model / Serial / Lot [employer]/C R Bard 6x3in Large Pore Knit Monofilament Smooth [place] [id number] - [id number] Implanted:Qty: 1 on 07/14/2022 by Bebeto Pavon MD at [facility] Mesh N/A: Pelvis [employer]/C R Bard [id number] 10/06/2026 [id number] / / [id number] Metal Back [employer]chle[employer] Implant Cochlear Cochlear Nucleus Profile Plus Slim Modiolar Electrode [id number] - [id number] - [id number] Implanted:Qty: 1 on 08/15/2023 by Chirag Brito MD at [facility] Left: Ear [employer] [id number] 05/18/2025 [id number] / [id number] / Procedures Procedure Name Priority Date/Time Associated Diagnosis Comments NM HEPATOBILIARY IMAGING W PHARMACEUTICAL INTERVENTION Schedule Routine, Read Routine (OP Routine) 12/10/2024 9:48 AM JUNIOR ACCOUNTANT Epigastric pain SCAN - LABS 12/08/2024 7:31 AM JUNIOR ACCOUNTANT SCAN - RADIOLOGY/IMAGING 12/06/2024 5:57 AM JUNIOR ACCOUNTANT SCAN - LABS 12/06/2024 2:13 AM JUNIOR ACCOUNTANT AUDBASE RESULTS 11/26/2024 8:57 AM JUNIOR ACCOUNTANT AMYLASE Routine 11/22/2024 2:45 PM JUNIOR ACCOUNTANT Epigastric pain LIPASE Routine 11/22/2024 2:45 PM JUNIOR ACCOUNTANT Epigastric pain URINALYSIS AND REFLEX TO MICROSCOPIC AND CULTURE Routine 11/22/2024 2:30 PM JUNIOR ACCOUNTANT Chronic adrenal insufficiency SCAN - RADIOLOGY/IMAGING 11/22/2024 9:45 AM JUNIOR ACCOUNTANT SCAN - RADIOLOGY/IMAGING 11/22/2024 9:39 AM JUNIOR ACCOUNTANT SCAN - RADIOLOGY/IMAGING 11/22/2024 8:50 AM JUNIOR ACCOUNTANT EGFR Routine 11/16/2024 11:39 AM JUNIOR ACCOUNTANT Upper abdominal pain URINALYSIS, MICROSCOPIC ONLY Routine 11/16/2024 11:39 AM JUNIOR ACCOUNTANT Upper abdominal pain DIFFERENTIAL AUTO Routine 11/16/2024 11:39 AM JUNIOR ACCOUNTANT Upper abdominal pain CBC WITH AUTO DIFFERENTIAL Routine 11/16/2024 11:39 AM JUNIOR ACCOUNTANT Upper abdominal pain COMPREHENSIVE METABOLIC PANEL Routine 11/16/2024 11:39 AM JUNIOR ACCOUNTANT Upper abdominal pain AMYLASE Routine 11/16/2024 11:39 AM JUNIOR ACCOUNTANT Upper abdominal pain LIPASE Routine 11/16/2024 11:39 AM JUNIOR ACCOUNTANT Upper abdominal pain URINALYSIS AND REFLEX TO MICROSCOPIC AND CULTURE Routine 11/16/2024 11:39 AM JUNIOR ACCOUNTANT Upper abdominal pain from Last 3 Months Results * NM Hepatobiliary Imaging W GBEF (12/10/2024 9:48 AM JUNIOR ACCOUNTANT) Anatomical Region Laterality Modality Body N/A Nuclear Medicine 12/10/2024 10:5 5 AM JUNIOR ACCOUNTANT Impressions 12/10/2024 11:07 AM JUNIOR ACCOUNTANT 1. Abnormal contractile response of gallbladder to sincalide infusion, consistent with chronic cholecystitis.. 2. Otherwise patent biliary system. Dictated by: Sally Avelar MD The radiology attending physician has personally reviewed this study, and had reviewed and/or edited this written report and agrees with it. Electronically signed by: DO Jayla Haney 12/10/2024 11:07 AM JUNIOR ACCOUNTANT EXAMINATION: HEPATOBILIARY SCINTIGRAPHY (WITH GALLBLADDER EJECTION FRACTION) [...] results of this study was sent to [facility] by the interpreting physician Dr Almas Wren. [...] results of this study was sent to [facility] by the interpreting physician Dr Almas Wren. IMPRESSION: 1. Abnormal contractile response of gallbladder to sincalide infusion, consistent with chronic cholecystitis.. 2. Otherwise patent biliary system. Dictated by: Sally Avelar MD The radiology attending physician has personally reviewed this study, and had reviewed and/or edited this written report and agrees with it. Electronically signed by: Almas Wren DO us Ada Nieto SOFTWARE PROJECT MANAGER IMG NM PROCEDURES Final Resul t * SCAN - LABS (12/08/2024 7:31 AM JUNIOR ACCOUNTANT) us Armond Bryan MD Final Result * SCAN - RADIOLOGY/IMAGING (12/06/2024 5:57 AM JUNIOR ACCOUNTANT) Anatomical Region Laterality Modality Other us Armond Bryan MD Final Result * SCAN - LABS (12/06/2024 2:13 AM JUNIOR ACCOUNTANT) us Armond Bryan MD Final Result * AudBase Results (11/26/2024 8:57 AM JUNIOR ACCOUNTANT) Provider Scanning AUDIOLOGY SERVICES ORDERABLES Final Result * Lipase (11/22/2024 2:45 PM JUNIOR ACCOUNTANT) Lipase 87 10 - 99 Units/L Blood 11/22/2024 2:45 PM JUNIOR ACCOUNTANT 11/22/2024 2:45 PM JUNIOR ACCOUNTANT us Ada Nieto NP LAB [place] [address] [address] Department [place] [address] * (ABNORMAL) Amylase (11/22/2024 2:45 PM JUNIOR ACCOUNTANT) Amylase 105(H) 30 - 99 Units/L Blood 11/22/2024 2:45 PM JUNIOR ACCOUNTANT 11/22/2024 2:45 PM JUNIOR ACCOUNTANT Ada Nieto NP LAB BLOOD ORDERABLES Final Re sult Performing Organization Address [facility] Co de Phone Number MAY CONNELL [address] [address] [place] [address] * Urinalysis reflex to microscopic and culture Urine (11/22/2024 2:30 PM JUNIOR ACCOUNTANT) Color, ur Straw Yellow Clarity, ur Clear [...] tendency for uric acid stone formation. Source: [facility] Current Interpretive Data was last revised on [...] met. CERNER Urine 11/22/2024 2:30 PM JUNIOR ACCOUNTANT 11/22/2024 2:39 PM JUNIOR ACCOUNTANT Ada Nieto NP LAB MICROBIOLOGY - GENERAL OR DERABLES Final Result Performing Organization Address [facility]/ZIP Co de Phone Number ALEKSANDERKANDICE CONNELL [address] [address] Department [place] [address] * SCAN - RADIOLOGY/IMAGING (11/22/2024 9:45 AM JUNIOR ACCOUNTANT) Anatomical Region Laterality Modality Other us Ada Nieto NP Final Result * SCAN - RADIOLOGY/IMAGING (11/22/2024 9:39 AM JUNIOR ACCOUNTANT) Anatomical Region Laterality Modality Other us Ada Nieto NP Final Result * SCAN - RADIOLOGY/IMAGING (11/22/2024 8:50 AM JUNIOR ACCOUNTANT) Anatomical Region Laterality Modality Other us Ada Nieto NP Final Result * eGFR (11/16/2024 11:39 AM JUNIOR ACCOUNTANT) eGFR >90 >=60 mL/min/1. 73 m2 Comment: [...] 2021. Blood 11/16/2024 11:3 9 AM JUNIOR ACCOUNTANT 11/16/2024 12:24 PM JUNIOR ACCOUNTANT us Ada Nieto NP LAB BLOOD ORDERABLES Final Re sult [facility] Department [place] [address] * Differential, auto (11/16/2024 11:39 AM JUNIOR ACCOUNTANT) Neutrophil abs 6.1 1.5 - 6.5 K/cumm Imm gran abs 0.1 0.0 - 0.1 K/cumm [facility] Lymphocyte abs 1.3 0.8 - 3.3 K/cumm [facility] Monocyte abs 0.4 0.2 - 0.8 K/cumm [facility] Eosinophil abs 0.1 0.0 - 0.5 K/cumm [facility] Basophil abs 0.1 0.0 - 0.1 K/cumm [facility] Neutrophil pct 75.8 % [facility] Comment: Interpretive Data Percent cell count reference ranges are not reported, since discordance with absolute values may lead to misinterpretation of CBC data. Current Interpretive Data was last revised on 2018. Imm gran pct 1.0 % [facility] Comment: Interpretive Data Percent cell count reference ranges are not reported, since discordance with absolute values may lead to misinterpretation of CBC data. Current Interpretive Data was last revised on 2018. Lymphocyte pct 16.3 % [facility] Comment: Interpretive Data Percent cell count reference ranges are not reported, since discordance with absolute values may lead to misinterpretation of CBC data. Current Interpretive Data was last revised on 2018. Monocyte pct 4.5 % [facility] Comment: Interpretive Data Percent cell count reference ranges are not reported, since discordance with absolute values may lead to misinterpretation of CBC data. Current Interpretive Data was last revised on 2018. Eosinophil pct 1.6 % [facility] Comment: Interpretive Data Percent cell count reference ranges are not reported, since discordance with absolute values may lead to misinterpretation of CBC data. Current Interpretive Data was last revised on 2018. Basophil pct 0.8 % [facility] Comment: Interpretive Data Percent cell count reference ranges are not reported, since discordance with absolute values may lead to misinterpretation of CBC data. Current Interpretive Data was last revised on 2018. Blood 11/16/2024 11:3 9 AM JUNIOR ACCOUNTANT 11/16/2024 12:10 PM JUNIOR ACCOUNTANT us Ada Nieto SOFTWARE PROJECT MANAGER LAB BLOOD ORDERABLES Final Re sult [facility] Department [place] [address] * (ABNORMAL) Urinalysis reflex to microscopic and culture Urine (11/16/2024 11:39 AM JUNIOR ACCOUNTANT) Pathologist [facility] Color, ur Straw Yellow Clarity, ur Clear Clear [facility] Specific gravity, ur 1.021 1.003 - 1.030 [facility] pH, urine 7.0 [facility] Comment: Interpretive Data U rine pH is affected by diet, medications, systemic acid-base disturbances, and renal tubular function. pH may affect urinary stone formation. For example, urine pH below 6.0 may help reduce the tendency for calcium phosphate stones and pH greater than 6.0 may reduce the tendency for uric acid stone formation. Source: [facility] Current Interpretive Data was last revised on 2017 Protein, ur ql Trace Negative [facility] Glucose, ur ql Negative Negative [facility] Ketones, ur Negative Negative [facility] Bilirubin, ur Negative Negative [facility] Blood, ur Negative Negative [facility] Urobilinogen, ur <2.0 <2.0 mg/dL [facility] Nitrite, ur Negative Negative [facility] Leukocyte esterase, ur 1+(A) Negative [facility] UA reflex comment Reflex to microscopic UA will be performed. [facility] Urine 11/16/2024 11:3 9 AM JUNIOR ACCOUNTANT 11/16/2024 12:10 PM JUNIOR ACCOUNTANT Ada Nieto NP LAB MICROBIOLOGY - GENERAL OR DERABLES Final Result [facility] Department [place] [address] * (ABNORMAL) CBC with auto differential (11/16/2024 11:39 AM JUNIOR ACCOUNTANT) Pathologist [facility] WBC 8.0 3.8 - 9.9 K/cumm Hgb 11.4(L) 11.9 - 15.5 g/dL [facility] Hct 35.2(L) 35.6 - 45.5 % [facility] Plt 291 150 - 400 K/cumm [facility] MPV 10.6 9.1 - 12.3 fL [facility] RBC 3.98 3.90 - 5.20 M/cumm [facility] MCV 88.4 81.3 - 96.4 fL [facility] MCH 28.6 27.1 - 33.3 pg [facility] MCHC 32.4 32.3 - 35.7 g/dL [facility] RDW CV 14.0 11.1 - 14.9 % [facility] RDW SD 45.4 35.7 - 48.1 fL [facility] NRBC abs 0.00 0.00 - 0.01 K/cumm [facility] Blood 11/16/2024 11:3 9 AM JUNIOR ACCOUNTANT 11/16/2024 12:10 PM JUNIOR ACCOUNTANT us Ada Nieto SOFTWARE PROJECT MANAGER LAB BLOOD ORDERABLES Final Re sult Performing Organization Address City/[facility]/ZIP Co de Phone Number [facility] Department [place] [address] * (ABNORMAL) Urinalysis, microscopic only (11/16/2024 11:39 AM JUNIOR ACCOUNTANT) WBC, ur 6-10(A) 0 - 5 /HPF RBC, ur 3-5(A) 0 - 2 /HPF [facility] Epithelial cells, squamous, ur 6-10(A) 0 - 5 /HPF [facility] Comment:Suggestive of contam ination. Consider recollection by clean catch. Epithelial cells, renal, ur 1-5(A) 0 - 0 /HPF [facility] Mucous, ur Present(A) [facility] Culture Reflex Comment Reflex conditions for urine culture (WBC >10) not met. [facility] Urine 11/16/2024 11:3 9 AM JUNIOR ACCOUNTANT 11/16/2024 12:10 PM JUNIOR ACCOUNTANT Ada Nieto SOFTWARE PROJECT MANAGER LAB URINE ORDERABLES Final Re sult Performing Organization Address City/[facility]/ZIP Co [place] [address] * Lipase (11/16/2024 11:39 AM JUNIOR ACCOUNTANT) Pathologist [facility] Lipase 77 10 - 99 Units/L Blood 11/16/2024 11:3 9 AM JUNIOR ACCOUNTANT 11/16/2024 12:10 PM JUNIOR ACCOUNTANT Ada Nieto SOFTWARE PROJECT MANAGER LAB BLOOD ORDERABLES Final Re sult Performing Organization Address [facility] [place] [address] * (ABNORMAL) Amylase (11/16/2024 11:39 AM JUNIOR ACCOUNTANT) [facility] Amylase 102(H) 30 - 99 Units/L Blood 11/16/2024 11:3 9 AM JUNIOR ACCOUNTANT 11/16/2024 12:10 PM JUNIOR ACCOUNTANT Ada Nieto SOFTWARE PROJECT MANAGER LAB BLOOD ORDERABLES Final Re sult Performing Organization Address [facility] [place] [address] * Comprehensive metabolic panel (11/16/2024 11:39 AM JUNIOR ACCOUNTANT) [facility] Sodium 142 135 - 145 mmol/L Potassium, pl 3.8 3.3 - 4.9 mmol/L [facility] Chloride 105 97 - 110 mmol/L [facility] CO2 29 22 - 32 mmol/L [facility] Anion gap 8 2 - 15 mmol/L [facility] BUN 11 6 - 25 mg/dL [facility] Creatinine 0.63 0.60 - 1.10 mg/dL [facility] Glucose 94 70 - 199 mg/dL [facility] Comment: Interpretive Data Fasting glucose >/= 126 [...] [facility]IOR[facility] Blood 11/16/2024 11:3 9 AM JUNIOR ACCOUNTANT 11/16/2024 12:10 PM JUNIOR ACCOUNTANT Ada Nieto SOFTWARE PROJECT MANAGER LAB BLOOD ORDERABLES Final Re sult [facility] Department [place] [address] from Last 3 Months Insurance [address]IC[facility] MEDICARE [facility] MEDICARE [facility] Member Subscriber Plan / Payer ( fective 2024-Present) Name:YongmyPedroie Relation to Subscriber:Self Name:Joaquín East Payer ID:[id number] (NAIC) Type:[employer] Address: [address] Advance Directives For more information, please contact: [phone] * Full Code (Latest Code Status on File) Date Activated Date Inactivated Comments 07/14/2022 3:56 PM 07/17/2022 3:47 PM Care Teams Bellows Filler Relationship Specialty Start Date End Date Armond Bryan MD [address] [facility] [address] [place] [address] PCP - General Internal Medicine 05/19/21 Armond Bryan MD [address] [facility] [address] [place] [address] 01/29/21 [place] [address] [address] [facility] [address] [place] [address] Consulting Physician Endocrinology Diabetes & Metabolism 11/09/18 [place] [address] [address] Referring Physician Gastroenterology 07/05/22 Bebeto Pavon MD [phone] [place] [address] Surgeon Colon and Rectal Surgery 07/06/22 Jeremy Byrd MD [address] [place] [address] Referring Physician Obstetrics and Gynecology 07/28/22
--- OUTSIDE RECORDS SUMMARY | 2024-12-18 01:17 | XMS_ITS | Referral Summary ---
Author Organization [facility] Address [address] [place] [address] Care Team Providers [place] Supervisor Name Role Phone Armond Bryan MD Unavailable Linda Hunter MD Unavailable Armond Bryan MD Primary Care Provider [phone] Solomon Garcia MD Unavailable Bebeto Pavon MD Unavailable [phone] Jeremy Byrd MD Unavailable Encounters Date Type Department Care Team Description 12/10/2024 Orders Only [facility] [address] [place] [address] 13[facility] [place] [address] Ada Nieto NP Dysfunctional gallbladder (Primary Dx) 12/10/2024 Results Follow-Up [facility] [address] [place] [address] 13[facility] [place] [address] Ada Nieto NP 12/10/2024 7:15 AM ENVIRONMENTAL COMPLIANCE SPECIALIST - 12/10/2024 11:59 PM ENVIRONMENTAL COMPLIANCE SPECIALIST Hospital Encounter [facility] [address] [place] [address] Epigastric pain Discharge Disposition: Discharge to home or self care 12/08/2024 Orders Only [facility] [address] [place], [place] [address]A [facility] [place] [phone] Armond Bryan MD 12/06/2024 Results Follow-Up [facility] [address] [place] [phone] Ada Nieto NP 12/06/2024 Orders Only [facility] [address] [place] [phone] Armond Bryan MD 11/26/2024 9:00 AM ENVIRONMENTAL COMPLIANCE SPECIALIST Procedure visit [facility] Otolaryngology [address] [place] [address] 11th [place] [address] [place] [phone] Samanta Neumann Au.D. Sensorineural hearing loss (SNHL) of both ears (Primary Dx); Encounter for adjustment and management of cochlear device 11/23/2024 Telephone [facility] [address] [place] [phone] Armond Bryan MD Lab Results 11/22/2024 2:15 PM ENVIRONMENTAL COMPLIANCE SPECIALIST Lab [facility] [address] [place] [address] Epigastric pain; Chronic adrenal insufficiency 11/22/2024 Orders Only [facility] [address] [place] [phone] Ada Nieto NP Epigastric pain (Primary Dx) 11/22/2024 3:15 PM ENVIRONMENTAL COMPLIANCE SPECIALIST Office Visit [facility] [address] [facility] [place] [place] [address], [place] [phone] Linda Hunter MD Chronic adrenal insufficiency (Primary Dx); Vitamin D deficiency 11/21/2024 Telephone [facility] [address] [place] [phone] Armond Bryan MD Lab Results 11/18/2024 Orders Only [facility] [address] [place] [phone] Ada Nieto NP Abdominal pain (Primary Dx); Elevated amylase 11/16/2024 12:20 PM ENVIRONMENTAL COMPLIANCE SPECIALIST Lab [facility] ([facility] [address] [place] [phone] Upper abdominal pain 11/16/2024 10:45 AM ENVIRONMENTAL COMPLIANCE SPECIALIST Office Visit [facility] [address] [facility] [address] [facility] [place] [address] Ada Nieto NP Epigastric pain (Primary Dx); [...] 1 capsule (40 mg total) by mouth patient services manager before breakfast 07/03/20 22 Active psyllium, aspartame, [...] 1 capsule (5,000 Units total) by mouth patient services manager before breakfast 12 capsule 3 11/22/19 25 Active cholecalciferol (VITAMIN D-3) 5,000 unit capsuleIndication s:Vitamin D Deficiency Take 1 capsule (5,000 Units total) by mouth patient services manager before breakfast 025 Discontin ued(Reord er) fludrocortisone [...] (07/10/2022): Added automatically from request for surgery [id number] Assessment & Plan (02/15/2023 3:14 PM CDT): Has post-op f/u 02/24/23 for ENT Asymmetric SNHL (sensorineural hearing loss) 09/2019 Assessment & Plan (12/07/2019 5:25 PM ENVIRONMENTAL COMPLIANCE SPECIALIST): Discussed options for left hearing loss. Consider CROS amplification. RTC annually. Deafness, mixed type 08/02/2016 Chronic adrenal insufficiency 09/19/2012 Overview (01/12/2017): Glucocorticoid deficiency Assessment & Plan (11/01/2023 3:49 PM ENVIRONMENTAL COMPLIANCE SPECIALIST): Chronic, stable Continue prednisone and fludrocortisone Pt [...] issues Assessment & Plan (10/07/2022 2:14 PM ENVIRONMENTAL COMPLIANCE SPECIALIST): Chronic problem, improving. Mom is now monitoring [...] fact. Assessment & Plan (10/14/2020 3:13 PM ENVIRONMENTAL COMPLIANCE SPECIALIST): It is very important that you take your mediation every day, regularly . In situations of stress, either physical or psychological, the dose of the steroids should be doubled or tripled for a few days. In case of not tolerating oral intake , including vomiting , take injections of hydrocortisone as instructed. 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 In [...] sent. Assessment & Plan (11/14/2018 9:59 AM ENVIRONMENTAL COMPLIANCE SPECIALIST): It is very important that you take [...] room. Assessment & Plan (11/15/2017 9:43 AM ENVIRONMENTAL COMPLIANCE SPECIALIST): It is very important that you take [...] NOS Assessment & Plan (11/01/2023 3:48 PM ENVIRONMENTAL COMPLIANCE SPECIALIST): Chronic, well controlled Update vit D Continue supplementation, as indicated Assessment & Plan (04/07/2023 4:47 PM CDT): Check 25 OH vit D Adjust dose of Ergocalciferol accordingly Assessment & Plan (01/08/2020 11:19 AM CDT): Continue current dose Will recheck in a few months Assessment & Plan (11/15/2017 9:43 AM ENVIRONMENTAL COMPLIANCE SPECIALIST): Check 25 OH vit D Adjust dose of Ergocalciferol accordingly Resolved Problems Problem Noted Date Diagnosed Date Resolved Date Postoperative state 07/28/2022 02/16/20 Intramural and subserous leiomyoma of uterus 2 02/15/2023 Rectal prolapse 07/06/2022 02/15/2023 Overview (07/06/2022): Added automatically from request for surgery [id number] Pain of upper abdomen 01/29/20222021 Assessment & Plan (01/29/2022 9:48 AM CDT): Extensive evaluation. ? Functional bowel disease. To have follow up Supervisor [employer] eval. ? 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[facility]) 09/19/2012 Overview (01/14/2017): Mineralocorticoid deficiency Immunizations [...] on file Legal Sex Female 8:47 PM ENVIRONMENTAL COMPLIANCE SPECIALIST Gender Identity Not on file Sexual Orientation Not on file Last Filed Vital Signs Vital Sign Reading Time Taken Comments Blood Pressure 92/62 11/22/2024 3:09 PM ENVIRONMENTAL COMPLIANCE SPECIALIST Pulse 78 11/22/2024 3:09 PM ENVIRONMENTAL COMPLIANCE SPECIALIST Temperature 36.7 C (98 F) 11/16/2024 10:36 AM ENVIRONMENTAL COMPLIANCE SPECIALIST Respiratory Rate 18 11/01/2023 3:08 PM ENVIRONMENTAL COMPLIANCE SPECIALIST Oxygen Saturation 97% 11/16/2024 10:36 AM ENVIRONMENTAL COMPLIANCE SPECIALIST Inhaled Oxygen Concentration - - Weight 43.1 kg (95 lb) 11/22/2024 3:09 PM ENVIRONMENTAL COMPLIANCE SPECIALIST Height 154.9 cm (5' 0.98 ) 11/22/2024 3:09 PM CS T Body Mass Index 17.96 11/22/2024 3:09 PM ENVIRONMENTAL COMPLIANCE SPECIALIST Plan of Treatment Not on file Medical Devices Implanted Type Area Oracle Endeca Consultant Device Identifier Shelf Expiration Date Model / Serial / Lot [employer]/C R Bard 6x3in Large Pore Knit Monofilament Smooth [place] [id number] - [id number] Implanted:Qty: 1 on 07/14/2022 by Bebeto Pavon MD at [facility] Mesh N/A: Pelvis [employer]/C R Bard [id number] 10/06/2026 [id number] / / [id number] Metal Back [employer]chle[employer] Implant Cochlear Cochlear Nucleus Profile Plus Slim Modiolar Electrode [id number] - [id number] - [id number] Implanted:Qty: 1 on 08/15/2023 by Chirag Brito MD at [facility] Left: Ear [employer]chle[employer] [id number] 05/18/2025 [id number] / [id number] / Procedures Procedure Name Priority Date/Time Associated Diagnosis Comments NM HEPATOBILIARY IMAGING W PHARMACEUTICAL INTERVENTION Schedule Routine, Read Routine (OP Routine) 12/10/2024 9:48 AM ENVIRONMENTAL COMPLIANCE SPECIALIST Epigastric pain SCAN - LABS 12/08/2024 7:31 AM ENVIRONMENTAL COMPLIANCE SPECIALIST SCAN - RADIOLOGY/IMAGING 12/06/2024 5:57 AM ENVIRONMENTAL COMPLIANCE SPECIALIST SCAN - LABS 12/06/2024 2:13 AM ENVIRONMENTAL COMPLIANCE SPECIALIST AUDBASE RESULTS 11/26/2024 8:57 AM ENVIRONMENTAL COMPLIANCE SPECIALIST AMYLASE Routine 11/22/2024 2:45 PM ENVIRONMENTAL COMPLIANCE SPECIALIST Epigastric pain LIPASE Routine 11/22/2024 2:45 PM ENVIRONMENTAL COMPLIANCE SPECIALIST Epigastric pain URINALYSIS AND REFLEX TO MICROSCOPIC AND CULTURE Routine 11/22/2024 2:30 PM ENVIRONMENTAL COMPLIANCE SPECIALIST Chronic adrenal insufficiency SCAN - RADIOLOGY/IMAGING 11/22/2024 9:45 AM ENVIRONMENTAL COMPLIANCE SPECIALIST SCAN - RADIOLOGY/IMAGING 11/22/2024 9:39 AM ENVIRONMENTAL COMPLIANCE SPECIALIST SCAN - RADIOLOGY/IMAGING 11/22/2024 8:50 AM ENVIRONMENTAL COMPLIANCE SPECIALIST EGFR Routine 11/16/2024 11:39 AM ENVIRONMENTAL COMPLIANCE SPECIALIST Upper abdominal pain URINALYSIS, MICROSCOPIC ONLY Routine 11/16/2024 11:39 AM ENVIRONMENTAL COMPLIANCE SPECIALIST Upper abdominal pain DIFFERENTIAL AUTO Routine 11/16/2024 11:39 AM ENVIRONMENTAL COMPLIANCE SPECIALIST Upper abdominal pain CBC WITH AUTO DIFFERENTIAL Routine 11/16/2024 11:39 AM ENVIRONMENTAL COMPLIANCE SPECIALIST Upper abdominal pain COMPREHENSIVE METABOLIC PANEL Routine 11/16/2024 11:39 AM ENVIRONMENTAL COMPLIANCE SPECIALIST Upper abdominal pain AMYLASE Routine 11/16/2024 11:39 AM ENVIRONMENTAL COMPLIANCE SPECIALIST Upper abdominal pain LIPASE Routine 11/16/2024 11:39 AM ENVIRONMENTAL COMPLIANCE SPECIALIST Upper abdominal pain URINALYSIS AND REFLEX TO MICROSCOPIC AND CULTURE Routine 11/16/2024 11:39 AM ENVIRONMENTAL COMPLIANCE SPECIALIST Upper abdominal pain from Last 3 Months Results * NM Hepatobiliary Imaging W GBEF (12/10/2024 9:48 AM ENVIRONMENTAL COMPLIANCE SPECIALIST) Anatomical Region Laterality Modality Body N/A Nuclear Medicine 12/10/2024 10:5 5 AM ENVIRONMENTAL COMPLIANCE SPECIALIST Impressions 12/10/2024 11:07 AM ENVIRONMENTAL COMPLIANCE SPECIALIST 1. Abnormal contractile response of gallbladder to sincalide infusion, consistent with chronic cholecystitis.. 2. Otherwise patent biliary system. Dictated by: Sally Avelar MD The radiology attending physician has personally reviewed this study, and had reviewed and/or edited this written report and agrees with it. Electronically signed by: DO Jayla Haney 12/10/2024 11:07 AM ENVIRONMENTAL COMPLIANCE SPECIALIST EXAMINATION: HEPATOBILIARY SCINTIGRAPHY (WITH GALLBLADDER EJECTION FRACTION) [...] results of this study was sent to [email or web address] by the interpreting physician Dr Almas Wren. [...] results of this study was sent to [email or web address] by the interpreting physician Dr Almas Wren. IMPRESSION: 1. Abnormal contractile response of gallbladder to sincalide infusion, consistent with chronic cholecystitis.. 2. Otherwise patent biliary system. Dictated by: Sally Avelar MD The radiology attending physician has personally reviewed this study, and had reviewed and/or edited this written report and agrees with it. Electronically signed by: Almas Wren DO us Ada Nieto FOUR SLIDE MACHINE SETTER IMG NM PROCEDURES Final Resul t * SCAN - LABS (12/08/2024 7:31 AM ENVIRONMENTAL COMPLIANCE SPECIALIST) Armond Bryan MD Final Result * SCAN - RADIOLOGY/IMAGING (12/06/2024 5:57 AM ENVIRONMENTAL COMPLIANCE SPECIALIST) Anatomical Region Laterality Modality Other us Armond Bryan MD Final Result * SCAN - LABS (12/06/2024 2:13 AM ENVIRONMENTAL COMPLIANCE SPECIALIST) us Armond Bryan MD Final Result * [employer] Results (11/26/2024 8:57 AM ENVIRONMENTAL COMPLIANCE SPECIALIST) us Provider Scanning AUDIOLOGY SERVICES ORDERABLES Final Result * Lipase (11/22/2024 2:45 PM ENVIRONMENTAL COMPLIANCE SPECIALIST) Lipase 87 10 - 99 Units/L Blood 11/22/2024 2:45 PM ENVIRONMENTAL COMPLIANCE SPECIALIST 11/22/2024 2:45 PM ENVIRONMENTAL COMPLIANCE SPECIALIST us Ada Nieto NP LAB BLOOD ORDERABLES Final Re sult [facility] [address] [place] [address] * (ABNORMAL) Amylase (11/22/2024 2:45 PM ENVIRONMENTAL COMPLIANCE SPECIALIST) Amylase 105(H) 30 - 99 Units/L Blood 11/22/2024 2:45 PM ENVIRONMENTAL COMPLIANCE SPECIALIST 11/22/2024 2:45 PM ENVIRONMENTAL COMPLIANCE SPECIALIST Ada Nieto FOUR SLIDE MACHINE SETTER LAB BLOOD ORDERABLES Final Re sult Performing Organization Address [facility] Co de Phone Number [facility] [address] [facility] [place] [address] * Urinalysis reflex to microscopic and culture Urine (11/22/2024 2:30 PM ENVIRONMENTAL COMPLIANCE SPECIALIST) Color, ur Straw Yellow Clarity, ur Clear [...] for uric acid stone formation. Source: [facility] [employer] Current Interpretive Data was last revised on [...] met. [facility] Urine 11/22/2024 2:30 PM ENVIRONMENTAL COMPLIANCE SPECIALIST 11/22/2024 2:39 PM ENVIRONMENTAL COMPLIANCE SPECIALIST Ada Nieto NP LAB MICROBIOLOGY - GENERAL OR DERABLES Final Result [facility] [address] Department [place] [address] * SCAN - RADIOLOGY/IMAGING (11/22/2024 9:45 AM ENVIRONMENTAL COMPLIANCE SPECIALIST) Anatomical Region Laterality Modality Other Result Tatiana Nieto NP Final Result * SCAN - RADIOLOGY/IMAGING (11/22/2024 9:39 AM ENVIRONMENTAL COMPLIANCE SPECIALIST) Anatomical Region Laterality Modality Other us Ada Nieto NP Final Result * SCAN - RADIOLOGY/IMAGING (11/22/2024 8:50 AM ENVIRONMENTAL COMPLIANCE SPECIALIST) Anatomical Region Laterality Modality Other Result Tatiana Nieto NP Final Result * eGFR (11/16/2024 11:39 AM ENVIRONMENTAL COMPLIANCE SPECIALIST) eGFR >90 >=60 mL/min/1. 73 m2 Comment: [...] reviewed 2021. Blood 11/16/2024 11:3 9 AM ENVIRONMENTAL COMPLIANCE SPECIALIST 11/16/2024 12:24 PM ENVIRONMENTAL COMPLIANCE SPECIALIST Result Tatiana Nieto NP LAB BLOOD ORDERABLES Final Re sult [facility] Department [place] [address] * Differential, auto (11/16/2024 11:39 AM ENVIRONMENTAL COMPLIANCE SPECIALIST) Neutrophil abs 6.1 1.5 - 6.5 K/cumm Imm gran abs 0.1 0.0 - 0.1 K/cumm [facility] Lymphocyte abs 1.3 0.8 - 3.3 K/cumm [facility] Monocyte abs 0.4 0.2 - 0.8 K/cumm [facility] Eosinophil abs 0.1 0.0 - 0.5 K/cumm [facility] Basophil abs 0.1 0.0 - 0.1 K/cumm [facility] Neutrophil pct 75.8 % [facility] Comment: Interpretive Data Percent cell count reference ranges are not reported, since discordance with absolute values may lead to misinterpretation of CBC data. Current Interpretive Data was last revised on 2018. Imm gran pct 1.0 % [facility] Comment: Interpretive Data Percent cell count reference ranges are not reported, since discordance with absolute values may lead to misinterpretation of CBC data. Current Interpretive Data was last revised on 2018. Lymphocyte pct 16.3 % [facility] Comment: Interpretive Data Percent cell count reference ranges are not reported, since discordance with absolute values may lead to misinterpretation of CBC data. Current Interpretive Data was last revised on 2018. Monocyte pct 4.5 % [facility] Comment: Interpretive Data Percent cell count reference ranges are not reported, since discordance with absolute values may lead to misinterpretation of CBC data. Current Interpretive Data was last revised on 2018. Eosinophil pct 1.6 % [facility] Comment: Interpretive Data Percent cell count reference ranges are not reported, since discordance with absolute values may lead to misinterpretation of CBC data. Current Interpretive Data was last revised on 2018. Basophil pct 0.8 % [facility] Comment: Interpretive Data Percent cell count reference ranges are not reported, since discordance with absolute values may lead to misinterpretation of CBC data. Current Interpretive Data was last revised on 2018. Blood 11/16/2024 11:3 9 AM ENVIRONMENTAL COMPLIANCE SPECIALIST 11/16/2024 12:10 PM ENVIRONMENTAL COMPLIANCE SPECIALIST us Ada Nieto FOUR SLIDE MACHINE SETTER LAB BLOOD ORDERABLES Final Re sult [facility] Department [place] [address] * (ABNORMAL) Urinalysis reflex to microscopic and culture Urine (11/16/2024 11:39 AM ENVIRONMENTAL COMPLIANCE SPECIALIST) Pathologist [facility] Color, ur Straw Yellow Clarity, ur Clear Clear [facility] Specific gravity, ur 1.021 1.003 - 1.030 [facility] pH, urine 7.0 [facility] Comment: Interpretive Data U rine pH is affected by diet, medications, systemic acid-base disturbances, and renal tubular function. pH may affect urinary stone formation. For example, urine pH below 6.0 may help reduce the tendency for calcium phosphate stones and pH greater than 6.0 may reduce the tendency for uric acid stone formation. Source: [facility] Current Interpretive Data was last revised on 2017 Protein, ur ql Trace Negative [facility] Glucose, ur ql Negative Negative [facility] Ketones, ur Negative Negative [facility] Bilirubin, ur Negative Negative [facility] Blood, ur Negative Negative [facility] Urobilinogen, ur <2.0 <2.0 mg/dL [facility] Nitrite, ur Negative Negative [facility] Leukocyte esterase, ur 1+(A) Negative [facility] UA reflex comment Reflex to microscopic UA will be performed. [facility] Urine 11/16/2024 11:3 9 AM ENVIRONMENTAL COMPLIANCE SPECIALIST 11/16/2024 12:10 PM ENVIRONMENTAL COMPLIANCE SPECIALIST us Ada Nieto NP LAB MICROBIOLOGY - GENERAL OR DERABLES Final Result [facility] Department [place] [address] * (ABNORMAL) CBC with auto differential (11/16/2024 11:39 AM ENVIRONMENTAL COMPLIANCE SPECIALIST) Pathologist [facility] WBC 8.0 3.8 - 9.9 K/cumm Hgb 11.4(L) 11.9 - 15.5 g/dL [facility] Hct 35.2(L) 35.6 - 45.5 % [facility] Plt 291 150 - 400 K/cumm [facility] MPV 10.6 9.1 - 12.3 fL [facility] RBC 3.98 3.90 - 5.20 M/cumm [facility] MCV 88.4 81.3 - 96.4 fL [facility] MCH 28.6 27.1 - 33.3 pg [facility] MCHC 32.4 32.3 - 35.7 g/dL [facility] RDW CV 14.0 11.1 - 14.9 % [facility] RDW SD 45.4 35.7 - 48.1 fL [facility] NRBC abs 0.00 0.00 - 0.01 K/cumm [facility] Blood 11/16/2024 11:3 9 AM ENVIRONMENTAL COMPLIANCE SPECIALIST 11/16/2024 12:10 PM ENVIRONMENTAL COMPLIANCE SPECIALIST us Ada Nieto FOUR SLIDE MACHINE SETTER LAB BLOOD ORDERABLES Final Re sult [facility] Department [place] [address] * (ABNORMAL) Urinalysis, microscopic only (11/16/2024 11:39 AM ENVIRONMENTAL COMPLIANCE SPECIALIST) WBC, ur 6-10(A) 0 - 5 /HPF RBC, ur 3-5(A) 0 - 2 /HPF [facility] Epithelial cells, squamous, ur 6-10(A) 0 - 5 /HPF [facility] Comment:Suggestive of contam ination. Consider recollection by clean catch. Epithelial cells, renal, ur 1-5(A) 0 - 0 /HPF [facility] Mucous, ur Present(A) [facility] Culture Reflex Comment Reflex conditions for urine culture (WBC >10) not met. [facility] Urine 11/16/2024 11:3 9 AM ENVIRONMENTAL COMPLIANCE SPECIALIST 11/16/2024 12:10 PM ENVIRONMENTAL COMPLIANCE SPECIALIST Ada Nieto FOUR SLIDE MACHINE SETTER LAB URINE ORDERABLES Final Re sult Performing Organization Address [facility] Co de Phone Number [facility] [place] [address] * Lipase (11/16/2024 11:39 AM ENVIRONMENTAL COMPLIANCE SPECIALIST) Pathologist [facility] Lipase 77 10 - 99 Units/L Blood 11/16/2024 11:3 9 AM ENVIRONMENTAL COMPLIANCE SPECIALIST 11/16/2024 12:10 PM ENVIRONMENTAL COMPLIANCE SPECIALIST Ada Nieto FOUR SLIDE MACHINE SETTER LAB BLOOD ORDERABLES Final Re sult Performing Organization Address [facility] de Phone Number [facility] [place] [address] * (ABNORMAL) Amylase (11/16/2024 11:39 AM ENVIRONMENTAL COMPLIANCE SPECIALIST) Pathologist [facility] Amylase 102(H) 30 - 99 Units/L Blood 11/16/2024 11:3 9 AM ENVIRONMENTAL COMPLIANCE SPECIALIST 11/16/2024 12:10 PM ENVIRONMENTAL COMPLIANCE SPECIALIST Ada Nieto FOUR SLIDE MACHINE SETTER LAB BLOOD ORDERABLES Final Re sult Performing Organization Address [facility] Co de Phone Number [facility] [place] [address] * Comprehensive metabolic panel (11/16/2024 11:39 AM ENVIRONMENTAL COMPLIANCE SPECIALIST) Pathologist [facility] Sodium 142 135 - 145 mmol/L Potassium, pl 3.8 3.3 - 4.9 mmol/L [facility] Chloride 105 97 - 110 mmol/L [facility] CO2 29 22 - 32 mmol/L [facility] Anion gap 8 2 - 15 mmol/L [facility] BUN 11 6 - 25 mg/dL [facility] Creatinine 0.63 0.60 - 1.10 mg/dL [facility] Glucose 94 70 - 199 mg/dL [facility] Comment: Interpretive Data Fasting glucose [...] Calcium 9.0 8.5 - 10.3 mg/dL [facility] Bilirubin, total 0.5 0.1 - 1.2 mg/dL [facility] Protein, pl 6.8 6.5 - 8.5 g/dL [facility] Albumin 4.1 3.5 - 5.0 g/dL [facility] Alk phos 41 40 - 130 Units/L [facility] ALT 11 7 - 45 Units/L [facility] AST 19 10 - 45 Units/L [facility] Blood 11/16/2024 11:3 9 AM ENVIRONMENTAL COMPLIANCE SPECIALIST 11/16/2024 12:10 PM ENVIRONMENTAL COMPLIANCE SPECIALIST us Ada Nieto FOUR SLIDE MACHINE SETTER LAB BLOOD ORDERABLES Final Re sult [facility] Organization Address City/State/ZIP Co de Phone Number [facility] Department [place] [address] from Last 3 Months Insurance MEDICARE IDPA [facility] MEDICARE [facility] TRADITIONAL MEDICARE [facility] Member Subscriber Plan / Payer ( fective 2024-Present) Name:Joaquín Suarez Relation to Subscriber:Self Name:Joaquín Suarez Payer ID:[id number] (NAIC) Type:SuddenValues Address: [address] Advance Directives For more information, please contact: [phone] * Full Code (Latest Code Status on File) Date Activated Date Inactivated Comments 07/14/2022 3:56 PM 07/17/2022 3:47 PM Care Teams [place] Supervisor Relationship Specialty Start Date End Date Armond Bryan MD [address] [facility] [address] [place] [address] PCP - General Internal Medicine 05/19/21 Armond Bryan MD [address] [facility] [address] [place] [address] 01/29/21 [place] [id number] [address] Consulting Physician Endocrinology Diabetes & Metabolism 11/09/18 [place] [address] [facility] [address], [place] [address] Referring Physician Gastroenterology 07/05/22 Bebeto Pavon MD [address] [facility] [id number] [place] [address] Surgeon Colon and Rectal Surgery 07/06/22 Jeremy Byrd MD [address] [facility] [address] [place] [address] Referring Physician Obstetrics and Gynecology 07/28/22
--- OUTSIDE RECORDS SUMMARY | 2024-12-18 01:17 | XMS_ITS | Clinical Summary ---
Author Organization [facility] Address [address] [facility], [address] [address] Phone Care Team Providers Care Doctor Of Naprapathy Name Role Phone Armond Bryan MD Primary Care Provider [phone] Allergies No known active allergies Medications STRATTERA [...] patient's age to complete this topic Insurance [facility] MEDICARE Care Teams Doctor Of Naprapathy Relationship Specialty Start Date End Date Armond Bryan MD PCP - General Internal Medicine 11/16/18
[2024-12-18] MEDS: LACTATED RINGERS 1,000 ML 30 ML IV CONT ×2 (08:00→11:25)
[2024-12-18] MEDS: ACETAMINOPHEN 500 MG TABLET 1000 MG PO (08:52)
[2024-12-18] MEDS: KETOROLAC 15 MG/ML VIAL (*BKC) IV PUSH (08:52)
--- NOTE | 2024-12-18 08:52 | WPDANESEPPF ---
Anes - Initial Pre Proc Eval Procedure: Operation Date: 12/18/24 09:30 Proposed Procedures p Laparoscopic Cholecystectomy - Deni Ambriz MD s Laparoscopic Appendectomy - Deni Ambriz MD Date/Time: 12/18/24 08:52 Surgeon: Deni Ambriz MD Pre Op Diagnosis: chronic cholecystitis, abn ct scan of abdomen Patient Data Age: 39 Gender: F Height: 1.52 m Weight: 42.3 kg Allergies Allergy/AdvReac Type Severity Reaction Status Date / Time No Known Allergies Allergy Verified 12/17/24 11:21 Home Medications ?Medication ?Instructions ?Recorded ?Confirmed ?Type citalopram 40 mg tablet 40 mg PO DAILY 09/20/19 12/17/24 History folic acid 1 mg tablet 1 mg PO BID 09/20/19 12/17/24 History loratadine 10 mg tablet (Claritin) 10 mg PO DAILY 09/20/19 12/17/24 History methylphenidate HCl 27 mg 27 mg PO QAM 09/20/19 12/17/24 History tablet,extended release 24 hr (Concerta) pregabalin 150 mg capsule (Lyrica) 150 mg PO BID 10/31/20 12/17/24 History atomoxetine 40 mg capsule 40 mg PO DAILY 12/30/21 12/17/24 History pantoprazole 40 mg tablet,delayed 40 mg PO BID 12/30/21 12/17/24 History release prednisone 2.5 mg tablet See Rx Instructions .Route .COMPLEX 07/03/22 12/17/24 History fludrocortisone 0.1 mg tablet 0.1 mg PO DAILY #30 tabs 07/05/22 12/17/24 Rx Patient hx anesthesia problems: none Family hx anesthesia problems: none Results Review: All pre-operative results and documents have been reviewed as part of the pre-operative evaluation. [facility]LY [facility] Past Medical History Medical History Gallbladder disorder Allergies IUD (intrauterine device) in place Mirena IUD placed 12/24/[address] 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 She is single (currently engaged) and does not have children. 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 Her mother is her legal guardian. Code status full code Smoking status: Never smoker Alcohol intake: never Alcohol use details: Rarely Substance use: never Substance use type: does not use Do You Feel Safe in your Home?: Yes Lack of Transportation: No Lack of Food: Never True Current Housing: I Have Housing Concerned About Future Housing: No Difficulty Paying Gas/Electric Bills: No Difficulty Paying for Meds: No Currently Unemployed: No Education: High School Diploma/GED Difficulty w/ Childcare or Family Care: No Living arrangements: alone Additional living arrangements comments: Independent living with some assistance. Gender identity (if verbalized by the patient): Female Sexual Orientation (if Verbalized by the Patient): Straight or Heterosexual Spiritual care concerns: No Anes - Eval Final PreProcedure Day of Procedure 12/18/24 08:52 Patient weight: thin Heart: regular rate and rhythm Lungs: clear to auscultation Airway: Mallampati scale class II Neurological: alert and oriented Last oral intake: >/= 8 hours ASA classification: III Emergent: no Anesthetic plan: proceed Anesthesia type and monitoring: general ETT and standard monitoring Results Review: All pre-operative results and documents have been reviewed as part of the pre-operative evaluation. Informed Consent: The patient's anesthetic plan and its attendant risks and benefits were discussed with the patient/family/POA. Questions were solicited and answers provided to the satisfaction of the patient/family/POA.
--- NOTE | 2024-12-18 09:00 | WPDHPUPDATE1 ---
History and Physical Update Update Date/Time: 12/18/24 09:00 History and Physical has been reviewed, including an updated exam of the patient. There are NO changes in the patient's condition. Risks, benefits, and alternatives have been discussed and questions answered. Patient agrees to proceed with procedure.
[2024-12-18] MEDS: ceFAZolin 2 GM/D5W 50 ML 2 GM/50 ML BAG IVPB (09:30)
[2024-12-18] MEDS: BUPIVACAINE/EPINEPHRINE 0.5% 50 ML VIAL 30 ML INFILTRATE (10:01)
--- NOTE | 2024-12-18 11:19 | P.OP_ITS ---
Procedure Note - Detailed Date of Procedure 12/18/24 Pre-op Diagnosis chronic cholecystitis, abn ct scan of abdomen Post-op Diagnosis Same Procedure Performed Laparoscopic cholecystectomy, laparoscopic appendectomy Surgeon Deni Ambriz MD [employer] Cecile HERNANDEZ Anesthesia General and Local Indications Patient has had chronic epigastric abdominal pain. She was recently in the emergency room and a CT scan was done. This was negative for any upper abdominal abnormalities but did show a 9 mm appendix which is enlarged. She did not have any periappendiceal inflammatory changes. As an outpatient she had a HIDA scan with CCK which showed a very low gallbladder ejection fraction of only 10%. She had had an ultrasound previously and this was negative for any abnormalities and no gallstones. She is taken to surgery now for laparoscopic cholecystectomy for acalculous chronic cholecystitis. She also is going to have laparoscopic appendectomy for the abnormal appendix noted on CT scan. Findings Evidence of chronic inflammation in the cholecystohepatic triangle and infundibulum of the gallbladder. Appendix was retrocecal but did not have any acute inflammation associated with it. Liver appeared normal, no gallstones were noted. Description of Procedure Patient was taken to surgery and induced into general anesthesia. The initial incision was planned in the left subcostal position. Local was infiltrated and a small incision made. The varies needle was introduced into the abdominal cavity and insufflation was carried out. An optical trocar was then passed into the abdominal cavity. We looked around the area of the trocar placement and saw no signs of injury. Under direct visualization, a left-sided lower abdominal 5 mm port was placed. A right lower quadrant 5 mm port was placed. A right mid abdominal 10 mm port was placed. The camera was positioned in the left lower abdominal port. The gallbladder was decompressed with a laparoscopic aspirator. The cholecystotomy was closed with a Vicryl endoloop. The gallbladder was then retracted anterosuperiorly. Traction was placed on the infundibulum. Dissection was carried out in the cholecystohepatic triangle. Evidence of inflammation was noted as the tissues were tough and somewhat fibrotic. Eventually the cystic duct and cystic artery were dissected out clearly. Dissection was then carried out further up the gallbladder to at least 1/3 of the gallbladder off the liver. Critical view was achieved. I then securely clipped and divided the cystic duct and cystic artery. The gallbladder was then further dissected free of its remaining attachments to the liver. We checked the gallbladder fossa. All looked good with no evidence of bleeding or bile leakage. No entry into the gallbladder had been made. We then placed the patient in Trendelenburg with the right-side elevated. We looked at to the right lower quadrant and placed the gallbladder in this general area. Some adhesions in the right lower quadrant to distal small bowel in the anterior abdominal wall were taken down. Adhesions to some distal ileum were also taken down. The cecum was posterior in the right lower quadrant. Some additional dissection and mobilization of the cecum was necessary. He eventually we were able to bring the appendix up so that it was visible. With traction on the appendix, we continued to dissect retroperitoneal attachments from the cecum and the appendix. The appendix seemed to be thickened but not acutely inflamed. We then dissected in the mesoappendix. The appendiceal artery was thoroughly cauterized and divided. I continued dissecting adhesions to the appendix and dividing the mesoappendix until the appendix was fully dissected and the base of the appendix was skeletonized. A Vicryl endoloop was used to ligate the appendix at its base. The appendix was amputated just above the ligature. The mucosa of the appendiceal stump was thoroughly cauterized. The appendix and the gallbladder were then placed in an Endo-Catch bag. These were able to be removed through the 10 mm right mid abdominal port. We replaced this trocar and looked at the gallbladder fossa as well as the areas of dissection for the appendix. All looked good with no evidence of bleeding or other problems. We then evacuated CO2 and removed the trocar sleeves. The fascia at the 10 mm port site was closed with then closed with an 0 Vicryl mattress suture. All skin wounds were closed with subcuticular 4-0 Monocryl skin suture. The wounds were dressed with Exofin surgical adhesive. The patient was awakened and taken to recovery in good condition. Sponge needle counts were correct x2. Estimated Blood Loss -5 Drains No Packing No Pathology Yes (Gallbladder, appendix) Complications None Condition Stable Disposition PACU [facility] Billing Surgery - Charge Forward: Surgery Billing (Laparoscopic cholecystectomy, laparoscopic appendectomy)
[2024-12-18] MEDS: oxyCODONE HCL (*CRX) 5 MG TAB IR PO (12:36)
== END 2024-12-18 13:15 | disposition home or self-care (01) ==
PROVIDERS: PCP Internal Medicine; Visit Provider Surgery
PROC: 0FT44ZZ Resection of Gallbladder, Percutaneous Endoscopic Approach (ICD-10-PCS; CPT 47562; principal; 2024-12-18 09:30)
PROC: 0DTJ4ZZ Resection of Appendix, Percutaneous Endoscopic Approach (ICD-10-PCS; CPT 44970; 2024-12-18 09:30)
DX: K81.1 Chronic cholecystitis (principal)
CPT/HCPCS: 47562; 88304; A9270; J0690; J1100; J1885; J2003; J2250; J2371; J2405; J2704; J3010; J7120

== ENCOUNTER 2025-01-04 10:30 | Outpatient (CLI) | payer MEDICARE, MEDICAID, SELFPAY ==
--- NOTE | ~2025-01-04 | NM_ITS ---
EXAMINATION: NM hepatobiliary wo pharm DATE: 01/04/2025 11:57 INDICATION: Abdominal pain COMPARISON: CT dated 12/06/2024 and outside institution hepatobiliary scan performed 12/10/2024 TECHNIQUE: 5.8 mCi Tc-99m mebrofenin (Choletec) was administered intravenously. Scintigraphic images of the abdomen were obtained for one hour. FINDINGS: There is normal clearance of radiotracer from the blood pool. There is homogeneous tracer u ptake by the liver. Activity progresses to the gallbladder fossa within 10 minutes. By 15 minutes th ere is additional more extensive activity which extends caudally along the right paracolic gutter pro gressively declining in the peritoneal spaces throughout all 4 quadrants of the abdomen and pelvis. N o definitive activity identified in the region of the common bile duct or duodenum. IMPRESSION: 1. Bile leak which begins at the gallbladder fossa and which extends throughout the peritoneum in al l 4 quadrants of the abdomen and pelvis. 2. No evident activity in the region of the common bile duct or proximal small bowel which raises con cern for ligation of the common bile duct. Reviewed, dictated and finalized at location B. IMPRESSION: 1. Bile leak which begins at the gallbladder fossa and which extends throughou t the peritoneum in all 4 quadrants of the abdomen and pelvis. 2. No evident activity in the region of the common bile duct or proximal small bowel which raises concern for ligation of the common bile duct.
--- NOTE | ~2025-01-04 | US_ITS ---
EXAMINATION: US right upper quadrant DATE: 01/04/2025 12:03 INDICATION: Abdominal pain TECHNIQUE: Multiple grayscale and Doppler ultrasound images of the abdomen were obtained. COMPARISON: 11/22/2024 FINDINGS: The pancreatic head and body are normal in appearance. The pancreatic tail is not visualized. The vi sualized proximal abdominal aorta and inferior vena cava are normal. Liver has normal echogenicity an d contour, with a smooth surface. No liver lesion identified. No intrahepatic biliary duct dilation s uspected. Portal venous flow was seen in the hepatopetal, normal direction and has normal Doppler wav eform. The bladder is not visualized and was reportedly resected 2 weeks prior. The common bile duct measures 5 mm diameter. There is moderate amount of perihepatic ascites. Visualized portion of the ri ght kidney demonstrates normal contour and axis tube with no hydronephrosis. IMPRESSION: 1. Status post reported recent cholecystectomy with moderate amount of perihepatic ascites which base d upon findings on immediately prior HIDA scan would be consistent with a bile leak. Reviewed, dictated and finalized at location B. IMPRESSION: 1. Status post reported recent cholecystectomy with moderate amount of perihepa tic ascites which based upon findings on immediately prior HIDA scan would be c onsistent with a bile leak.
--- OUTSIDE RECORDS SUMMARY | 2025-01-04 11:25 | XMS_ITS | Encounter Summary ---
Author Organization [facility] Healthcare Address [address] [place] [address] Care Team Providers Care Director Emergency Department Name Role Phone Armond Bryan MD Unavailable [phone] Linda Hunter MD Unavailable Armond Bryan MD Primary Care Provider [phone] Solomon Garcia MD Unavailable [phone] Bebeto Pavon MD Unavailable [phone] Jeremy Byrd MD Unavailable [phone] Encounter Details Date Type Department Care Team (Late st Contact Info) Description 01/03/2025 5:30 PM CDT Lab [facility] Advanced Medicine [facility] Advanced Medicine ([facility]) [address] [place] [address] Chest pain, unspecified type; Serotonin syndrome; Pleuritic chest pain Social History Tobacco Use Types Packs/Day Years Used Date Smoking Tobacco: Never Smokeless Tobacco: Never Alcohol Use Standard Drinks/Week Comments [...] on file Legal Sex Female 8:47 PM [employer] Gender Identity Not on file Sexual Orientation Not on file documented as of this encounter Plan of Treatment Not on file documented as of this encounter Procedures Procedure Name Priority Date/Time Associated Diagnosis Comments EGFR Routine 01/03/2025 3:10 PM CDT Chest pain, unspecified type Serotonin syndrome Pleuritic chest pain DIFFERENTIAL AUTO Routine 01/03/2025 3:1 0 PM CDT Chest pain, unspecified type Serotonin syndrome Pleuritic chest pain URINALYSIS AND REFLEX TO MICROSCOPIC AND CULTURE Routine 01/03/2025 3:10 PM CDT Chest pain, unspecified type Serotonin syndrome Pleuritic chest pain CBC WITH AUTO DIFFERENTIAL Routine 01/03/2025 3:10 PM CDT Chest pain, unspecified type Serotonin syndrome Pleuritic chest pain LIPASE Routine 01/03/2025 3:10 PM CDT Chest pain, unspecified type Serotonin syndrome Pleuritic chest pain AMYLASE Routine 01/03/2025 3:10 PM CDT Chest pain, unspecified type Serotonin syndrome Pleuritic chest pain COMPREHENSIVE METABOLIC PANEL Routine 01/03/2025 3:10 PM CDT Chest pain, unspecified type Serotonin syndrome Pleuritic chest pain documented in this encounter Results * eGFR (01/03/2025 3:10 PM CDT) eGFR >90 >=60 mL/min/1. 73 m2 Comment: [...] interpretive data was last reviewed 2021. Blood 01/03/2025 3:10 PM CDT 01/03/2025 3:59 PM CDT us Armond Bryan MD LAB BLOOD ORDERABLES Final Re sult [facility] [address] [facility] Department [place] [address] * (ABNORMAL) Differential, auto (01/03/2025 3:10 PM CDT) Neutrophil abs 8.0(H) 1.5 - 6.5 K/cumm Imm gran abs 0.1 0.0 - 0.1 K/cumm [facility] Lymphocyte abs 1.0 0.8 - 3.3 K/cumm [facility] Monocyte abs 0.4 0.2 - 0.8 K/cumm [facility] Eosinophil abs 0.2 0.0 - 0.5 K/cumm [facility] Basophil abs 0.1 0.0 - 0.1 K/cumm [facility] Neutrophil pct 82.2 % [facility] Comment: Interpretive Data Percent cell count reference ranges are not reported, since discordance with absolute values may lead to misinterpretation of CBC data. Current Interpretive Data was last revised on 2018. Imm gran pct 1.3 % [facility] Comment: Interpretive Data Percent cell count reference ranges are not reported, since discordance with absolute values may lead to misinterpretation of CBC data. Current Interpretive Data was last revised on 2018. Lymphocyte pct 10.2 % [facility] Comment: Interpretive Data Percent cell count reference ranges are not reported, since discordance with absolute values may lead to misinterpretation of CBC data. Current Interpretive Data was last revised on 2018. Monocyte pct 3.8 % [facility] Comment: Interpretive Data Percent cell count reference ranges are not reported, since discordance with absolute values may lead to misinterpretation of CBC data. Current Interpretive Data was last revised on 2018. Eosinophil pct 1.9 % [facility] Comment: Interpretive Data Percent cell count reference ranges are not reported, since discordance with absolute values may lead to misinterpretation of CBC data. Current Interpretive Data was last revised on 2018. Basophil pct 0.6 % [facility] Comment: Interpretive Data Percent cell count reference ranges are not reported, since discordance with absolute values may lead to misinterpretation of CBC data. Current Interpretive Data was last revised on 2018. Blood 01/03/2025 3:10 PM CDT 01/03/2025 3:50 PM CDT us Armond Bryan MD LAB BLOOD ORDERABLES Final Re sult [facility] [address] [facility] Department [place] [address] * (ABNORMAL) CBC with auto differential (01/03/2025 3:10 PM CDT) WBC 9.8 3.8 - 9.9 K/cumm Hgb 11.0(L) 11.9 - 15.5 g/dL [facility] Hct 33.8(L) 35.6 - 45.5 % [facility] Plt 501(H) 150 - 400 K/cumm [facility] MPV 10.7 9.1 - 12.3 fL [facility] RBC 3.94 3.90 - 5.20 M/cumm [facility] MCV 85.8 81.3 - 96.4 fL [facility] MCH 27.9 27.1 - 33.3 pg [facility] MCHC 32.5 32.3 - 35.7 g/dL [facility] RDW CV 15.0(H) 11.1 - 14.9 % [facility] RDW SD 47.7 35.7 - 48.1 fL [facility] NRBC abs 0.00 0.00 - 0.01 K/cumm [facility] Blood 01/03/2025 3:10 PM CDT 01/03/2025 3:50 PM CDT us Armond Bryan MD LAB BLOOD ORDERABLES Final Re sult [facility] [address] [facility] Department [place] [address] * (ABNORMAL) Comprehensive metabolic panel (01/03/2025 3:10 PM CDT) Sodium 136 135 - 145 mmol/L Potassium, pl 3.9 3.3 - 4.9 mmol/L [facility] Chloride 100 97 - 110 mmol/L [facility] CO2 27 22 - 32 mmol/L [facility] Anion gap 9 2 - 15 mmol/L [facility] BUN 12 6 - 25 mg/dL [facility] Creatinine 0.50(L) 0.60 - 1.10 mg/dL [facility] Glucose 82 70 - 199 mg/dL [facility] Comment: Interpretive Data Fasting glucose [...] interpretive data was last revised 2022. Calcium 8.6 8.5 - 10.3 mg/dL [facility] Bilirubin, total 3.0(H) 0.1 - 1.2 mg/dL [facility] Protein, pl 6.3(L) 6.5 - 8.5 g/dL [facility] Albumin 3.2(L) 3.5 - 5.0 g/dL [facility] Alk phos 1,280(H) 40 - 130 Units/L [facility] ALT 102(H) 7 - 45 Units/L [facility] AST 141(H) 10 - 45 Units/L [facility] Blood 01/03/2025 3:10 PM CDT 01/03/2025 3:50 PM CDT us Armond Bryan MD LAB BLOOD ORDERABLES Final Re sult Performing Organization Address [facility] Co de Phone Number [facility] [place] [address] * (ABNORMAL) Amylase (01/03/2025 3:10 PM CDT) Amylase 123(H) 30 - 99 Units/L Blood 01/03/2025 3:10 PM CDT 01/03/2025 3:50 PM CDT us Armond Bryan MD LAB BLOOD ORDERABLES Final Re sult Performing Organization Address [facility] de Phone Number [facility] [place] [address] * (ABNORMAL) Lipase (01/03/2025 3:10 PM CDT) Lipase 235(H) 10 - 99 Units/L Blood 01/03/2025 3:10 PM CDT 01/03/2025 3:50 PM CDT us Armond Bryan MD LAB BLOOD ORDERABLES Final Re sult Performing Organization Address [facility] Co de Phone Number [facility] Department [place] [address] * (ABNORMAL) Urinalysis reflex to microscopic and culture Urine (01/03/2025 3:10 PM CDT) Color, ur Yellow Yellow Clarity, ur Clear Clear [facility] Specific gravity, ur >1.042(H) 1.003 - 1.030 [facility] pH, urine 7.0 [facility] Comment: Interpretive Data U rine pH is affected by diet, medications, systemic acid-base disturbances, and renal tubular function. pH may affect urinary stone formation. For example, urine pH below 6.0 may help reduce the tendency for calcium phosphate stones and pH greater than 6.0 may reduce the tendency for uric acid stone formation. Source: [facility] Current Interpretive Data was last revised on 2017 Protein, ur ql Trace Negative [facility] Glucose, ur ql Negative Negative [facility] Ketones, ur 1+(A) Negative [facility] Bilirubin, ur Negative Negative [facility] Blood, ur Negative Negative [facility] Urobilinogen, ur <2.0 <2.0 mg/dL [facility] Nitrite, ur Negative Negative [facility] Leukocyte esterase, ur Negative Negative [facility] UA reflex comment Reflex conditions for microscopic UA and culture not met. [facility] Urine 01/03/2025 3:10 PM CDT 01/03/2025 3:50 PM CDT Armond Bryan MD LAB MICROBIOLOGY - GENERAL OR DERABLES Final Result Performing Organization Address City/State/[facility] Co de Phone Number [facility] Department [place] [address] documented in this encounter Visit Diagnoses Diagnosis Chest pain, unspecified type Serotonin syndrome Other extrapyramidal disease and abnormal movement disorder Pleuritic chest pain Painful respiration documented in this encounter Care Teams Director Emergency Department Relationship Specialty Start Date End Date Armond Bryan MD [address] [facility] [address] [place] [address] PCP - General Internal Medicine 05/19/21 Armond Bryan MD [address] [facility] [address] [place] [address] 01/29/21 [place] [address] [address] [facility] [address] [place] [address] Consulting Physician Endocrinology Diabetes & Metabolism 11/09/18 [place] [address] [address] [facility] [address] [place] [address] Referring Physician Gastroenterology 07/05/22 Bebeto Pavon MD [address] [facility] [phone] [place] [address] Surgeon Colon and Rectal Surgery 07/06/22 Jeremy Byrd MD [address] [facility] [address] [facility] [address] [place] [address] Referring Physician Obstetrics and Gynecology 07/28/22 documented as of this encounter
--- OUTSIDE RECORDS SUMMARY | 2025-01-04 11:25 | XMS_ITS | Encounter Summary ---
Author Organization [facility] Healthcare Address [address] [place] [address] Care Team Providers Care Sports Physiologist Name Role Phone Armond Bryan MD Unavailable [phone] Linda Hunter MD Unavailable Armond Bryan MD Primary Care Provider [phone] Solomon Garcia MD Unavailable [phone] Bebeto Pavon MD Unavailable [phone] Jeremy Byrd MD Unavailable [phone] Reason for Visit * MRI/CAT/PET Scan (Routine) - Pending Review Specialty Diagnoses / Procedures Referred By Contlayla t Referred To Contact Radiology Diagnoses Chest pain, unspecified type Procedures CT Chest PE (CTA) W Contrast CT Chest W Contrast Armond Bryan MD [address] [address] Phone: tel: fax: [address] [phone] Referral ID Status Reason Start Date Expiration Date V isits Requested Visits Authorized [id number] Pending Review 01/03/2025 02/02/2026 1 1 Encounter Details Date Type Department Care Team (Latest Contact Info) Description 01/03/2025 1:43 PM CDT - 01/03/2025 11:59 PM CDT Hospital Encounter [facility] [address] [place] [id number] Chest pain, unspecified type Discharge Disposition: Discharge to home or self care Social History Tobacco Use Types Packs/Day Years [...] on file 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 Gender Identity Not on file Sexual Orientation Not on file documented as of this encounter Medications at Time of Discharge atomoxetine (STRATTERA) 40 mg capsuleIndications :Attention-Deficit Hyperactivity Disorder Take 1 capsule (40 mg total) 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 07/03/2022 cholecalciferol (VITAMIN D-3) 5,000 unit capsuleIndications :Vitamin D Deficiency Take 1 capsule (5,000 Units total) 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 12 capsule 3 11/22/2024 citalopram (CeleXA) 40 mg tabletIndications: ADHD Take 1 tablet (40 mg total) by mouth every morning 12/18/2019 fludrocortisone 0.1 mg tabletIndications: Chronic adrenal insufficiency TAKE 1 TABLET BY MOUTH DAILY 90 tablet 3 11/22/2024 folic acid (FOLVITE) 1 mg tablet TAKE 1 TABLET(1 MG) BY MOUTH EVERY MORNING 90 tablet 2 04/25/2024 ibuprofen (ADVIL,MOTRIN) 200 mg tab/cap Take 2 tablet/capsule (400 mg total) by mouth every 6 (six) hours as needed for pain loratadine (CLARITIN) 10 mg tabletIndications: Allergic Rhinitis Take 1 tablet (10 mg total) by mouth every morning methylphenidate ER (Concerta) 27 mg CR tablet Take 1 tablet (27 mg total) by mouth every morning 30 tablet 07/12/2024 mineral oil-chondrus oral emulsion 2.5 mL/5 mL Kondremul, take 1 tablespoon (15 ml dose) by moth 1-3 times daily as needed. 480 mL 07/06/[address] (PROTONIX) 40 mg EC tablet TAKE 1 TABLET(40 MG) BY MOUTH TWICE DAILY 180 tablet 2 07/19/2024 predniSONE (DELTASONE) 2.5 mg tabletIndications: Chronic adrenal insufficiency TAKE 2 TABLETS BY MOUTH TODAY AND 1 TABLET BY MOUTH THE NEXT DAY, CONTINUE ALTERNATING DOSE 135 tablet 3 11/22/2024 pregabalin (LYRICA) 150 mg capsule TAKE 1 CAPSULE(150 MG) BY MOUTH TWICE DAILY 60 capsule 3 10/19/2024 documented as of this encounter Discharge Disposition Disposition Code Departure Means Destination Discharge to home or self care documented in this encounter Plan of Treatment Not on file documented as of this encounter Procedures Procedure Name Priority Date/Time Associated Diagnosis Comments CT CHEST PE W CONTRAST Schedule Routine, Read Routine (OP Routine) 01/03/2025 2:39 PM CDT Chest pain, unspecified type documented in this encounter Results * CT Chest PE (CTA) W Contrast (01/03/2025 2:39 PM CDT) Anatomical Region Laterality Modality Body N/A Computed Tomogra phy 01/03/2025 2:43 PM CDT Impressions 01/03/2025 2:43 PM CDT No pulmonary embolism. Electronically signed by: Kaitlin Hair M.D. Narrative 01/03/2025 2:43 PM CDT EXAMINATION: CT CHEST PE (CTA) W CONTRAST HISTORY: Chest pain status post cholecystectomy and appendectomy TECHNIQUE: Computed tomographic images were acquired using a chest angiographic protocol optimized for pulmonary embolism. Contrast enhanced transaxial images were obtained following the intravenous administration of 70 ml of nonionic contrast. Multiplanar reformatted images and three-dimensional images were obtained on the 3-D workstation and sent to the PACS archival system. COMPARISON: None FINDINGS: There is no supraclavicular, axillary, mediastinal, or hilar lymphadenopathy. Heart is normal in size. No pericardial effusion. No pulmonary embolism is seen. No pleural effusion. No pneumothorax. Mild bibasilar atelectasis There is a dilated patulous esophagus. The gallbladder surgically absent. No suspicious osseous lesion is seen. There is posterior instrumented fusion of the spine. Procedure Note Kaitlin Hair MD - 01/03/2025 EXAMINATION: CT CHEST PE (CTA) W CONTRAST HISTORY: Chest pain status post cholecystectomy and appendectomy TECHNIQUE: Computed tomographic images were acquired using a chest angiographic protocol optimized for pulmonary embolism. Contrast enhanced transaxial images were obtained following the intravenous administration of 70 ml of nonionic contrast. Multiplanar reformatted images and three-dimensional images were obtained on the 3-D workstation and sent to the PACS archival system. COMPARISON: None FINDINGS: There is no supraclavicular, axillary, mediastinal, or hilar lymphadenopathy. Heart is normal in size. No pericardial effusion. No pulmonary embolism is seen. No pleural effusion. No pneumothorax. Mild bibasilar atelectasis There is a dilated patulous esophagus. The gallbladder surgically absent. No suspicious osseous lesion is seen. There is posterior instrumented fusion of the spine. IMPRESSION: No pulmonary embolism. Electronically signed by: Kaitlin Hair M.D. Armond Bryan MD [facility] [place]ED[place] Final Resul t documented in this encounter Visit Diagnoses Diagnosis Chest pain, unspecified type documented in this encounter Administered Medications Inactive Administered Medications - up to 3 most recent administrations Medication Order MAR Action Action Date Dose Rate Site ioversoL (OPTIRAY 350) syringe 75 mL 75 mL, intravenous, Once in imaging, contrast, Starting on Jyoti 01/03/25 at 1425, For 1 dose Contrast Given 01/03/2025 2:30 PM CDT 70 mL documented in this encounter Orders Medications Ordered That Dylan ht Not Have Been Administered Count Last Ordered Date First Ordered Date ioversoL (OPTIRAY 350) syringe 75 mL 1 12/09 documented in this encounter Care Teams Sports Physiologist Relationship Specialty Start Date End Date Armond Bryan MD [address] [facility] [address] [place] [address] PCP - General Internal Medicine 05/19/21 Armond Bryan MD [address] [facility] [address] [place] [address] 01/29/21 [place] [address] [facility] [address], [place] [address] Consulting Physician Endocrinology Diabetes & Metabolism 11/09/18 [place] [address] [address] Referring Physician Gastroenterology 07/05/22 Bebeto Pavon MD [address] [facility] [place] [id number] [place] [address] Surgeon Colon and Rectal Surgery 07/06/22 Jeremy Byrd MD [address] [facility] [address] [facility] [address] [place] [address] Referring Physician Obstetrics and Gynecology 07/28/22 documented as of this encounter
--- OUTSIDE RECORDS SUMMARY | 2025-01-04 11:25 | XMS_ITS | Encounter Summary ---
Author Organization [facility] Address [address] [place] [address] Care Team Providers Care Associate Material Handler Name Role Phone Armond Bryan MD Unavailable Linda Hunter MD Unavailable Armond Bryna MD Primary Care Provider [phone] Solomon Garcia MD Unavailable [phone] Bebeto Pavon MD Unavailable [phone] Jeremy Byrd MD Unavailable [phone] Encounter Details Date Type Department Care Team (Late st Contact Info) Description 01/02/2025 [facility] [address] [facility] [address] [facility] [place] [address] Ada Nieto, WINDOWS [employer] ADMINISTRATOR [address] [facility] [address] [place] [address] Social History Tobacco Use Types Packs/Day Years [...] on file 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 Abdomen is distended Having stools Nausea Pepcid ac Simethicone tums She is not sleeping at all Mother does not know what to give her The pain starts in the evening last all night I did move her appointment up to 01/03/25 She is back on her meds Oxycodone 5mg just when the pain is bad (one daily) with advil in between Tylenol 100mg q8 * Telephone Encounter - Alethea Madodx CMA - 01/02/2025 8:04 AM CDT Pt mother states she is still not feeling well. She has an appointment for Tuesday but believes she needs to be seen sooner. documented in this encounter Plan of Treatment Not on file documented as of this encounter Visit Diagnoses Not on filedocumented in this encounter Care Teams Associate Material Handler Relationship Specialty Start Date End Date Armond Bryan MD [address] [facility] [address] [place] [address] PCP - General Internal Medicine 05/19/21 Armond Bryan MD [address] [facility] [address] [place] [address] 01/29/21 [place] [address] [address] Consulting Physician Endocrinology Diabetes & Metabolism 11/09/18 [place] [address] [address] Referring Physician Gastroenterology 07/05/22 Bebeto Pavon MD [address] [facility] [phone] [place] [address] Surgeon Colon and Rectal Surgery 07/06/22 Jeremy Byrd MD [address] [facility] [address] [facility] [address] [place] [address] Referring Physician Obstetrics and Gynecology 07/28/22 documented as of this encounter
--- OUTSIDE RECORDS SUMMARY | 2025-01-04 11:25 | XMS_ITS | Referral Summary ---
Author Organization [facility] 8 [facility] Address 8 [place] [address] Care Team Providers Care Postal Clerk Name Role Phone Armond Bryan MD Unavailable [phone] Linda Hunter MD Unavailable Armond Bryan MD Primary Care Provider Solomon Garcia MD Unavailable Bebeto Pavon MD Unavailable [phone] Jeremy Byrd MD Unavailable [phone] Encounters Date Type Department Care Team Description 01/03/2025 5:30 PM CDT Lab [facility] ([facility]) [address] [place] [phone] Chest pain, unspecified type; Serotonin syndrome; Pleuritic chest pain 01/03/2025 1:43 PM CDT - 01/03/2025 11:59 PM CDT Hospital Encounter [facility] ([facility]) [address] [place] [phone] Chest pain, unspecified type Discharge Disposition: Discharge to home or self care 01/03/2025 12:30 PM CDT Office Visit [facility] [address] [facility] [address] [facility] [place] [address] Armond Bryan MD Chest pain, unspecified type (Primary Dx); Serotonin syndrome; Pleuritic chest pain 01/02/2025 Telephone [facility] [address] [phone] Ada Nieto NP 12/19/2024 Orders Only [facility] [address] [phone] Armond Bryan MD 12/10/2024 Orders Only [facility] [address] [phone] Ada Nieto NP Dysfunctional gallbladder (Primary Dx) 12/10/2024 Results Follow-Up [facility] [address] [place] [phone] Ada Nieto NP 12/10/2024 7:15 AM NURSING STAFFING COORDINATOR - 12/10/2024 11:59 PM NURSING STAFFING COORDINATOR Hospital Encounter [facility] ([facility]) [address] [place] [phone] Epigastric pain Discharge Disposition: Discharge to home or self care 12/08/2024 Orders Only [facility] [address] [phone] Armond Bryan MD 12/06/2024 Results Follow-Up [facility] [address] [phone] Ada Nieto NP 12/06/2024 Orders Only [facility] [address] [phone] Armond Bryan MD 11/26/2024 9:00 AM NURSING STAFFING COORDINATOR Procedure visit [facility] Otolaryngology [address] [place] [address] 11th [place] [address] [place] [address] Samanta Neumann Au.D. Sensorineural hearing loss (SNHL) of both ears (Primary Dx); Encounter for adjustment and management of cochlear device 11/23/2024 Telephone [facility] [address] [place], [place] [phone] Armond Bryan MD Lab Results 11/22/2024 2:15 PM NURSING STAFFING COORDINATOR Lab [facility] [address] [place] [address] Epigastric pain; Chronic adrenal insufficiency 11/22/2024 Orders Only [facility] [address] [place] [phone] Ada Nieto NP Epigastric pain (Primary Dx) 11/22/2024 3:15 PM NURSING STAFFING COORDINATOR Office Visit [facility] [address] [place] [phone] Linda Hunter MD Chronic adrenal insufficiency (Primary Dx); Vitamin D deficiency 11/21/2024 Telephone [facility] [address] [place], [place] [phone] Armond Bryan MD Lab Results 11/18/2024 Orders Only [facility] [address] [place] [phone] Ada Nieto NP Abdominal pain (Primary Dx); Elevated amylase 11/16/2024 12:20 PM NURSING STAFFING COORDINATOR Lab [facility] ([facility]) [address] [place], [place] [phone] Upper abdominal pain 11/16/2024 10:45 AM NURSING STAFFING COORDINATOR Office Visit [facility] [address] [place] [phone] Ada Nieto NP Epigastric pain (Primary Dx); Nausea; Nonintractable headache, unspecified chronicity pattern, unspecified headache type from Last 3 Months Allergies Active Allergy Reactions Criticality Noted Date Comments Tramadol Other (See comments) 01/03/2025 Serotonin syndrome Medications citalopram (CeleXA) 40 mg tabletIndications :ADHD Take 1 tablet (40 mg total) by mouth every morning 0 Active loratadine (CLARITIN) 10 mg tabletIndications :Allergic [...] 1-3 times daily as needed. 480 mL 2 Active atomoxetine (STRATTERA) 40 mg capsuleIndication s:Attention-Defic it Hyperactivity Disorder Take 1 capsule (40 mg total) by mouth fagot heater helper before breakfast 2 Active psyllium, aspartame, SF (METAMUCIL SF) 3.4 gram packet Take 1 packet by mouth daily 30 packet 2 Active polyethylene glycol (MIRALAX) 17 gram packet Take 1 packet (17 g total) by mouth daily 30 packet 2 Active folic acid (FOLVITE) 1 mg tablet TAKE 1 TABLET(1 MG) BY MOUTH EVERY MORNING 90 tablet 2 4 Active methylphenidate ER (Concerta) 27 mg CR tablet Take 1 tablet (27 mg total) by mouth every morning 30 tablet [address] (PROTONIX) 40 mg EC tablet TAKE 1 TABLET(40 MG) BY MOUTH TWICE DAILY 180 tablet 2 4 Active pregabalin (LYRICA) 150 mg capsule TAKE 1 CAPSULE(150 MG) BY MOUTH TWICE DAILY 60 capsule 3 5 Active predniSONE (DELTASONE) 2.5 mg tabletIndications :Chronic adrenal insufficiency TAKE 2 TABLETS BY MOUTH TODAY AND 1 TABLET BY MOUTH THE NEXT DAY, CONTINUE ALTERNATING DOSE 135 tablet 3 5 Active fludrocortisone 0.1 mg tabletIndications :Chronic adrenal insufficiency TAKE 1 TABLET BY MOUTH DAILY 90 tablet 3 5 Active cholecalciferol (VITAMIN D-3) 5,000 unit capsuleIndication s:Vitamin D Deficiency Take 1 capsule (5,000 Units total) by mouth fagot heater helper before breakfast 12 capsule 3 5 Active Active Problems Problem Noted Date Diagnosed Date Serotonin syndrome 01/03/2025 Assessment & Plan (01/03/2025 1:29 PM CDT): Stable, will continue off tramadol Pleuritic chest pain 01/03/2025 Assessment & Plan (01/03/2025 1:30 PM CDT): Check ct Cochlear implant in place 03/15/2024 Encounter for adjustment and management of cochl ear device 03/05/2024 Cholesteatoma of left ear 02/24/2022 Overview (07/10/2022): Added automatically from request for surgery [id number] Assessment & Plan (02/15/2023 3:14 PM CDT): Has post-op f/u 02/24/23 for ENT Epigastric pain 01/29/2022 Assessment & Plan (01/29/2022 9:48 AM CDT): Extensive evaluation. ? Functional bowel disease. To have follow up [facility]. ? Surgical eval for appendix Asymmetric SNHL (sensorineural hearing loss) 09/2019 Assessment & Plan (12/07/2019 5:25 PM NURSING STAFFING COORDINATOR): Discussed options for left hearing loss. Consider CROS amplification. RTC annually. Deafness, mixed type 08/02/2016 Chronic adrenal insufficiency 09/19/2012 Overview (01/12/2017): Glucocorticoid deficiency Assessment & Plan (11/01/2023 3:49 PM NURSING STAFFING COORDINATOR): Chronic, stable Continue prednisone and fludrocortisone Pt [...] issues Assessment & Plan (10/07/2022 2:14 PM NURSING STAFFING COORDINATOR): Chronic problem, improving. Mom is now monitoring [...] fact. Assessment & Plan (10/14/2020 3:13 PM NURSING STAFFING COORDINATOR): It is very important that you take your mediation every day, regularly . In situations of stress, either physical or psychological, the dose of the steroids should be doubled or tripled for a few days. In case of not tolerating oral intake , including vomiting , take injections of hydrocortisone as instructed. Have a medical alert bracelet or necklace stating you have [place]'s disease and that you take steroids. In [...] sent. Assessment & Plan (11/14/2018 9:59 AM NURSING STAFFING COORDINATOR): It is very important that you take [...] room. Assessment & Plan (11/15/2017 9:43 AM NURSING STAFFING COORDINATOR): It is very important that you take [...] NOS Assessment & Plan (11/01/2023 3:48 PM NURSING STAFFING COORDINATOR): Chronic, well controlled Update vit D Continue supplementation, as indicated Assessment & Plan (04/07/2023 4:47 PM CDT): Check 25 OH vit D Adjust dose of Ergocalciferol accordingly Assessment & Plan (01/08/2020 11:19 AM CDT): Continue current dose Will recheck in a few months Assessment & Plan (11/15/2017 9:43 AM NURSING STAFFING COORDINATOR): Check 25 OH vit D Adjust dose of Ergocalciferol accordingly Resolved Problems Problem Noted Date Diagnosed Date Resolved Date Postoperative state 07/28/2022 02/16/20 Intramural and subserous leiomyoma of uterus 02/15/2023 Rectal prolapse 07/06/2022 02/15/2023 Overview (07/06/2022): Added automatically from request for surgery [id number] Cholesteatoma of left ear 01/29/2022 Impacted cerumen 08/02/2016 2022 Otitis media 07/29/2014 2022 Disorder of adrenal gland ([facility]) 09/18/2013 2022 Overview (01/14/2017): ADRENAL DISORDER NOS 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[facility]) 09/19/2012 Overview (01/14/2017): Mineralocorticoid deficiency Immunizations [...] on file Legal Sex Female 8:47 PM NURSING STAFFING COORDINATOR Gender Identity Not on file Sexual Orientation Not on file Last Filed Vital Signs Vital Sign Reading Time Taken Comments Blood Pressure 108/69 01/03/2025 12:38 PM CDT Pulse 98 01/03/2025 12:38 PM CDT Temperature 36.7 C (98 F) 11/16/2024 10:36 AM NURSING STAFFING COORDINATOR Respiratory Rate 18 11/01/2023 3:08 PM NURSING STAFFING COORDINATOR Oxygen Saturation 97% 11/16/2024 10:36 AM NURSING STAFFING COORDINATOR Inhaled Oxygen Concentration - - Weight 41.6 kg (91 lb 12.8 oz) 01/03/2025 12:38 PM CDT Height 154.9 cm (5' 1 ) 01/03/2025 12:38 PM CDT Body Mass Index 17.35 01/03/2025 12:38 PM CDT Plan of Treatment Not on file Medical Devices Implanted Type Area Billing Collections Specialist Device Identifier Shelf Expiration Date Model / Serial / Lot [employer]/C R Bard 6x3in Large Pore Knit Monofilament Smooth [place] [id number] - [id number] Implanted:Qty: 1 on 07/14/2022 by Bebeto Pavon MD at [facility] Mesh N/A: Pelvis [employer]/C R Bard [id number] 10/06/2026 [id number] / / [id number] Metal Back Cochle[employer] Implant Cochlear Cochlear Nucleus Profile Plus Slim Modiolar Electrode [id number] - [id number] - [id number] Implanted:Qty: 1 on 08/15/2023 by Chirag Brito MD at [facility] Left: Ear [employer]chle[employer] [id number] 05/18/2025 [id number] / [id number] / Procedures Procedure Name Priority Date/Time [...] unspecified type Serotonin syndrome Pleuritic chest pain CT CHEST PE W CONTRAST Schedule Routine, Read Routine (OP Routine) 01/03/2025 2:39 PM CDT Chest pain, unspecified type SCAN - LABS 12/23/2024 1:25 AM CDT SCAN - PATHOLOGY 12/19/2024 10:37 AM CDT NM HEPATOBILIARY IMAGING W PHARMACEUTICAL INTERVENTION Schedule Routine, Read Routine (OP Routine) 12/10/2024 9:48 AM NURSING STAFFING COORDINATOR Epigastric pain SCAN - LABS 12/08/2024 7:31 AM NURSING STAFFING COORDINATOR SCAN - RADIOLOGY/IMAGING 12/06/2024 5:57 AM NURSING STAFFING COORDINATOR SCAN - LABS 12/06/2024 2:13 AM NURSING STAFFING COORDINATOR AUDBASE RESULTS 11/26/2024 8:57 AM NURSING STAFFING COORDINATOR AMYLASE Routine 11/22/2024 2:45 PM NURSING STAFFING COORDINATOR Epigastric pain LIPASE Routine 11/22/2024 2:45 PM NURSING STAFFING COORDINATOR Epigastric pain URINALYSIS AND REFLEX TO MICROSCOPIC AND CULTURE Routine 11/22/2024 2:30 PM NURSING STAFFING COORDINATOR Chronic adrenal insufficiency SCAN - RADIOLOGY/IMAGING 11/22/2024 9:45 AM NURSING STAFFING COORDINATOR SCAN - RADIOLOGY/IMAGING 11/22/2024 9:39 AM NURSING STAFFING COORDINATOR SCAN - RADIOLOGY/IMAGING 11/22/2024 8:50 AM NURSING STAFFING COORDINATOR EGFR Routine 11/16/2024 11:39 AM NURSING STAFFING COORDINATOR Upper abdominal pain URINALYSIS, MICROSCOPIC ONLY Routine 11/16/2024 11:39 AM NURSING STAFFING COORDINATOR Upper abdominal pain DIFFERENTIAL AUTO Routine 11/16/2024 11:39 AM NURSING STAFFING COORDINATOR Upper abdominal pain CBC WITH AUTO DIFFERENTIAL Routine 11/16/2024 11:39 AM NURSING STAFFING COORDINATOR Upper abdominal pain COMPREHENSIVE METABOLIC PANEL Routine 11/16/2024 11:39 AM NURSING STAFFING COORDINATOR Upper abdominal pain AMYLASE Routine 11/16/2024 11:39 AM NURSING STAFFING COORDINATOR Upper abdominal pain LIPASE Routine 11/16/2024 11:39 AM NURSING STAFFING COORDINATOR Upper abdominal pain URINALYSIS AND REFLEX TO MICROSCOPIC AND CULTURE Routine 11/16/2024 11:39 AM NURSING STAFFING COORDINATOR Upper abdominal pain from Last 3 Months Results * eGFR (01/03/2025 3:10 PM CDT) Pathologist [facility] eGFR >90 >=60 mL/min/1. 73 m2 Comment: [...] MD LAB BLOOD ORDERABLES Final Re sult [facility] [place] [address] * (ABNORMAL) Differential, auto (01/03/2025 3:10 PM CDT) Neutrophil abs 8.0(H) 1.5 - 6.5 K/cumm Imm gran abs 0.1 0.0 - 0.1 K/cumm [facility] Lymphocyte abs 1.0 0.8 - 3.3 K/cumm [facility] Monocyte abs 0.4 0.2 - 0.8 K/cumm [facility] Eosinophil abs 0.2 0.0 - 0.5 K/cumm [facility] Basophil abs 0.1 0.0 - 0.1 K/cumm [facility] Neutrophil pct 82.2 % [facility] Comment: Interpretive Data Percent cell count reference ranges are not reported, since discordance with absolute values may lead to misinterpretation of CBC data. Current Interpretive Data was last revised on 2018. Imm gran pct 1.3 % [facility] Comment: Interpretive Data Percent cell count reference ranges are not reported, since discordance with absolute values may lead to misinterpretation of CBC data. Current Interpretive Data was last revised on 2018. Lymphocyte pct 10.2 % [facility] Comment: Interpretive Data Percent cell count reference ranges are not reported, since discordance with absolute values may lead to misinterpretation of CBC data. Current Interpretive Data was last revised on 2018. Monocyte pct 3.8 % [facility] Comment: Interpretive Data Percent cell count reference ranges are not reported, since discordance with absolute values may lead to misinterpretation of CBC data. Current Interpretive Data was last revised on 2018. Eosinophil pct 1.9 % [facility] Comment: Interpretive Data Percent cell count reference ranges are not reported, since discordance with absolute values may lead to misinterpretation of CBC data. Current Interpretive Data was last revised on 2018. Basophil pct 0.6 % [facility] Comment: Interpretive Data Percent cell count reference ranges are not reported, since discordance with absolute values may lead to misinterpretation of CBC data. Current Interpretive Data was last revised on 2018. Blood 01/03/2025 3:10 PM CDT 01/03/2025 3:50 PM CDT us Armond Bryan MD LAB BLOOD ORDERABLES Final Re sult [facility] [place] [address] * (ABNORMAL) Urinalysis reflex to microscopic and culture Urine (01/03/2025 3:10 PM CDT) Color, ur Yellow Yellow Clarity, ur Clear Clear [facility] Specific gravity, ur >1.042(H) 1.003 - 1.[address] [facility] pH, urine 7.0 [facility] Comment: Interpretive Data U rine pH is affected by diet, medications, systemic acid-base disturbances, and renal tubular function. pH may affect urinary stone formation. For example, urine pH below 6.0 may help reduce the tendency for calcium phosphate stones and pH greater than 6.0 may reduce the tendency for uric acid stone formation. Source: [facility] Current Interpretive Data was last revised on 2017 Protein, ur ql Trace Negative [facility] Glucose, ur ql Negative Negative [facility] Ketones, ur 1+(A) Negative [facility] Bilirubin, ur Negative Negative [facility] Blood, ur Negative Negative [facility] Urobilinogen, ur <2.0 <2.0 mg/dL [facility] Nitrite, ur Negative Negative [facility] Leukocyte esterase, ur Negative Negative [facility] UA reflex comment Reflex conditions for microscopic UA and culture not met. [facility] Urine 01/03/2025 3:10 PM CDT 01/03/2025 3:50 PM CDT us Armond Bryan MD LAB MICROBIOLOGY - GENERAL OR DERABLES Final Result [facility] [place] [address] * (ABNORMAL) CBC with auto differential (01/03/2025 3:10 PM CDT) WBC 9.8 3.8 - 9.9 K/cumm Hgb 11.0(L) 11.9 - 15.5 g/dL [facility] Hct 33.8(L) 35.6 - 45.5 % [facility] Plt 501(H) 150 - 400 K/cumm [facility] MPV 10.7 9.1 - 12.3 fL [facility] RBC 3.94 3.90 - 5.20 M/cumm [facility] MCV 85.8 81.3 - 96.4 fL [facility] MCH 27.9 27.1 - 33.3 pg [facility] MCHC 32.5 32.3 - 35.7 g/dL [facility] RDW CV 15.0(H) 11.1 - 14.9 % [facility] RDW SD 47.7 35.7 - 48.1 fL [facility] NRBC abs 0.00 0.00 - 0.01 K/cumm [facility] Blood 01/03/2025 3:10 PM CDT 01/03/2025 3:50 PM CDT us Armond Bryan MD LAB BLOOD ORDERABLES Final Re sult Performing Organization Address [facility] de Phone Number [facility] [place] [place] [address] * (ABNORMAL) Lipase (01/03/2025 3:10 PM CDT) Lipase 235(H) 10 - 99 Units/L Blood 01/03/2025 3:10 PM CDT 01/03/2025 3:50 PM CDT us Armond Bryan MD LAB BLOOD ORDERABLES Final Re sult Performing Organization Address [facility] de Phone Number [facility] [place] [employer] [place] [address] * (ABNORMAL) Amylase (01/03/2025 3:10 PM CDT) Pathologist [facility] Amylase 123(H) 30 - 99 Units/L Blood 01/03/2025 3:10 PM CDT 01/03/2025 3:50 PM CDT us Armond Bryan MD LAB BLOOD ORDERABLES Final Re sult Performing Organization Address [facility] [place] [address] * (ABNORMAL) Comprehensive metabolic panel (01/03/2025 3:10 PM CDT) Sodium 136 135 - 145 mmol/L Potassium, pl 3.9 3.3 - 4.9 mmol/L [facility] Chloride 100 97 - 110 mmol/L [facility] CO2 27 22 - 32 mmol/L [facility] Anion gap 9 2 - 15 mmol/L [facility] BUN 12 6 - 25 mg/dL [facility] Creatinine 0.50(L) 0.60 - 1.10 mg/dL [facility] Glucose 82 70 - 199 mg/dL [facility] Comment: Interpretive Data Fasting glucose >/= [...] classification and Diagnosis of Diabetes Diabetes Care 202; 46: S19-S40. Current interpretive data was last revised 2022. Calcium 8.6 8.5 - 10.3 mg/dL [facility] Bilirubin, total 3.0(H) 0.1 - 1.2 mg/dL [facility] Protein, pl 6.3(L) 6.5 - 8.5 g/dL [facility] Albumin 3.2(L) 3.5 - 5.0 g/dL [facility] Alk phos 1,280(H) 40 - 130 Units/L [facility] ALT 102(H) 7 - 45 Units/L [facility] AST 141(H) 10 - 45 Units/L [facility] Blood 01/03/2025 3:10 PM CDT 01/03/2025 3:50 PM CDT us Armond Bryan MD LAB BLOOD ORDERABLES Final Re sult [facility] [place] [address] * CT Chest PE (CTA) W Contrast [...] embolism. Electronically signed by: Kaitlin Hair M.D. us Armond Bryan MD IM CT PROCEDURES Final Resul t * SCAN - LABS (12/23/2024 1:25 AM CDT) us Armond Bryan MD Final Result * SCAN - PATHOLOGY (12/19/2024 10:37 AM CDT) us Armond Bryan MD Final Result * NM Hepatobiliary Imaging W GBEF (12/10/2024 9:48 AM NURSING STAFFING COORDINATOR) Anatomical Region Laterality Modality Body N/A Nuclear Medicine 12/10/2024 10:5 5 AM NURSING STAFFING COORDINATOR Impressions 12/10/2024 11:07 AM NURSING STAFFING COORDINATOR 1. Abnormal contractile response of gallbladder to sincalide infusion, consistent with chronic cholecystitis.. 2. Otherwise patent biliary system. Dictated by: Sally Avelar MD The radiology attending physician has personally reviewed this study, and had reviewed and/or edited this written report and agrees with it. Electronically signed by: DO Jayla Haney 12/10/2024 11:07 AM NURSING STAFFING COORDINATOR EXAMINATION: HEPATOBILIARY SCINTIGRAPHY (WITH GALLBLADDER EJECTION FRACTION) [...] results of this study was sent to [employer]/[facility] by the interpreting physician Dr Almas Wren. Procedure Note Almas Wren DO - 12/10/2024 EXAMINATION: HEPATOBILIARY SCINTIGRAPHY (WITH [...] results of this study was sent to [employer]/PACS by the interpreting physician Dr Almas Wren. IMPRESSION: 1. Abnormal contractile response of gallbladder to sincalide infusion, consistent with chronic cholecystitis.. 2. Otherwise patent biliary system. Dictated by: Sally Avelar MD The radiology attending physician has personally reviewed this study, and had reviewed and/or edited this written report and agrees with it. Electronically signed by: Almas Wren DO Ada Nieto NP IMG NM PROCEDURES Final Resul t * SCAN - LABS (12/08/2024 7:31 AM NURSING STAFFING COORDINATOR) Armond Bryan MD Final Result * SCAN - RADIOLOGY/IMAGING (12/06/2024 5:57 AM NURSING STAFFING COORDINATOR) Anatomical Region Laterality Modality Other Result [facility] Armond Bryan MD Final Result * SCAN - LABS (12/06/2024 2:13 AM NURSING STAFFING COORDINATOR) Result [facility] Armond Bryan MD Final Result * [employer] Results (11/26/2024 8:57 AM NURSING STAFFING COORDINATOR) Result [facility] Provider Scanning AUDIOLOGY SERVICES ORDERABLES Final Result * Lipase (11/22/2024 2:45 PM NURSING STAFFING COORDINATOR) Lipase 87 10 - 99 Units/L Blood 11/22/2024 2:45 PM NURSING STAFFING COORDINATOR 11/22/2024 2:45 PM NURSING STAFFING COORDINATOR Result [facility] Ada Nieto SKIP HOIST OPERATOR LAB BLOOD ORDERABLES Final Re sult Performing Organization Address [facility] de Phone Number [facility] [address] [place] [address] * (ABNORMAL) Amylase (11/22/2024 2:45 PM NURSING STAFFING COORDINATOR) Amylase 105(H) 30 - 99 Units/L Blood 11/22/2024 2:45 PM NURSING STAFFING COORDINATOR 11/22/2024 2:45 PM NURSING STAFFING COORDINATOR Result [facility] Ada Nieto NP LAB BLOOD ORDERABLES Final Re sult Performing Organization Address [facility] de Phone Number [facility] [address] [place] [address] * Urinalysis reflex to microscopic and culture Urine (11/22/2024 2:30 PM NURSING STAFFING COORDINATOR) Color, ur Straw Yellow Clarity, ur Clear Clear [facility] Specific gravity, ur 1.008 1.003 - 1.030 [facility] pH, urine 6.0 [facility] Comment: Interpretive Data U rine pH is affected by diet, medications, systemic acid-base disturbances, and renal tubular function. pH may affect urinary stone formation. For example, urine pH below 6.0 may help reduce the tendency for calcium phosphate stones and pH greater than 6.0 may reduce the tendency for uric acid stone formation. Source: [facility] Current Interpretive Data was last revised on [...] for microscopic UA and culture not met. [facility] Urine 11/22/2024 2:30 PM NURSING STAFFING COORDINATOR 11/22/2024 2:39 PM NURSING STAFFING COORDINATOR us Ada Nieto NP LAB MICROBIOLOGY - GENERAL OR DERABLES Final Result Performing Organization Address City/State/[facility] Co de Phone Number [facility] [address] [address] [place] [address] * SCAN - RADIOLOGY/IMAGING (11/22/2024 9:45 AM NURSING STAFFING COORDINATOR) Anatomical Region Laterality Modality Other us Ada Nieto NP Final Result * SCAN - RADIOLOGY/IMAGING (11/22/2024 9:39 AM NURSING STAFFING COORDINATOR) Anatomical Region Laterality Modality Other us Ada Nieto NP Final Result * SCAN - RADIOLOGY/IMAGING (11/22/2024 8:50 AM NURSING STAFFING COORDINATOR) Anatomical Region Laterality Modality Other us Ada Nieto NP Final Result * eGFR (11/16/2024 11:39 AM NURSING STAFFING COORDINATOR) eGFR >90 >=60 mL/min/1. 73 m2 Comment: [...] reviewed 2021. Blood 11/16/2024 11:3 9 AM NURSING STAFFING COORDINATOR 11/16/2024 12:24 PM NURSING STAFFING COORDINATOR us Ada Nieto SKIP HOIST OPERATOR LAB BLOOD ORDERABLES Final Re sult [facility] [place] [address] * Differential, auto (11/16/2024 11:39 AM NURSING STAFFING COORDINATOR) Neutrophil abs 6.1 1.5 - 6.5 K/cumm Imm gran abs 0.1 0.0 - 0.1 K/cumm [facility] Lymphocyte abs 1.3 0.8 - 3.3 K/cumm [facility] Monocyte abs 0.4 0.2 - 0.8 K/cumm [facility] Eosinophil abs 0.1 0.0 - 0.5 K/cumm [facility] Basophil abs 0.1 0.0 - 0.1 K/cumm [facility] Neutrophil pct 75.8 % [facility] Comment: Interpretive Data Percent cell count reference ranges are not reported, since discordance with absolute values may lead to misinterpretation of CBC data. Current Interpretive Data was last revised on 2018. Imm gran pct 1.0 % [facility] Comment: Interpretive Data Percent cell count reference ranges are not reported, since discordance with absolute values may lead to misinterpretation of CBC data. Current Interpretive Data was last revised on 2018. Lymphocyte pct 16.3 % [facility] Comment: Interpretive Data Percent cell count reference ranges are not reported, since discordance with absolute values may lead to misinterpretation of CBC data. Current Interpretive Data was last revised on 2018. Monocyte pct 4.5 % [facility] Comment: Interpretive Data Percent cell count reference ranges are not reported, since discordance with absolute values may lead to misinterpretation of CBC data. Current Interpretive Data was last revised on 2018. Eosinophil pct 1.6 % [facility] Comment: Interpretive Data Percent cell count reference ranges are not reported, since discordance with absolute values may lead to misinterpretation of CBC data. Current Interpretive Data was last revised on 2018. Basophil pct 0.8 % [facility] Comment: Interpretive Data Percent cell count reference ranges are not reported, since discordance with absolute values may lead to misinterpretation of CBC data. Current Interpretive Data was last revised on 2018. Blood 11/16/2024 11:3 9 AM NURSING STAFFING COORDINATOR 11/16/2024 12:10 PM NURSING STAFFING COORDINATOR us Ada Nieto SKIP HOIST OPERATOR LAB BLOOD ORDERABLES Final Re sult [facility] [place] [address] * (ABNORMAL) Urinalysis reflex to microscopic and culture Urine (11/16/2024 11:39 AM NURSING STAFFING COORDINATOR) Color, ur Straw Yellow Clarity, ur Clear Clear [facility] Specific gravity, ur 1.021 1.003 - 1.030 [facility] pH, urine 7.0 [facility] Comment: Interpretive Data U rine pH is affected by diet, medications, systemic acid-base disturbances, and renal tubular function. pH may affect urinary stone formation. For example, urine pH below 6.0 may help reduce the tendency for calcium phosphate stones and pH greater than 6.0 may reduce the tendency for uric acid stone formation. Source: [facility] [employer] Current Interpretive Data was last revised on 2017 Protein, ur ql Trace Negative [facility] Glucose, ur ql Negative Negative [facility] Ketones, ur Negative Negative [facility] Bilirubin, ur Negative Negative [facility] Blood, ur Negative Negative [facility] Urobilinogen, ur <2.0 <2.0 mg/dL [facility] Nitrite, ur Negative Negative [facility] Leukocyte esterase, ur 1+(A) Negative [facility] UA reflex comment Reflex to microscopic UA will be performed. [facility] Urine 11/16/2024 11:3 9 AM NURSING STAFFING COORDINATOR 11/16/2024 12:10 PM NURSING STAFFING COORDINATOR us Ada Nieto NP LAB MICROBIOLOGY - GENERAL OR DERABLES Final Result [facility] [place] [address] * (ABNORMAL) CBC with auto differential (11/16/2024 11:39 AM NURSING STAFFING COORDINATOR) WBC 8.0 3.8 - 9.9 K/cumm Hgb 11.4(L) 11.9 - 15.5 g/dL [facility] Hct 35.2(L) 35.6 - 45.5 % [facility] Plt 291 150 - 400 K/cumm [facility] MPV 10.6 9.1 - 12.3 fL [facility] RBC 3.98 3.90 - 5.20 M/cumm [facility] MCV 88.4 81.3 - 96.4 fL [facility] MCH 28.6 27.1 - 33.3 pg [facility] MCHC 32.4 32.3 - 35.7 g/dL [facility] RDW CV 14.0 11.1 - 14.9 % [facility] RDW SD 45.4 35.7 - 48.1 fL [facility] NRBC abs 0.00 0.00 - 0.01 K/cumm [facility] Blood 11/16/2024 11:3 9 AM NURSING STAFFING COORDINATOR 11/16/2024 12:10 PM NURSING STAFFING COORDINATOR us Ada Sheri Nieto SKIP HOIST OPERATOR LAB BLOOD ORDERABLES Final Re sult Performing Organization Address [facility] [place] [address] * (ABNORMAL) Urinalysis, microscopic only (11/16/2024 11:39 AM NURSING STAFFING COORDINATOR) WBC, ur 6-10(A) 0 - 5 /HPF RBC, ur 3-5(A) 0 - 2 /HPF [facility] Epithelial cells, squamous, ur 6-10(A) 0 - 5 /HPF [facility] Comment:Suggestive of contam ination. Consider recollection by clean catch. Epithelial cells, renal, ur 1-5(A) 0 - 0 /HPF [facility] Mucous, ur Present(A) [facility] Culture Reflex Comment Reflex conditions for urine culture (WBC >10) not met. [facility] Urine 11/16/2024 11:3 9 AM NURSING STAFFING COORDINATOR 11/16/2024 12:10 PM NURSING STAFFING COORDINATOR Ada Nieto SKIP HOIST OPERATOR LAB URINE ORDERABLES Final Re sult Performing Organization Address [facility] [place] [address] * Lipase (11/16/2024 11:39 AM NURSING STAFFING COORDINATOR) Lipase 77 10 - 99 Units/L Blood 11/16/2024 11:3 9 AM NURSING STAFFING COORDINATOR 11/16/2024 12:10 PM NURSING STAFFING COORDINATOR Ada Nieto SKIP HOIST OPERATOR LAB BLOOD ORDERABLES Final Re sult Performing Organization Address [facility] [place] [address] * (ABNORMAL) Amylase (11/16/2024 11:39 AM NURSING STAFFING COORDINATOR) Amylase 102(H) 30 - 99 Units/L Blood 11/16/2024 11:3 9 AM NURSING STAFFING COORDINATOR 11/16/2024 12:10 PM NURSING STAFFING COORDINATOR us Ada Nieto SKIP HOIST OPERATOR LAB BLOOD ORDERABLES Final Re sult [facility] [place] [address] * Comprehensive metabolic panel (11/16/2024 11:39 AM NURSING STAFFING COORDINATOR) Sodium 142 135 - 145 mmol/L Potassium, pl 3.8 3.3 - 4.9 mmol/L [facility] Chloride 105 97 - 110 mmol/L [facility] CO2 29 22 - 32 mmol/L [facility] Anion gap 8 2 - 15 mmol/L [facility] BUN 11 6 - 25 mg/dL [facility] Creatinine 0.63 0.60 - 1.10 mg/dL [facility] Glucose 94 70 - 199 mg/dL [facility] Comment: Interpretive Data Fasting glucose >/= [...] 2022. Calcium 9.0 8.5 - 10.3 mg/dL [facility] Bilirubin, total 0.5 0.1 - 1.2 mg/dL [facility] Protein, pl 6.8 6.5 - 8.5 g/dL [facility] Albumin 4.1 3.5 - 5.0 g/dL [facility] Alk phos 41 40 - 130 Units/L [facility] ALT 11 7 - 45 Units/L [facility] AST 19 10 - 45 Units/L [facility] Blood 11/16/2024 11:3 9 AM NURSING STAFFING COORDINATOR 11/16/2024 12:10 PM NURSING STAFFING COORDINATOR us Ada Nieto SKIP HOIST OPERATOR LAB BLOOD ORDERABLES Final Re sult [facility] Organization Address City/State/ZIP Co de Phone Number [facility] [place] [address] from Last 3 Months Insurance MEDICARE [facility] Member Subscriber Plan / Payer (Ef fective 2024-Present) Name:YongellieSergeyie Relation to Subscriber:Self Name:YongellieJoaquín Payer ID:[id number] (NAIC) Type: MARY BETH Address: [address] [place] [id number] MEDICARE [facility] MEDICARE [facility]LY [facility] TRADITIONAL IDPA Advance Directives For more information, please contact: [phone] * Full Code (Latest Code Status on File) Date Activated Date Inactivated Comments 07/14/2022 3:56 PM 07/17/2022 3:47 PM Care Teams Postal Clerk Relationship Specialty Start Date End Date Armond Bryan MD [address] [facility] [address] [place] [address] PCP - General Internal Medicine 05/19/21 Armond Bryan MD [address] [facility] [address] [place] [address] 01/29/21 [place] [address] [facility] [address] [place] [address] Consulting Physician Endocrinology Diabetes & Metabolism 11/09/18 [place] [address] [facility] [address] [place] [address] Referring Physician Gastroenterology 07/05/22 Bebeto Pavon MD [address] [facility] [id number] [place] [address] Surgeon Colon and Rectal Surgery 07/06/22 Jeremy Byrd MD [address] [place] [address] Referring Physician Obstetrics and Gynecology 07/28/22
--- OUTSIDE RECORDS SUMMARY | 2025-01-04 11:25 | XMS_ITS | Clinical Summary ---
Author Organization [facility] Address [address] [facility], [address] [address] Phone Care Team Providers Care Edi Coordinator Name Role Phone Armond Bryan MD Primary Care Provider [phone] Allergies No known active allergies Medications STRATTERA [...] patient's age to complete this topic Insurance [facility] MEDICARE Care Teams Edi Coordinator Relationship Specialty Start Date End Date Armond Bryan MD PCP - General Internal Medicine 11/16/18
--- OUTSIDE RECORDS SUMMARY | 2025-01-04 11:25 | XMS_ITS | Clinical Summary ---
Author Organization [facility] Address [address] [place] [address] Care Team Providers Care Supervisor Mixing Name Role Phone Armond Bryan MD Unavailable Linda Hunter MD Unavailable Armond Bryan MD Primary Care Provider [phone] Solomon Garcia MD Unavailable [phone] Bebeto Pavon MD Unavailable Jeremy Byrd MD Unavailable [phone] Allergies Active Allergy Reactions Criticality Noted Date [...] 1 capsule (40 mg total) by mouth beef cattle farmer before breakfast 2 Active psyllium, aspartame, SF [...] 1 capsule (5,000 Units total) by mouth beef cattle farmer before breakfast 12 capsule 3 5 Active [...] (07/10/2022): Added automatically from request for surgery [id number] Assessment & Plan (02/15/2023 3:14 PM CDT): Has post-op f/u 02/24/23 for ENT Epigastric pain 01/29/2022 Assessment & Plan (01/29/2022 9:48 AM CDT): Extensive evaluation. ? Functional bowel disease. To have follow up Eyelet Riveter eval. ? Surgical eval for appendix Asymmetric SNHL (sensorineural hearing loss) 09/2019 Assessment & Plan (12/07/2019 5:25 PM ACQUISITION MARKETING MANAGER): Discussed options for left hearing loss. Consider CROS amplification. RTC annually. Deafness, mixed type 08/02/2016 Chronic adrenal insufficiency 09/19/2012 Overview (01/12/2017): Glucocorticoid deficiency Assessment & Plan (11/01/2023 3:49 PM ACQUISITION MARKETING MANAGER): Chronic, stable Continue prednisone and fludrocortisone Pt [...] issues Assessment & Plan (10/07/2022 2:14 PM ACQUISITION MARKETING MANAGER): Chronic problem, improving. Mom is now monitoring [...] fact. Assessment & Plan (10/14/2020 3:13 PM ACQUISITION MARKETING MANAGER): It is very important that you take your mediation every day, regularly . In situations of stress, either physical or psychological, the dose of the steroids should be doubled or tripled for a few days. In case of not tolerating oral intake , including vomiting , take injections of hydrocortisone as instructed. 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 In [...] sent. Assessment & Plan (11/14/2018 9:59 AM ACQUISITION MARKETING MANAGER): It is very important that you take your mediation every day, regularly . In situations of stress, either physical or psychological, the dose of the steroids should be doubled or tripled for a few days. In case of not tolerating oral intake , including vomiting , take injections of hydrocortisone as instructed. 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 In case of any extreme weakness, abdominal pain, diarrhea or dizziness, it is recommended for you to call an ambulance and proceed to the nearest emergency room. Assessment & Plan (11/15/2017 9:43 AM ACQUISITION MARKETING MANAGER): It is very important that you take your mediation every day, regularly . In situations of stress, either physical or psychological, the dose of the steroids should be doubled or tripled for a few days. In case of not tolerating oral intake , including vomiting , take injections of hydrocortisone as instructed. 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 In case of any extreme weakness, abdominal pain, diarrhea or dizziness, it is recommended for you to call an ambulance and proceed to the nearest emergency room. Vitamin D deficiency 09/16/2011 Overview (01/14/2017): VITAMIN D DEFICIENCY NOS Assessment & Plan (11/01/2023 3:48 PM ACQUISITION MARKETING MANAGER): Chronic, well controlled Update vit D Continue supplementation, as indicated Assessment & Plan (04/07/2023 4:47 PM CDT): Check 25 OH vit D Adjust dose of Ergocalciferol accordingly Assessment & Plan (01/08/2020 11:19 AM CDT): Continue current dose Will recheck in a few months Assessment & Plan (11/15/2017 9:43 AM ACQUISITION MARKETING MANAGER): Check 25 OH vit D Adjust dose of Ergocalciferol accordingly Resolved Problems Problem Noted Date Diagnosed Date Resolved Date Postoperative state 07/28/2022 02/16/20 Intramural and subserous leiomyoma of uterus 02/15/2023 Rectal prolapse 07/06/2022 02/15/2023 Overview (07/06/2022): Added automatically from request for surgery [id number] Cholesteatoma of left ear 01/29/2022 Impacted cerumen 08/02/2016 2022 Otitis media 07/29/2014 2022 Disorder of adrenal gland ([facility]) 09/18/2013 2022 Overview (01/14/2017): ADRENAL DISORDER NOS 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[facility]) 09/19/2012 Overview (01/14/2017): Mineralocorticoid deficiency Encounters Date Type Department Care Team Description 01/03/2025 5:30 PM CDT Lab [facility] ([facility]) [address] [place] [phone] Chest pain, unspecified type; Serotonin syndrome; Pleuritic chest pain 01/03/2025 1:43 PM CDT - 01/03/2025 11:59 PM CDT Hospital Encounter [facility] Radiology [facility] ([facility]) [address] [place] [id number] Chest pain, unspecified type Discharge Disposition: Discharge to home or self care 01/03/2025 12:30 PM CDT Office Visit [facility] [address] [facility] [place] [place] [address] Armond Bryan MD Chest pain, unspecified type (Primary Dx); Serotonin syndrome; Pleuritic chest pain 01/02/2025 Telephone [facility] [address] [facility] [place] [address] Ada Nieto NP 12/19/2024 Orders Only [facility] [address] [place] [address] [address] [place] [address] Armond Bryan MD 12/10/2024 7:15 AM ACQUISITION MARKETING MANAGER - 12/10/2024 11:59 PM ACQUISITION MARKETING MANAGER Hospital Encounter [facility] Radiology [facility] ([facility]) [address] [place] [address] Epigastric pain Discharge Disposition: Discharge to home or self care 12/10/2024 Orders Only [facility] [address] [place], [place] [address] [place] [address] Ada Nieto, JUVENTINO Dysfunctional gallbladder (Primary Dx) 12/10/2024 Results Follow-Up [facility] [address] [place] [phone] Ada Nieto NP 12/08/2024 Orders Only [facility] [address] [phone] Armond Bryan MD 12/06/2024 Results Follow-Up [facility] [address] [phone] Ada Nieto NP 12/06/2024 Orders Only [facility] [address] [phone] Armond Bryan MD 11/26/2024 9:00 AM ACQUISITION MARKETING MANAGER Procedure visit [facility] Otolaryngology [address] [place] [address] [address] [place] [address] [place] [address] Samanta Neumann Au.D. Sensorineural hearing loss (SNHL) of both ears (Primary Dx); Encounter for adjustment and management of cochlear device 11/23/2024 Telephone [facility] [address] [place] [phone] Armond Bryan MD Lab Results 11/22/2024 3:15 PM ACQUISITION MARKETING MANAGER Office Visit [facility] [address] [place] [phone] Linda Hunter MD Chronic adrenal insufficiency (Primary Dx); Vitamin D deficiency 11/22/2024 2:15 PM ACQUISITION MARKETING MANAGER Lab [facility] [address] [place] [address] Epigastric pain; Chronic adrenal insufficiency 11/22/2024 Orders Only [facility] [address] [place] [phone] Ada Nieto NP Epigastric pain (Primary Dx) 11/21/2024 Telephone [facility] [address] [place] [phone] Armond Bryan MD Lab Results 11/18/2024 Orders Only [facility] [address] [place] [phone] Ada Nieto NP Abdominal pain (Primary Dx); Elevated amylase 11/16/2024 12:20 PM ACQUISITION MARKETING MANAGER Lab [facility] ([facility]) [address] [place] [phone] Upper abdominal pain 11/16/2024 10:45 AM ACQUISITION MARKETING MANAGER Office Visit [facility] [address] [place] [phone] Ada Nieto NP Epigastric pain (Primary Dx); [...] Kidney stones Adhd GERD (gastroesophageal reflux disease) Jack's disease (HCC) Scoliosis Osorio Rods 10/2001 Covid-19 [...] on file Legal Sex Female 8:47 PM ACQUISITION MARKETING MANAGER Gender Identity Not on file Sexual Orientation [...] 36.7 C (98 F) 11/16/2024 10:36 AM ACQUISITION MARKETING MANAGER Respiratory Rate 18 11/01/2023 3:08 PM ACQUISITION MARKETING MANAGER Oxygen Saturation 97% 11/16/2024 10:36 AM ACQUISITION MARKETING MANAGER Inhaled Oxygen Concentration - - Weight 41.6 kg (91 lb 12.8 oz) 01/03/2025 12:38 PM CDT Height 154.9 cm (5' 1 ) 01/03/2025 12:38 PM CDT Body Mass Index 17.35 01/03/2025 12:38 PM CDT Plan of Treatment Health Maintenance Due Date [...] Vaccines Discontinued Medical Devices Implanted Type Area Sheet Roller Operator Device Identifier Shelf Expiration Date Model / Serial / Lot [employer]/C R Bard 6x3in Large Pore Knit Monofilament Smooth [place] [id number] - [id number] Implanted:Qty: 1 on 07/14/2022 by Bebeto Pavon MD at [facility] Mesh N/A: Pelvis [employer]/C R Bard [id number] 10/06/2026 [id number] / / [id number] Metal Back Cochlear [employer] Implant Cochlear Cochlear Nucleus Profile Plus Slim Modiolar Electrode [id number] - [id number] - [id number] Implanted:Qty: 1 on 08/15/2023 by Chirag Brito MD at [facility] Left: Ear [employer]chle[employer] [id number] 05/18/2025 [id number] / [id number] / Procedures Procedure Name Priority Date/Time [...] Read Routine (OP Routine) 12/10/2024 9:48 AM ACQUISITION MARKETING MANAGER Epigastric pain SCAN - LABS 12/08/2024 7:31 AM ACQUISITION MARKETING MANAGER SCAN - RADIOLOGY/IMAGING 12/06/2024 5:57 AM ACQUISITION MARKETING MANAGER SCAN - LABS 12/06/2024 2:13 AM ACQUISITION MARKETING MANAGER AUDBASE RESULTS 11/26/2024 8:57 AM ACQUISITION MARKETING MANAGER AMYLASE Routine 11/22/2024 2:45 PM ACQUISITION MARKETING MANAGER Epigastric pain LIPASE Routine 11/22/2024 2:45 PM ACQUISITION MARKETING MANAGER Epigastric pain URINALYSIS AND REFLEX TO MICROSCOPIC AND CULTURE Routine 11/22/2024 2:30 PM ACQUISITION MARKETING MANAGER Chronic adrenal insufficiency SCAN - RADIOLOGY/IMAGING 11/22/2024 9:45 AM ACQUISITION MARKETING MANAGER SCAN - RADIOLOGY/IMAGING 11/22/2024 9:39 AM ACQUISITION MARKETING MANAGER SCAN - RADIOLOGY/IMAGING 11/22/2024 8:50 AM ACQUISITION MARKETING MANAGER EGFR Routine 11/16/2024 11:39 AM ACQUISITION MARKETING MANAGER Upper abdominal pain URINALYSIS, MICROSCOPIC ONLY Routine 11/16/2024 11:39 AM ACQUISITION MARKETING MANAGER Upper abdominal pain DIFFERENTIAL AUTO Routine 11/16/2024 11:39 AM ACQUISITION MARKETING MANAGER Upper abdominal pain CBC WITH AUTO DIFFERENTIAL Routine 11/16/2024 11:39 AM ACQUISITION MARKETING MANAGER Upper abdominal pain COMPREHENSIVE METABOLIC PANEL Routine 11/16/2024 11:39 AM ACQUISITION MARKETING MANAGER Upper abdominal pain AMYLASE Routine 11/16/2024 11:39 AM ACQUISITION MARKETING MANAGER Upper abdominal pain LIPASE Routine 11/16/2024 11:39 AM ACQUISITION MARKETING MANAGER Upper abdominal pain URINALYSIS AND REFLEX TO MICROSCOPIC AND CULTURE Routine 11/16/2024 11:39 AM ACQUISITION MARKETING MANAGER Upper abdominal pain from Last 3 Months Results * eGFR (01/03/2025 3:10 PM CDT) Pathologist [facility] eGFR >90 >=60 mL/min/1. 73 m2 Comment: [...] of Race in Diagnosing Kidney Disease, JASN 202). The CKD-EPI equation should not be used for patients with unstable renal function and has not been validated in children and those over 70. Current interpretive data was last reviewed 2021. Blood 01/03/2025 3:10 PM CDT 01/03/2025 3:59 PM CDT us Armond Bryan MD LAB BLOOD ORDERABLES Final Re sult [facility] Department [place] [address] * (ABNORMAL) Differential, auto (01/03/2025 3:10 PM CDT) Neutrophil abs 8.0(H) 1.5 - 6.5 K/cumm Imm gran abs 0.1 0.0 - 0.1 K/cumm [facility] Lymphocyte abs 1.0 0.8 - 3.3 K/cumm [facility] Monocyte abs 0.4 0.2 - 0.8 K/cumm [facility] Eosinophil abs 0.2 0.0 - 0.5 K/cumm [facility] Basophil abs 0.1 0.0 - 0.1 K/cumm [facility] Neutrophil pct 82.2 % [facility] Comment: Interpretive Data Percent cell count reference ranges are not reported, since discordance with absolute values may lead to misinterpretation of CBC data. Current Interpretive Data was last revised on 2018. Imm gran pct 1.3 % [facility] Comment: Interpretive Data Percent cell count reference ranges are not reported, since discordance with absolute values may lead to misinterpretation of CBC data. Current Interpretive Data was last revised on 2018. Lymphocyte pct 10.2 % [facility] Comment: Interpretive Data Percent cell count reference ranges are not reported, since discordance with absolute values may lead to misinterpretation of CBC data. Current Interpretive Data was last revised on 2018. Monocyte pct 3.8 % [facility] Comment: Interpretive Data Percent cell count reference ranges are not reported, since discordance with absolute values may lead to misinterpretation of CBC data. Current Interpretive Data was last revised on 2018. Eosinophil pct 1.9 % [facility] Comment: Interpretive Data Percent cell count reference ranges are not reported, since discordance with absolute values may lead to misinterpretation of CBC data. Current Interpretive Data was last revised on 2018. Basophil pct 0.6 % [facility] Comment: Interpretive Data Percent cell count reference ranges are not reported, since discordance with absolute values may lead to misinterpretation of CBC data. Current Interpretive Data was last revised on 2018. Blood 01/03/2025 3:10 PM CDT 01/03/2025 3:50 PM CDT us Armond Bryan MD LAB BLOOD ORDERABLES Final Re sult [facility] Department [place] [address] * (ABNORMAL) Urinalysis reflex to microscopic and culture Urine (01/03/2025 3:10 PM CDT) Color, ur Yellow Yellow Clarity, ur Clear Clear [facility] Specific gravity, ur >1.042(H) 1.003 - 1.030 [facility] pH, urine 7.0 [facility] Comment: Interpretive Data U rine pH is affected by diet, medications, systemic acid-base disturbances, and renal tubular function. pH may affect urinary stone formation. For example, urine pH below 6.0 may help reduce the tendency for calcium phosphate stones and pH greater than 6.0 may reduce the tendency for uric acid stone formation. Source: [facility] Current Interpretive Data was last revised on 2017 Protein, ur ql Trace Negative [facility] Glucose, ur ql Negative Negative [facility] Ketones, ur 1+(A) Negative [facility] Bilirubin, ur Negative Negative [facility] Blood, ur Negative Negative [facility] Urobilinogen, ur <2.0 <2.0 mg/dL [facility] Nitrite, ur Negative Negative [facility] Leukocyte esterase, ur Negative Negative [facility] UA reflex comment Reflex conditions for microscopic UA and culture not met. [facility] Urine 01/03/2025 3:10 PM CDT 01/03/2025 3:50 PM CDT us Armond Bryan MD LAB MICROBIOLOGY - GENERAL OR DERABLES Final Result [facility] Department [place] [address] * (ABNORMAL) CBC with auto differential (01/03/2025 3:10 PM CDT) WBC 9.8 3.8 - 9.9 K/cumm Hgb 11.0(L) 11.9 - 15.5 g/dL [facility] Hct 33.8(L) 35.6 - 45.5 % [facility] Plt 501(H) 150 - 400 K/cumm [facility] MPV 10.7 9.1 - 12.3 fL [facility] RBC 3.94 3.90 - 5.20 M/cumm [facility] MCV 85.8 81.3 - 96.4 fL [facility] MCH 27.9 27.1 - 33.3 pg [facility] MCHC 32.5 32.3 - 35.7 g/dL [facility] RDW CV 15.0(H) 11.1 - 14.9 % [facility] RDW SD 47.7 35.7 - 48.1 fL [facility] NRBC abs 0.00 0.00 - 0.01 K/cumm [facility] Blood 01/03/2025 3:10 PM CDT 01/03/2025 3:50 PM CDT us Armond Bryan MD LAB BLOOD ORDERABLES Final Re sult Performing Organization Address [facility] Co de Phone Number [facility] [place] [address] * (ABNORMAL) Lipase (01/03/2025 3:10 PM CDT) Pathologist [facility] Lipase 235(H) 10 - 99 Units/L Blood 01/03/2025 3:10 PM CDT 01/03/2025 3:50 PM CDT us Armond Bryan MD LAB BLOOD ORDERABLES Final Re sult Performing Organization Address [facility] de Phone Number [facility] Department [place] [address] * (ABNORMAL) Amylase (01/03/2025 3:10 PM CDT) Pathologist [facility] Amylase 123(H) 30 - 99 Units/L Blood 01/03/2025 3:10 PM CDT 01/03/2025 3:50 PM CDT us Armond Bryan MD LAB BLOOD ORDERABLES Final Re sult Performing Organization Address [facility] de Phone Number [facility] [place] [address] * (ABNORMAL) Comprehensive metabolic panel (01/03/2025 3:10 PM CDT) Sodium 136 135 - 145 mmol/L Potassium, pl 3.9 3.3 - 4.9 mmol/L [facility] Chloride 100 97 - 110 mmol/L [facility] CO2 27 22 - 32 mmol/L [facility] Anion gap 9 2 - 15 mmol/L [facility] BUN 12 6 - 25 mg/dL [facility] Creatinine 0.50(L) 0.60 - 1.10 mg/dL [facility] Glucose 82 70 - 199 mg/dL [facility] Comment: Interpretive Data Fasting glucose >/= [...] 2022. Calcium 8.6 8.5 - 10.3 mg/dL [facility] Bilirubin, total 3.0(H) 0.1 - 1.2 mg/dL [facility] Protein, pl 6.3(L) 6.5 - 8.5 g/dL [facility] Albumin 3.2(L) 3.5 - 5.0 g/dL [facility] Alk phos 1,280(H) 40 - 130 Units/L [facility] ALT 102(H) 7 - 45 Units/L [facility] AST 141(H) 10 - 45 Units/L [facility] Blood 01/03/2025 3:10 PM CDT 01/03/2025 3:50 PM CDT us Armond Bryan MD LAB BLOOD ORDERABLES Final Re sult [facility] [place] [address] * CT Chest PE (CTA) W Contrast [...] Kaitlin Hair M.D. us Armond Bryan MD IMG CT PROCEDURES Final Resul t * SCAN - LABS (12/23/2024 1:25 AM CDT) us Armond Bryan MD Final Result * SCAN - PATHOLOGY (12/19/2024 10:37 AM CDT) us Armond Bryan MD Final Result * [place] Hepatobiliary Imaging W GBEF (12/10/2024 9:48 AM ACQUISITION MARKETING MANAGER) Anatomical Region Laterality Modality Body N/A Nuclear Medicine 12/10/2024 10:5 5 AM ACQUISITION MARKETING MANAGER Impressions 12/10/2024 11:07 AM ACQUISITION MARKETING MANAGER 1. Abnormal contractile response of gallbladder to sincalide infusion, consistent with chronic cholecystitis.. 2. Otherwise patent biliary system. Dictated by: Sally Avelar MD The radiology attending physician has personally reviewed this study, and had reviewed and/or edited this written report and agrees with it. Electronically signed by: DO Jayla Haney 12/10/2024 11:07 AM ACQUISITION MARKETING MANAGER EXAMINATION: HEPATOBILIARY SCINTIGRAPHY (WITH GALLBLADDER EJECTION FRACTION) [...] results of this study was sent to appssavvy/Hair ScynceS by the interpreting physician Dr Almas Wren. [...] results of this study was sent to appssavvy/PACS by the interpreting physician Dr Almas Wren. [...] * SCAN - LABS (12/08/2024 7:31 AM ACQUISITION MARKETING MANAGER) us Armond Bryan MD Final Result * SCAN - RADIOLOGY/IMAGING (12/06/2024 5:57 AM ACQUISITION MARKETING MANAGER) Anatomical Region Laterality Modality Other us Armond Bryan MD Final Result * SCAN - LABS (12/06/2024 2:13 AM ACQUISITION MARKETING MANAGER) Armond Bryan MD Final Result * [employer] Results (11/26/2024 8:57 AM ACQUISITION MARKETING MANAGER) Provider Scanning AUDIOLOGY SERVICES ORDERABLES Final Result * Lipase (11/22/2024 2:45 PM ACQUISITION MARKETING MANAGER) Lipase 87 10 - 99 Units/L Blood 11/22/2024 2:45 PM ACQUISITION MARKETING MANAGER 11/22/2024 2:45 PM ACQUISITION MARKETING MANAGER Ada Nieto MOLDER MEAT LAB BLOOD ORDERABLES Final Re sult Performing Organization Address [facility] Co de Phone Number [place] [address] [address] [facility] [place] [address] * (ABNORMAL) Amylase (11/22/2024 2:45 PM ACQUISITION MARKETING MANAGER) Amylase 105(H) 30 - 99 Units/L Blood 11/22/2024 2:45 PM ACQUISITION MARKETING MANAGER 11/22/2024 2:45 PM ACQUISITION MARKETING MANAGER Ada Nieto MOLDER MEAT LAB BLOOD ORDERABLES Final Re sult Performing Organization Address [facility] de Phone Number [place] [address] [address] [facility] [place] [address] * Urinalysis reflex to microscopic and culture Urine (11/22/2024 2:30 PM ACQUISITION MARKETING MANAGER) Color, ur Straw Yellow Clarity, ur Clear Clear [facility] Specific gravity, ur 1.008 1.003 - 1.030 [facility] pH, urine 6.0 [facility] Comment: Interpretive Data U rine pH is affected by diet, medications, systemic acid-base disturbances, and renal tubular function. pH may affect urinary stone formation. For example, urine pH below 6.0 may help reduce the tendency for calcium phosphate stones and pH greater than 6.0 may reduce the tendency for uric acid stone formation. Source: [facility] Current Interpretive Data was last revised [...] for microscopic UA and culture not met. [facility] Urine 11/22/2024 2:30 PM ACQUISITION MARKETING MANAGER 11/22/2024 2:39 PM ACQUISITION MARKETING MANAGER us Ada Nieto NP LAB MICROBIOLOGY - GENERAL OR DERABLES [place] [address] [address] Department [place] [address] * SCAN - RADIOLOGY/IMAGING (11/22/2024 9:45 AM ACQUISITION MARKETING MANAGER) Anatomical Region Laterality Modality Other us Ada Nieto NP Final Result * SCAN - RADIOLOGY/IMAGING (11/22/2024 9:39 AM ACQUISITION MARKETING MANAGER) Anatomical Region Laterality Modality Other us Ada Nieto NP Final Result * SCAN - RADIOLOGY/IMAGING (11/22/2024 8:50 AM ACQUISITION MARKETING MANAGER) Anatomical Region Laterality Modality Other us Ada Nieto NP Final Result * eGFR (11/16/2024 11:39 AM ACQUISITION MARKETING MANAGER) eGFR >90 >=60 mL/min/1. 73 m2 Comment: [...] reviewed 2021. Blood 11/16/2024 11:3 9 AM ACQUISITION MARKETING MANAGER 11/16/2024 12:24 PM ACQUISITION MARKETING MANAGER us Ada Nieto MOLDER MEAT LAB BLOOD ORDERABLES Final Re sult [facility] Department [place] [address] * Differential, auto (11/16/2024 11:39 AM ACQUISITION MARKETING MANAGER) Neutrophil abs 6.1 1.5 - 6.5 K/cumm Imm gran abs 0.1 0.0 - 0.1 K/cumm [facility] Lymphocyte abs 1.3 0.8 - 3.3 K/cumm [facility] Monocyte abs 0.4 0.2 - 0.8 K/cumm [facility] Eosinophil abs 0.1 0.0 - 0.5 K/cumm [facility] [facility] Basophil abs 0.1 0.0 - 0.1 K/cumm [facility] Neutrophil pct 75.8 % [facility] Comment: Interpretive Data Percent cell count reference ranges are not reported, since discordance with absolute values may lead to misinterpretation of CBC data. Current Interpretive Data was last revised on 2018. Imm gran pct 1.0 % [facility] Comment: Interpretive Data Percent cell count reference ranges are not reported, since discordance with absolute values may lead to misinterpretation of CBC data. Current Interpretive Data was last revised on 2018. Lymphocyte pct 16.3 % [facility] Comment: Interpretive Data Percent cell count reference ranges are not reported, since discordance with absolute values may lead to misinterpretation of CBC data. Current Interpretive Data was last revised on 2018. Monocyte pct 4.5 % [facility] Comment: Interpretive Data Percent cell count reference ranges are not reported, since discordance with absolute values may lead to misinterpretation of CBC data. Current Interpretive Data was last revised on 2018. Eosinophil pct 1.6 % [facility] Comment: Interpretive Data Percent cell count reference ranges are not reported, since discordance with absolute values may lead to misinterpretation of CBC data. Current Interpretive Data was last revised on 2018. Basophil pct 0.8 % [facility] Comment: Interpretive Data Percent cell count reference ranges are not reported, since discordance with absolute values may lead to misinterpretation of CBC data. Current Interpretive Data was last revised on 2018. Blood 11/16/2024 11:3 9 AM ACQUISITION MARKETING MANAGER 11/16/2024 12:10 PM ACQUISITION MARKETING MANAGER Ada Nieto MOLDER MEAT LAB BLOOD ORDERABLES Final Re sult [facility] Department [place] [address] * (ABNORMAL) Urinalysis reflex to microscopic and culture Urine (11/16/2024 11:39 AM ACQUISITION MARKETING MANAGER) Color, ur Straw Yellow Clarity, ur Clear Clear [facility] Specific gravity, ur 1.021 1.003 - 1.030 [facility] pH, urine 7.0 [facility] Comment: Interpretive Data U rine pH is affected by diet, medications, systemic acid-base disturbances, and renal tubular function. pH may affect urinary stone formation. For example, urine pH below 6.0 may help reduce the tendency for calcium phosphate stones and pH greater than 6.0 may reduce the tendency for uric acid stone formation. Source: [facility] [employer] Current Interpretive Data was last revised on 2017 Protein, ur ql Trace Negative [facility] Glucose, ur ql Negative Negative [facility] Ketones, ur Negative Negative [facility] Bilirubin, ur Negative Negative [facility] Blood, ur Negative Negative [facility] Urobilinogen, ur <2.0 <2.0 mg/dL [facility] Nitrite, ur Negative Negative [facility] Leukocyte esterase, ur 1+(A) Negative [facility] UA reflex comment Reflex to microscopic UA will be performed. [facility] Urine 11/16/2024 11:3 9 AM ACQUISITION MARKETING MANAGER 11/16/2024 12:10 PM ACQUISITION MARKETING MANAGER us Ada Nieto MOLDER MEAT LAB MICROBIOLOGY - GENERAL OR DERABLES Final Result Performing Organization Address [facility] Co de Phone Number [facility] Department [place] [address] * (ABNORMAL) CBC with auto differential (11/16/2024 11:39 AM ACQUISITION MARKETING MANAGER) WBC 8.0 3.8 - 9.9 K/cumm Hgb 11.4(L) 11.9 - 15.5 g/dL [facility] Hct 35.2(L) 35.6 - 45.5 % [facility] Plt 291 150 - 400 K/cumm [facility] MPV 10.6 9.1 - 12.3 fL [facility] RBC 3.98 3.90 - 5.20 M/cumm [facility] MCV 88.4 81.3 - 96.4 fL [facility] MCH 28.6 27.1 - 33.3 pg [facility] MCHC 32.4 32.3 - 35.7 g/dL [facility] RDW CV 14.0 11.1 - 14.9 % [facility] RDW SD 45.4 35.7 - 48.1 fL [facility] NRBC abs 0.00 0.00 - 0.01 K/cumm [facility] Blood 11/16/2024 11:3 9 AM ACQUISITION MARKETING MANAGER 11/16/2024 12:10 PM ACQUISITION MARKETING MANAGER us Ada Nieto MOLDER MEAT LAB BLOOD ORDERABLES Final Re sult Performing Organization Address City/[facility]/ZIP Co de Phone Number [facility] Department [place] [address] * (ABNORMAL) Urinalysis, microscopic only (11/16/2024 11:39 AM ACQUISITION MARKETING MANAGER) WBC, ur 6-10(A) 0 - 5 /HPF RBC, ur 3-5(A) 0 - 2 /HPF [facility] Epithelial cells, squamous, ur 6-10(A) 0 - 5 /HPF [facility] Comment:Suggestive of contam ination. Consider recollection by clean catch. Epithelial cells, renal, ur 1-5(A) 0 - 0 /HPF [facility] Mucous, ur Present(A) [facility] Culture Reflex Comment Reflex conditions for urine culture (WBC >10) not met. [facility] Urine 11/16/2024 11:3 9 AM ACQUISITION MARKETING MANAGER 11/16/2024 12:10 PM ACQUISITION MARKETING MANAGER Ada Nieto MOLDER MEAT LAB URINE ORDERABLES Final Re sult Performing Organization Address [facility] Co de Phone Number [facility] Department [place] [address] * Lipase (11/16/2024 11:39 AM ACQUISITION MARKETING MANAGER) Pathologist [facility] Lipase 77 10 - 99 Units/L Blood 11/16/2024 11:3 9 AM ACQUISITION MARKETING MANAGER 11/16/2024 12:10 PM ACQUISITION MARKETING MANAGER Ada Nieto MOLDER MEAT LAB BLOOD ORDERABLES Final Re sult Performing Organization Address City/[facility]/ZIP Co de Phone Number [facility] [place] [address] * (ABNORMAL) Amylase (11/16/2024 11:39 AM ACQUISITION MARKETING MANAGER) Pathologist [facility] Amylase 102(H) 30 - 99 Units/L Blood 11/16/2024 11:3 9 AM ACQUISITION MARKETING MANAGER 11/16/2024 12:10 PM ACQUISITION MARKETING MANAGER us Ada Nieto MOLDER MEAT LAB BLOOD ORDERABLES Final Re sult Performing Organization Address [facility]/ZIP Co de Phone Number [facility] Department [place] [address] * Comprehensive metabolic panel (11/16/2024 11:39 AM ACQUISITION MARKETING MANAGER) Sodium 142 135 - 145 mmol/L Potassium, pl 3.8 3.3 - 4.9 mmol/L [facility] Chloride 105 97 - 110 mmol/L [facility] CO2 29 22 - 32 mmol/L [facility] Anion gap 8 2 - 15 mmol/L [facility] BUN 11 6 - 25 mg/dL [facility] Creatinine 0.63 0.60 - 1.10 mg/dL [facility] Glucose 94 70 - 199 mg/dL [facility] Comment: Interpretive Data Fasting glucose >/= [...] Calcium 9.0 8.5 - 10.3 mg/dL [facility] Bilirubin, total 0.5 0.1 - 1.2 mg/dL [facility] Protein, pl 6.8 6.5 - 8.5 g/dL [facility] Albumin 4.1 3.5 - 5.0 g/dL [facility] Alk phos 41 40 - 130 Units/L [facility] ALT 11 7 - 45 Units/L [facility] AST 19 10 - 45 Units/L [facility] Blood 11/16/2024 11:3 9 AM ACQUISITION MARKETING MANAGER 11/16/2024 12:10 PM ACQUISITION MARKETING MANAGER us Ada Nieto MOLDER MEAT LAB BLOOD ORDERABLES Final Re sult Performing Organization Address [facility]/State/ZIP Co de Phone Number [facility] Department [place] [address] from Last 3 Months Insurance MEDICARE [facility] MEDICARE [facility] MEDICARE [facility] IDPA Advance Directives For more information, please contact: [phone] * Full Code (Latest Code Status on File) Date Activated Date Inactivated Comments 07/14/2022 3:56 PM 07/17/2022 3:47 PM Care Teams Supervisor Mixing Relationship Specialty Start Date End Date Armond Bryan MD [address] [address] PCP - General Internal Medicine 05/19/21 Armond Bryan MD [address] [address] 01/29/21 [place] [address] [address] Consulting Physician Endocrinology Diabetes & Metabolism 11/09/18 [place] [address] [address] [address] Referring Physician Gastroenterology 07/05/22 Bebeto Pavon MD [address] [facility] [phone] [place] [address] Surgeon Colon and Rectal Surgery 07/06/22 Jeremy Byrd MD [address] [address] Referring Physician Obstetrics and Gynecology 07/28/22
--- OUTSIDE RECORDS SUMMARY | 2025-01-04 11:25 | XMS_ITS | Encounter Summary ---
Author Organization [facility] Address [address] [place] [address] Care Team Providers Care Mechanical Technical Service Specialist Name Role Phone Armond Bryan MD Unavailable [phone] Linda Hunter MD Unavailable Armond Bryan MD Primary Care Provider [phone] Solomon Garcia MD Unavailable [phone] Bebeto Pavon MD Unavailable [phone] Jeremy Byrd MD Unavailable [phone] Reason for Visit * Reason Comments Hospital Follow Up Reaction to tramadol Encounter Details Date Type Department Care Team (Late st Contact Info) Description 01/03/2025 12:30 PM CDT Office Visit [facility] [address] [facility] [address] [facility] [place] [id number] Armond Bryan MD [address] [facility] [address] [place], [place] [id number] Chest pain, unspecified type (Primary Dx); Serotonin syndrome; Pleuritic chest pain Social History [...] you are drinking? Patient does not drink 3 Q3: How often do you have si [...] on file Legal Sex Female 8:47 PM [employer]PER[employer] Gender Identity Not on file Sexual Orientation Not on file documented as of this encounter Last Filed Vital Signs Vital Sign Reading Time Taken Comments Blood Pressure 108/69 01/03/2025 12:38 PM CDT Pulse 98 01/03/2025 12:38 PM CDT Temperature - - Respiratory Rate - - Oxygen Saturation - - Inhaled Oxygen Concentration - - Weight 41.6 kg (91 lb 12.8 oz) 01/03/2025 12:38 PM CDT Height 154.9 cm (5' 1 ) 01/03/2025 12:38 PM CDT Body Mass Index 17.35 01/03/2025 12:38 PM CDT documented in this encounter Progress Notes * Armond Bryan MD - 01/03/2025 12:30 PM CDT Images from the original note were not included. Subjective/Objective Patient ID: Leydi East is a 39 y.o. female. Chief Complaint Hospital Follow Up (Reaction to tramadol) HPI Patient here for evaluation. Patient was in her usual state of health until she had a cholecystectomy and appendectomy. She had a relatively uneventful recovery, and was placed on tramadol post op. Unfortunately several days later she developed severe abdominal muscle pain, confusion. She has been home. Feeling better. However has epigastric pain, pain in the ribs. Some pleuritic pain. ? Sob No n/v Some constipation, better. Past Surgical History: Procedure Laterality Date BACK SURGERY 10/1999 Osorio rods COCHLEAR IMPLANT EAR SURGERY multiple HYSTERECTOMY MUSCLE BIOPSY 1988 RECTAL PROLAPSE REPAIR, RECTOPEXY 07/14/2022 Robotic ventral mesh rectopexy TYMPANOSTOMY TUBE PLACEMENT age 3 and 5 Family History Problem Relation Age of Onset No Known Problems Mother Hypertension Father Hyperlipidemia Father Diabetes type II Other Hypertension Other Stroke Other Breast cancer Other Colon cancer Maternal Great-Grandfather Anesthesia problems Neg Hx Immunization History Administered Date(s) Administered Influenza, Quadrivalent, Split, Preservative Free, Intramuscular 07/17/2022 Moderna SARS-CoV-2 Monovalent Vaccination (12+ YRS) 10/31/2020, 11/28/2020, 09/16/2021 Moderna Sars-cov-2 Bivalent Vaccine 50 Mcg/0.5 mL (12+ YRS)-Blue/Justice 08/23/2022 Pneumococcal Conjugate Pcv20 06/10/2023 Tdap 09/03/2013 Current Outpatient Medications Medication Sig atomoxetine (STRATTERA) 40 mg capsule Take 1 capsule (40 mg total) 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 cholecalciferol (VITAMIN D-3) 5,000 unit capsule Take 1 capsule (5,000 Units total) 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 citalopram (CeleXA) 40 mg tablet Take 1 tablet (40 mg total) by mouth every morning fludrocortisone 0.1 mg tablet TAKE 1 TABLET BY MOUTH DAILY folic acid (FOLVITE) 1 mg tablet TAKE 1 TABLET(1 MG) BY MOUTH EVERY MORNING ibuprofen (ADVIL,MOTRIN) 200 mg tab/cap Take 2 tablet/capsule (400 mg total) by mouth every 6 (six)hours as needed for pain loratadine (CLARITIN) 10 mg tablet Take 1 tablet (10 mg total) by mouth every morning methylphenidate ER (Concerta) 27 mg CR tablet Take 1 tablet (27 mg total) by mouth every morning mineral oil-chondrus oral emulsion 2.5 mL/5 mL Kondremul, take 1 tablespoon (15 ml dose) by moth 1-3 times daily as needed. pantoprazole DR (PROTONIX) 40 mg EC tablet TAKE 1 TABLET(40 MG) BY MOUTH TWICE DAILY polyethylene glycol (MIRALAX) 17 gram packet Take 1 packet (17 g total) by mouth daily predniSONE (DELTASONE) 2.5 mg tablet TAKE 2 TABLETS BY MOUTH TODAY AND 1 TABLET BY MOUTH THE NEXT DAY, CONTINUE ALTERNATING DOSE pregabalin (LYRICA) 150 mg capsule TAKE 1 CAPSULE(150 MG) BY MOUTH TWICE DAILY psyllium, aspartame, SF (METAMUCIL SF) 3.4 gram packet Take 1 packet by mouth daily Review of Systems Constitutional: Negative for appetite change, fatigue, fever and unexpected weight change. HENT: Negative for ear pain, hearing loss and sore throat. Eyes: Negative for visual disturbance. Respiratory: Negative for cough, shortness of breath and wheezing. Cardiovascular: Negative for chest pain, palpitations and leg swelling. Gastrointestinal: Negative for abdominal pain, anal bleeding, blood in stool, constipation, diarrhea, nausea and vomiting. Endocrine: Negative for cold intolerance, heat intolerance, polydipsia, polyphagia and polyuria. Genitourinary: Negative for dysuria and hematuria. Musculoskeletal: Negative for arthralgias, back pain and joint swelling. Skin: Negative for rash. Neurological: Negative for dizziness, weakness and headaches. Hematological: Negative for adenopathy. Does not bruise/bleed easily. Psychiatric/Behavioral: Negative for dysphoric mood. The patient is not nervous/anxious. Breast: Negative for tenderness and lump(s). Patient Vital Signs for the past 24 hrs: BP Pulse Height Weight 01/03/25 1238 108/69 98 154.9 cm (5' 1 ) 41.6 kg (91 lb 12.8 oz) Wt Readings from Last 3 Encounters: 01/03/25 41.6 kg (91 lb 12.8 oz) 11/22/24 43.1 kg (95 lb) 11/16/24 44.5 kg (98 lb) Physical Exam Assessment/Plan Diagnoses and all orders for this visit: Chest pain, unspecified type (R07.9) (Primary) - CT Chest W Contrast; Future - CBC with auto differential; Future - Comprehensive metabolic panel; Future - Amylase; Future - Lipase; Future - Urinalysis reflex to microscopic and culture Urine; Future Serotonin syndrome (G90.81) Assessment & Plan: Stable, will continue off tramadol Orders: - CBC with auto differential; Future - Comprehensive metabolic panel; Future - Amylase; Future - Lipase; Future - Urinalysis reflex to microscopic and culture Urine; Future Pleuritic chest pain (R07.81) Assessment & Plan: Check ct Orders: - CBC with auto differential; Future - Comprehensive metabolic panel; Future - Amylase; Future - Lipase; Future - Urinalysis reflex to microscopic and culture Urine; Future Labs No results found for: HGBA1C No results found for: POCCHOL No results found for: POCHDL No results found for: POCLDL No results found for: POCTRIG No results found for: A1C Lab Results Component Value Date CREATININE 0.63 11/16/2024 CREATININE 0.54 (L) 04/08/2023 CREATININE 0.53 (L) 07/15/2022 Lab Results Component Value Date COLORU Straw 11/22/2024 CLARITYU Clear 11/22/2024 GLUCOSEUR Negative 11/22/2024 BILIRUBINUR Negative 11/22/2024 KETONESU Negative 11/22/2024 SPECGRAVU 1.008 11/22/2024 BLOODUR Negative 11/22/2024 MICAH 5.0 06/19/2021 PROTUR Negative 06/19/2021 UROBILINOGEN <2.0 11/22/2024 POCURNITRITE Negative 06/19/2021 LOTNUMBER [id number] 07/14/2022 No follow-ups on file. Armond Bryan MD documented in this encounter Miscellaneous Notes * Assessment & Plan Note - Armond Bryan MD - 01/03/2025 1:30 PM CDT Associated Problem(s): Pleuritic chest pain Check ct * Assessment & Plan Note - Armond Bryan MD - 01/03/2025 1:29 PM CDT Associated Problem(s): Serotonin syndrome Stable, will continue off tramadol documented in this encounter Plan of Treatment Not on file documented as of this encounter Results * (ABNORMAL) Urinalysis reflex to microscopic and culture Urine (01/03/2025 3:10 PM CDT) Color, ur Yellow Yellow Clarity, ur Clear Clear [facility] Specific gravity, ur >1.042(H) 1.003 - 1.030 [facility] pH, urine 7.0 [facility] Comment: Interpretive Data U rine pH is affected by diet, medications, systemic acid-base disturbances, and renal tubular function. pH may affect urinary stone formation. For example, urine pH below 6.0 may help reduce the tendency for calcium phosphate stones and pH greater than 6.0 may reduce the tendency for uric acid stone formation. Source: [facility] Current Interpretive Data was last revised on 2017 Protein, ur ql Trace Negative [facility] Glucose, ur ql Negative Negative [facility] Ketones, ur 1+(A) Negative [facility] Bilirubin, ur Negative Negative [facility] Blood, ur Negative Negative [facility] Urobilinogen, ur <2.0 <2.0 mg/dL [facility] Nitrite, ur Negative Negative [facility] Leukocyte esterase, ur Negative Negative [facility] UA reflex comment Reflex conditions for microscopic UA and culture not met. [facility] Urine 01/03/2025 3:10 PM CDT 01/03/2025 3:50 PM CDT us Armond Bryan MD LAB MICROBIOLOGY - GENERAL OR DERABLES Final Result Performing Organization Address [facility] Co de Phone Number [facility] [place] [address] * (ABNORMAL) Lipase (01/03/2025 3:10 PM CDT) Lipase 235(H) 10 - 99 Units/L Blood 01/03/2025 3:10 PM CDT 01/03/2025 3:50 PM CDT us Armond Bryan MD LAB BLOOD ORDERABLES Final Re sult Performing Organization Address City/[facility]/ZIP Co de Phone Number [facility] [place] [address] * (ABNORMAL) Amylase (01/03/2025 3:10 PM CDT) Amylase 123(H) 30 - 99 Units/L Blood 01/03/2025 3:10 PM CDT 01/03/2025 3:50 PM CDT us Armond Bryan MD LAB BLOOD ORDERABLES Final Re sult [facility] [place] [address] * (ABNORMAL) Comprehensive metabolic panel (01/03/2025 3:10 PM CDT) [facility] Sodium 136 135 - 145 mmol/L Potassium, pl 3.9 3.3 - 4.9 mmol/L [facility] Chloride 100 97 - 110 mmol/L [facility] CO2 27 22 - 32 mmol/L [facility] Anion gap 9 2 - 15 mmol/L [facility] BUN 12 6 - 25 mg/dL [facility] Creatinine 0.50(L) 0.60 - 1.10 mg/dL [facility] Glucose 82 70 - 199 mg/dL [facility] [...] 2022. Calcium 8.6 8.5 - 10.3 mg/dL [facility] Bilirubin, total 3.0(H) 0.1 - 1.2 mg/dL [facility] Protein, pl 6.3(L) 6.5 - 8.5 g/dL [facility] Albumin 3.2(L) 3.5 - 5.0 g/dL [facility] Alk phos 1,280(H) 40 - 130 Units/L [facility] ALT 102(H) 7 - 45 Units/L [facility] AST 141(H) 10 - 45 Units/L [facility] Blood 01/03/2025 3:10 PM CDT 01/03/2025 3:50 PM CDT Armond Bryan MD LAB BLOOD ORDERABLES Final Re sult Performing Organization Address [facility] Co de Phone Number [facility] [place] [address] * (ABNORMAL) CBC with auto differential (01/03/2025 3:10 PM CDT) [facility] WBC 9.8 3.8 - 9.9 K/cumm Hgb 11.0(L) 11.9 - 15.5 g/dL [facility] Hct 33.8(L) 35.6 - 45.5 % [facility] Plt 501(H) 150 - 400 K/cumm [facility] MPV 10.7 9.1 - 12.3 fL [facility] RBC 3.94 3.90 - 5.20 M/cumm [facility] MCV 85.8 81.3 - 96.4 fL [facility] MCH 27.9 27.1 - 33.3 pg [facility] MCHC 32.5 32.3 - 35.7 g/dL [facility] RDW CV 15.0(H) 11.1 - 14.9 % [facility] RDW SD 47.7 35.7 - 48.1 fL [facility] NRBC abs 0.00 0.00 - 0.01 K/cumm [facility] Blood 01/03/2025 3:10 PM CDT 01/03/2025 3:50 PM CDT Armond Bryan MD LAB BLOOD ORDERABLES Final Re sult Performing Organization Address City/[facility]/ZIP Co de Phone Number [facility] One [facility] Department [place] [address] documented in this encounter Visit Diagnoses Diagnosis Chest pain, unspecified type- Primary Serotonin syndrome Other extrapyramidal disease and abnormal movement disorder Pleuritic chest pain Painful respiration documented in this encounter Care Teams Mechanical Technical Service Specialist Relationship Specialty Start Date End Date Armond Bryan MD [address] [facility] [address] [place] [address] PCP - General Internal Medicine 05/19/21 Armond Bryan MD [address] [facility] [address] [place] [address] 01/29/21 [place] [address] [facility] [address] [place] [address] Consulting Physician Endocrinology Diabetes & Metabolism 11/09/18 [place] [address] [facility] [address] [place] [address] Referring Physician Gastroenterology 07/05/22 Bebeto Pavon MD [address] [facility] [phone] [place] [address] Surgeon Colon and Rectal Surgery 07/06/22 Jeremy Byrd MD [address] [facility] [address] [place] [address] Referring Physician Obstetrics and Gynecology 07/28/22 documented as of this encounter
[2025-01-04 12:24] LABS: Basophils Absolute Auto 0.1 K/mm3 (0.0-0.1); Basophils Percent Auto 0.9 % (0.2-1.2); Eosinophils Absolute Auto 0.5 K/mm3 (0-0.3); Eosinophils Percent Auto 7.2 % (0-4.4); Hematocrit 33.2 % (37.0-47.0); Hemoglobin 10.6 g/dL (12.0-15.0); Immature Granulocyte Percent A 1.5 % (0-0.5); Lymphocytes Absolute Auto 2.83 K/mm3 (0.9-3.2); Lymphocytes Percent Auto 43.5 % (18.3-44.2); Mean Corpuscular HGB Conc 31.9 g/dl (32-36); Mean Corpuscular Hemoglobin 28.3 pg (26-34); Mean Corpuscular Volume 88.8 fl (80-100); Mean Platelet Volume 9.9 fl (7.4-10.4); Monocytes Absolute Auto 0.4 K/mm3 (0.1-0.6); Monocytes Percent Auto 6.3 % (2.6-8.5); Neutrophils Absolute Auto 2.6 K/mm3 (1.3-6.7); Neutrophils Percent Auto 40.6 % (45.5-73.1); Platelet Count Result 484 k/mm3 (150-375); Red Blood Count 3.74 M/mm3 (4.2-5.4); Red Cell Distribution Width 15.3 % (11.5-14.5); White Blood Count 6.5 K/mm3 (4.5-10.0)
[2025-01-04 12:39] LABS: Alanine Aminotransferase 119 U/L (6-35); Albumin Level 3.2 g/dL (3.5-5.1); Anion Gap 6 mmol/L (4-12); Aspartate Amino Transferase 161 U/L (14-36); Bilirubin,Total 3.4 mg/dL (0.2-1.3); Blood Urea Nitrogen 11 mg/dL (7-17); Calcium 8.3 mg/dL (8.4-10.2); Carbon Dioxide 30 mmol/L (22-30); Chloride 102 mmol/L (98-107); Estimated Glomerular Filt Rate > 60; Glucose 81 mg/dL (65-110); Lipase 858 U/L (23-300); Potassium 3.4 mmol/L (3.4-5.0); Sodium 138 mmol/L (137-145)
[2025-01-04 12:41] LABS: Alkaline Phosphatase 1225 U/L (38-126)
== END 2025-01-04 10:31 | disposition home or self-care (01) ==
PROVIDERS: PCP Internal Medicine; Visit Provider Surgery
DX: R10.9 Unspecified abdominal pain (principal); R74.8 Abnormal levels of other serum enzymes; Z90.49 Acquired absence of other specified parts of digestive tract
CPT/HCPCS: 36415; 76705; 78226; 80053; 83690; 85025; A9537

== ENCOUNTER 2025-07-24 12:32 | Outpatient (CLI) | payer MEDICARE, BC, MEDICAID, SELFPAY ==
--- NOTE | ~2025-07-24 | MM_ITS ---
EXAMINATION: MM screening gregg BI w giovanni HISTORY: Screening TECHNIQUE: Craniocaudal and mediolateral oblique 3-D tomosynthesis images were obtained and synthetic 2-D images were generated. CAD analysis was submitted and interpreted. COMPARISON: No prior mammogram is available for comparison at this institution. BREAST PARENCHYMAL COMPOSITION: The breasts are extremely dense, which lowers the sensitivity of mammography. FINDINGS: There is no evidence of suspicious mass, calcification, or architectural distortion to suggest malignancy in either breast. There has been no significant interval change. IMPRESSION: 1. No mammographic evidence of malignancy. Recommend routine screening mammography in one year. BI-RADS Category 1: Negative Reviewed, dictated and finalized at location Q. IMPRESSION: 1. No mammographic evidence of malignancy. Recommend routine screening mammogra phy in one year. BI-RADS Category 1: Negative
--- OUTSIDE RECORDS SUMMARY | 2025-07-24 14:13 | XMS_ITS | Clinical Summary ---
Author Organization [facility] Address [address] [place] [address] Care Team Providers Care Warehouse Team Member Name Role Phone Armond Bryan MD Unavailable [phone] Linda Hunter MD Unavailable Armond Bryan MD Primary Care Provider [phone] Solomon Garcia MD Unavailable [phone] Bebeto Pavon MD Unavailable [phone] Jeremy Byrd MD Unavailable [phone] Allergies Active Allergy Reactions Criticality Noted Date Comments Tramadol Other (See comments) 12/24/2024 Serotonin syndrome Reaction with celexa Medications predniSONE (DELTASONE) 2.5 mg tabletIndications: Chronic adrenal insufficiency TAKE 2 TABLETS BY MOUTH TODAY AND 1 TABLET BY MOUTH THE NEXT DAY, CONTINUE ALTERNATING DOSE 135 tablet 3 11/22/19 25 Active fludrocortisone 0.1 mg tabletIndications: Chronic adrenal insufficiency TAKE 1 TABLET BY MOUTH DAILY 90 tablet 3 11/22/19 25 Active Additional Information Patient taking differently: 0.1 mg oral Daily, TAKE 1 TABLET BY MOUTH DAILY, Reported on 06/26/2025 cholecalciferol (VITAMIN D-3) 5,000 unit capsuleIndications :Vitamin D Deficiency Take 1 capsule (5,000 Units total) by mouth early childhood assistant before breakfast 12 capsule 3 11/22/19 25 Active folic acid (FOLVITE) 1 mg tablet TAKE 1 TABLET(1 MG) BY MOUTH EVERY MORNING 90 tablet 3 01/15/20 25 Active acetaminophen (TYLENOL) 325 mg tablet Take 2 tablets (650 mg total) by mouth every 6 (six) hours as needed for pain or fever 01/18/20 25 Active loratadine (CLARITIN) 10 mg tablet Take 1 tablet (10 mg total) by mouth daily as needed for allergies Active mineral oil-chondrus oral emulsion 2.5 mL/5 mLIndications:cons tipation Take 15 mL by mouth daily Mix with metamucil and miralax and drink as a smoothie Active psyllium, aspartame, SF (METAMUCIL SF) 3.4 gram packet Take 1 packet by mouth daily Mix with kondremul and miralax and drink as a smoothie Active polyethylene glycol (MIRALAX) 17 gram packetIndications: constipation Take 1 packet (17 g total) by mouth daily Mix with kondremul and metamucil and drink as a smoothie Active mirtazapine (REMERON) 15 mg tablet 03/26/20 25 Active predniSONE (DELTASONE) 5 mg tablet 12/31/[address] (PROTONIX) 40 mg EC tablet TAKE 1 TABLET(40 MG) BY MOUTH TWICE DAILY 180 tablet 3 04/15/20 25 Active pregabalin (LYRICA) 75 mg capsule TAKE 1 CAPSULE(75 MG) BY MOUTH TWICE DAILY 60 capsule 2 06/11/20 25 Active ondansetron ODT (ZOFRAN-ODT) 4 mg disintegrating tabletIndications: Nausea and Vomiting Take 1 tablet (4 mg total) by mouth every 8 (eight) hours as needed for nausea or vomiting 20 tablet 06/27/20 25 Active oxyCODONE (ROXICODONE) 5 mg immediate release tabletIndications: Pain Take 1 tablet (5 mg total) by mouth every 6 (six) hours as needed for pain 12 tablet 06/27/20 25 Active methylphenidate ER (CONCERTA) 27 mg CR tablet Take 1 tablet (27 mg total) by mouth every morning 04/15/20 25 025 Discontin ued(Thera py completed ) Active Problems Problem Noted Date Diagnosed Date Nausea & vomiting 06/26/2025 Assessment & Plan (06/27/2025 10:36 AM CDT): Follow-up ERCP on 06/26 removed a stent and showed an open sphincterotomy. Right main hepatic duct stricture mildly improved; four 7 Fr stents placed. Patient admitted due to post-procedure abdominal pain and nausea, monitoring for pancreatitis, perforation, or infection. Plan: - Admit for observation; Watch for pancreatitis, bleeding, perforation, and cholangitis. - Start Zofran PRN for nausea - Dilaudid PRN for pain-- transitioned to oxycodone in anticipation of discharge - [facility] Assessment & Plan (06/26/2025 4:27 PM CDT): Follow-up ERCP on 06/26 removed a stent and showed an open sphincterotomy. Right main hepatic duct stricture mildly improved; four 7 Fr stents placed. Patient admitted due to post-procedure abdominal pain and nausea, monitoring for pancreatitis, perforation, or infection. Plan: - Admit for observation; Watch for pancreatitis, bleeding, perforation, and cholangitis. - Start Zofran PRN for nausea - Dilaudid PRN for pain - Will obtain CBC/CMP/Lipase - start [facility] Abdominal pain 06/26/2025 Assessment & Plan (06/27/2025 10:36 AM CDT): Follow-up ERCP on 06/26 removed a stent and showed an open sphincterotomy. Right main hepatic duct stricture mildly improved; four 7 Fr stents placed. Patient admitted due to post-procedure abdominal pain and nausea, monitoring for pancreatitis, perforation, or infection. Plan: - Admit for observation; Watch for pancreatitis, bleeding, perforation, and cholangitis. - Start Zofran PRN for nausea - Dilaudid PRN for pain-- transitioned to oxycodone in anticipation of discharge - [facility] Assessment & Plan (06/26/2025 4:27 PM CDT): Follow-up ERCP on 06/26 removed a stent and showed an open sphincterotomy. Right main hepatic duct stricture mildly improved; four 7 Fr stents placed. Patient admitted due to post-procedure abdominal pain and nausea, monitoring for pancreatitis, perforation, or infection. Plan: - Admit for observation; Watch for pancreatitis, bleeding, perforation, and cholangitis. - Start Zofran PRN for nausea - Dilaudid PRN for pain - Will obtain CBC/CMP/Lipase - start mIVF Chronic adrenal insufficiency 06/26/2025 Assessment & Plan (06/27/2025 10:36 AM CDT): Home medications: Fludrocortisone 0.1 daily and alternating doses of prednisone 2.5 and 5 mg daily She received stress dose steroids during the ERCP Plan: - Continue home fludrocortisone - Continue prednisone 5 mg daily for 3 days before switching back to her alternating dosage. Assessment & Plan (06/26/2025 4:27 PM CDT): Home medications: Fludrocortisone 0.1 daily and alternating doses of prednisone 2.5 and 5 mg daily She received stress dose steroids during the ERCP Plan: - Continue home fludrocortisone - Continue prednisone 5 mg daily for 3 days before switching back to her alternating dosage. History of biliary duct stent placement 04/22/20 Assessment & Plan (06/27/2025 10:36 AM CDT): Follow-up ERCP on 06/26 removed a stent and showed an open sphincterotomy. Right main hepatic duct stricture mildly improved; four 7 Fr stents placed. Patient admitted due to post-procedure abdominal pain and nausea, monitoring for pancreatitis, perforation, or infection. Plan: - Admit for observation; Watch for pancreatitis, bleeding, perforation, and cholangitis. - Start Zofran PRN for nausea - Dilaudid PRN for pain-- transitioned to [facility] Assessment & Plan (06/26/2025 4:27 PM CDT): Follow-up ERCP on 06/26 removed a stent and showed an open sphincterotomy. Right main hepatic duct stricture mildly improved; four 7 Fr stents placed. Patient admitted due to post-procedure abdominal pain and nausea, monitoring for pancreatitis, perforation, or infection. Plan: - Admit for observation; Watch for pancreatitis, bleeding, perforation, and cholangitis. - Start Zofran PRN for nausea - Dilaudid PRN for pain - Will obtain CBC/CMP/Lipase - start mIVF Protein-calorie malnutrition, moderate Hypokalemia 03/20/2025 Assessment & Plan (03/21/2025 11:36 AM CDT): Improving to 3.4 on 03/21 Level was 2.9 on 03/20, 3.1 on 03/19, 2.9 on 03/20 Likely due to poor PO Plan Replaced, improving Encouraged diet Follow with the PCP Assessment & Plan (03/20/2025 4:05 PM CDT): Level 2.9 on 03/20, 3.1 on 03/19, 2.9 on 03/20 Likely due to poor PO Plan Replace, then recheck K&Mg Fever 03/19/2025 Assessment & Plan (03/21/2025 11:36 AM CDT): Following ERCP with stent placement 03/18. Developed LUQ/epigastric abdominal pain. Concern for post ERCP cholangitis and possibly pancreatitis. Lipase slightly elevated -Bl Cx neg X 48 hrs -LFTs trending down Plan -will switch zosyn to PO cipro/metroX7 days per GI, meds sent to [facility] - D/c today, GI agreed -Encourage PO -Follow outpatient, GI will call patient to arrange Repeat ERCP in 3 months for stent exchange Assessment & Plan (03/20/2025 4:05 PM CDT): Following ERCP with stent placement 03/18. Developed LUQ/epigastric abdominal pain. Concern for post ERCP cholangitis and possibly pancreatitis. Lipase slightly elevated Plan - Follow Blood cultures for 48 hrs - Continue zosyn -Encourage PO -Diet liquid and advance as tolerated -GI consulted and following Assessment & Plan (03/19/2025 3:13 PM CDT): Presented with acute onset of fever and rigors after ERCP with stent placement yesterday. Later developed LUQ/epigastric abdominal pain. Concern for post ERCP cholangitis and possibly pancreatitis. Lipase slightly elevated Plan - Follow Blood cultures -Continue zosyn -IVF-NS at 75 mL/hr -Diet liquid and advance as tolerated -GI consulted and following Assessment & Plan (03/19/2025 5:48 AM CDT): Presented with acute onset of fever and rigors after ERCP with stent placement yesterday. Later developed LUQ/epigastric abdominal pain. Concern for post ERCP cholangitis and possibly pancreatitis. -Blood cultures collected -Add on lipase -Continue zosyn -IVF-NS at 75 mL/hr Fever of unknown origin 03/19/2025 Fever and chills 01/23/2025 Encounter for replacement of biliary stent 01/21 Severe malnutrition 01/11/2025 ADD (attention deficit disorder) 01/07/2025 Assessment & Plan (05/07/2025 11:08 AM CDT): Has upcoming appointment with Psychiatry Abdominal pain 01/04/2025 Assessment & Plan (03/21/2025 11:36 AM CDT): Resolved As noted above, concern for post ERCP pancreatitis +/- cholangitis Plan See fever Assessment & Plan (03/20/2025 7:51 AM CDT): As noted above, concern for post ERCP pancreatitis +/- cholangitis Plan See fever Assessment & Plan (03/19/2025 3:13 PM CDT): As noted above, concern for post ERCP pancreatitis +/- cholangitis Plan See fever Assessment & Plan (03/19/2025 5:48 AM CDT): As noted above, concern for post ERCP pancreatitis +/- cholangitis -Added on lipase -Biliary consult -IVF Bile leak 01/04/2025 Assessment & Plan (03/21/2025 11:36 AM CDT): Following cholecystectomy, required multiple ERCPs, most recent one 03/18 GI following, and recommended Repeat ERCP in 3 months for stent exchange Assessment & Plan (03/20/2025 4:05 PM CDT): Following cholecystectomy, required multiple ERCPs, most recent one 03/18 GI following Serotonin syndrome 01/03/2025 Assessment & Plan (01/03/2025 1:29 PM CDT): Stable, will continue off tramadol Pleuritic chest pain 01/03/2025 Assessment & Plan (01/03/2025 1:30 PM CDT): Check ct Cochlear implant in place 03/15/2024 Epigastric pain 01/29/2022 Assessment & Plan (05/07/2025 11:08 AM CDT): Much better. Appetite is good. Assessment & Plan (01/29/2022 9:48 AM CDT): Extensive evaluation. ? Functional bowel disease. To have follow up [employer] eval. ? Surgical eval for appendix Asymmetric SNHL (sensorineural hearing loss) 09/2019 Assessment & Plan (12/07/2019 5:25 PM DIRECTOR AUTOMOTIVE): Discussed options for left hearing loss. Consider CROS amplification. RTC annually. Deafness, mixed type 08/02/2016 Chronic adrenal insufficiency 09/19/2012 Overview (01/12/2017): Glucocorticoid deficiency Assessment & Plan (05/07/2025 11:07 AM CDT): Stable doing well Assessment & Plan (03/21/2025 8:19 AM CDT): -Continue fludrocortisone, prednisone -Consider stress dose steroids if decompensates Assessment & Plan (03/20/2025 7:51 AM CDT): -Continue fludrocortisone, prednisone -Consider stress dose steroids if decompensates Assessment & Plan (03/19/2025 7:51 AM CDT): -Continue fludrocortisone, prednisone -Consider stress dose steroids if decompensates Assessment & Plan (03/19/2025 5:48 AM CDT): -Continue fludrocortisone, prednisone -Consider stress dose steroids if decompensates Assessment & Plan (11/01/2023 3:49 PM DIRECTOR AUTOMOTIVE): Chronic, stable Continue prednisone and fludrocortisone Pt [...] issues Assessment & Plan (10/07/2022 2:14 PM DIRECTOR AUTOMOTIVE): Chronic problem, improving. Mom is now monitoring her medications closer (Leydi lives alone), and she also has a [...] fact. Assessment & Plan (10/14/2020 3:13 PM DIRECTOR AUTOMOTIVE): It is very important that you take your mediation every day, regularly . In situations of stress, either physical or psychological, the dose of the steroids should be doubled or tripled for a few days. In case of not tolerating oral intake , including vomiting , take injections of hydrocortisone as instructed. Have a medical alert bracelet or necklace stating you have Ge[place]'s disease and that you take steroids. In [...] sent. Assessment & Plan (11/14/2018 9:59 AM DIRECTOR AUTOMOTIVE): It is very important that you take your mediation every day, regularly . In situations of stress, either physical or psychological, the dose of the steroids should be doubled or tripled for a few days. In case of not tolerating oral intake , including vomiting , take injections of hydrocortisone as instructed. Have a medical alert bracelet or necklace stating you have Ge[place]'s disease and that you take steroids. In case of any extreme weakness, abdominal pain, diarrhea or dizziness, it is recommended for you to call an ambulance and proceed to the nearest emergency room. Assessment & Plan (11/15/2017 9:43 AM DIRECTOR AUTOMOTIVE): It is very important that you take your mediation every day, regularly . In situations of stress, either physical or psychological, the dose of the steroids should be doubled or tripled for a few days. In case of not tolerating oral intake , including vomiting , take injections of hydrocortisone as instructed. Have a medical alert bracelet or necklace stating you have [place]orgetown's disease and that you take steroids. In case of any extreme weakness, abdominal pain, diarrhea or dizziness, it is recommended for you to call an ambulance and proceed to the nearest emergency room. Vitamin D deficiency 09/16/2011 Overview (01/14/2017): VITAMIN D DEFICIENCY NOS Assessment & Plan (05/07/2025 11:07 AM CDT): Stable doing well Assessment & Plan (11/01/2023 3:48 PM DIRECTOR AUTOMOTIVE): Chronic, well controlled Update vit D Continue supplementation, as indicated Assessment & Plan (04/07/2023 4:47 PM CDT): Check 25 OH vit D Adjust dose of Ergocalciferol accordingly Assessment & Plan (01/08/2020 11:19 AM CDT): Continue current dose Will recheck in a few months Assessment & Plan (11/15/2017 9:43 AM DIRECTOR AUTOMOTIVE): Check 25 OH vit D Adjust dose of Ergocalciferol accordingly Resolved Problems Problem Noted Date Diagnosed Date Resolved Date Postoperative state 07/28/2022 02/16/20 Intramural and subserous leiomyoma of uterus 2 02/15/2023 Rectal prolapse 07/06/2022 02/15/2023 Overview (07/06/2022): Added automatically from request for surgery [id number] Cholesteatoma of left ear 01/29/2022 Impacted cerumen 08/02/2016 2022 Otitis media 07/29/2014 2022 Encounters Date Type Department Care Team Description 06/26/2025 8:30 AM CDT Anesthesia Event [facility] Dig[facility] [place] [address] [facility] [address] [place] [id number] Omaira Espinoza MD McKinney, Kenya W., OB SCRUB TECH 06/26/2025 8:30 AM CDT - 06/26/2025 9:30 AM CDT Surgery [facility] Disease [place] [id number] [address] [address] Vicente Edgar MD ENDO ENDOSCOPIC RETROGRADE CHOLANGIOPANCREATOGRAPHY REMOVE/CHANGE STENT 06/26/2025 7:28 AM CDT - 06/27/2025 11:04 AM CDT Hospital Encounter [facility] [address] [place] [address] Vicente Edgar MD Hoyt, Thomas William, MD Brinkmeier, Matthew A., MD History of biliary duct stent placement Discharge Disposition: Discharge to home or self care 06/18/2025 11:00 AM CDT Office Visit [facility] [address] [place] [phone] Armond Bryan MD Visit for screening mammogram (Primary Dx); Attention deficit hyperactivity disorder (ADHD), unspecified ADHD type; Bile leak; History of biliary duct stent placement; Chronic adrenal insufficiency 05/07/2025 10:00 AM CDT Office Visit [facility] [address] [place] [phone] Armond Bryan MD Chronic adrenal insufficiency (Primary Dx); Vitamin D deficiency; Epigastric pain; Attention deficit hyperactivity disorder (ADHD), unspecified ADHD type from Last 3 Months Immunizations Immunization Administration Dates Next Due Influenza, Quadrivalent, Spl it, Preservative Free, Intramuscular 07/29/2023,07/17/2022 Influenza, Trivalent, Preser vative Free, Intramuscular 07/24/2024 Pneumococcal Conjugate Pcv20 06/10/2023 Sars-cov-2 Covid-19 Nabila, Lakhwinder herrera, Original/omicron Ba.1, A 09/16/2021,11/28/2020,10/31/2020 Tdap 09/03/2013 Surgical History Surgery Date Site/Laterality Comments BACK SURGERY 10/10/1999 - 11/09/1999 Osorio rods TYMPANOSTOMY TUBE PLACEMENT age 3 and 5 EAR SURGERY multiple MUSCLE BIOPSY 10/10/1988 - 10/09/1989 RECTAL PROLAPSE REPAIR, RECTOPEXY 07/14/2022 Robotic ventral mesh rectopexy HYSTERECTOMY COCHLEAR IMPLANT CHOLECYSTECTOMY 12/18/2024 IMAGE GUIDED DRAINAGE PERITONEAL OR RETROPERITONEAL FLUID COLLECTION 01/05/2025 N/A TYMPANOPLASTY 2018 COLON SURGERY jul 2023 COCHLEAR IMPLANT REVISION ERCP APPENDECTOMY UPPER GASTROINTESTINAL ENDOSCOPY COLONOSCOPY Medical History Medical History Date Comments Kidney stones Adhd GERD (gastroesophageal reflu x disease) Scoliosis Osorio Rods 10/2001 Covid-19 03/31/2022 Epilepsy (HCC) Seizures (HCC) Allergic rhinitis seasonal HL (hearing loss) approximately 4 yrs ADD (attention deficit disorder) 01/07/2025 Asymmetric SNHL (sensorineur al hearing loss) 11/21/2018 Cholesteatoma of left ear 02/24/2022 Added automatically from request for surgery [id number] Chronic adrenal insufficiency 09/19/2012 Gl ucocorticoid deficiency Cochlear implant in place 03/15/2024 Deafness, mixed type 08/02/2016 Intramural and subserous leiomyoma of uterus 2022 Otitis media 07/29/2014 Serotonin syndrome 01/03/2025 Vitamin D deficiency 09/16/2011 VITAMIN D D EFICIENCY NOS Autoimmune disease tomasa disease Nausea & vomiting 06/26/2025 Family History Medical History Relation Name Comments [...] Not Answered Alcohol Use Standard Drinks/Week Comments Never 0 (1 standard drink = 0.6 oz pur e alcohol) [facility] Utilities Answer Date Recorded In the past 12 months has th e electric, gas, oil, or water company threatened to shut off services in your home? No 03/20/2025 Social Connection and Isolation Panel Answer Date Recorded In a typical week, how many times do you talk on the phone with family, friends, or neighbors? More than three times a week 03/20/2025 How often do you get togethe r with friends or relatives? More than three times a week 03/20/2025 How often do you attend chur ch or congregational services? 1 to 4 times per year 03/20/2025 Do you belong to any clubs o r organizations such as methodist groups, unions, fraternal or athletic groups, or school groups? Patient declined 03/20/2025 How often do you attend meet ings of the clubs or organizations you belong to? Patient declined 03/20/2025 Are you , , di vorced, , never , or living with a partner? Never 03/20/2025 Overall Financial Resource Strain (CARDIA) Answe r Date Recorded How hard is it for you to pa y for the very basics like food, housing, medical care, and heating? Not hard at all 03/20/2025 PHQ-2 Answer Date Recorded PHQ-2 Total Score (If total score is 3 or more points, staff should administer the PHQ-9) 0 06/26/2025 Hunger Vital Sign Answer Date Recorded Within the past 12 months, y ou worried that your food would run out before you got the money to buy more. Never true 03/20/20 25 Within the past 12 months, t he food you bought just didn't last and you didn't have money to get more. Never true 03/20/2025 PRAPARE - Transportation Answer Date Re corded In the past 12 months, has l ack of transportation kept you from medical appointments or from getting medications? No 03/10 In the past 12 months, has l ack of transportation kept you from meetings, work, or from getting things needed for daily living? No 03/20/2025 PHQ-9 Answer Date Recorded PHQ-9 Total Score 0 06/26/2025 Housing Stability Vital Sign Answer David e Recorded In the last 12 months, was t here a time when you were not able to pay the mortgage or rent on time? No 03/20/2025 In the past 12 months, how m any times have you moved where you were living? 0 03/20/2025 At any time in the past 12 m [facility], were you homeless or living in a retirement (including now)? No 03/20/2025 AUDIT-C Answer Date Recorded Q1: How often do you have a drink containing alcohol? Never 06/26/2025 Q2: How many drinks containi ng alcohol do you have on a typical day when you are drinking? Patient does not drink Q3: How often do you have si x or more drinks on one occasion? Never 06/26/2025 Personal Safety Answer Date Recorded Have you ever been in or are you currently in a harmful physical or emotional relationship or is someone making you feel afraid or unsafe? Denies 06/26/2025 Comments No Sex and Gender Information Value Date Recorded Sex Assigned at Not on file Legal Sex Female 8:47 PM DIRECTOR AUTOMOTIVE Gender Identity Not on file Sexual Orientation Not on file Obstetrics History Para Term AB IAB SAB Ectopic Multiple Livin g Live Births 0 0 0 0 0 0 0 0 0 0 0 Last Filed Vital Signs Vital Sign Reading Time Taken Comments Blood Pressure 128/75 06/27/2025 9:10 AM CDT Pulse 76 06/27/2025 9:10 AM CDT Temperature 36.7 C (98.1 F) 06/27/2025 10:30 AM CDT Respiratory Rate 18 06/27/2025 9:10 AM CDT Oxygen Saturation 100% 06/27/2025 9:10 AM CDT Inhaled Oxygen Concentration - - Weight 39 kg (86 lb) 06/26/2025 3:45 PM CDT Height 154.9 cm (5' 1) 06/26/2025 3:45 PM CDT Body Mass Index 16.25 06/26/2025 3:45 PM CDT Plan of Treatment Health Maintenance Due Date Last Done Comments Breast Cancer Screening-Mammogram 1984 Hepatitis B Screening 2002 HPV Vaccines (1 - 3-dose SCD M series) 2011 DTaP/Tdap/Td Vaccine (2 - Td or Tdap) 09/03/2023 09/03/2013 Regular Well Visit/Exam 18-64 02/16/2024 02/15/2023 Covid-19 Vaccine (2024-2 6 season) 2025 07/14/2023, 08/23/2022, 09/16/2021, Additional history exists Influenza Vaccine (#1) 2025 , 07/29/2023, 07/17/2022 Depression Screening 04/22/2026 04/22/2025, 04/22/2025, 01/23/2025, Additional history exists Pneumococcal vaccine <65 Completed 06/10/2023 Hepatitis C Screening Completed 01/04/2025 Varicella Vaccines Discontinued Medical Devices Implanted Type Area Tool Or Die Drawing Checker Device Identifier Shelf Expiration Date Model / Serial / Lot [employer] Inc/C R Bard 6x3in Large Pore Knit Monofilament Smooth [place] [id number] - [id number] Implanted:Qty: 1 on 07/14/2022 by Bebeto Pavon MD at [facility] Mesh N/A: Pelvis [employer]/C R Bard [id number] 10/06/2026 [id number] / / [id number] [employer] Zimmon 7fr 4cm 170cm [employer] Sheets Supervisor Push Catheter Taper Tip 2 [id number] - [id number] Implanted:Qty: 1 on 06/26/2025 by Osmin Luna MD at [facility] Stent N/A: Bile Duct [employer] 11/13/2027 [id number] / / [id number] [employer] Zimmon 7fr 4cm 170cm [employer] Sheets Supervisor Push Catheter Taper Tip 2 [id number] - [id number] Implanted:Qty: 1 on 06/26/2025 by Vicente Edgar MD at [facility] Stent N/A: Bile Duct [employer] 12/14/2027 [id number] / / [id number] [employer] Zimmon 7fr 4cm 170cm [employer] Sheets Supervisor Push Catheter Taper Tip 2 [id number] - [id number] Implanted:Qty: 1 on 06/26/2025 by Osmin Luna MD at [facility] Stent N/A: Bile Duct [employer] 11/20/2027 [id number] / / [id number] [employer] Zimmon 7fr 4cm 170cm [employer] Sheets Supervisor Push Catheter Taper Tip 2 [id number] - [id number] Implanted:Qty: 1 on 06/26/2025 by Vicente Edgar MD at [facility] Stent N/A: Bile Duct [employer] 12/14/2027 [id number] / / [id number] Metal Back [employer]chlear [employer] Implant Cochlear Cochlear Nucleus Profile Plus Slim Modiolar Electrode [id number] - [id number] - [id number] Implanted:Qty: 1 on 08/15/2023 by Chirag Brito MD at [facility] [place] Left: [employer] [id number] 05/18/2025 [id number] / [id number] / Explanted Type Area Tool Or Die Drawing Checker Device Identifier Shelf Expiration Date Model / Serial / Lot [employer] Advanix 7fr 5cm Temporary Rapid Exchange 2 Pigtail Curve Stent [id number] - [id number] Explanted:Qty: 1 on 01/05/2025 by Vicente Edgar MD at [facility] Stent N/A: Bile Duct [employer] [id number] 12/20/2025 [id number] / / [id number] [employer] Advanix 7fr 7cm Rapid Exchange Temporary Taper Tip Thin Wall 2 [id number] - [id number] Explanted:Qty: 1 on 01/05/2025 by Vicente Edgar MD at [facility] Stent N/A: Bile Duct [employer] [id number] 12/29/2025 [id number] / / [id number] [employer] Stent Biliary 7fr 7cm [place] Temporary Rx Advanix [id number] - [id number] Implanted:Qty: 1 on 01/05/2025 by Vicente Edgar MD at [facility] Explanted:Qty: 1 on 01/14/2025 by Asher Rivera MD at [facility] Stent N/A: Bile Duct [employer] [id number] 02/13/2026 [id number] / / [id number] [employer] Viabil 8mm X 4cm Shortwire [id number] - [id number] Implanted:Qty: 1 on 01/05/2025 by Vicente Edgar MD at [facility] Explanted:Qty: 1 on 03/18/2025 at [facility] Stent N/A: Bile Duct [employer] [id number] / / [employer] Stent Biliary 7fr 7cm [place] Temporary Rx Advanix [id number] - [id number] Implanted:Qty: 1 on 01/14/2025 by Asher Rivera MD at [facility] Explanted:Qty: 1 on 03/18/2025 at [facility] N/A: Bile Duct [employer] 12/12/2026 [id number] / / [id number] [employer] Stent Biliary 7fr 7cm [place] Temporary Rx Advanix [id number] - [id number] Implanted:Qty: 1 on 01/14/2025 by Asher Rivera MD at [facility] Explanted:Qty: 1 on 03/18/2025 at [facility] N/A: Bile Duct [employer] 01/03/2026 [id number] / / [id number] [employer] 10fr 7cm Biliary Stent [id number] - [id number] Implanted:Qty: 1 on 03/18/2025 by Vicente Edgar MD at [facility] Explanted:Qty: 1 on 06/26/2025 by Osmin Luna MD at [facility] N/A: Bile Duct [employer] 11/14/2026 [id number] / / [id number] Procedures Procedure Name Priority Date/Time Associated Diagnosis Comments EGFR Routine 06/26/2025 8:59 PM CDT BASIC METABOLIC PANEL Routine 06/26/2025 8:59 PM CDT CBC WITHOUT DIFFERENTIAL Routine 06/26/2025 8:59 PM CDT EGFR Routine 06/26/2025 5:14 PM CDT LIPASE Routine 06/26/2025 5:14 PM CDT CBC WITHOUT DIFFERENTIAL Routine 06/26/2025 5:14 PM CDT COMPREHENSIVE METABOLIC PANEL Routine 06/26/2025 5:14 PM CDT FL ERCP BILIARY DUCT IP Routine 06/26/2025 12:33 PM CDT ERCP IP Routine 06/26/2025 9:03 AM CDT History of biliary duct stent placement ERCP IP Routine 06/26/2025 9:03 AM CDT History of biliary duct stent placement RAD S AND I BILIARY DUCTAL SYSTEM 06/26/2025 8:30 AM CDT History of biliary duct stent placement ERCP 06/26/2025 8:08 AM CDT COMPREHENSIVE METABOLIC PANEL Routine 06/18/2025 12:15 PM CDT Attention deficit hyperactivity disorder (ADHD), unspecified ADHD type Bile leak History of biliary duct stent placement Chronic adrenal insufficiency CBC WITH AUTO DIFFERENTIAL Routine 06/18/2025 12:15 PM CDT Attention deficit hyperactivity disorder (ADHD), unspecified ADHD type Bile leak History of biliary duct stent placement Chronic adrenal insufficiency HEPATITIS PANEL, ACUTE STAT 01/04/2025 8:44 PM CDT from Last 3 Months or Most Recently Relevant to Health Maintenance Results * eGFR (06/26/2025 8:59 PM CDT) eGFR >90 >=60 mL/min/1. 73 [...] interpretive data was last reviewed 2021. Blood 06/26/2025 8:59 PM CDT 06/26/2025 9:14 PM CDT us Vitor Mullen MD LAB BLOOD ORDERABLE S Final Result [facility] Department [place] [address] * (ABNORMAL) CBC without differential (06/26/2025 8:59 PM CDT) WBC 13.68(H) 3.80 - 9.90 K/cumm Hgb 8.8(L) 11.9 - 15.5 g/dL [facility] Hct 27.6(L) 35.6 - 45.5 % [facility] Plt 409(H) 150 - 400 K/cumm [facility] MPV 10.1 9.1 - 12.3 fL [facility] RBC 3.62(L) 3.90 - 5.20 M/cumm [facility] MCV 76.2(L) 81.3 - 96.4 fL [facility] MCH 24.3(L) 27.1 - 33.3 pg [facility] MCHC 31.9(L) 32.3 - 35.7 g/dL [facility] RDW CV 19.5(H) 11.1 - 14.9 % [facility] RDW SD 54.2(H) 35.7 - 48.1 fL [facility] NRBC abs 0.00 0.00 - 0.01 K/cumm [facility] Blood 06/26/2025 8:59 PM CDT 06/26/2025 9:15 PM CDT Vitor Mullen MD LAB BLOOD ORDERABLE S Final Result [facility] Department [place] [address] * (ABNORMAL) Basic metabolic panel (06/26/2025 8:59 PM CDT) [facility] Sodium 137 135 - 145 mmol/L Potassium, pl 3.8 3.3 - 4.9 mmol/L [facility] Chloride 103 97 - 110 mmol/L [facility] CO2 27 22 - 32 mmol/L [facility] Anion gap 7 2 - 15 mmol/L [facility] BUN 11 6 - 25 mg/dL [facility] Creatinine 0.47(L) 0.60 - 1.10 mg/dL [facility] Glucose 98 70 - 199 mg/dL [facility] Comment: Interpretive Data Fasting glucose [...] interpretive data was last revised 2022. Calcium 8.5 8.5 - 10.3 mg/dL [facility] Blood 06/26/2025 8:59 PM CDT 06/26/2025 9:14 PM CDT Vitor Mullen MD LAB BLOOD ORDERABLE S Final Result Performing Organization Address City/[facility]/ZIP Co de Phone Number [facility] Department [place] [address] * eGFR (06/26/2025 5:14 PM CDT) Pathologist [facility] eGFR >90 >=60 mL/min/1. 73 m2 Comment: [...] interpretive data was last reviewed 2021. Blood 06/26/2025 5:14 PM CDT 06/26/2025 5:43 PM CDT Vitor Mullen MD LAB BLOOD ORDERABLE S Final Result [facility] Department [place] [address] * (ABNORMAL) CBC without differential (06/26/2025 5:14 PM CDT) [facility] WBC 15.91(H) 3.80 - 9.90 K/cumm Hgb 9.7(L) 11.9 - 15.5 g/dL [facility] Hct 31.2(L) 35.6 - 45.5 % [facility] Plt 402(H) 150 - 400 K/cumm [facility] MPV 10.6 9.1 - 12.3 fL [facility] RBC 4.04 3.90 - 5.20 M/cumm [facility] MCV 77.2(L) 81.3 - 96.4 fL [facility] MCH 24.0(L) 27.1 - 33.3 pg [facility] MCHC 31.1(L) 32.3 - 35.7 g/dL [facility] RDW CV 19.2(H) 11.1 - 14.9 % [facility] RDW SD 53.3(H) 35.7 - 48.1 fL [facility] NRBC abs 0.00 0.00 - 0.01 K/cumm [facility] Blood 06/26/2025 5:14 PM CDT 06/26/2025 5:43 PM CDT Vitor Mullen MD LAB BLOOD ORDERABLE S Final Result Performing Organization Address [facility] Co de Phone Number [facility] Department [place] [address] * Lipase (06/26/2025 5:14 PM CDT) [facility] Lipase 95 10 - 99 Units/L Blood 06/26/2025 5:14 PM CDT 06/26/2025 5:43 PM CDT Vitor Mullen MD LAB BLOOD ORDERABLE S Final Result Performing Organization Address [facility] de Phone Number [facility] Department [place] [address] * (ABNORMAL) Comprehensive metabolic panel (06/26/2025 5:14 PM CDT) [facility] Sodium 142 135 - 145 mmol/L Potassium, pl 3.8 3.3 - 4.9 mmol/L [facility] Chloride 105 97 - 110 mmol/L [facility] CO2 25 22 - 32 mmol/L [facility] Anion gap 12 2 - 15 mmol/L [facility] BUN 11 6 - 25 mg/dL [facility] Creatinine 0.45(L) 0.60 - 1.10 mg/dL [facility] Glucose 98 70 - 199 mg/dL [facility] Comment: Interpretive Data Fasting glucose [...] interpretive data was last revised 2022. Calcium 8.7 8.5 - 10.3 mg/dL [facility] Bilirubin, total 0.5 0.1 - 1.2 mg/dL [facility] Protein, pl 6.7 6.5 - 8.5 g/dL [facility] Albumin 3.8 3.5 - 5.0 g/dL [facility] Alk phos 65 40 - 130 Units/L [facility] ALT 71(H) 7 - 45 Units/L [facility] AST 105(H) 10 - 45 Units/L [facility] Blood 06/26/2025 5:14 PM CDT 06/26/2025 5:43 PM CDT us Vitor Mullen MD LAB BLOOD ORDERABLE S Final Result [facility] Department [place] [address] * FL ERCP Biliary Duct (06/26/2025 12:33 PM CDT) Narrative [facility] - 06/26/2025 12:33 PM CDT The images from this study are not interpreted by Radiology. Please refer to the physician's procedure / OR operative note. us Vicente Edgar MD IMG FLUOROSCOPY AR OCEDURES Final Result [facility] * ERCP (06/26/2025 8:08 AM CDT) Anatomical Region Laterality Modality Other Narrative Procedure Note Vicente Edgar MD - 06/26/2025 8:08 AM CDT [facility] END[facility] Patient Name: Leydi East Procedure Date: 06/26/2025 8:08 AM Date of : 1985 Admit Type: Outpatient Age: 39 Gender: Female Attending MD: Vicente Edgar M.D., Room: [facility] ENDOSCOPY ROOM 1 Note Status: Finalized Procedure: ERCP Indications: Bile leak and duct injury following cholecystectomy (12/2024), subsequent stricture at site of leak inthe right hepatic duct Referring MD: Tripp Shaffer M.D., Armond Bryan M.D. Providers: Vicente Edgar M.D., Osmin Luna MD Comorbidities See the other procedure note for documentation of comorbidities Medicines: Monitored Anesthesia Care, Hydrocortisone 100 mg, Indomethacin 100 mg AR Complications: No immediate complications. Estimated blood loss: Minimal. Estimated Blood Loss: Estimated blood loss was minimal. Procedure: Pre-Anesthesia Assessment: - Prior to the procedure, a History and Physicalwas performed, and patient medications, allergies and sensitivities were reviewed. The patient'stolerance of previous anesthesia was reviewed. - The risks and benefits of the procedure and the sedation options and risks were discussed with the patient. All questions were answered and informed consent was obtained. - Immediately prior to administration ofmedications, the patient was re-assessed for adequacy to receive sedatives. The benefits, risks, and alternatives to theprocedure and sedation were discussed and informed consentwas obtained. The [id number] Duodenoscope wasintroduced through the mouth, and used to inject contrast into and used to inject contrast into the bile duct. The ERCP was accomplished without difficulty. Thepatient tolerated the procedure well. Findings: A credit underwriter film of the abdomen was obtained. A biliary stent, surgical clips at right upper quadrant, and metal hardware of the spine were seen. The esophagus was successfully intubated under direct vision without detailed examination of the pharynx, larynx, and associated structures, and upper GI tract. The upper GI tract was grosslynormal. One plastic stent originating in the common bile duct was emergingfrom the major papilla. A biliary sphincterotomy had been performed. The sphincterotomy appeared open. One stent was removed from the commonbile duct using a snare. A 0.025 inch x 450 cm angled Visiglide wire was passed into the biliary tree. The 12 mm balloon was passed over the guidewire and the bile duct was then deeply cannulated. Contrast was injected. I personally interpreted the bile duct images. Ductal flowof contrast was adequate. Image quality was adequate. Contrast extendedto the entire biliary tree. A balloon-occlusion cholangiogram was performed. The right main hepatic duct appeared to have a 5 mmstenosis that appears mildly improved compared to prior exam. The remainder of the biliary tree appeared normal and was without filling defects or stricture. To discover objects, the biliary tree was swept with a 12mm balloon starting at the right main hepatic duct; the balloon passed easily. Minimal sludge was swept from the duct. To address the right hepatic duct stricture, 3 plastic stents were placed. Three 7 Fr by 4cm plastic stents with a single external pigtail and a single internal pigtail were placed into the right hepatic duct. The stents were ingood position. A stent was placed into the left hepatic duct to ensure drainage around the right-sided stents. One 7 Fr by 4 cm plasticstent with a single external pigtail and a single internal pigtail wasplaced into the left hepatic duct. The stent was in good position. Contrast drained readily from the biliary tree. The endoscope was withdrawn. Impression: - One stent from the common bile duct was seen inthe major papilla; this was removed. Prior biliary sphincterotomy appeared open. - Cholangiogram re-demonstrates the right mainhepatic duct stricture, which is now mildly improvedcompared to prior. Four 7 Fr stents replaced to treatstricture. Recommendation: - Observe patient's clinical course followingtoday's ERCP with therapeutic intervention. - Watch for pancreatitis, bleeding, perforation,and cholangitis. - Clear liquid diet today, then advance astolerated. - Return to primary care physician as previously scheduled. - Repeat ERCP in 4 months for stent exchange,likely will need 8 month of stent dwell to maximize oddsof resolving the stricture. - In the unusual situation that you developabdominal pain, bleeding or other significant problems in the days following this procedure please call my officeat [phone] ([phone]) to speak to my nurses. After hours and evenings please call [phone] speak to the GI fellow environmental director. Please tell themthat Dr. Edgar did your procedure and that your were instructed to have the fellow call me or thephysician covering for me to discuss the management of your condition. If you have an urgent problem, please goto the nearest emergency room and have the ER doctorcall my office during the day or [facility] transfer ([phone]) center after hours and weekends to arrange admission or transfer to our facility. - During your procedure plastic stents were placed. The stent allows to keep the area open and allowfor fluid drainage. The stent that was place is meantto be used temporarily and requires close follow up to replace or remove. Failure to follow up in a timely manner may result in severe abdominal pain,jaundice, infection, pancreatitis or other seriouscomplications Attending Participation: I was present and participated during the entire procedure, including non-cardona portions. Electronically signed by Vicente Edgar MD Vicente Edgar M.D. 06/26/2025 9:24:12 AM . Number of Addenda: 0 Note Initiated On: 06/26/2025 8:08 AM us Vicente Edgar MD ENDOSCOPY PROCEDUR ES Final Result * (ABNORMAL) CBC with auto differential (06/18/2025 12:15 PM CDT) WBC 13.3(H) 3.5 - 10.0 K/uL [facility] RBC 4.01 3.50 - 5.50 M/uL [facility] Hemoglobin 9.9(L) 11.5 - 16.5 g/dL [facility] Hematocrit 29.2(L) 35.0 - 55.0 % [facility] MCV 72.7(L) 75.0 - 100.0 fL [facility] MCH 24.80(L) 25.00 - 35.00 pg [facility] MCHC 34.10 31.00 - 38.00 g/dL [facility] RDW 16.9(H) 11.0 - 16.0 % [facility] Platelets 359 140 - 400 K/uL [facility] MPV 9.2 8.0 - 11.0 fL [facility] Granulocyte, Absolute 11.2(H) 1.2 - 8.0 K/uL [facility] Lymphocyte, Absolute 1.5 0.5 - 5.0 K/uL [facility] Monocyte, Absolute 0.6 0.1 - 1.5 K/uL [facility] Granulocyte, Percentage 84.6(H) 35.0 - 80.0 % [facility] Lymphocyte, Percentage 11.9(L) 15.0 - 50.0 % [facility] Monocyte, Percentage 3.5 2.0 - 15.0 % [facility] Blood 06/18/2025 12:1 5 PM CDT 06/18/2025 12:27 PM CDT Armond Bryan MD LAB BLOOD ORDERABLES Final Re sult [facility] [address] [facility] [address] [place] [id number], [facility] * (ABNORMAL) Comprehensive metabolic panel (06/18/2025 12:15 PM CDT) [facility] Glucose 82 74 - 200 mg/dL [facility] BUN 12 6 - 20 mg/dL [facility] Creatinine 0.4(L) 0.7 - 1.3 mg/dL [facility] BUN/Creat Ratio 30 Ratio [facility] Bilirubin, Total 0.4 0.0 - 1.2 mg/dL [facility] AST (SGOT) 22 0 - 32 U/L [facility] ALT (SGPT) 15 10 - 35 U/L [facility] Alkaline phosphatase 62 35 - 104 U/L [facility] Calcium 9.2 8.6 - 10.0 mg/dL [facility] Sodium 135 135 - 145 mEq/L [facility] Potassium 4.1 3.5 - 5.1 mEq/L [facility] Chloride 101 98 - 107 mEq/L [facility] CO2 24.4 22.0 - 32.0 mEq/L [facility] Anion Gap 10 3 - 12 mEq/L [facility] Total Protein 6.2 6.0 - 8.1 g/dL [facility] Albumin 4.3 3.5 - 5.2 g/dL [facility] Globulin 1.9 g/dL [facility] Albumin/Globulin 2.3 Ratio [facility] eGFR 127.57 [facility] Blood 06/18/2025 12:1 5 PM CDT 06/18/2025 12:27 PM CDT Armond Bryan MD LAB BLOOD ORDERABLES Final Re sult [facility] [address] [facility] [address] [place] [id number], [place] * Hepatitis panel, acute Blood (01/04/2025 8:44 PM CDT) Hep A IgM Nonreactive Nonreactive Hep B core IgM Nonreactive Nonreactive [facility] Hep C Ab Nonreactive Nonreactive [facility] Comment:Antibodies to HCV no t detected. Does NOT exclude the possibility of recent exposure to HCV. Current interpretive data was last revised on 22 HepBsAg Nonreactive Nonreactive [facility] Blood 01/04/2025 8:44 PM CDT 01/04/2025 9:15 PM CDT us Kalyani Navarro MD LAB MICROBIOLOGY - G ENERAL ORDERABLES Final Result [facility] [place] [address] from Last 3 Months or Most Recently Relevant to Health Maintenance Insurance MEDICARE IDPA [facility] TRADITIONAL MEDICARE [facility] MEDICARE [employer] TRADITIONAL IDPA Advance Directives For more information, please contact: [phone] * Full Code (Latest Code Status on File) Date Activated Date Inactivated Comments 06/26/2025 3:48 PM 06/27/2025 3:09 PM * Full Code Date Activated Date Inactivated Comments 06/26/2025 7:45 AM 06/26/2025 3:48 PM * Full Code Date Activated Date Inactivated Comments 03/19/2025 5:18 AM 03/21/2025 4:08 PM * Full Code Date Activated Date Inactivated Comments 01/23/2025 8:57 PM 01/25/2025 5:42 PM * Full Code Date Activated Date Inactivated Comments 01/04/2025 10:58 PM 01/17/2025 9:12 PM Care Teams Warehouse Team Member Relationship Specialty Start Date End Date Armond Bryan MD PCP - General Internal Medicine 05/19/21 Armond Bryan MD 01/29/21 [place] [address] [address] Consulting Physician Endocrinology Diabetes & Metabolism 11/09/18 [place] [address] [facility] [address], [place] [address] Referring Physician Gastroenterology 07/05/22 Bebeto Pavon MD [address] [phone] [place] [address] Surgeon Colon and Rectal Surgery 07/06/22 Jeremy Byrd MD [address] [facility] [address] [address] Referring Physician Obstetrics and Gynecology 07/28/22
--- OUTSIDE RECORDS SUMMARY | 2025-07-24 14:13 | XMS_ITS | Encounter Summary ---
Author Organization [facility] Healthcare Address [address] [place] [address] Care Team Providers Care Software Reverse Engineer Name Role Phone Armond Bryan MD Unavailable [phone] Linda Hunter MD Unavailable Armond Bryan MD Primary Care Provider [phone] Solomon Garcia MD Unavailable [phone] Bebeto Pavon MD Unavailable [phone] Jeremy Byrd MD Unavailable [phone] Encounter Details Date Type Department Care Team (Late st Contact Info) Description 01/23/2025 Telephone [facility] Bed Planning [address] [place] [address] Josseline Wick, CAS Social History Tobacco Use Types Packs/Day Years Used Date Smoking Tobacco: Never Smokeless Tobacco: Never Alcohol Use Standard Drinks/Week Comments No 0 (1 standard drink = 0.6 oz pur e alcohol) [facility] Utilities Answer Date Recorded In the past 12 months has e electric, gas, oil, or water company threatened to shut off services in your home? No 01/24/2025 Social Connection and Isolation Panel Answer Date Recorded In a typical week, how many times do you talk on the phone with family, friends, or neighbors? Three times a week 01/24/2025 How often do you get togethe r with friends or relatives? More than three times a week 01/24/2025 How often do you attend chur ch or sabianism services? 1 to 4 times per year 01/24/2025 Do you belong to any clubs o r organizations such as restorationism groups, unions, fraternal or athletic groups, or school groups? Yes 01/24/2025 How often do you attend meet ings of the clubs or organizations you belong to? 1 to 4 times per year 01/24/2025 Are you , , di vorced, , never , or living with a partner? Never 01/24/2025 AUDIT-C Answer Date Recorded Q1: How often do you have a drink containing alc ohol? Never 01/06/2025 Average Number of Drinks Not on file 025 Frequency of Binge Drinking Not on file 12/10 Overall Financial Resource Strain (CARDIA) Answe r Date Recorded How hard is it for you to pa y for the very basics like food, housing, medical care, and heating? Not hard at all 01/24/2025 PHQ-2 Answer Date Recorded PHQ-2 Total Score 0 01/24/2025 Hunger Vital Sign Answer Date Recorded Within the past 12 months, y ou worried that your food would run out before you got the money to buy more. Never true 01/25/20 25 Within the past 12 months, t he food you bought just didn't last and you didn't have money to get more. Never true 01/24/2025 PRAPARE - Transportation Answer Date Re corded In the past 12 months, has l ack of transportation kept you from medical appointments or from getting medications? No 01/08 In the past 12 months, has l ack of transportation kept you from meetings, work, or from getting things needed for daily living? No 01/24/2025 Housing Stability Vital Sign Answer David e Recorded In the last 12 months, was t here a time when you were not able to pay the mortgage or rent on time? No 01/24/2025 In the past 12 months, how m any times have you moved where you were living? 0 01/24/2025 At any time in the past 12 m [facility], were you homeless or living in a senior care (including now)? No 01/24/2025 Personal Safety Answer Date Recorded Have you ever been in or are you currently in a harmful physical or emotional relationship or is someone making you feel afraid or unsafe? 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 difficile suspected 01/23/2025 01/24/202501/24 12:31 PM CDT documented as of this encounter Care Teams Software Reverse Engineer Relationship Specialty Start Date End Date Armond Bryan MD PCP - General Internal Medicine 05/19/21 Armond Bryan MD 01/29/21 [place] [id number] [address] Consulting Physician Endocrinology Diabetes & Metabolism 11/09/18 [place] [address] [address] Referring Physician Gastroenterology 07/05/22 Bebeto Pavon MD [phone] [place] [address] Surgeon Colon and Rectal Surgery 07/06/22 Jeremy Byrd MD [address] [facility] [address] [place], [place] [id number] Referring Physician Obstetrics and Gynecology 07/28/22 documented as of this encounter
--- OUTSIDE RECORDS SUMMARY | 2025-07-24 14:13 | XMS_ITS | Clinical Summary ---
Author Organization [facility] Address [address] [facility], [address] [address] Phone Care Team Providers Care Terra Cotta Mason Name Role Phone Armond Bryan MD Primary Care Provider [phone] Allergies No known active allergies Medications STRATTERA [...] 19+ 3-dose series) 2003 Pap Smear 2005 Human Papillomavirus (HPV) Immunization (1 - 3-dose SCDM series) 2011 Cervical Cancer Screening (CCS) 2014 HPV/Cotest 2014 Influenza Immunization (#1) 2025 SARS-COV-2 Immunization ( season) 2025 09/16/2021, 11/28/2020, 10/31/2020 Respiratory Syncytial Virus (RSV) Immunization (Adult) (1 [...] patient's age to complete this topic Insurance MEDICARE Care Teams Terra Cotta Mason Relationship Specialty Start Date End Date Armond Bryan MD PCP - General Internal Medicine 11/16/18
== END 2025-07-24 12:33 | disposition home or self-care (01) ==
PROVIDERS: PCP Internal Medicine; Visit Provider Internal Medicine
DX: Z12.31 Encounter for screening mammogram for malignant neoplasm of breast (principal)
CPT/HCPCS: 77063; 77067